=== PATIENT | female | born 1960 | race Caucasian/White ===

== ENCOUNTER 2017-05-05 09:10 | Day surgery (SDC) | payer MEDICAID, SELFPAY ==
[2017-05-05 09:36] VITALS: BP 180/82; PULSE 58; RESP 16; TEMP 36.2; O2SAT 95; BMI 50.5
--- NOTE | 2017-05-05 10:15 | RAD_ITS ---
STUDY: X-RAY/FLUOROSCOPY - THORACIC SPINE REASON FOR EXAM: Female, 56 years old. Thoracic nerve blocks. TECHNIQUE: Fluoroscopic assistance was provided to Dr. Lai. 4 intraprocedural fluoroscopic spot view(s) of the thoracic spine were obtained. COMPARISON: None. FINDINGS: 4 films demonstrate positioning of a needle such that its tip overlaps the pedicle of the respective vertebral level, on the same side. The levels are not marked, but based on the identifiable ribs, this may be blocked performed at T6-T9. RAD/Thoracic Spine 2 Views IMPRESSION: Fluoroscopic guidance for bilateral thoracic spinal nerve blocks, grossly T6-T9. Correlation with procedure notes advised. Electronically Signed: Edvin Palmer MD at 13:47 EDT , Service support ,
[2017-05-05] MEDS: Bupivacaine 0.25% 30 ML Vial (10:22)
[2017-05-05] MEDS: MethylPREDNISolone Acetate 80 MG/ML Vial (10:22)
[2017-05-05 10:35] VITALS: BP 128/78; BP 180/82; PULSE 61; RESP 16; TEMP 36.3; O2SAT 94
[2017-05-05 10:40] VITALS: BP 141/79; PULSE 55; RESP 16; O2SAT 94
[2017-05-05 10:45] VITALS: BP 138/85; PULSE 54; RESP 16; O2SAT 94
[2017-05-05 10:50] VITALS: BP 132/74; BP 180/82; PULSE 55; RESP 16; TEMP 36.2; O2SAT 94
--- NOTE | 2017-05-05 11:38 | PCM.OPRPT ---
Problem List (1) Thoracic degenerative disc disease Status: Chronic (2) Spondylosis without myelopathy or radiculopathy, thoracic region Status: Chronic Report of Operation Date of Procedure: 05/05/17 Pre-Operative Diagnosis: Thoracic spondylosis, thoracic degenerative disc disease, thoracic facet arthropathy Post-Operative Diagnosis: Thoracic spondylosis, thoracic degenerative disc disease, thoracic facet arthropathy Surgery/Procedure Performed:: Right sided thoracic facet steroid injection T4, T5, T6, T7 Description of Surgical Findings:: PROCEDURE: Right-sided thoracic facet steroid injection T4, T5, T6, T7 PREOPERATIVE DIAGNOSES: Thoracic spondylosis, thoracic degenerative disc disease, thoracic facet arthropathy POSTOPERATIVE DIAGNOSES: Thoracic spondylosis, thoracic degenerative disc disease, thoracic facet arthropathy ANESTHESIA: MAC COMPLICATIONS: None BLOOD LOSS: Minimal PROCEDURE IN DETAIL: History and physical today was reviewed. Risks and benefits of the procedure were explained. The patient understood, agreed to our procedure, and informed consent was obtained. IV inserted per routine protocol. The patient was taken to the operating room, placed in a prone position with a pillow positioned underneath the chest. The upper back area was prepped and draped in a sterile fashion using iodine ?3 under direct visualization fluoroscopy on AP view the T4 through T7 vertebral bodies are visualized the skin and subcutaneous tissue and size approximately 5 cc of 1% lidocaine using a 25-gauge regular needle under direct visualization fluoroscopy at approximately 15? angle starting on the right C4 ending on the right T7 passing through the T5-T6 using a 25-gauge 3-1/2 inch spinal needle the needle was advanced via the skin the tip of the needle's maneuver and directed towards the epiphyseal junction of each corresponding vertebra once the tip of the needle was at the vicinity of the medial branch and contact with the bone the needle pulled approximately 2 mm of the bone after negative aspiration for blood or CSF and confirmation of AP as well as oblique and lateral view a total of 6 cc of preservative-free 0.25% Marcaine with 80 mg of Depo-Medrol were injected in divided doses between those 4 levels. The needles were then removed intact. The patient experienced no signs or symptoms of intrathecal, intravascular injection. The patient experienced no paraesthesia. The procedure was completed without any apparent difficulty, any complication. The patient appeared to tolerate well. Sensory as well as motor exam was unchanged from prior to procedure. ASSESSMENT AND PLAN: This is a 56-year-old Female with thoracic spondylosis, thoracic degenerative disc disease, thoracic facet arthropathy status post right-sided thoracic facet steroid injection T4 through T7, the patient will continue her current medications. The patient will follow up in approximately 2 weeks fo reevaluation.
== END 2017-05-05 11:20 | disposition home or self-care (01) ==
LOC: SDC 09:12 → AC 09:13
PROVIDERS: Family Provider Preventive Medicine Occupational Medicine; PCP Preventive Medicine Occupational Medicine; Visit Provider Anesthesiology Pain Medicine
PROC: 3E0R3BZ Introduction of Anesthetic Agent into Spinal Canal, Percutaneous Approach (ICD-10-PCS; CPT 62281; principal; 2017-05-05 10:40)
DX: M47.814 Spondylosis without myelopathy or radiculopathy, thoracic region (principal); M51.34 Other intervertebral disc degeneration, thoracic region; M47.812 Spondylosis without myelopathy or radiculopathy, cervical region; M50.30 Other cervical disc degeneration, unspecified cervical region; M51.16 Intervertebral disc disorders with radiculopathy, lumbar region; M96.1 Postlaminectomy syndrome, not elsewhere classified; M47.27 Other spondylosis with radiculopathy, lumbosacral region; M79.1 Myalgia; F41.9 Anxiety disorder, unspecified; F32.9 Major depressive disorder, single episode, unspecified; I10 Essential (primary) hypertension; G47.33 Obstructive sleep apnea (adult) (pediatric); M79.7 Fibromyalgia; Z87.891 Personal history of nicotine dependence; Z79.82 Long term (current) use of aspirin; Z79.891 Long term (current) use of opiate analgesic; Z79.899 Other long term (current) drug therapy
CPT/HCPCS: 64491; 64492; 64490; 72070; J7120

== ENCOUNTER 2017-05-29 17:48 | Observation (INO) | payer MEDICAID, SELFPAY ==
[2017-05-29] VITALS (9 sets, daily range): BP systolic 139–177; BP diastolic 74–109; PULSE 64–78; RESP 12–20; TEMP 36.9–37.1; O2SAT 92–96; BMI 51.2; BMI 51.0; BMI 51.1
--- NOTE | 2017-05-29 18:04 | RAD_ITS ---
STUDY: X-RAY CHEST REASON FOR EXAM: Female, 56 years old. Chest pain TECHNIQUE: Single AP portable view of the chest. COMPARISON: None. FINDINGS: The lungs are clear and expanded. There is no demonstrated pleural abnormality. Normal size heart. Normal mediastinum and katelyn. Normal visualized pulmonary arteries. Normal visualized aortic arch and descending thoracic aorta. Normal visualized thoracic spine. Normal visualized ribs, clavicles, and shoulders. There is no demonstrated abnormality of the visualized soft tissue structures of the upper abdomen. RAD/Chest 1 View (Portable) IMPRESSION: Normal x-ray examination of the chest. Electronically Signed: Brian Pacheco DO at 18:36 EDT Tel , Service support ,
--- NOTE | 2017-05-29 18:04 | EKG12_ITS ---
Test Reason : SOB Blood Pressure : / mmHG Vent. Rate : 069 BPM Atrial Rate : 069 BPM P-R Int : 190 ms QRS Dur : 080 ms QT Int : 420 ms P-R-T Axes : 043 -41 053 degrees QTc Int : 450 ms Normal sinus rhythm Left axis deviation Inferior infarct , age undetermined Abnormal ECG Confirmed by STEPHANIE MINOR, ALBINA ([id number]), book or script editor LAWRENCE CANO ([id number]) on 06/03/2017 2:19:02 PM Referred By: TAMI Confirmed By:ALBINA BROWN MD
--- NOTE | 2017-05-29 18:05 | ED.VISSUMM ---
- ER Visit Summary Date of Service: 05/29/17 Chief Complaint: Shortness of breath, chest pain History of Present Illness: The patient is a 56 F presenting with shortness of breath, chest pain. She states that these symptoms have been worsening over the last couple of days. She has chest heaviness and shortness of breath which is worse with exertion. Denies diaphoresis or nausea. She has seen Dr. Sands who advised her he does not believe this is from her lungs and has ordered an echo for later in the month. She presented today due to worsening chest heaviness. She has a history of hypertension, chronic back pain, fibromyalgia. She is a previous smoker. No PE/DVT risk factors. Physical Examination: Vitals are stable. Patient is afebrile. Alert no acute distress. HEENT exam is unremarkable. Neck is supple. Lungs are clear and equal bilaterally. Heart is regular rate and rhythm. Abdomen is soft nontender nondistended. Extremities are unremarkable. Skin is warm and dry. No focal neurologic deficit. Remainder of exam is unremarkable. Emergency Department Course and Treatment: Patient was given aspirin on arrival. CBC, chemistries unremarkable other than creatinine 1.28. Troponin is negative. BNP is 50. EKG is sinus rate of 69 with no acute ischemic changes. Chest x-ray shows no acute process. Due to patient's exertional symptoms will discuss with the hospitalist for admission. Disposition: Observation Impression: Chest pain, dyspnea This note was generated with [employer] dictation software. It may contain incorrect words, spelling, and punctuation that were not noted in review of the chart prior to signing ED Disposition - Plan for ED Patient: Chief Complaint: Shortness of Breath Referrals: Joey Peters DO [Primary Care Provider] -
[2017-05-29 18:32] LABS: Absolute Lymphocyte Count 3.12 X10^3/ul (0.83-4.51); Absolute Neutrophil Count 2.7 X10^3/uL (2.0-7.7); Basophil# 0.01 X10^3/uL; Basophil% 0.2 % (0-1); Eosinophil# 0.11 X10^3/uL; Eosinophils% 1.7 % (0-5); Hematocrit 43.3 % (37-47); Hemoglobin 14.6 g/dl (12.0-15.0); Lymphocyte # 3.12 X10^3/ul (4.0); Lymphocyte % 48.7 % (19-41); Mean Corp Hgb Conc 33.7 g/gl (32-36); Mean Corpuscular Hgb 32.9 pg (27.0-32.0); Mean Corpuscular Volume 97.5 fL (81-99); Mean Platelet Vol. 9.8 fl (6.2-12.0); Monocyte# 0.49 X10^3/uL; Monocyte% 7.6 % (0-10); Neutrophil # 2.65 X10^3/uL (2.7-7.7); Neutrophil % 41.3 % (47-70); Platelet Count 214 K/mm3 (150-450); RBC Distribution Width CV 12.5 % (11.6-14.6); RBC Distribution Width SD 44.2 fl (35.1-43.9); Red Blood Count 4.44 M/mm3 (4.2-5.4); White Blood Count 6.4 K/mm3 (4.4-11.0)
[2017-05-29 18:33] LABS: POSITIVE COUNT NO; POSITIVE DIFFERENTIAL NO; POSITIVE MORPHOLOGY NO
[2017-05-29 18:48] LABS: Anion Gap 9 (5-15); BUN 15 mg/dL (7-18); BUN/Creat Ratio 11.7 RATIO (10-20); Calcium,Total 8.5 mg/dL (8.5-10.1); Chloride 103 mmol/L (98-107); Creatinine, Serum 1.28 mg/dL (0.55-1.02); EST Glomerular Filtration Rate 45 mL/min (>60); Est Glom Filt Rate - Afr Amer 55 mL/min (>60); Estimated Creatinine Clearance 39.63 ml/min; Glucose 112 mg/dL (74-106); Potassium 3.6 mmol/L (3.5-5.1); Sodium Level 141 mmol/L (136-145)
[2017-05-29] MEDS: Aspirin 81 MG TAB.CHEW 324 MG PO (18:49)
[2017-05-29 18:55] LABS: BNP,B-Type NATRIURETIC PEPTIDE 50.4 pg/mL (0-100)
--- NOTE | 2017-05-29 19:54 | PCM.HP.STD ---
Problem List (1) Anxiety and depression Status: Chronic (2) Chronic back pain Status: Chronic Qualifiers: Back pain location: thoracic back pain Back pain laterality: unspecified Qualified Code(s): M54.6 - Pain in thoracic spine; G89.29 - Other chronic pain (3) HTN (hypertension) Status: Chronic Qualifiers: Hypertension type: essential hypertension Qualified Code(s): I10 - Essential (primary) hypertension (4) Morbid obesity Status: Chronic (5) Exertional dyspnea Status: Acute (6) Thoracic degenerative disc disease Status: Chronic (7) Spondylosis without myelopathy or radiculopathy, thoracic region Status: Chronic (8) Chest pain Status: Acute Qualifiers: Chest pain type: unspecified Qualified Code(s): R07.9 - Chest pain, unspecified History of Present Illness Date of Admission: 05/29/17 Chief Complaint: Dyspnea The patient is a 56 y/o F w/ PMHx: HARRISON on q HS BIPAP, Morbid Obesity, History of Tobacco, Chronic back pain w/ Thoracic DDD w/ radiculopathy, Anxiety and Depression, HTN who presents to the [facility] ED on 05/29/17 with history of ongoing dyspnea, primarily with exertion for which she has been recently evaluated per Dr. Sands with unremarkable pulmonary work-up and pending ECHO as Dr. Sands noted possibly secondary to underlying heart etiology; however, she notes onset over the 2 days days chest tightness with the dyspnea, primarily again with exertion, mid-sternal without radiation without diaphoresis, nausea or emesis. In the ED work-up inclued T 98.4, HR 70, BP 139/74, RR 20, 96% on RA, unremarkable CBC, BMP w/ BUN/Cr 15/1.28, CrCl 39, glucose 112, trop < 0.02, BNP 50.4, CXR without acute process, EKG w/ SR without acute findings on ischemia. In the ED patient administered ASA in the ED. Past Medical History Past Medical History (Chronic Problems): Chronic Problems Thoracic degenerative disc disease (Chronic) Spondylosis without myelopathy or radiculopathy, thoracic region (Chronic) Anxiety and depression (Chronic) Chronic back pain (Chronic) HTN (hypertension) (Chronic) Morbid obesity (Chronic) Allergies adhesive Allergy (Verified 05/29/17 17:49) Hives Sulfa (Sulfonamide Antibiotics) Allergy (Verified 05/29/17 17:49) Rash Tetanus Vaccines and Toxoid [Tetanus Vaccines & Toxoid] Allergy (Verified 05/29/17 17:49) Swelling promethazine HCl [From Phenergan] Adverse Reaction (Verified 05/29/17 17:49) Vomiting Home Medications: Ambulatory Orders Medication Instructions Recorded ALPRAZolam [Xanax] 0.25 mg PO TID PRN PRN 03/26/13 Aspirin [Aspirin, Baby] 81 mg PO DAILY@0800 03/26/13 Atenolol [Tenormin (beta melany)] 50 mg PO QHS 03/26/13 Buspirone HCl [Buspar] 30 mg PO BID 03/26/13 Citalopram [Celexa] 40 mg PO DAILY 03/26/13 Meclizine HCl [Antivert] 25 mg PO 4X/DAY PRN PRN 03/26/13 Pregabalin [Lyrica] 100 mg PO BID 03/26/13 Biotin 5,000 mcg PO DAILY 05/19/14 Multivitamins,Ther W-Minerals 1 tablet PO DAILY 05/19/14 [Multivitamin With Minerals] Morphine Sulfate [Morphine Sulfate 15 mg PO Q12H 06/17/16 ER] Diclofenac Sodium [Voltaren] 0 gm TOPICAL PRN PRN 11/04/16 Triamterene 37.5MG/Hctz 25MG 1 tablet PO DAILY 11/04/16 [Maxzide 37.5 mg-25 mg Tablet] Krill Oil 500 mg PO DAILY 05/29/17 Oxycodone HCl/Acetaminophen 2 tablet PO Q12H PRN 05/29/17 [Percocet 10-325 mg Tablet] Tizanidine HCl [Tizanidine HCl] 0.5 - 1 tab PO TID 05/29/17 Surgical History: - - Tonsillectomy, uterine ablation, bilateral ear tube placement, right middle finger cyst removal, lip surgery bump removal, sinus surgery, L4-L5 microdiscectomy ?2. 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 Smoking Status: Former smoker - Quit approximate to 2.5 years prior, noted 1 ppd x 20 year history. Tobacco Use: Non-smoker Alcohol: None Drugs: None - *Family History Maternal History Items: - - Patient notes a maternal family history of diabetes and congestive heart failure. Paternal History Items: - - Patient has a paternal family history of mitral valve prolapse and her father's family with significant heart disease history including coronary disease. Review of Systems Constitutional: Reports: Fatigue. Denies: Chills, Fever, Weight Change HEENT: Denies: Head Aches, Sinus Congestion, Sinus Drainage Cardiovascular: Reports: Chest Pressure, Chest Tightness. Denies: Chest Pain, Heaviness, Light Headedness, Orthopnea, Palpitations, Syncope Respiratory: Reports: Shortness of Breath, Shortness of breath upon exertion. Denies: Cough, Shortness of breath at rest, Sputum production Gastrointestinal: Denies: Abdominal Pain, Nausea, Vomiting Genitourinary: Denies: Dysuria Musculoskeletal: Reports: Back Pain. Denies: Joint Pain, Joint Tenderness Skin: Denies: Rash, Wounds Neurological: Denies: Numbness, Tingling, Focal weakness Psychiatric: Reports: Anxiety, Depression. Denies: Homicidal Ideations, Suicidal Ideations Hematologic/ Lymphatic: Denies: Easy Bruising, Easy Bleeding VTE Information - Inpt Only VTE Present on Admission: No VTE Mechan Device Prophylaxis: SCD's VTE Pharm Prophylaxis ordered?: Yes Patient Problems: Active and Suspected Problems Exertional dyspnea (Acute) Chest pain (Acute) Subjective: Seated upright in the ED bed, talking on the phone initially, watching TV, no apparent distress. Objective: Physical Examination: General: awake, alert, oriented x 3 and cooperative, seated upright in the ED bed in no apparent distress. Skin: normal color, turgor, no icterus, cyanosis. HEENT: AT/NC, EOMI, PERRLA, MMM, no carotid bruits or JVD noted. Lungs: CTA bilaterally, moderate effort, mild decrease BL bases, no rales, ronchi or wheezing. Heart: Regular rate and rhythm; no gallop, rub audible. Abdomen: soft, morbidly obese, NTTP, ND, normal BS, no HSM; however, habitus makes examination difficult. Extremities: no cyanosis, clubbing, or edema. Neurological: patient awake, alert, oriented x 3; cognitive function intact; pupils equally reactive to light and accomodation; cranial nerves II-XII grossly normal, moving all 4 extremities, no focal deficits, strength mildly globally decreased secondary to habitus limitations and acute presentation. Psychiatric: affect appears normal, no acute evidence of depressive or anxiety feelings. - Physical Exam Vital Signs Temp Pulse Resp BP Pulse Ox 98.4 F 70 20 H 139/74 H 96 05/29/17 17:49 05/29/17 18:59 05/29/17 18:59 05/29/17 18:59 05/29/17 18:59 Oxygen Delivery Method Room Air Weight: 289 lb 0.416 oz Body Mass Index (BMI) 51.2 Laboratory Tests Past 24 Hrs 05/29/17 05/29/17 05/29/17 18:20 18:20 18:20 WBC 6.4 RBC 4.44 Hgb 14.6 Hct 43.3 MCV 97.5 MCH 32.9 H MCHC 33.7 RDW 12.5 RDW Differential 44.2 H Plt Count 214 MPV 9.8 Immature Gran % (Auto) 0.500 Neut % (Auto) 41.3 L Lymph % (Auto) 48.7 H Sullivan % (Auto) 7.6 Eos % (Auto) 1.7 Baso % (Auto) 0.2 Absolute Neuts (auto) 2.7 Absolute Lymphs (auto) 3.12 Total Counted Not Reportable Sodium 141 Potassium 3.6 Chloride 103 Carbon Dioxide 29.0 Anion Gap 9 BUN 15 Creatinine 1.28 H Estim Creat Clear Calc 39.63 Est GFR (MDRD) Af Amer 55 L Est GFR (MDRD) Non-Af 45 L BUN/Creatinine Ratio 11.7 Glucose 112 H Calcium 8.5 Troponin I < 0.02 B-Natriuretic Peptide 50.4 Assessment/Plan Active and Suspected Problems Exertional dyspnea (Acute) Chest pain (Acute) The patient is a 56 y/o F w/ PMHx: HARRISON on q HS BIPAP, Morbid Obesity, History of Tobacco, Chronic back pain w/ Thoracic DDD w/ radiculopathy, Anxiety and Depression, HTN who presents to the [facility] ED on 05/29/17 with history of ongoing dyspnea, primarily with exertion for which she has been recently evaluated per Dr. Sands with unremarkable pulmonary work-up and pending ECHO as Dr. Sands noted possibly secondary to underlying heart etiology; however, she notes onset over the 2 days days chest tightness with the dyspnea, primarily again with exertion, mid-sternal without radiation without diaphoresis, nausea or emesis. (1) Chest Pain, Exertional Dyspnea: In the ED work-up inclued T 98.4, HR 70, BP 139/74, RR 20, 96% on RA, unremarkable CBC, BMP w/ BUN/Cr 15/1.28, CrCl 39, glucose 112, trop < 0.02, BNP 50.4, CXR without acute process, EKG w/ SR without acute findings on ischemia. Will admit to PCU, place on a monitored bed to assure no acute myocardial infarction with serial cardiac enzymes and EKGs. Patient is unable to perform exercise thus will proceed with AM nuclear stress testing. ASA, NG, morphine. FLP in AM, mag pending. ECHO pending. (2) Hypertension: Continue home regimen including atenolol, triamterene, hydrochlorothiazide, PRN hydralazine. (3) Morbid Obesity: Weight loss and lifestyle changes encouraged, nutrition consulted. (4) History of Tobacco: Encourage continued tobacco cessation. (5) Chronic back pain w/ Thoracic DDD w/ radiculopathy: Following w/ Pain Management, maintain on home regimen morphine sulfate, PRN percocet, tizanidine. Would benefit from weight loss and lifestyle changes. (6) Anxiety and Depression: Maintain on home regimen xanax, buspar, Celexa. (7) HARRISON: BIPAP q HS. (8) DVT Prophylaxis: SCDs, heparin. Code Visit OBSV E&M: [id number] Initial observation care L3
[2017-05-29] MEDS: busPIRone 15 MG TABLET 30 MG PO (21:37)
[2017-05-29] MEDS: Pregabalin 50 MG Capsule 100 MG PO (21:37)
[2017-05-29] MEDS: Atenolol 50 MG Tablet PO (21:38)
[2017-05-29] MEDS: Citalopram 40 MG TABLET PO (21:41)
[2017-05-29 22:00] LABS: Magnesium 2.2 mg/dL (1.6-2.6)
[2017-05-29] MEDS: oxyCODONE 5 MG Tablet 10 MG PO (23:07)
[2017-05-30] VITALS (15 sets, daily range): BP systolic 111–142; BP diastolic 53–81; PULSE 48–67; RESP 12–18; TEMP 36.1–36.8; O2SAT 91–97
[2017-05-30 02:46] LABS: Hematocrit 39.7 % (37-47); Hemoglobin 13.8 g/dl (12.0-15.0); Mean Corp Hgb Conc 34.8 g/gl (32-36); Mean Corpuscular Hgb 33.5 pg (27.0-32.0); Mean Corpuscular Volume 96.4 fL (81-99); Mean Platelet Vol. 9.9 fl (6.2-12.0); Platelet Count 205 K/mm3 (150-450); RBC Distribution Width CV 12.2 % (11.6-14.6); RBC Distribution Width SD 41.5 fl (35.1-43.9); Red Blood Count 4.12 M/mm3 (4.2-5.4); White Blood Count 5.8 K/mm3 (4.4-11.0)
[2017-05-30 02:59] LABS: Scan Indicated on CBC? Y/N NO
[2017-05-30 03:12] LABS: Anion Gap 7 (5-15); BUN 14 mg/dL (7-18); BUN/Creat Ratio 14.7 RATIO (10-20); Calcium,Total 7.9 mg/dL (8.5-10.1); Chloride 107 mmol/L (98-107); Cholesterol 175 mg/dL (200); Creatinine, Serum 0.95 mg/dL (0.55-1.02); EST Glomerular Filtration Rate 64 mL/min (>60); Est Glom Filt Rate - Afr Amer 78 mL/min (>60); Glucose 103 mg/dL (74-106); High Density Lipoprotein 38 mg/dL; Potassium 3.9 mmol/L (3.5-5.1); Sodium Level 139 mmol/L (136-145); Triglycerides 135 mg/dL; Very Low Density Lipoprotein 27 mg/dL (5-40)
[2017-05-30 05:28] LABS: Partial Thromboplast Time 24.7 Seconds (24.1-36.2); Prothrombin Time (Protime)PT. 13.3 SECONDS (11.7-14.9)
[2017-05-30] MEDS: Aspirin E.C. 81 MG Tablet PO (05:46)
[2017-05-30] MEDS: morphine SR 15 MG Tablet PO ×2 (05:47→17:44)
--- NOTE | 2017-05-30 05:55 | EKG12_ITS ---
Test Reason : AM EKG Blood Pressure : / mmHG Vent. Rate : 055 BPM Atrial Rate : 055 BPM P-R Int : 208 ms QRS Dur : 080 ms QT Int : 476 ms P-R-T Axes : 017 -22 060 degrees QTc Int : 455 ms Sinus bradycardia Low voltage QRS Borderline ECG When compared with ECG of 26-MAR-2013 01:52, Left posterior fascicular block is no longer Present Criteria for Septal infarct are no longer Present Reconfirmed by ALBINA BROWN MD ([id number]), rewrite editor LAWRENCE CANO ([id number]) on 06/03/2017 3:30:20 PM Referred By: DR SHRESTHA Confirmed By:ALBINA BROWN MD
--- NOTE | 2017-05-30 05:55 | ECHOD_ITS ---
Reason For Study: DYSPNEA/SOB Procedure This was a 2D Doppler, Color Flow transthoracic echocardiogram. Exam performed in department. Left Ventricle Normal LV size. Mild concentric left ventricular hypertrophy. Left ventricular systolic function is normal. The estimated ejection fraction is 55 %. No evidence for diastolic dysfunction. No regional wall motion abnormalities noted. Right Ventricle Normal RV size. Normal systolic function. Atria Normal left atrium. Normal right atrium. Mitral Valve There is mild mitral annular calcification. Mild (1+) eccentric mitral valve insufficiency. Tricuspid Valve Normal tricuspid valve. Mild (1+) tricuspid valve insufficiency. Pulmonary artery systolic pressure is 33 mmHg. Pulmonic Valve Normal pulmonic valve. Great Vessels Normal aortic root. The pulmonary artery is normal size. Normal inferior vena cava. Pericardium/Pleural No pericardial effusion. MMode/2D Measurements & Calculations LVIDd: 4.9 cm IVSd: 1.3 cm Ao root diam: 3.3 cm LVIDs: 3.2 cm LVPWd: 1.2 cm RVDd: 2.9 cm FS: 34.6 % LAV(MOD-bp): 38.2 ml EDV(MOD-sp4): 94.7 ml SV(MOD-sp4): 55.8 ml LAV(MOD-bp) Indexed: 16.9 ml/m2 ESV(MOD-sp4): 38.9 ml LAV(MOD-sp2): 38.8 ml EF(MOD-sp4): 59.0 % LAV(MOD-sp4): 35.5 ml LA A4 area: 14.9 cm2 RA A4 area: 10.5 cm2 Time Measurements MV dec time: 0.20 sec Doppler Measurements & Calculations MV E max robert: 77.1 cm/sec Lat Peak E' Robert: 8.3 cm/sec Med Peak E' Robert: 7.0 cm/sec MV A max robert: 74.3 cm/sec E/E' lat: 9.3 E/E' med: 11.0 MV E/A: 1.0 Ao V2 max: 160.0 cm/sec LV V1 max: 148.9 cm/sec PA V2 max: 95.6 cm/sec Ao max P.2 mmHg LV V1 max P.9 mmHg TR max robert: 274.6 cm/sec TR max P.2 mmHg Interpretation Summary Normal LV size. Mild concentric left ventricular hypertrophy. Left ventricular systolic function is normal. The estimated ejection fraction is 55 %. No evidence for diastolic dysfunction. Mild (1+) tricuspid valve insufficiency. Pulmonary artery systolic pressure is 33 mmHg. Ordering Physician: Nazia Majano Referring Physician: RIGO BERGER Performed By: Rafaela Anton RDCS
--- NOTE | 2017-05-30 09:06 | STRESSREP ---
Stress Test Report Date: 05/30/2017 Procedure: Pharmacologic stress nuclear imaging study Indications: Chest pain Consent: Per the patient Procedure: The patient underwent pharmacologic (Regadenoson) evaluation with a peak heart rate of 92 beats per minute (56 predicted maximal heart rate) and a peak blood pressure of 134/80 mmHg. The baseline ECG demonstrated sinus bradycardia with nonspecific T-wave abnormality. The peak pharmacologic ECG demonstrated obvious ECG changes. There were no cardiac dysrhythmias pretest, during pharmacologic infusion, or recovery. There was no complaint of chest discomfort during pharmacologic infusion or recovery. The examination was discontinued secondary to completion of protocol. Impression: 1. Pharmacologic (Regadenoson) evaluation 2. Peak pharmacologic ECG with no obvious ECG changes. 3. There were no cardiac dysrhythmias pretest, during pharmacologic infusion, or recovery 4. Nuclear images pending Myocardial perfusion imaging study: Technique: The patient was injected with 14.8 millicuries of technetium 99m Cardiolite and subsequently rest SPECT Cardiolite nuclear imaging was obtained in the horizontal long, vertical long, and short axis views. The patient underwent pharmacologic (Regadenoson) evaluation with a peak heart rate of 92 beats per minute (56 % percent predicted maximal heart rate) and a peak blood pressure of 134/80 mmHg. the patient was injected with 44.9 millicuries of technetium 99m Cardiolite and subsequently stress SPECT Cardiolite nuclear imaging was obtained in the horizontal long, vertical long, and short axis views. A gated Cardiolite study at peak stress was obtained. Interpretation: Rest and stress SPECT Cardiolite nuclear imaging status post realignment, normalization, and attenuation correction demonstrate to have uniform tracer uptake and myocardial perfusion appearing within normal limits. There is end systolic thickening and brightening. The gated Cardiolite study demonstrates myocardial thickening and inward wall motion. The reported LVEF is 77%. Impression: 1. Rest and stress SPECT Cardiolite nuclear imaging demonstrate relative uniform tracer uptake and myocardial perfusion appearing within normal limits. 2. The gated Cardiolite study reports an LVEF of 77 %. This note was generated with [employer] software. It may contain incorrect words, spelling, and punctuation that were not noted in checking the note before signing.
[2017-05-30] MEDS: Enoxaparin 40 MG/0.4 ML Syringe SC (09:47)
[2017-05-30] MEDS: Triamterene 37.5MG/Hctz 25MG Capsule 1 CAP PO (09:47)
[2017-05-30] MEDS: busPIRone 15 MG TABLET 30 MG PO ×2 (09:47→22:27)
[2017-05-30] MEDS: Pregabalin 50 MG Capsule 100 MG PO ×2 (09:51→22:32)
[2017-05-30] MEDS: oxyCODONE 5 MG Tablet 10 MG PO (09:51)
[2017-05-30] MEDS: 0.9% NaCl Peripheral Flush Adult/Peds IV (14:38)
[2017-05-30] MEDS: Ondansetron 4 MG/2 ML Vial IV (14:38)
[2017-05-30] MEDS: Acetaminophen/Butalbital/Caffe 1 Tablet PO (14:38)
--- NOTE | 2017-05-30 16:23 | CT_ITS ---
STUDY: CT CHEST WITH CONTRAST REASON FOR EXAM: Female, 56 years old. Chest pain RADIATION DOSAGE (If Supplied By Facility): CTDIvol = ( 13.4 ) mGy, DLP = ( 677.96 ) mGycm TECHNIQUE: Transaxial imaging was performed following intravenous administration of 100 ml of Isovue 300 contrast material. Multiplanar coronal and sagittal images were reformatted. Individualized dose optimization techniques were used for this CT. COMPARISON: None. FINDINGS: The contrast bolus is limited to evaluate for pulmonary embolism. However there are extensive filling defects within the left main pulmonary artery and left upper lobe left lower lobe branches and extending into the right interlobar artery segmental and subsegmental branches. There is minimal clot extending up into the right upper lobe branches. There is minimal lower lobe atelectasis. There is no demonstrated pleural abnormality. Normal heart and pericardium. There is borderline cardiac enlargement. There is a nonspecific right-sided paratracheal lymph node measuring 7.8 mm. Normal hilar regions. There is abnormal enhancement of the pulmonary arteries. Normal aorta arch and descending thoracic aorta. There are multi-level degenerative changes of the thoracic spine. There is a minimal hiatal hernia. CT/Chest WITH Contrast IMPRESSION: Findings are positive for bilateral extensive pulmonary emboli. Lower lobe atelectasis. Borderline cardiac enlargement. N.B. : The above information has been verbally conveyed by Ramona Reece MD to Carol Dickson Charge Nurse, Other, on 05/30/2017 16:59:03 (ET). Electronically Signed: Ramona Reece MD at 16:49 EDT Tel , Service support , N.B. : The above information has been verbally conveyed by Ramona Reece MD to Carol Dickson Charge Nurse, Other, on 05/30/2017 16:59:03 (ET).
[2017-05-30] MEDS: Enoxaparin 150 MG/ML Syringe 130 MG SC (18:33)
--- NOTE | 2017-05-30 20:08 | PCM.PROGNOTE ---
Patient Problems: Active and Suspected Problems Exertional dyspnea (Acute) Chest pain (Acute) Subjective: She continues to have dyspnea, although it is chronic at this point. Stress test was negative. Echo was unremarkable. CTA chest was ordered, showed bilateral PE. - Physical Exam General: Alert, Oriented x3, Cooperative, Well developed, Well nourished HEENT: Atraumatic Oral: Moist Mucosa Neck: Supple, No JVD, Negative Carotid Bruits Lungs: Clear to auscultation, Normal air movement, No rhonchi, No wheeze, No rales Cardiovascular: Regular rate, Regular Rhythm, Normal S1, Normal S2, No murmurs, No Ectopic Activity Abdomen: Bowel Sounds Present, Soft, Non Tender, Non-Distended, Obese Extremities: No clubbing, No cyanosis, No edema Skin: No rashes, No breakdown Musculoskeletal: No Tenderness to Palpation of Joints or Extremities, No Muscle Wasting Lymphatic: No Cervical, Supraclavicular, or Inguinal Adenopathy Neurological: Cranial nerves II-XII grossly intact, Neuro grossly intact Psych/Mental Status: Normal Affect Vital Signs Temp Pulse Resp BP Pulse Ox 98.3 F 61 16 120/53 L 95 05/30/17 17:39 05/30/17 17:39 05/30/17 17:39 05/30/17 17:39 05/30/17 17:39 Oxygen Flow Rate (L/min) 2 Oxygen Delivery Method Nasal Cannula Weight: 287 lb 7.724 oz Body Mass Index (BMI) 51.0 Intake and Output for Last 24 Hours 05/28/17 05/29/17 05/30/17 23:59 23:59 23:59 Intake Total 240 / 240 700 / 700 Balance 240 / 240 700 / 700 Laboratory Tests Past 24 Hrs 05/29/17 05/30/17 05/30/17 22:36 02:31 02:31 WBC 5.8 RBC 4.12 L Hgb 13.8 Hct 39.7 MCV 96.4 MCH 33.5 H MCHC 34.8 RDW 12.2 RDW Differential 41.5 Plt Count 205 MPV 9.9 PT INR APTT Sodium Cancelled Potassium Cancelled Chloride Cancelled Carbon Dioxide Cancelled Anion Gap Cancelled BUN Cancelled Creatinine Cancelled Estim Creat Clear Calc Cancelled Est GFR (MDRD) Af Amer Cancelled Est GFR (MDRD) Non-Af Cancelled BUN/Creatinine Ratio Cancelled Glucose Cancelled Calcium Cancelled Troponin I < 0.02 Triglycerides Cancelled Cholesterol Cancelled LDL Cholesterol Cancelled VLDL Cholesterol Cancelled HDL Cholesterol Cancelled 05/30/17 05/30/17 05/30/17 02:31 05:00 09:25 WBC RBC Hgb Hct MCV MCH MCHC RDW RDW Differential Plt Count MPV PT 13.3 INR 1.0 APTT 24.7 Sodium 139 Potassium 3.9 Chloride 107 Carbon Dioxide 25.0 Anion Gap 7 BUN 14 Creatinine 0.95 Estim Creat Clear Calc 53.40 Est GFR (MDRD) Af Amer 78 Est GFR (MDRD) Non-Af 64 BUN/Creatinine Ratio 14.7 Glucose 103 Calcium 7.9 L Troponin I < 0.02 < 0.02 Triglycerides 135 Cholesterol 175 LDL Cholesterol 110 VLDL Cholesterol 27 HDL Cholesterol 38 L Diagnostic Data Chest X-Ray 05/29/17 18:04 IMPRESSION: Normal x-ray examination of the chest. Electronically Signed: Brian Pacheco DO at 18:36 EDT Tel , Service support , Chest CT 05/30/17 16:23 IMPRESSION: Findings are positive for bilateral extensive pulmonary emboli. Lower lobe atelectasis. Borderline cardiac enlargement. N.B. : The above information has been verbally conveyed by Ramona Reece MD to Carol Dickson Charge Nurse, Other, on 05/30/2017 16:59:03 (ET). Electronically Signed: Ramona Reece MD at 16:49 EDT Tel , Service support , N.B. : The above information has been verbally conveyed by Ramona Reece MD to Carol Dickson Charge Nurse, Other, on 05/30/2017 16:59:03 (ET). Medical Necessity - Tobacco Use Smoking Status: Former smoker Tobacco Use: Non-smoker Assessment/Plan Active and Suspected Problems Exertional dyspnea (Acute) Chest pain (Acute) The patient is a 56 y/o F w/ PMHx: HARRISON on q HS BIPAP, Morbid Obesity, History of Tobacco, Chronic back pain w/ Thoracic DDD w/ radiculopathy, Anxiety and Depression, HTN who presents to the [facility] ED on 05/29/17 with history of ongoing dyspnea, primarily with exertion for which she has been recently evaluated per Dr. Sands with unremarkable pulmonary work-up and pending ECHO as Dr. Sands noted possibly secondary to underlying heart etiology; however, she notes onset over the 2 days days chest tightness with the dyspnea, primarily again with exertion, mid-sternal without radiation without diaphoresis, nausea or emesis. She underwent stress test, which was negative for ischemia. Echo was done also, which was unremarkable. CTA chest was ordered, showed extensive bilateral emboli. She has symptoms for one month, and has been hemodynamically stable. PE had likely happened few weeks ago. Consider to do US of leg for DVT also, although it would not alter the treatment plan. (1) Pulmonary emboli. CTA showed bilateral extensive PE. Lovenox 1 mg/kg q12h, and start warfarin 5 mg daily later tonight. INR daily. (2) Hypertension: Continue home regimen including atenolol, triamterene, hydrochlorothiazide, PRN hydralazine. (3) Morbid Obesity: Weight loss and lifestyle changes encouraged, nutrition consulted. (4) History of Tobacco: Encourage continued tobacco cessation. (5) Chronic back pain w/ Thoracic DDD w/ radiculopathy: Following w/ Pain Management, maintain on home regimen morphine sulfate, PRN percocet, tizanidine. Would benefit from weight loss and lifestyle changes. (6) Anxiety and Depression: Maintain on home regimen xanax, buspar, Celexa. (7) HARRISON: BIPAP q HS. (8) Atypical chest pain. Probably due to PE. Stress test negative. DVT Prophylaxis: SCDs, heparin. Code Visit Inpatient E&M: 54415 Subs Hosp L3
--- NOTE | 2017-05-30 20:22 | PN_ITS ---
Patient Problems: Active and Suspected Problems Exertional dyspnea (Acute) Chest pain (Acute) Subjective: She continues to have dyspnea, although it is chronic at this point. Stress test was negative. Echo was unremarkable. CTA chest was ordered, showed bilateral PE. - Physical Exam General: Alert, Oriented x3, Cooperative, Well developed, Well nourished HEENT: Atraumatic Oral: Moist Mucosa Neck: Supple, No JVD, Negative Carotid Bruits Lungs: Clear to auscultation, Normal air movement, No rhonchi, No wheeze, No rales Cardiovascular: Regular rate, Regular Rhythm, Normal S1, Normal S2, No murmurs, No Ectopic Activity Abdomen: Bowel Sounds Present, Soft, Non Tender, Non-Distended, Obese Extremities: No clubbing, No cyanosis, No edema Skin: No rashes, No breakdown Musculoskeletal: No Tenderness to Palpation of Joints or Extremities, No Muscle Wasting Lymphatic: No Cervical, Supraclavicular, or Inguinal Adenopathy Neurological: Cranial nerves II-XII grossly intact, Neuro grossly intact Psych/Mental Status: Normal Affect Vital Signs Temp Pulse Resp BP Pulse Ox 98.3 F 61 16 120/53 L 95 05/30/17 17:39 05/30/17 17:39 05/30/17 17:39 05/30/17 17:39 05/30/17 17:39 Oxygen Flow Rate (L/min) 2 Oxygen Delivery Method Nasal Cannula Weight: 287 lb 7.724 oz Body Mass Index (BMI) 51.0 Intake and Output for Last 24 Hours 05/28/17 05/29/17 05/30/17 23:59 23:59 23:59 Intake Total 240 / 240 700 / 700 Balance 240 / 240 700 / 700 Laboratory Tests Past 24 Hrs 05/29/17 05/30/17 05/30/17 22:36 02:31 02:31 WBC 5.8 RBC 4.12 L Hgb 13.8 Hct 39.7 MCV 96.4 MCH 33.5 H MCHC 34.8 RDW 12.2 RDW Differential 41.5 Plt Count 205 MPV 9.9 PT INR APTT Sodium Cancelled Potassium Cancelled Chloride Cancelled Carbon Dioxide Cancelled Anion Gap Cancelled BUN Cancelled Creatinine Cancelled Estim Creat Clear Calc Cancelled Est GFR (MDRD) Af Amer Cancelled Est GFR (MDRD) Non-Af Cancelled BUN/Creatinine Ratio Cancelled Glucose Cancelled Calcium Cancelled Troponin I < 0.02 Triglycerides Cancelled Cholesterol Cancelled LDL Cholesterol Cancelled VLDL Cholesterol Cancelled HDL Cholesterol Cancelled 05/30/17 05/30/17 05/30/17 02:31 05:00 09:25 WBC RBC Hgb Hct MCV MCH MCHC RDW RDW Differential Plt Count MPV PT 13.3 INR 1.0 APTT 24.7 Sodium 139 Potassium 3.9 Chloride 107 Carbon Dioxide 25.0 Anion Gap 7 BUN 14 Creatinine 0.95 Estim Creat Clear Calc 53.40 Est GFR (MDRD) Af Amer 78 Est GFR (MDRD) Non-Af 64 BUN/Creatinine Ratio 14.7 Glucose 103 Calcium 7.9 L Troponin I < 0.02 < 0.02 Triglycerides 135 Cholesterol 175 LDL Cholesterol 110 VLDL Cholesterol 27 HDL Cholesterol 38 L Diagnostic Data Chest X-Ray 05/29/17 18:04 IMPRESSION: Normal x-ray examination of the chest. Electronically Signed: Brian Pacheco DO at 18:36 EDT Tel , Service support , Chest CT 05/30/17 16:23 IMPRESSION: Findings are positive for bilateral extensive pulmonary emboli. Lower lobe atelectasis. Borderline cardiac enlargement. N.B. : The above information has been verbally conveyed by Ramona Reece MD to Carol Dickson Charge Nurse, Other, on 05/30/2017 16:59:03 (ET). Electronically Signed: Ramona Reece MD at 16:49 EDT Tel , Service support , N.B. : The above information has been verbally conveyed by Ramona Reece MD to Carol Dickson Charge Nurse, Other, on 05/30/2017 16:59:03 (ET). Medical Necessity - Tobacco Use Smoking Status: Former smoker Tobacco Use: Non-smoker Assessment/Plan Active and Suspected Problems Exertional dyspnea (Acute) Chest pain (Acute) The patient is a 56 y/o F w/ PMHx: HARRISON on q HS BIPAP, Morbid Obesity, History of Tobacco, Chronic back pain w/ Thoracic DDD w/ radiculopathy, Anxiety and Depression, HTN who presents to the [facility] ED on 05/29/17 with history of ongoing dyspnea, primarily with exertion for which she has been recently evaluated per Dr. Sands with unremarkable pulmonary work-up and pending ECHO as Dr. Sands noted possibly secondary to underlying heart etiology; however, she notes onset over the 2 days days chest tightness with the dyspnea, primarily again with exertion, mid-sternal without radiation without diaphoresis, nausea or emesis. She underwent stress test, which was negative for ischemia. Echo was done also , which was unremarkable. CTA chest was ordered, showed extensive bilateral emboli. She has symptoms for one month, and has been hemodynamically stable. PE had likely happened few weeks ago. Consider to do US of leg for DVT also, although it would not alter the treatment plan. (1) Pulmonary emboli. CTA showed bilateral extensive PE. Lovenox 1 mg/kg q12h, and start warfarin 5 mg daily later tonight. INR daily. (2) Hypertension: Continue home regimen including atenolol, triamterene, hydrochlorothiazide, PRN hydralazine. (3) Morbid Obesity: Weight loss and lifestyle changes encouraged, nutrition consulted. (4) History of Tobacco: Encourage continued tobacco cessation. (5) Chronic back pain w/ Thoracic DDD w/ radiculopathy: Following w/ Pain Management, maintain on home regimen morphine sulfate, PRN percocet, tizanidine. Would benefit from weight loss and lifestyle changes. (6) Anxiety and Depression: Maintain on home regimen xanax, buspar, Celexa. (7) HARRISON: BIPAP q HS. (8) Atypical chest pain. Probably due to PE. Stress test negative. DVT Prophylaxis: SCDs, heparin. Code Visit Inpatient E&M: 49428 Subs Hosp L3
[2017-05-30] MEDS: Atenolol 50 MG Tablet PO (22:27)
[2017-05-30] MEDS: Citalopram 40 MG TABLET PO (22:28)
[2017-05-31] VITALS (11 sets, daily range): BP systolic 129–147; BP diastolic 63–75; PULSE 52–62; RESP 12–18; TEMP 36.4–36.8; O2SAT 89–97
[2017-05-31] MEDS: morphine SR 15 MG Tablet PO (06:58)
[2017-05-31] MEDS: Enoxaparin 150 MG/ML Syringe 130 MG SC (06:59)
[2017-05-31 07:18] LABS: Hematocrit 41.1 % (37-47); Hemoglobin 14.1 g/dl (12.0-15.0); Mean Corp Hgb Conc 34.3 g/gl (32-36); Mean Corpuscular Hgb 33.2 pg (27.0-32.0); Mean Corpuscular Volume 96.7 fL (81-99); Mean Platelet Vol. 10.1 fl (6.2-12.0); Platelet Count 196 K/mm3 (150-450); RBC Distribution Width CV 12.1 % (11.6-14.6); RBC Distribution Width SD 40.9 fl (35.1-43.9); Red Blood Count 4.25 M/mm3 (4.2-5.4); White Blood Count 5.4 K/mm3 (4.4-11.0)
[2017-05-31 07:20] LABS: Scan Indicated on CBC? Y/N NO
[2017-05-31 07:22] LABS: Prothrombin Time (Protime)PT. 13.6 SECONDS (11.7-14.9)
[2017-05-31 07:49] LABS: Anion Gap 7 (5-15); BUN 14 mg/dL (7-18); BUN/Creat Ratio 16.3 RATIO (10-20); Calcium,Total 8.8 mg/dL (8.5-10.1); Chloride 103 mmol/L (98-107); Creatinine, Serum 0.86 mg/dL (0.55-1.02); EST Glomerular Filtration Rate 72 mL/min (>60); Est Glom Filt Rate - Afr Amer 87 mL/min (>60); Estimated Creatinine Clearance 58.98 ml/min; Glucose 97 mg/dL (74-106); Potassium 3.6 mmol/L (3.5-5.1); Sodium Level 140 mmol/L (136-145)
[2017-05-31] MEDS: Aspirin E.C. 81 MG Tablet PO (08:51)
[2017-05-31] MEDS: Triamterene 37.5MG/Hctz 25MG Capsule 1 CAP PO (09:56)
[2017-05-31] MEDS: busPIRone 15 MG TABLET 30 MG PO (09:56)
[2017-05-31] MEDS: Pregabalin 50 MG Capsule 100 MG PO (10:42)
--- NOTE | 2017-05-31 15:30 | PCM.DC ---
- Discharge Diagnoses Current Active Problems: Current Active and Chronic Problems Anxiety and depression (Chronic) Chronic back pain (Chronic) HTN (hypertension) (Chronic) Morbid obesity (Chronic) Exertional dyspnea (Acute) Chest pain (Acute) You will use the following diet at home:: Cardiac Your food should be the consistency of: Regular Your liquids should be the consistency of: Regular/Thin Discharge Activity: Return to Normal Activity Pending Tests on Discharge: INR to be done in 2 to 3 days. Allergies/Adverse Reactions: Allergies adhesive Allergy (Verified 05/29/17 17:49) Hives Sulfa (Sulfonamide Antibiotics) Allergy (Verified 05/29/17 17:49) Rash Tetanus Vaccines and Toxoid [Tetanus Vaccines & Toxoid] Allergy (Verified 05/29/17 17:49) Swelling promethazine HCl [From Phenergan] Adverse Reaction (Verified 05/29/17 17:49) Vomiting Medications to take at Discharge ALPRAZolam [Xanax] 0.25 mg PO TID PRN PRN 03/26/13 Aspirin [Aspirin, Baby] 81 mg PO DAILY@0800 03/26/13 Atenolol [Tenormin (beta melany)] 50 mg PO QHS 03/26/13 Buspirone HCl [Buspar] 30 mg PO BID 03/26/13 Citalopram [Celexa] 40 mg PO DAILY 03/26/13 Meclizine HCl [Antivert] 25 mg PO 4X/DAY PRN PRN 03/26/13 Pregabalin [Lyrica] 100 mg PO BID 03/26/13 Biotin 5,000 mcg PO DAILY 05/19/14 Multivitamins,Ther W-Minerals [Multivitamin With Minerals] 1 tablet PO DAILY 05/19/14 Morphine Sulfate [Morphine Sulfate ER] 15 mg PO Q12H 06/17/16 Diclofenac Sodium [Voltaren] 0 gm TOPICAL PRN PRN 11/04/16 Triamterene 37.5MG/Hctz 25MG [Maxzide 37.5 mg-25 mg Tablet] 1 tablet PO DAILY 11/04/16 Krill Oil 500 mg PO DAILY 05/29/17 Oxycodone HCl/Acetaminophen [Percocet 10-325 mg Tablet] 1 tablet PO Q12H PRN 05/29/17 Tizanidine HCl 0.5 - 1 tab PO TID 05/29/17 Enoxaparin [Lovenox] 130 mg SC Q12@0600,1800 #14 syringe 05/31/17 Warfarin [Coumadin] 5 mg PO DAILY@1700 #15 tab 05/31/17 The following prescriptions were given: Enoxaparin [Lovenox] 130 mg SC Q12@0600,1800 #14 syringe Warfarin [Coumadin] 5 mg PO DAILY@1700 #15 tab Orders to be completed after discharge: Prothrombin Time w/INR Location: Laboratory Primary Care Physician: Joey Peters DO [Primary Care Provider] - Please follow up with your Primary Care Physician in: Call office on Friday to notify for initiation of Coumadin treatment
--- NOTE | 2017-05-31 15:35 | DCINST_ITS ---
- Discharge Diagnoses Current Active Problems: Current Active and Chronic Problems Anxiety and depression (Chronic) Chronic back pain (Chronic) HTN (hypertension) (Chronic) Morbid obesity (Chronic) Exertional dyspnea (Acute) Chest pain (Acute) You will use the following diet at home:: Cardiac Your food should be the consistency of: Regular Your liquids should be the consistency of: Regular/Thin Discharge Activity: Return to Normal Activity Pending Tests on Discharge: INR to be done in 2 to 3 days. Allergies/Adverse Reactions: Allergies adhesive Allergy (Verified 05/29/17 17:49) Hives Sulfa (Sulfonamide Antibiotics) Allergy (Verified 05/29/17 17:49) Rash Tetanus Vaccines and Toxoid [Tetanus Vaccines & Toxoid] Allergy (Verified 17:49) Swelling promethazine HCl [From Phenergan] Adverse Reaction (Verified 05/29/17 17:49) Vomiting Medications to take at Discharge ALPRAZolam [Xanax] 0.25 mg PO TID PRN PRN 03/26/13 Aspirin [Aspirin, Baby] 81 mg PO DAILY@0800 03/26/13 Atenolol [Tenormin (beta melany)] 50 mg PO QHS 03/26/13 Buspirone HCl [Buspar] 30 mg PO BID 03/26/13 Citalopram [Celexa] 40 mg PO DAILY 03/26/13 Meclizine HCl [Antivert] 25 mg PO 4X/DAY PRN PRN 03/26/13 Pregabalin [Lyrica] 100 mg PO BID 03/26/13 Biotin 5,000 mcg PO DAILY 05/19/14 Multivitamins,Ther W-Minerals [Multivitamin With Minerals] 1 tablet PO DAILY 04/03 Morphine Sulfate [Morphine Sulfate ER] 15 mg PO Q12H 06/17/16 Diclofenac Sodium [Voltaren] 0 gm TOPICAL PRN PRN 11/04/16 Triamterene 37.5MG/Hctz 25MG [Maxzide 37.5 mg-25 mg Tablet] 1 tablet PO DAILY Krill Oil 500 mg PO DAILY 05/29/17 Oxycodone HCl/Acetaminophen [Percocet 10-325 mg Tablet] 1 tablet PO Q12H PRN 02/03 Tizanidine HCl 0.5 - 1 tab PO TID 05/29/17 Enoxaparin [Lovenox] 130 mg SC Q12@0600,1800 #14 syringe 05/31/17 Warfarin [Coumadin] 5 mg PO DAILY@1700 #15 tab 05/31/17 The following prescriptions were given: Enoxaparin [Lovenox] 130 mg SC Q12@0600,1800 #14 syringe Warfarin [Coumadin] 5 mg PO DAILY@1700 #15 tab Orders to be completed after discharge: Prothrombin Time w/INR Location: Laboratory Primary Care Physician: Joey Peters DO [Primary Care Provider] - Please follow up with your Primary Care Physician in: Call office on Friday to notify for initiation of Coumadin treatment
--- NOTE | 2017-05-31 15:36 | PCM.DC.SUM ---
Discharge Date and Diagnosis - Problem List Patient Problems: Active and Suspected Problems Exertional dyspnea (Acute) Chest pain (Acute) Pulmonary emboli (Acute) Date of Admission: 05/29/17 Date of Discharge: 05/31/17 - Primary Discharge Diagnosis Active and Suspected Problems Exertional dyspnea (Acute) Chest pain (Acute) Pulmonary Emboli, bilateral. - Secondary Discharge Diagnosis Chronic Problems Thoracic degenerative disc disease (Chronic) Spondylosis without myelopathy or radiculopathy, thoracic region (Chronic) Anxiety and depression (Chronic) Chronic back pain (Chronic) HTN (hypertension) (Chronic) Morbid obesity (Chronic) Hospital Course and Treatment Imaging Results: Diagnostic Data Chest X-Ray 05/29/17 18:04 IMPRESSION: Normal x-ray examination of the chest. Electronically Signed: Brian Pacheco DO at 18:36 EDT Tel , Service support , Chest CT 05/30/17 16:23 IMPRESSION: Findings are positive for bilateral extensive pulmonary emboli. Lower lobe atelectasis. Borderline cardiac enlargement. N.B. : The above information has been verbally conveyed by Ramona Reece MD to Carol Dickson Charge Nurse, Other, on 05/30/2017 16:59:03 (ET). Electronically Signed: Ramona Reece MD at 16:49 EDT Tel , Service support , N.B. : The above information has been verbally conveyed by Ramona Reece MD to Carol Dickson Charge Nurse, Other, on 05/30/2017 16:59:03 (ET). ECHOCARDIOGRAM: normal LVF EF 55%. No evidence for diastolic dysfunction. Mild MR. RVSP 33 mmHg. CALL CENTER CONSULTANT: None. Operations: None Procedures: 2-D Echocardiogram Summary of Care Provided: The patient is a 56 y/o F w/ PMHx: HARRISON on q HS BIPAP, Morbid Obesity, History of Tobacco, Chronic back pain w/ Thoracic DDD w/ radiculopathy, Anxiety and Depression, HTN who presents to the [facility] ED on 05/29/17 with history of ongoing dyspnea, primarily with exertion for which she has been recently evaluated per Dr. Sands with unremarkable pulmonary work-up and pending ECHO as Dr. Sands noted possibly secondary to underlying heart etiology; however, she notes onset over the 2 days days chest tightness with the dyspnea, primarily again with exertion, mid-sternal without radiation without diaphoresis, nausea or emesis. She underwent stress test, which was negative for ischemia. Echo was done also, which was unremarkable. CTA chest was ordered, showed extensive bilateral emboli. She has symptoms for one month, and has been hemodynamically stable. PE had likely happened few weeks ago. Consider to do US of leg for DVT also, although it would not alter the treatment plan. Plan to discharge with Lovenox 130 mg SQ Q12H and warfarin 5 mg po qPM. Repeat INR in 2 to 3 days, result to PCP. Instruct patient to call her PCP's office on Friday 06/02 to notify that she was started on warfarin and needs follow up. (1) Pulmonary emboli. CTA showed bilateral extensive PE. Lovenox 1 mg/kg q12h, and start warfarin 5 mg qPM. INR as outpatient. Transaction sent. (2) Hypertension: Continue home regimen including atenolol, triamterene, hydrochlorothiazide, PRN hydralazine. (3) Morbid Obesity: Weight loss and lifestyle changes encouraged, nutrition consulted. (4) History of Tobacco: Encourage continued tobacco cessation. (5) Chronic back pain w/ Thoracic DDD w/ radiculopathy: Following w/ Pain Management, maintain on home regimen morphine sulfate, PRN percocet, tizanidine. Would benefit from weight loss and lifestyle changes. (6) Anxiety and Depression: Maintain on home regimen xanax, buspar, Celexa. (7) HARRISON: BIPAP q HS. (8) Atypical chest pain. Probably due to PE. Stress test negative. Discharge Diet: - - Cardiac Discharge Activity: Return to Normal Activity Home Medications: Medications to take at Discharge ALPRAZolam [Xanax] 0.25 mg PO TID PRN PRN 03/26/13 Aspirin [Aspirin, Baby] 81 mg PO DAILY@0800 03/26/13 Atenolol [Tenormin (beta melany)] 50 mg PO QHS 03/26/13 Buspirone HCl [Buspar] 30 mg PO BID 03/26/13 Citalopram [Celexa] 40 mg PO DAILY 03/26/13 Meclizine HCl [Antivert] 25 mg PO 4X/DAY PRN PRN 03/26/13 Pregabalin [Lyrica] 100 mg PO BID 03/26/13 Biotin 5,000 mcg PO DAILY 05/19/14 Multivitamins,Ther W-Minerals [Multivitamin With Minerals] 1 tablet PO DAILY 05/19/14 Morphine Sulfate [Morphine Sulfate ER] 15 mg PO Q12H 06/17/16 Diclofenac Sodium [Voltaren] 0 gm TOPICAL PRN PRN 11/04/16 Triamterene 37.5MG/Hctz 25MG [Maxzide 37.5 mg-25 mg Tablet] 1 tablet PO DAILY 11/04/16 Krill Oil 500 mg PO DAILY 05/29/17 Oxycodone HCl/Acetaminophen [Percocet 10-325 mg Tablet] 1 tablet PO Q12H PRN 05/29/17 Tizanidine HCl 0.5 - 1 tab PO TID 05/29/17 Enoxaparin [Lovenox] 130 mg SC Q12@0600,1800 #14 syringe 05/31/17 Warfarin [Coumadin] 5 mg PO DAILY@1700 #15 tab 05/31/17 Following Prescrptions Were Given to Patient: Enoxaparin [Lovenox] 130 mg SC Q12@0600,1800 #14 syringe Warfarin [Coumadin] 5 mg PO DAILY@1700 #15 tab Other Amb Orders: Prothrombin Time w/INR Location: Laboratory Primary Care Physician: Joey Peters DO [Primary Care Provider] - Please follow up with your Primary Care Physician in: Call office on Friday to notify for initiation of Coumadin treatment Disposition: Home Patient Condition:: Good Medical Necessity - Tobacco Use Smoking Status: Former smoker Tobacco Use: Non-smoker Meaningful Use Info Meaningful Use Diagnoses (Choose all that apply): None applicable Code Visit Inpatient E&M: 00330 Disch Hosp
--- NOTE | 2017-05-31 15:42 | DS.PCM_ITS ---
Discharge Date and Diagnosis - Problem List Patient Problems: Active and Suspected Problems Exertional dyspnea (Acute) Chest pain (Acute) Pulmonary emboli (Acute) Date of Admission: 05/29/17 Date of Discharge: 05/31/17 - Primary Discharge Diagnosis Active and Suspected Problems Exertional dyspnea (Acute) Chest pain (Acute) Pulmonary Emboli, bilateral. - Secondary Discharge Diagnosis Chronic Problems Thoracic degenerative disc disease (Chronic) Spondylosis without myelopathy or radiculopathy, thoracic region (Chronic) Anxiety and depression (Chronic) Chronic back pain (Chronic) HTN (hypertension) (Chronic) Morbid obesity (Chronic) Hospital Course and Treatment Imaging Results: Diagnostic Data Chest X-Ray 05/29/17 18:04 IMPRESSION: Normal x-ray examination of the chest. Electronically Signed: Brian Pacheco DO at 18:36 EDT Tel , Service support , Chest CT 05/30/17 16:23 IMPRESSION: Findings are positive for bilateral extensive pulmonary emboli. Lower lobe atelectasis. Borderline cardiac enlargement. N.B. : The above information has been verbally conveyed by Ramona Reece MD to Carol Dickson Charge Nurse, Other, on 05/30/2017 16:59:03 (ET). Electronically Signed: Ramona Reece MD at 16:49 EDT Tel , Service support , N.B. : The above information has been verbally conveyed by Ramona Reece MD to Carol Dickson Charge Nurse, Other, on 05/30/2017 16:59:03 (ET). ECHOCARDIOGRAM: normal LVF EF 55%. No evidence for diastolic dysfunction. Mild MR. RVSP 33 mmHg. STORE OPERATIONS SPECIALIST: None. Operations: None Procedures: 2-D Echocardiogram Summary of Care Provided: The patient is a 56 y/o F w/ PMHx: HARRISON on q HS BIPAP, Morbid Obesity, History of Tobacco, Chronic back pain w/ Thoracic DDD w/ radiculopathy, Anxiety and Depression, HTN who presents to the [facility] ED on 05/29/17 with history of ongoing dyspnea, primarily with exertion for which she has been recently evaluated per Dr. Sands with unremarkable pulmonary work-up and pending ECHO as Dr. Sands noted possibly secondary to underlying heart etiology; however, she notes onset over the 2 days days chest tightness with the dyspnea, primarily again with exertion, mid-sternal without radiation without diaphoresis, nausea or emesis. She underwent stress test, which was negative for ischemia. Echo was done also , which was unremarkable. CTA chest was ordered, showed extensive bilateral emboli. She has symptoms for one month, and has been hemodynamically stable. PE had likely happened few weeks ago. Consider to do US of leg for DVT also, although it would not alter the treatment plan. Plan to discharge with Lovenox 130 mg SQ Q12H and warfarin 5 mg po qPM. Repeat INR in 2 to 3 days, result to PCP. Instruct patient to call her PCP's office on Friday 06/02 to notify that she was started on warfarin and needs follow up. (1) Pulmonary emboli. CTA showed bilateral extensive PE. Lovenox 1 mg/kg q12h, and start warfarin 5 mg qPM. INR as outpatient. Transaction sent. (2) Hypertension: Continue home regimen including atenolol, triamterene, hydrochlorothiazide, PRN hydralazine. (3) Morbid Obesity: Weight loss and lifestyle changes encouraged, nutrition consulted. (4) History of Tobacco: Encourage continued tobacco cessation. (5) Chronic back pain w/ Thoracic DDD w/ radiculopathy: Following w/ Pain Management, maintain on home regimen morphine sulfate, PRN percocet, tizanidine. Would benefit from weight loss and lifestyle changes. (6) Anxiety and Depression: Maintain on home regimen xanax, buspar, Celexa. (7) HARRISON: BIPAP q HS. (8) Atypical chest pain. Probably due to PE. Stress test negative. Discharge Diet: - - Cardiac Discharge Activity: Return to Normal Activity Home Medications: Medications to take at Discharge ALPRAZolam [Xanax] 0.25 mg PO TID PRN PRN 03/26/13 Aspirin [Aspirin, Baby] 81 mg PO DAILY@0800 03/26/13 Atenolol [Tenormin (beta melany)] 50 mg PO QHS 03/26/13 Buspirone HCl [Buspar] 30 mg PO BID 03/26/13 Citalopram [Celexa] 40 mg PO DAILY 03/26/13 Meclizine HCl [Antivert] 25 mg PO 4X/DAY PRN PRN 03/26/13 Pregabalin [Lyrica] 100 mg PO BID 03/26/13 Biotin 5,000 mcg PO DAILY 05/19/14 Multivitamins,Ther W-Minerals [Multivitamin With Minerals] 1 tablet PO DAILY 04/03 Morphine Sulfate [Morphine Sulfate ER] 15 mg PO Q12H 06/17/16 Diclofenac Sodium [Voltaren] 0 gm TOPICAL PRN PRN 11/04/16 Triamterene 37.5MG/Hctz 25MG [Maxzide 37.5 mg-25 mg Tablet] 1 tablet PO DAILY Krill Oil 500 mg PO DAILY 05/29/17 Oxycodone HCl/Acetaminophen [Percocet 10-325 mg Tablet] 1 tablet PO Q12H PRN 02/03 Tizanidine HCl 0.5 - 1 tab PO TID 05/29/17 Enoxaparin [Lovenox] 130 mg SC Q12@0600,1800 #14 syringe 05/31/17 Warfarin [Coumadin] 5 mg PO DAILY@1700 #15 tab 05/31/17 Following Prescrptions Were Given to Patient: Enoxaparin [Lovenox] 130 mg SC Q12@0600,1800 #14 syringe Warfarin [Coumadin] 5 mg PO DAILY@1700 #15 tab Other Amb Orders: Prothrombin Time w/INR Location: Laboratory Primary Care Physician: Joey Peters DO [Primary Care Provider] - Please follow up with your Primary Care Physician in: Call office on Friday to notify for initiation of Coumadin treatment Disposition: Home Patient Condition:: Good Medical Necessity - Tobacco Use Smoking Status: Former smoker Tobacco Use: Non-smoker Meaningful Use Info Meaningful Use Diagnoses (Choose all that apply): None applicable Code Visit Inpatient E&M: 63906 Disch Hosp
== END 2017-05-31 15:33 | disposition home or self-care (01) ==
LOC: ED 18:50 → PCU 20:27
PROVIDERS: Admitting Provider Family Medicine; Emergency Provider Emergency Medicine; Family Provider Preventive Medicine Occupational Medicine; PCP Preventive Medicine Occupational Medicine; Visit Provider Hospitalist
DX: I26.99 Other pulmonary embolism without acute cor pulmonale (principal); I10 Essential (primary) hypertension; F41.9 Anxiety disorder, unspecified; F32.9 Major depressive disorder, single episode, unspecified; Z79.899 Other long term (current) drug therapy; G89.29 Other chronic pain; M51.14 Intervertebral disc disorders with radiculopathy, thoracic region; Z87.891 Personal history of nicotine dependence; G47.33 Obstructive sleep apnea (adult) (pediatric); E66.01 Morbid (severe) obesity due to excess calories; Z68.43 Body mass index [BMI] 50.0-59.9, adult; Z71.3 Dietary counseling and surveillance; Z79.82 Long term (current) use of aspirin; M79.7 Fibromyalgia
CPT/HCPCS: 36415; 71045; 71260; 78452; 80048; 80061; 83735; 83880; 84484; 85025; 85027; 85610; 85730; 93005; 93017; 93306; 94002; 94003; 96372; 96374; 97802; 99218; 99285; A9500; Q9967; A4216; G0378; J2405; J2785

== ENCOUNTER 2017-07-07 12:04 | Day surgery (SDC) | payer MEDICAID, SELFPAY ==
[2017-07-07 12:28] VITALS: BP 145/71; PULSE 60; RESP 16; TEMP 36.7; O2SAT 94
--- NOTE | 2017-07-07 13:00 | RAD_ITS ---
STUDY: Fluoroscopy- SACROILIAC JOINTS REASON FOR EXAM: Female, 56 years old. Injection SI joints TECHNIQUE: Intraop. Fluoroscopy Limited views view(s) of the sacroiliac joints were obtained. Limited Interpretation. COMPARISON: None. FINDINGS: 2 intraoperative images show needles overlying the bilateral SI joints. RAD/Fluoro Guided Needle Placement IMPRESSION: Intraoperative procedure SI joint injection shown by 2 images fluoroscopy. Electronically Signed: Ramona Reece MD at 14:10 EDT Tel , Service support ,
[2017-07-07] MEDS: MethylPREDNISolone Acetate 80 MG/ML Vial (13:01)
[2017-07-07] MEDS: Bupivacaine 0.25% 30 ML Vial (13:01)
[2017-07-07 13:17] VITALS: BP 113/64; BP 145/71; PULSE 60; RESP 18; TEMP 37.1; O2SAT 95
[2017-07-07 13:20] VITALS: BP 145/71; BP 149/75; PULSE 60; RESP 18; O2SAT 99
[2017-07-07 13:25] VITALS: BP 145/71; BP 150/58; PULSE 60; RESP 18; O2SAT 92
[2017-07-07 13:28] VITALS: BP 145/71; BP 146/73; PULSE 59; RESP 18; TEMP 37.7; O2SAT 96
[2017-07-07 13:47] VITALS: BP 145/71; BP 146/73
--- NOTE | 2017-07-07 14:26 | PCM.OPRPT ---
Problem List (1) Sacrococcygeal disorders, not elsewhere classified Status: Chronic (2) Bilateral sacroiliitis Status: Chronic Report of Operation Date of Procedure: 07/07/17 Pre-Operative Diagnosis: Sacroiliitis, sacroiliac joint dysfunction Post-Operative Diagnosis: Sacroiliitis, sacroiliac joint dysfunction Surgery/Procedure Performed:: Bilateral sacroiliac joint steroid injection under fluoroscopic guidance Description of Surgical Findings:: PROCEDURE: Bilateral sacroiliac joint steroid injection under fluoroscopic guidance PREOPERATIVE DIAGNOSIS: Sacroiliitis, sacroiliac joint dysfunction POSTOPERATIVE DIAGNOSIS: Sacroiliitis, sacroiliac joint dysfunction ANESTHESIA: MAC COMPLICATIONS: None BLOOD LOSS: Minimal PROCEDURE IN DETAIL: History and physical today was reviewed. Risks and benefits of the procedure were explained. The patient understood, agreed to our procedure, and informed consent was obtained. IV inserted per routine protocol. The patient was taken to the operating room, placed in a prone position with a pillow positioned underneath the abdomen. The lower back and buttock area was prepped and draped in a sterile fashion using iodine ?3 no direct visualization of fluoroscopy at approximately 15? angle of the bilateral sacroiliac joints were visualized skin and subcutaneous tissue were anesthetized approximately 5 cc of 1% lidocaine using a 25-gauge regular needle under direct visualization with fluoroscopy at approximately 15? angle starting on the right SI ending on the left SI using a 22-gauge 3-1/2 inch spinal needle the needle was advanced via the skin the tip of the knee was maneuvering directed towards the inferior one third of the posterior SI joint once the tip of the needle was at the vicinity of the joint after negative aspiration for blood or CSF a total of 1 cc of contrast were injected in divided doses between both levels to confirm correct placement of the needle as well as cephalocaudad spread the confirmation was obtained on AP as well as oblique view after repeated negative aspiration and confirmation a total of 8 cc of preservative-free 0.25% Marcaine with 80 mg of Depo-Medrol were injected in divided doses in and around bilateral SI joints the needles were then removed intact. The patient experienced no signs or symptoms intrathecal, intravascular injection. The patient experienced no paraesthesia. The procedure was completed without any apparent difficult, any complication. The patient appeared to tolerate well. ASSESSMENT AND PLAN: This is a 56-year-old female with sacroiliitis, sacroiliac joint dysfunction status post bilateral sacroiliac joint steroid injection under fluoroscopic guidance. The patient will continue her current medications. The patient will follow in approximately 2 weeks for possible repeat of the procedure if indicated.
== END 2017-07-07 14:00 | disposition home or self-care (01) ==
LOC: SDC 12:06 → AC 12:07
PROVIDERS: Family Provider Preventive Medicine Occupational Medicine; PCP Preventive Medicine Occupational Medicine; Visit Provider Anesthesiology Pain Medicine
PROC: 3E0U3GC Introduction of Other Therapeutic Substance into Joints, Percutaneous Approach (ICD-10-PCS; CPT 27096; principal; 2017-07-07 13:05)
DX: M46.1 Sacroiliitis, not elsewhere classified (principal); M47.812 Spondylosis without myelopathy or radiculopathy, cervical region; M50.30 Other cervical disc degeneration, unspecified cervical region; M96.1 Postlaminectomy syndrome, not elsewhere classified; M51.17 Intervertebral disc disorders with radiculopathy, lumbosacral region; M47.27 Other spondylosis with radiculopathy, lumbosacral region; M51.34 Other intervertebral disc degeneration, thoracic region; M47.814 Spondylosis without myelopathy or radiculopathy, thoracic region; M79.7 Fibromyalgia; R51 Headache; F41.9 Anxiety disorder, unspecified; F32.9 Major depressive disorder, single episode, unspecified; I10 Essential (primary) hypertension; G47.30 Sleep apnea, unspecified; K21.9 Gastro-esophageal reflux disease without esophagitis; Z87.891 Personal history of nicotine dependence; Z86.711 Personal history of pulmonary embolism; Z79.02 Long term (current) use of antithrombotics/antiplatelets; Z79.891 Long term (current) use of opiate analgesic; Z79.899 Other long term (current) drug therapy
CPT/HCPCS: 01992; 27096; 76000; 77002; J7120; J3490

== ENCOUNTER 2017-08-22 09:34 | Emergency (ER) | payer MEDICAID, SELFPAY ==
[2017-08-22 09:35] VITALS: BP 160/84; PULSE 66; RESP 16; TEMP 36.6; O2SAT 93; BMI 53.8
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
[2017-08-22] MEDS: Ondansetron 4 MG/2 ML Vial IV (10:16)
[2017-08-22] MEDS: Morphine 4 MG/ML Syringe IV (10:16)
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
[2017-08-22 11:07] VITALS: BP 132/78; PULSE 62; RESP 18; O2SAT 96
--- NOTE | 2017-08-22 12:14 | ED.RN ---
went in to walk pt. pt and friends looking at pictures. told pt we were going to attempt to ambulate. pt states we are looking at pictures. this rn out of room will attempt when pt is receptive. dr benjamin tapia
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
[2017-08-22 12:39] VITALS: BP 140/64; PULSE 77; RESP 18; O2SAT 96
== END 2017-08-22 12:43 | disposition home or self-care (01) ==
PROVIDERS: Emergency Provider Emergency Medicine; Family Provider Family Medicine; PCP Family Medicine
DX: S40.011A Contusion of right shoulder, initial encounter (principal); S93.601A Unspecified sprain of right foot, initial encounter; I10 Essential (primary) hypertension; Z86.711 Personal history of pulmonary embolism; Z79.02 Long term (current) use of antithrombotics/antiplatelets; Z87.891 Personal history of nicotine dependence; Z79.899 Other long term (current) drug therapy; V59.49XA Driver of pick-up truck or van injured in collision with other motor vehicles in traffic accident, initial encounter; Y93.I9 Activity, other involving external motion; Y92.410 Unspecified street and highway as the place of occurrence of the external cause; Y99.8 Other external cause status
CPT/HCPCS: 70450; 72125; 73030; 73630; 96374; 96375; 99285; J7040; A4216; J2405

== ENCOUNTER 2017-11-03 10:26 | Day surgery (SDC) | payer MEDICAID, SELFPAY ==
[2017-11-03 10:52] VITALS: BP 159/86; PULSE 57; RESP 16; TEMP 36.1; O2SAT 94; BMI 51.7
--- NOTE | 2017-11-03 11:15 | RAD_ITS ---
STUDY: X-RAY - SACROILIAC JOINTS REASON FOR EXAM: Female, 56 years old. Bilateral sacroiliac joint injection. TECHNIQUE: 3 cone down intraoperative view(s) of the sacroiliac joints were obtained. COMPARISON: None. FINDINGS: Spinal needles are seen in both the right and left sacroiliac joints. RAD/Fluoro Guided Needle Placement IMPRESSION: Intraoperative fluoroscopic imaging provided for bilateral sacroiliac joint injections. Electronically Signed: Jaziel Carlos MD at 13:05 EDT Tel [phone], Service support ,
[2017-11-03] MEDS: Bupivacaine 0.5% PF 10 ML VIAL (11:25)
[2017-11-03] MEDS: MethylPREDNISolone Acetate 80 MG/ML Vial (11:25)
[2017-11-03 11:38] VITALS: BP 116/44; BP 159/86; PULSE 58; RESP 17; TEMP 36.7; O2SAT 94
[2017-11-03 11:40] VITALS: BP 124/72; BP 159/86; PULSE 54; RESP 14; O2SAT 94
[2017-11-03 11:45] VITALS: BP 136/84; BP 159/86; PULSE 56; RESP 14; O2SAT 94
[2017-11-03 11:48] VITALS: BP 140/75; BP 159/86; PULSE 54; RESP 14; TEMP 36.9; O2SAT 94
[2017-11-03 12:14] VITALS: BP 159/86
--- NOTE | 2017-11-03 15:32 | PCM.OPRPT ---
Problem List (1) Bilateral sacroiliitis Status: Chronic (2) Sacrococcygeal disorders, not elsewhere classified Status: Chronic Report of Operation Date of Procedure: 11/03/17 Pre-Operative Diagnosis: Sacroiliitis, SI joint dysfunction Post-Operative Diagnosis: Sacroiliitis, SI joint dysfunction Surgery/Procedure Performed:: Bilateral sacroiliac joints steroid injection under fluoroscopic guidance Description of Surgical Findings:: PROCEDURE: Bilateral sacroiliac joint steroid injection under fluoroscopic guidance PREOPERATIVE DIAGNOSIS: Sacroiliitis, sacroiliac joint dysfunction POSTOPERATIVE DIAGNOSIS: Sacroiliitis, sacroiliac joint dysfunction ANESTHESIA: MAC COMPLICATIONS: None BLOOD LOSS: Minimal PROCEDURE IN DETAIL: History and physical today was reviewed. Risks and benefits of the procedure were explained. The patient understood, agreed to our procedure, and informed consent was obtained. IV inserted per routine protocol. The patient was taken to the operating room, placed in a prone position with a pillow positioned underneath the abdomen. The lower back and buttock area was prepped and draped in a sterile fashion using iodine ?3 no direct visualization of fluoroscopy at approximately 15? angle of the bilateral sacroiliac joints were visualized skin and subcutaneous tissue were anesthetized approximately 5 cc of 1% lidocaine using a 25-gauge regular needle under direct visualization with fluoroscopy at approximately 15? angle starting on the right SI ending on the left SI using a 22-gauge 3-1/2 inch spinal needle the needle was advanced via the skin the tip of the knee was maneuvering directed towards the inferior one third of the posterior SI joint once the tip of the needle was at the vicinity of the joint after negative aspiration for blood or CSF a total of 1 cc of contrast were injected in divided doses between both levels to confirm correct placement of the needle as well as cephalocaudad spread the confirmation was obtained on AP as well as oblique view after repeated negative aspiration and confirmation a total of 8 cc of preservative-free 0.25% Marcaine with 80 mg of Depo-Medrol were injected in divided doses in and around bilateral SI joints the needles were then removed intact. The patient experienced no signs or symptoms intrathecal, intravascular injection. The patient experienced no paraesthesia. The procedure was completed without any apparent difficult, any complication. The patient appeared to tolerate well. ASSESSMENT AND PLAN: This is a 56-year-old female with sacroiliitis, sacroiliac joint dysfunction status post bilateral sacroiliac joint steroid injection under fluoroscopic guidance. The patient will continue her current medications. The patient will follow in approximately 2 weeks for possible repeat of the procedure if indicated.
== END 2017-11-03 12:16 | disposition home or self-care (01) ==
LOC: SDC 10:27 → AC 10:28
PROVIDERS: Family Provider Family Medicine; PCP Family Medicine; Visit Provider Anesthesiology Pain Medicine
PROC: 3E0U3BZ Introduction of Anesthetic Agent into Joints, Percutaneous Approach (ICD-10-PCS; CPT 64451; principal; 2017-11-03 11:20)
DX: M46.1 Sacroiliitis, not elsewhere classified (principal); M53.3 Sacrococcygeal disorders, not elsewhere classified; I10 Essential (primary) hypertension; G47.30 Sleep apnea, unspecified; K58.9 Irritable bowel syndrome, unspecified; K21.9 Gastro-esophageal reflux disease without esophagitis; F41.9 Anxiety disorder, unspecified; F32.9 Major depressive disorder, single episode, unspecified; Z79.899 Other long term (current) drug therapy
CPT/HCPCS: 01992; 27096; 64483; 72202; 76000; 77002; J7120; J3490

== ENCOUNTER 2018-03-09 07:28 | Day surgery (SDC) | payer MEDICAID, SELFPAY ==
[2018-03-09] VITALS (7 sets, daily range): BP systolic 104–164; BP diastolic 64–82; PULSE 58–92; RESP 16–18; TEMP 36.1–36.8; O2SAT 93–96; BMI 54.1
--- NOTE | 2018-03-09 08:40 | RAD_ITS ---
PROCEDURE: Right sacroiliac joint injection. DATE OF EXAMINATION: March 09, 2018. INDICATION: Female, 57 years old. Right sided lower back pain. FLUOROSCOPY TIME (if supplied): (0:16) minutes/seconds. 2 intraoperative views were obtained. Intraoperative imaging provided for right sacroiliac joint injection. RAD/Fluoro Guided Needle Placement IMPRESSION: Intraoperative imaging provided for right sacroiliac joint injection. Electronically Signed: Jaziel Carlos MD at 12:55 EST Tel [phone], Service support ,
--- NOTE | 2018-03-09 08:40 | RAD_ITS ---
PROCEDURE: Left sacroiliac joint injection. DATE OF EXAMINATION: March 09, 2017. INDICATION: Female, 57 years old. Back pain. FLUOROSCOPY TIME (if supplied): (0:16) minutes/seconds. Single intraoperative imaging was obtained. Intraoperative imaging provided for left sacroiliac joint injection. RAD/Fluoro Guided Needle Placement IMPRESSION: Imaging provided for left sacroiliac joint injection. Electronically Signed: Jaziel Carlos MD at 12:54 EST Tel [phone], Service support ,
[2018-03-09] MEDS: MethylPREDNISolone Acetate 80 MG/ML Vial (09:10)
[2018-03-09] MEDS: Bupivacaine 0.25% 30 ML Vial (09:10)
--- NOTE | 2018-03-09 10:32 | OP.PCM_ITS ---
Problem List (1) Bilateral sacroiliitis Status: Chronic (2) Sacrococcygeal disorders, not elsewhere classified Status: Chronic Report of Operation Date of Procedure: 03/09/18 Pre-Operative Diagnosis: Sacroiliitis, SI joint dysfunction Post-Operative Diagnosis: Sacroiliitis, sacroiliac joint dysfunction Surgery/Procedure Performed:: Bilateral sacroiliac joint steroid injection under fluoroscopic guidance Description of Surgical Findings:: PROCEDURE: Bilateral sacroiliac joint steroid injection under fluoroscopic guidance PREOPERATIVE DIAGNOSIS: Sacroiliitis, sacroiliac joint dysfunction POSTOPERATIVE DIAGNOSIS: Sacroiliitis, sacroiliac joint dysfunction ANESTHESIA: MAC COMPLICATIONS: None BLOOD LOSS: Minimal PROCEDURE IN DETAIL: History and physical today was reviewed. Risks and benefits of the procedure were explained. The patient understood, agreed to our procedure, and informed consent was obtained. IV inserted per routine protocol. The patient was taken to the operating room, placed in a prone position with a pillow positioned underneath the abdomen. The lower back and buttock area was prepped and draped in a sterile fashion using iodine ?3 no direct visualization of fluoroscopy at approximately 15? angle of the bilateral sacroiliac joints were visualized skin and subcutaneous tissue were anesthetized approximately 5 cc of 1% lidocaine using a 25-gauge regular needle under direct visualization with fluoroscopy at approximately 15? angle starting on the right SI ending on the left SI using a 22-gauge 3-1/2 inch spinal needle the needle was advanced via the skin the tip of the knee was maneuvering directed towards the inferior one third of the posterior SI joint once the tip of the needle was at the vicinity of the joint after negative aspiration for blood or CSF a total of 1 cc of contrast were injected in divided doses between both levels to confirm correct placement of the needle as well as cephalocaudad spread the confirmation was obtained on AP as well as oblique view after repeated negative aspiration and confirmation a total of 8 cc of preservative-free 0.25% Marcaine with 80 mg of Depo-Medrol were injected in divided doses in and around bilateral SI joints the needles were then removed intact. The patient experienced no signs or symptoms intrathecal, intravascular injection. The patient experienced no paraesthesia. The procedure was completed without any apparent difficult, any complication. The patient appeared to tolerate well. ASSESSMENT AND PLAN: This is a 57-year-old female with sacroiliitis, sacroiliac joint dysfunction status post bilateral sacroiliac joint steroid injection under fluoroscopic guidance. The patient will continue her current medications. The patient will f ollow in approximately 2 weeks for reevaluation.
--- OUTSIDE RECORDS SUMMARY | 2018-05-11 15:11 | XMS RPT_ITS ---
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 Electronically Signed: Jaziel Carlos MD at 11:13 EDT Tel [phone], Service support , CC: DO Adrián Sosa; Cyndie Zelaya MD Supply Crib Attendant: Signed OPERATIVE REPORT Observed: 07/07/2017 Status: F Source: [place] 2:31 PM [facility] REPOSITORY [facility] Medical Records Department [address] [place] [place] [address] Operative Report 07/07/17 1426 MR#: [id number] Acct: [id number] Name: JUVENTINO LION Rep #: [id number] : 1960 56 From: Coy Lai MD PCP: Rigo Peters DO Status: [facility] Y Location: [facility] Problem List (1) Sacrococcygeal disorders, not elsewhere classified Status: Chronic (2) Bilateral sacroiliitis Status: Chronic Report of Operation Date of Procedure: 07/07/17 Pre-Operative Diagnosis: Sacroiliitis, sacroiliac joint dysfunction Post-Operative Diagnosis: Sacroiliitis, sacroiliac joint dysfunction Surgery/Procedure Performed:: Bilateral sacroiliac joint steroid injection under fluoroscopic guidance Description of Surgical Findings:: PROCEDURE: Bilateral sacroiliac joint steroid injection under fluoroscopic guidance PREOPERATIVE DIAGNOSIS: Sacroiliitis, sacroiliac joint dysfunction POSTOPERATIVE DIAGNOSIS: Sacroiliitis, sacroiliac joint dysfunction ANESTHESIA: MAC COMPLICATIONS: None BLOOD LOSS: Minimal PROCEDURE IN DETAIL: History and physical today was reviewed. Risks and benefits of the procedure were explained. The patient understood, agreed to our procedure, and informed consent was obtained. IV inserted per routine protocol. The patient was taken to the operating room, placed in a prone position with a pillow positioned underneath the abdomen. The lower back and buttock area was prepped and draped in a sterile fashion using iodine 3 no direct visualization of fluoroscopy at approximately 15 angle of the bilateral sacroiliac joints were visualized skin and subcutaneous tissue were anesthetized approximately 5 cc of 1% lidocaine using a 25-gauge regular needle under direct visualization with fluoroscopy at approximately 15 angle starting on the right SI ending on the left SI using a 22-gauge 3-1/2 inch spinal needle the needle was advanced via the skin the tip of the knee was maneuvering directed towards the inferior one third of the posterior SI joint once the tip of the needle was at the vicinity of the joint after negative aspiration for blood or CSF a total of 1 cc of contrast were injected in divided doses between both levels to confirm correct placement of the needle as well as cephalocaudad spread the confirmation was obtained on AP as well as oblique view after repeated negative aspiration and confirmation a total of 8 cc of preservative-free 0.25% Marcaine with 80 mg of Depo-Medrol were injected in divided doses in and around bilateral SI joints the needles were then removed intact. The patient experienced no signs or symptoms intrathecal, intravascular injection. The patient experienced no paraesthesia. The procedure was completed without any apparent difficult, any complication. The patient appeared to tolerate well. ASSESSMENT AND PLAN: This is a 56-year-old female with sacroiliitis, sacroiliac joint dysfunction status post bilateral sacroiliac joint steroid injection under fluoroscopic guidance. The patient will continue her current medications. The patient will follow in approximately 2 weeks for possible repeat of the procedure if indicated. 07/07/17 1431 <Electronically signed by Coy Lai MD> Date Coy Lai MD CC: Coy Lai; Rigo Peters DO Signed LIPID Collected: 07/07/2017 Status: F Source: [facility] 9:36 AM [facility] REPOSITORY TYPE CODE TESTS RESULT OUT OF REFERENCE UNITS RANGE LAB CHOL(LOINC 131-200 mg/dL ) Cholesterol 170 Result Comment: Cholesterol Reference Interval: Less than 200 Desirable 200-239 Borderline high risk 240 and above High risk LAB TRIG(LOINC) 40-150 mg/dL Triglycerides High 192 Result Comment: Triglyceride Reference Interval: Less than 150 Normal 150-199 Borderline high risk 200-499 High risk 500 or higher Very high risk LAB HD(LOINC) 35-90 mg/dL HDL Cholesterol 38 Result Comment: HDL Reference Interval: Less than 40 Low - high risk 60 or above Optimal/lowers risk LAB LDL(LOINC) 0-130 mg/dL LDL Cholesterol 94 Result Comment: LDL is a calculated result and requires a 12-hr fast. LDL Reference Interval: Less than 100 Optimal 100-129 Near or above optimal 130-159 Borderline high risk 160-189 High risk 190 and above Very high risk Performed By: #### LIPID, CMP, GFR #### [place] [address] [place], [place] [address] CMP Collected: 07/07/2017 Status: F Source: [facility] 9:36 AM [facility] REPOSITORY TYPE CODE TESTS RESULT OUT OF REFERENCE UNITS RANGE LAB GLU(LOINC) 70-105 mg/dL Glucose Level 104 LAB NA(LOINC) 136-146 mEq/L Sodium Level 143 LAB K(LOINC) 3.5-5.1 mEq/L Potassium Level 4.3 LAB CL(LOINC) 98-107 mEq/L Chloride 102 LAB CO2(LOINC) 22-29 mEq/L CO2 High 31 LAB EBAL(LOINC mEq/L ) Electrolyte Balance 10.0 LAB BUN(LOINC) 7.0-18.0 mg/dL BUN 16.8 LAB CRE(LOINC) 0.6-1.2 mg/dL Creatinine Lvl (s) 0.8 LAB BC(LOINC) 7-27 ratio BUN/Creatinine 21 Ratio LAB CA(LOINC) 8.4-10.2 mg/dL Calcium Lvl 9.5 LAB PROT(LOINC 6.0-8.3 G/dL ) Total Protein 6.6 LAB ALB(LOINC) 3.5-5.0 G/dL Albumin Level 4.0 LAB GLB(LOINC) G/dL Globulin 2.6 LAB AG(LOINC) 1.1-2.5 ratio A/G Ratio 1.5 LAB BILT(LOINC 0.2-1.0 mg/dL ) Bili Total 0.5 LAB AP(LOINC) 40-135 IU/L Alk Phos 65 LAB AST(LOINC) 10-40 IU/L AST/SGOT 22 LAB ALT(LOINC) 10-35 IU/L ALT/SGPT 24 Performed By: #### LIPID, CMP, GFR #### [place] [address] [place], [place] [address] .GFR Collected: 07/07/2017 Status: F Source: [facility] 9:36 AM [facility] REPOSITORY TYPE CODE TESTS RESULT OUT OF REFERENCE UNITS RANGE LAB GFRAA(LOINC ml/min/1.73 ) sqm GFR 87 [place] Result Comment: GFR Population mean for , Non- Americans Ages 20-29 = 116 mL/min/1.73 sq.m. Ages 30-39 = 107 mL/min/1.73 sq.m. Ages 40-49 = 99 mL/min/1.73 sq.m. Ages 50-59 = 93 mL/min/1.73 sq.m. Ages 60-69 = 85 mL/min/1.73 sq.m. Ages 70+ = 75 mL/min/1.73 sq.m. Chronic Kidney Disease: Less than 60 mL/min/1.73 square meters End Stage Renal Disease: Less than 15 mL/min/1.73 square meters LAB GFRNO(LOINC) ml/min/1.73sqm GFR Non- >60 Result Comment: GFR Population mean for , Non- Americans Ages 20-29 = 116 mL/min/1.73 sq.m. Ages 30-39 = 107 mL/min/1.73 sq.m. Ages 40-49 = 99 mL/min/1.73 sq.m. Ages 50-59 = 93 mL/min/1.73 sq.m. Ages 60-69 = 85 mL/min/1.73 sq.m. Ages 70+ = 75 mL/min/1.73 sq.m. Chronic Kidney Disease: Less than 60 mL/min/1.73 square meters End Stage Renal Disease: Less than 15 mL/min/1.73 square meters Performed By: #### LIPID, CMP, GFR #### [place] [address] [address] FLUORO GUIDED NEEDLE Observed: 07/07/2017 Status: F Source: [place] 1:56 AM [facility] REPOSITORY [facility] Imaging Services [address] [place] [address] Fluoro Guided Needle Placement MR#: [id number] Acct: [id number] Name: JUVENTINO LION Rep #: [id number] : 1960 F 56 From: Ramona Reece MD PCP: Rigo Peters DO Status: [facility] Study: Fluoro Guided Needle Placement Date of Exam: 07/07/17 Exam# [id number] Ordering Dr: Coy Lai MD STUDY: Fluoroscopy- SACROILIAC JOINTS REASON FOR EXAM: Female, 56 years old. Injection SI joints TECHNIQUE: Intraop. Fluoroscopy Limited views view(s) of the sacroiliac joints were obtained. Limited Interpretation. COMPARISON: None. FINDINGS: 2 intraoperative images show needles overlying the bilateral SI joints. RAD/Fluoro Guided Needle Placement IMPRESSION: Intraoperative procedure SI joint injection shown by 2 images fluoroscopy. Electronically Signed: Ramona Reece MD at 14:10 EDT Tel , Service support , CC: Coy Lai; Rigo Peters DO Supply Crib Attendant: Signed 12 LEAD ELECTROCARDIOGRAM Observed: 06/03/2017 Status: F Source: [place] 3:30 PM [facility] REPOSITORY [facility] Cardiovascular Services [address] [place] [address] 12 Lead EKG 05/30/17 0543 MR#: [id number] Acct: [id number] Name: JUVENTINO LION Rep #: [id number] : 1960 56 From: Gage An MD Attending Dr: Steve Marcum M.D. Status: DIS LIYAH Ordering Dr: Nazia Majano Date: 05/30/17 Location: [facility] Sex: F C Admitted: 05/29/17 Test Reason : AM EKG Blood Pressure : / mmHG Vent. Rate : 055 BPM Atrial Rate : 055 BPM P-R Int : 208 ms QRS Dur : 080 ms QT Int : 476 ms P-R-T Axes : 017 -22 060 degrees QTc Int : 455 ms Sinus bradycardia Low voltage QRS Borderline ECG When compared with ECG of 26-MAR-2013 01:52, Left posterior fascicular block is no longer Present Criteria for Septal infarct are no longer Present Reconfirmed by GAGE AN MD ([id number]), newspaper editor LAWRENCE CANO ([id number]) on 06/03/2017 3:30:20 PM Referred By: DR MAJANO Confirmed By:GAGE AN MD 06/03/17 1530 Date Gage An MD CC: Nazia Majano; Rigo Peters DO; Steve Marcum M.D. Signed 12 LEAD ELECTROCARDIOGRAM Observed: 06/03/2017 Status: F Source: [place] 2:19 PM [facility] REPOSITORY [facility] Cardiovascular Services [address] [place] [address] 12 Lead EKG 05/29/17 1818 MR#: [id number] Acct: [id number] Name: JUVENTINO LION Rep #: [id number] : 1960 56 From: Gage An MD Attending Dr: Steve Marcum M.D. Status: DIS LIYAH Ordering Dr: Michelle Tomlinson MD Date: 05/29/17 Location: [facility] Sex: F C Admitted: 05/29/17 Test Reason : SOB Blood Pressure : / mmHG Vent. Rate : 069 BPM Atrial Rate : 069 BPM P-R Int : 190 ms QRS Dur : 080 ms QT Int : 420 ms P-R-T Axes : 043 -41 053 degrees QTc Int : 450 ms Normal sinus rhythm Left axis deviation Inferior infarct , age undetermined Abnormal ECG Confirmed by GAGE AN MD ([id number]), newspaper editor LAWRENCE CANO ([id number]) on 06/03/2017 2:19:02 PM Referred By: TAMI Confirmed By:GAGE AN MD 06/03/17 1419 Date Gage An MD CC: Michelle Tomlinson MD; Rigo Marcum M.D. Signed DISCHARGE SUMMARY Observed: 05/31/2017 Status: F Source: [place] 3:42 PM [facility] REPOSITORY [facility] Medical Records Department [address] [place] [address] Discharge Summary 05/31/17 1536 MR#: [id number] Acct: [id number] Name: JUVENTINO LION Rep #: [id number] : 1960 56 From: Steve Marcum MD PCP: Rigo Peters DO Status: ADM LIYAH Y Location: [place] [address] Discharge Date and Diagnosis - Problem List Patient Problems: Active and Suspected Problems Exertional dyspnea (Acute) Chest pain (Acute) Pulmonary emboli (Acute) Date of Admission: 05/29/17 Date of Discharge: 05/31/17 - Primary Discharge Diagnosis Active and Suspected Problems Exertional dyspnea (Acute) Chest pain (Acute) Pulmonary Emboli, bilateral. - Secondary Discharge Diagnosis Chronic Problems Thoracic degenerative disc disease (Chronic) Spondylosis without myelopathy or radiculopathy, thoracic region (Chronic) Anxiety and depression (Chronic) Chronic back pain (Chronic) HTN (hypertension) (Chronic) Morbid obesity (Chronic) Hospital Course and Treatment Imaging Results: Diagnostic Data Chest X-Ray 05/29/17 18:04 IMPRESSION: Normal x-ray examination of the chest. Electronically Signed: Brian Pacheco DO at 18:36 EDT Tel , Service support , Chest CT 05/30/17 16:23 IMPRESSION: Findings are positive for bilateral extensive pulmonary emboli. Lower lobe atelectasis. Borderline cardiac enlargement. N.B. : The above information has been verbally conveyed by Ramona Reece MD to Carol Dickson Charge Nurse, Other, on 05/30/2017 16:59:03 (ET). Electronically Signed: Ramona Reece MD at 16:49 EDT Tel , Service support , N.B. : The above information has been verbally conveyed by Ramona Reece MD to Carol Dickson Charge Nurse, Other, on 05/30/2017 16:59:03 (ET). ECHOCARDIOGRAM: normal LVF EF 55%. No evidence for diastolic dysfunction. Mild MR. RVSP 33 mmHg. CORPORATE COMPLIANCE OFFICER: None. Operations: None Procedures: 2-D Echocardiogram Summary of Care Provided: The patient is a 56 y/o F w/ PMHx: AHRRISON on q HS BIPAP, Morbid Obesity, History of Tobacco, Chronic back pain w/ Thoracic DDD w/ radiculopathy, Anxiety and Depression, HTN who presents to the [facility] ED on 05/29/17 with history of ongoing dyspnea, primarily with exertion for which she has been recently evaluated per Dr. Sands with unremarkable pulmonary work-up and pending ECHO as Dr. Sands noted possibly secondary to underlying heart etiology; however, she notes onset over the 2 days days chest tightness with the dyspnea, primarily again with exertion, mid-sternal without radiation without diaphoresis, nausea or emesis. She underwent stress test, which was negative for ischemia. Echo was done also, which was unremarkable. CTA chest was ordered, showed extensive bilateral emboli. She has symptoms for one month, and has been hemodynamically stable. PE had likely happened few weeks ago. Consider to do US of leg for DVT also, although it would not alter the treatment plan. Plan to discharge with Lovenox 130 mg SQ Q12H and warfarin 5 mg po qPM. Repeat INR in 2 to 3 days, result to PCP. Instruct patient to call her PCP's office on Friday 06/02 to notify that she was started on warfarin and needs follow up. (1) Pulmonary emboli. CTA showed bilateral extensive PE. Lovenox 1 mg/kg q12h, and start warfarin 5 mg qPM. INR as outpatient. Transaction sent. (2) Hypertension: Continue home regimen including atenolol, triamterene, hydrochlorothiazide, PRN hydralazine. (3) Morbid Obesity: Weight loss and lifestyle changes encouraged, nutrition consulted. (4) History of Tobacco: Encourage continued tobacco cessation. (5) Chronic back pain w/ Thoracic DDD w/ radiculopathy: Following w/ Pain Management, maintain on home regimen morphine sulfate, PRN percocet, tizanidine. Would benefit from weight loss and lifestyle changes. (6) Anxiety and Depression: Maintain on home regimen xanax, buspar, Celexa. (7) HARRISON: BIPAP q HS. (8) Atypical chest pain. Probably due to PE. Stress test negative. Discharge Diet: - - Cardiac Discharge Activity: Return to Normal Activity Home Medications: Medications to take at Discharge ALPRAZolam [Xanax] 0.25 mg PO TID PRN PRN 03/26/13 Aspirin [Aspirin, Baby] 81 mg PO DAILY@0800 03/26/13 Atenolol [Tenormin (beta melany)] 50 mg PO QHS 03/26/13 Buspirone HCl [Buspar] 30 mg PO BID 03/26/13 Citalopram [Celexa] 40 mg PO DAILY 03/26/13 Meclizine HCl [Antivert] 25 mg PO 4X/DAY PRN PRN 03/26/13 Pregabalin [Lyrica] 100 mg PO BID 03/26/13 Biotin 5,000 mcg PO DAILY 05/19/14 Multivitamins,Ther W-Minerals [Multivitamin With Minerals] 1 tablet PO DAILY 05/19/14 Morphine Sulfate [Morphine Sulfate ER] 15 mg PO Q12H 06/17/16 Diclofenac Sodium [Voltaren] 0 gm TOPICAL PRN PRN 11/04/16 Triamterene 37.5MG/Hctz 25MG [Maxzide 37.5 mg-25 mg Tablet] 1 tablet PO DAILY 11/04/16 Krill Oil 500 mg PO DAILY 05/29/17 Oxycodone HCl/Acetaminophen [Percocet 10-325 mg Tablet] 1 tablet PO Q12H PRN 05/29/17 Tizanidine HCl 0.5 - 1 tab PO TID 05/29/17 Enoxaparin [Lovenox] 130 mg SC Q12@0600,1800 #14 syringe 05/31/17 Warfarin [Coumadin] 5 mg PO DAILY@1700 #15 tab 05/31/17 Following Prescrptions Were Given to Patient: Enoxaparin [Lovenox] 130 mg SC Q12@0600,1800 #14 syringe Warfarin [Coumadin] 5 mg PO DAILY@1700 #15 tab Other Amb Orders: Prothrombin Time w/INR Location: Laboratory Primary Care Physician: Rigo Peters DO [Primary Care Provider] - Please follow up with your Primary Care Physician in: Call office on Friday to notify for initiation of Coumadin treatment Disposition: Home Patient Condition:: Good Medical Necessity - Tobacco Use Smoking Status: Former smoker Tobacco Use: Non-smoker Meaningful Use Info Meaningful Use Diagnoses (Choose all that apply): None applicable Code Visit Inpatient E AND M: 44782 Disch Hosp 05/31/17 1542 <Electronically signed by Steve Marcum MD> Date Steve Marcum MD Cosigner Signature (if applicable): Date CC: Rigo Peters DO; Steve Marcum M.D. Signed DISCHARGE INSTRUCTION Observed: 05/31/2017 Status: F Source: [place] 3:35 PM [facility] REPOSITORY [facility] Medical Records Department [address] [place] [address] Instructions for Home/Discharge Instructions 05/31/17 1530 MR#: [id number] Acct: [id number] Name: JUVENTINO LION Rep #: [id number] : 1960 56 From: Steve Marcum MD PCP: Rigo Peters DO Status: ADM LIYAH - Discharge Diagnoses Current Active Problems: Current Active and Chronic Problems Anxiety and depression (Chronic) Chronic back pain (Chronic) HTN (hypertension) (Chronic) Morbid obesity (Chronic) Exertional dyspnea (Acute) Chest pain (Acute) You will use the following diet at home:: Cardiac Your food should be the consistency of: Regular Your liquids should be the consistency of: Regular/Thin Discharge Activity: Return to Normal Activity Pending Tests on Discharge: INR to be done in 2 to 3 days. Allergies/Adverse Reactions: Allergies adhesive Allergy (Verified 05/29/17 17:49) Hives Sulfa (Sulfonamide Antibiotics) Allergy (Verified 05/29/17 17:49) Rash Tetanus Vaccines and Toxoid [Tetanus Vaccines AND Toxoid] Allergy (Verified 05/29/17 17:49) Swelling promethazine HCl [From Phenergan] Adverse Reaction (Verified 05/29/17 17:49) Vomiting Medications to take at Discharge ALPRAZolam [Xanax] 0.25 mg PO TID PRN PRN 03/26/13 Aspirin [Aspirin, Baby] 81 mg PO DAILY@0800 03/26/13 Atenolol [Tenormin (beta melany)] 50 mg PO QHS 03/26/13 Buspirone HCl [Buspar] 30 mg PO BID 03/26/13 Citalopram [Celexa] 40 mg PO DAILY 03/26/13 Meclizine HCl [Antivert] 25 mg PO 4X/DAY PRN PRN 03/26/13 Pregabalin [Lyrica] 100 mg PO BID 03/26/13 Biotin 5,000 mcg PO DAILY 05/19/14 Multivitamins,Ther W-Minerals [Multivitamin With Minerals] 1 tablet PO DAILY 05/19/14 Morphine Sulfate [Morphine Sulfate ER] 15 mg PO Q12H 06/17/16 Diclofenac Sodium [Voltaren] 0 gm TOPICAL PRN PRN 11/04/16 Triamterene 37.5MG/Hctz 25MG [Maxzide 37.5 mg-25 mg Tablet] 1 tablet PO DAILY 11/04/16 Krill Oil 500 mg PO DAILY 05/29/17 Oxycodone HCl/Acetaminophen [Percocet 10-325 mg Tablet] 1 tablet PO Q12H PRN 05/29/17 Tizanidine HCl 0.5 - 1 tab PO TID 05/29/17 Enoxaparin [Lovenox] 130 mg SC Q12@0600,1800 #14 syringe 05/31/17 Warfarin [Coumadin] 5 mg PO DAILY@1700 #15 tab 05/31/17 The following prescriptions were given: Enoxaparin [Lovenox] 130 mg SC Q12@0600,1800 #14 syringe Warfarin [Coumadin] 5 mg PO DAILY@1700 #15 tab Orders to be completed after discharge: Prothrombin Time w/INR Location: Laboratory Primary Care Physician: Rigo Peters DO [Primary Care Provider] - Please follow up with your Primary Care Physician in: Call office on Friday to notify for initiation of Coumadin treatment 05/31/17 3109 <Electronically signed by Steve Marcum MD> Date Steve Marcum MD CC: Rigo Peters DO CBC-COMPLETE BLOOD CNT Collected: 05/31/2017 Status: F Source: [place] NO DIFF 6:28 AM [facility] REPOSITORY TYPE CODE TESTS RESULT OUT OF RANGE REFERENCE UNITS LAB L100.1000 4.4-11.0 K/mm3 Normal WBC 5.4 LAB L100.1200 4.2-5.4 M/mm3 Normal RBC 4.25 LAB L100.1300 12.0-15.0 g/dl Normal HGB 14.1 LAB L100.1400 37-47 % Normal HCT 41.1 LAB L100.1500 81-99 fL Normal MCV 96.7 LAB L100.1600 27.0-32.0 pg High MCH 33.2 LAB L100.1700 32-36 g/gl Normal MCHC 34.3 LAB L100.1810 11.6-14.6 % Normal RDW CV 12.1 LAB L100.1820 35.1-43.9 fl Normal RDW SD 40.9 LAB L100.1900 150-450 K/mm3 Normal PLT 196 LAB L100.2000 6.2-12.0 fl Normal MPV 10.1 Performed By: #### L100.0500 #### [facility] [address] [facility] [place], [place], [address] PROTHROMBIN TIME W/INR Collected: 05/31/2017 Status: F Source: [place] 6:28 AM [facility] REPOSITORY TYPE CODE TESTS RESULT OUT OF RANGE REFERENCE UNITS LAB L300.4150 11.7-14.9 SECONDS Normal PROTIME 13.6 LAB L300.4200 Normal INR 1.0 Performed By: #### L300.3900 #### [facility] [address] [facility] [place], [address] BASIC METABOLIC Collected: 05/31/2017 Status: F Source: [place] PROFILE (BMP) 6:28 AM [facility] REPOSITORY TYPE CODE TESTS RESULT OUT OF RANGE REFERENCE UNITS LAB L501.0100 74-106 mg/dL Normal GLU 97 Result Comment: Please note revised GLUCOSE reference range effective 2017. LAB L501.1000 7-18 mg/dL Normal BUN 14 LAB L501.1100 0.55-1.02 mg/dL Normal CREAT,SERUM 0.86 Result Comment: The validity of the calculated GFR AND GFRAA in patients over 70 years has not been determined. Clinical correlation is essential. LAB L501.1110 >60 mL/min Normal EST GFR 72 Result Comment: Non- GFR Calc LAB L501.1115 >60 mL/min Normal EST GFR - AA 87 Result Comment: GFR Calc LAB L501.1255 ml/min Normal Estimated CRCL 58.98 LAB L501.1300 10-20 RATIO Normal BUN/CRE 16.3 LAB L501.2200 8.5-10 mg/dL Normal .1 CA 8.8 LAB L501.5300 136-14 mmol/L Normal 5 NA 140 LAB L501.5600 3.5-5. mmol/L Normal 1 K 3.6 Result Comment: Slight Hemolysis, Result may be falsely increased. LAB L501.5900 98-107 mmol/L Normal CL 103 LAB L501.6100 21.0-32.0 mmol/L Normal CO2 30.0 LAB L501.6200 5-15 Normal 7 GAP Performed By: #### L500.2500 #### [facility] [address] [facility] [place], [address] ECHOCARDIOGRAM COMPLETE Observed: 05/30/2017 Status: F Source: [place] 5:45 PM [facility] REPOSITORY [facility] Cardiovascular Services [address] [place] [address] Echo Complete 05/30/17 0835 MR#: [id number] Acct: [id number] Name: JUVENTINO LION Rep #: [id number] : 1960 56 From: Gage An MD Attending Dr: Steve Marcum M.D. Status: ADM LIYAH Ordering Dr: Nazia Majano Date: 05/30/17 Location: U Sex: F C Admitted: 05/29/17 Reason For Study: DYSPNEA/SOB Procedure This was a 2D Doppler, Color Flow transthoracic echocardiogram. Exam performed in department. Left Ventricle Normal LV size. Mild concentric left ventricular hypertrophy. Left ventricular systolic function is normal. The estimated ejection fraction is 55 %. No evidence for diastolic dysfunction. No regional wall motion abnormalities noted. Right Ventricle Normal RV size. Normal systolic function. Atria Normal left atrium. Normal right atrium. Mitral Valve There is mild mitral annular calcification. Mild (1+) eccentric mitral valve insufficiency. Tricuspid Valve Normal tricuspid valve. Mild (1+) tricuspid valve insufficiency. Pulmonary artery systolic pressure is 33 mmHg. Pulmonic Valve Normal pulmonic valve. Great Vessels Normal aortic root. The pulmonary artery is normal size. Normal inferior vena cava. Pericardium/Pleural No pericardial effusion. MMode/2D Measurements AND Calculations LVIDd: 4.9 cm IVSd: 1.3 cm Ao root diam: 3.3 cm LVIDs: 3.2 cm LVPWd: 1.2 cm RVDd: 2.9 cm FS: 34.6 % LAV(MOD-bp): 38.2 ml EDV(MOD-sp4): 94.7 ml SV(MOD-sp4): 55.8 ml LAV(MOD-bp) Indexed: 16.9 ml/m2 ESV(MOD-sp4): 38.9 ml LAV(MOD-sp2): 38.8 ml EF(MOD-sp4): 59.0 % LAV(MOD-sp4): 35.5 ml LA A4 area: 14.9 cm2 RA A4 area: 10.5 cm2 Time Measurements MV dec time: 0.20 sec Doppler Measurements AND Calculations MV E max robert: 77.1 cm/sec Lat Peak E' Robert: 8.3 cm/sec Med Peak E' Robert: 7.0 cm/sec MV A max robert: 74.3 cm/sec E/E' lat: 9.3 E/E' med: 11.0 MV E/A: 1.0 Ao V2 max: 160.0 cm/sec LV V1 max: 148.9 cm/sec PA V2 max: 95.6 cm/sec Ao max P.2 mmHg LV V1 max P.9 mmHg TR max robert: 274.6 cm/sec TR max P.2 mmHg Interpretation Summary Normal LV size. Mild concentric left ventricular hypertrophy. Left ventricular systolic function is normal. The estimated ejection fraction is 55 %. No evidence for diastolic dysfunction. Mild (1+) tricuspid valve insufficiency. Pulmonary artery systolic pressure is 33 mmHg. Ordering Physician: Nazia Majano Referring Physician: RIGO PETERS Performed By: Rafaela Anton RDCS 05/30/17 1745 Date Gage An MD CC: Nazia Majano; Rigo Peters DO; Steve Marcum M.D. Date Dictated: 05/30/1735 Date Transcribed: 05/30/17 174 Supply Crib Attendant: Signed CHEST WITH CONTRAST Observed: 05/30/2017 Status: F Source: [place] 4:23 PM [facility] REPOSITORY [facility] Imaging Services [address] [place] [address] Chest WITH Contrast MR#: [id number] Acct: [id number] Name: JUVENTINO LION Rep #: [id number] : 1960 F 56 From: Ramona Reece MD PCP: Rigo Peters DO Status: ADM LIYAH Study: Chest WITH Contrast Date of Exam: 05/30/17 Exam# [id number] Ordering Dr: Steve Marcum MD STUDY: CT CHEST WITH CONTRAST REASON FOR EXAM: Female, 56 years old. Chest pain RADIATION DOSAGE (If Supplied By Facility): CTDIvol = ( 13.4 ) mGy, DLP = ( 677.96 ) mGycm TECHNIQUE: Transaxial imaging was performed following intravenous administration of 100 ml of Isovue 300 contrast material. Multiplanar coronal and sagittal images were reformatted. Individualized dose optimization techniques were used for this CT. COMPARISON: None. FINDINGS: The contrast bolus is limited to evaluate for pulmonary embolism. However there are extensive filling defects within the left main pulmonary artery and left upper lobe left lower lobe branches and extending into the right interlobar artery segmental and subsegmental branches. There is minimal clot extending up into the right upper lobe branches. There is minimal lower lobe atelectasis. There is no demonstrated pleural abnormality. Normal heart and pericardium. There is borderline cardiac enlargement. There is a nonspecific right-sided paratracheal lymph node measuring 7.8 mm. Normal hilar regions. There is abnormal enhancement of the pulmonary arteries. Normal aorta arch and descending thoracic aorta. There are multi-level degenerative changes of the thoracic spine. There is a minimal hiatal hernia. CT/Chest WITH Contrast IMPRESSION: Findings are positive for bilateral extensive pulmonary emboli. Lower lobe atelectasis. Borderline cardiac enlargement. N.B. : The above information has been verbally conveyed by Ramona Reece MD to Carol Dickson Charge Nurse, Other, on 05/30/2017 16:59:03 (ET). Electronically Signed: Ramona Reece MD at 16:49 EDT Tel , Service support , N.B. : The above information has been verbally conveyed by Ramona Reece MD to Carol [facility] Charge Nurse, Other, on 05/30/2017 16:59:03 (ET). CC: Rigo Peters DO; Steve Marcum M.D. Supply Crib Attendant: Signed TROPONIN-I Collected: 05/30/2017 Status: F Source: [place] 9:25 AM [facility] REPOSITORY Order Comment: PT IN STRESS TEST [facility]. 'TROP' Serial specimen #1, #2, #3, or #4: 4 TYPE CODE TESTS RESULT OUT OF RANGE REFERENCE UNITS LAB L501.4010 <0.06 ng/mL Normal < 0.02 TROPONIN-I Result Comment: TROPONIN-I EXPECTED VALUES <0.05 NEGATIVE 0.06 - 0.59 AT RISK OF AK > OR = 0.60 SUGGEST AK Performed By: #### L501.4010 #### [facility] [address] [place], [address] STRESS REPORT Observed: 05/30/2017 Status: F Source: [place] 9:09 AM [facility] REPOSITORY [facility] Cardiovascular Services [address] [place] [address] MR#: [id number] Acct: [id number] Name: JUVENTINO LION Rep #: [id number] : 1960 56 From: Nilesh Garcia MD Primary Care: Rigo Peters DO Status: ADM LIYAH Ordering Dr: Sex: F C Stress Test Report Date: 05/30/2017 Procedure: Pharmacologic stress nuclear imaging study Indications: Chest pain Consent: Per the patient Procedure: The patient underwent pharmacologic (Regadenoson) evaluation with a peak heart rate of 92 beats per minute (56 predicted maximal heart rate) and a peak blood pressure of 134/80 mmHg. The baseline ECG demonstrated sinus bradycardia with nonspecific T-wave abnormality. The peak pharmacologic ECG demonstrated obvious ECG changes. There were no cardiac dysrhythmias pretest, during pharmacologic infusion, or recovery. There was no complaint of chest discomfort during pharmacologic infusion or recovery. The examination was discontinued secondary to completion of protocol. Impression: 1. Pharmacologic (Regadenoson) evaluation 2. Peak pharmacologic ECG with no obvious ECG changes. 3. There were no cardiac dysrhythmias pretest, during pharmacologic infusion, or recovery 4. Nuclear images pending Myocardial perfusion imaging study: Technique: The patient was injected with 14.8 millicuries of technetium 99m Cardiolite and subsequently rest SPECT Cardiolite nuclear imaging was obtained in the horizontal long, vertical long, and short axis views. The patient underwent pharmacologic (Regadenoson) evaluation with a peak heart rate of 92 beats per minute (56 % percent predicted maximal heart rate) and a peak blood pressure of 134/80 mmHg. the patient was injected with 44.9 millicuries of technetium 99m Cardiolite and subsequently stress SPECT Cardiolite nuclear imaging was obtained in the horizontal long, vertical long, and short axis views. A gated Cardiolite study at peak stress was obtained. Interpretation: Rest and stress SPECT Cardiolite nuclear imaging status post realignment, normalization, and attenuation correction demonstrate to have uniform tracer uptake and myocardial perfusion appearing within normal limits. There is end systolic thickening and brightening. The gated Cardiolite study demonstrates myocardial thickening and inward wall motion. The reported LVEF is 77%. Impression: 1. Rest and stress SPECT Cardiolite nuclear imaging demonstrate relative uniform tracer uptake and myocardial perfusion appearing within normal limits. 2. The gated Cardiolite study reports an LVEF of 77 %. This note was generated with Ibotta software. It may contain incorrect words, spelling, and punctuation that were not noted in checking the note before signing. 05/30/17 0909 <Electronically signed by Nilesh Garcia MD> Date Nilesh Garcia MD CC: Rigo Peters DO; Steve Marcum M.D. Date Dictated: 05/30/17905 Date Transcribed: 05/30/17905 Supply Crib Attendant: PM Signed PROTHROMBIN TIME W/INR Collected: 05/30/2017 Status: F Source: [place] 5:00 AM [facility] REPOSITORY Order Comment: Comments: am stress test TYPE CODE TESTS RESULT OUT OF RANGE REFERENCE UNITS LAB L300.4150 11.7-14.9 SECONDS Normal PROTIME 13.3 LAB L300.4200 Normal INR 1.0 Performed By: #### L300.3900, L300.4310 #### [facility] [address] [place], [place], [address] PARTIAL THROMBOPLAST Collected: 05/30/2017 Status: F Source: [place] TIME 5:00 AM [facility] REPOSITORY Order Comment: Comments: am stress test TYPE CODE TESTS RESULT OUT OF RANGE REFERENCE UNITS LAB L300.4310 24.1-36.2 Seconds Normal PTT 24.7 Performed By: #### L300.3900, L300.4310 #### [facility] [address] [place], [place], [address] CBC-COMPLETE BLOOD CNT Collected: 05/30/2017 Status: F Source: [place] NO DIFF 2:31 AM [facility] REPOSITORY TYPE CODE TESTS RESULT OUT OF RANGE REFERENCE UNITS LAB L100.1000 4.4-11.0 K/mm3 Normal WBC 5.8 LAB L100.1200 4.2-5.4 M/mm3 Low RBC 4.12 LAB L100.1300 12.0-15.0 g/dl Normal HGB 13.8 LAB L100.1400 37-47 % Normal HCT 39.7 LAB L100.1500 81-99 fL Normal MCV 96.4 LAB L100.1600 27.0-32.0 pg High MCH 33.5 LAB L100.1700 32-36 g/gl Normal MCHC 34.8 LAB L100.1810 11.6-14.6 % Normal RDW CV 12.2 LAB L100.1820 35.1-43.9 fl Normal RDW SD 41.5 LAB L100.1900 150-450 K/mm3 Normal PLT 205 LAB L100.2000 6.2-12.0 fl Normal MPV 9.9 Performed By: #### L100.0500 #### [facility] [address] [place], [address] BASIC METABOLIC Collected: 05/30/2017 Status: F Source: [place] PROFILE (BMP) 2:31 AM [facility] REPOSITORY Order Comment: 'TROP' Serial specimen #1, #2, #3, or #4: 3 TYPE CODE TESTS RESULT OUT OF RANGE REFERENCE UNITS LAB L501.0100 74-106 mg/dL Normal GLU 103 Result Comment: Fasting Glucose result from 100 to 125 mg/dL suggests IMPAIRED HOMEOSTASIS per A.D.A. criteria. Please note revised GLUCOSE reference range effective 2017. LAB L501.1000 7-18 mg/dL Normal BUN 14 LAB L501.1100 0.55-1.02 mg/dL Normal CREAT,SERUM 0.95 Result Comment: The validity of the calculated GFR AND GFRAA in patients over 70 years has not been determined. Clinical correlation is essential. LAB L501.1110 >60 mL/min Normal EST GFR 64 Result Comment: Non- GFR Calc LAB L501.1115 >60 mL/min Normal EST GFR - AA 78 Result Comment: GFR Calc LAB L501.1255 ml/min Normal Estimated CRCL 53.40 LAB L501.1300 10-20 RATIO Normal BUN/CRE 14.7 LAB L501.2200 8.5-10 mg/dL Low .1 CA 7.9 LAB L501.5300 136-14 mmol/L Normal 5 NA 139 LAB L501.5600 3.5-5. mmol/L Normal 1 K 3.9 LAB L501.5900 98-107 mmol/L Normal CL 107 LAB L501.6100 21.0-3 mmol/L Normal 2.0 CO2 25.0 LAB L501.6200 5-15 Normal GAP 7 Performed By: #### L500.2500, L500.4100, L501.4010 #### [facility] [address] [place], [address] LIPID PROFILE Collected: 05/30/2017 Status: F Source: [place] 2:31 AM [facility] REPOSITORY Order Comment: 'TROP' Serial specimen #1, #2, #3, or #4: 3 TYPE CODE TESTS RESULT OUT OF RANGE REFERENCE UNITS LAB L501.4900 200 mg/dL Normal CHOL 175 Result Comment: <200 mg/dL Desirable 200-240 mg/dL Borderline >240 mg/dL High Risk LAB L501.5000 mg/dL Normal TRIG 135 Result Comment: The drugs N-Acetylcysteine and Metamizole may falsely depress this assay. Serum Triglycerides Reference Interval Normal <150 mg/dL Borderline high 150 - 199 mg/dL High 200 - 499 mg/dL Very High > or = 500 mg/dL LAB L501.6400 mg/dL Low HDL 38 Result Comment: The drugs N-Acetylcysteine and Metamizole may falsely depress this assay. Reference Range HDL <40 mg/dL Low HDL Cholesterol HDL >or= 60 mg/dL High HDL Cholesterol LAB L501.6500 0-130 mg/dL Normal LDL 110 LAB L501.6600 5-40 mg/dL Normal VLDL 27 Performed By: #### L500.2500, L500.4100, L501.4010 #### [facility] [address] [place], [place], [id number] TROPONIN-I Collected: 05/30/2017 Status: F Source: [place] 2:31 AM [facility] REPOSITORY Order Comment: 'TROP' Serial specimen #1, #2, #3, or #4: 3 TYPE CODE TESTS RESULT OUT OF RANGE REFERENCE UNITS LAB L501.4010 <0.06 ng/mL Normal < 0.02 TROPONIN-I Result Comment: TROPONIN-I EXPECTED VALUES <0.05 NEGATIVE 0.06 - 0.59 AT RISK OF AK > OR = 0.60 SUGGEST AK Performed By: #### L500.2500, L500.4100, L501.4010 #### [facility] [address] [place], [place], [address] EMERGENCY DEPARTMENT Observed: 05/30/2017 Status: F Source: [place] SUMMARY 12:13 AM [facility] REPOSITORY [facility] Medical Records Department [address] [facility] [place] [address] Emergency Department Summary 05/29/17 1805 MR#: [id number] Acct: [id number] Name: JUVENTINO LION Rep #: [id number] : 1960 56 From: Michelle Tomlinson MD PCP: Rigo Peters DO Status: ADM LIYAH - ER Visit Summary Date of Service: 05/29/17 Chief Complaint: Shortness of breath, chest pain History of Present Illness: The patient is a 56 F presenting with shortness of breath, chest pain. She states that these symptoms have been worsening over the last couple of days. She has chest heaviness and shortness of breath which is worse with exertion. Denies diaphoresis or nausea. She has seen Dr. Sands who advised her he does not believe this is from her lungs and has ordered an echo for later in the month. She presented today due to worsening chest heaviness. She has a history of hypertension, chronic back pain, fibromyalgia. She is a previous smoker. No PE/DVT risk factors. Physical Examination: Vitals are stable. Patient is afebrile. Alert no acute distress. HEENT exam is unremarkable. Neck is supple. Lungs are clear and equal bilaterally. Heart is regular rate and rhythm. Abdomen is soft nontender nondistended. Extremities are unremarkable. Skin is warm and dry. No focal neurologic deficit. Remainder of exam is unremarkable. Emergency Department Course and Treatment: Patient was given aspirin on arrival. CBC, chemistries unremarkable other than creatinine 1.28. Troponin is negative. BNP is 50. EKG is sinus rate of 69 with no acute ischemic changes. Chest x- ray shows no acute process. Due to patient's exertional symptoms will discuss with the hospitalist for admission. Disposition: Observation Impression: Chest pain, dyspnea This note was generated with Cadence[employer] dictation software. It may contain incorrect words, spelling, and punctuation that were not noted in review of the chart prior to signing ED Disposition - Plan for ED Patient: Chief Complaint: Shortness of Breath Referrals: Rigo Peters DO [Primary Care Provider] - What to do if you have Problems For any increased pain, shortness of breath, bleeding, nausea or vomiting, chest pain, or any unexpected problems, contact your Primary Care Provider. Call [facility] ([phone]) or report to the closest Emergency Room. Call 911 if necessary. 05/30/17 0013 <Electronically signed by Michelle Tomlinson MD> Date Michelle Tomlinson MD Cosigner Signature (If Indicated): Date CC: Rigo Peters DO TROPONIN-I Collected: 05/29/2017 Status: F Source: [place] 10:36 PM [facility] REPOSITORY Order Comment: 'TROP' Serial specimen #1, #2, #3, or #4: 2 TYPE CODE TESTS RESULT OUT OF RANGE REFERENCE UNITS LAB L501.4010 <0.06 ng/mL Normal < 0.02 TROPONIN-I Result Comment: TROPONIN-I EXPECTED VALUES <0.05 NEGATIVE 0.06 - 0.59 AT RISK OF AK > OR = 0.60 SUGGEST AK Performed By: #### L501.4010 #### [facility] [address] [place], [address] HISTORY AND PHYSICAL Observed: 05/29/2017 Status: F Source: [place] EXAM 8:28 PM [facility] REPOSITORY [facility] Medical Records Department [address] [place] [address] History and Physical 05/29/171953 MR#: [id number] Acct: [id number] Name: JUVENTINO LION Faye Rep #: [id number] : 1960 56 From: Nazia Majano PCP: Rigo Peters DO Status: ADM LIYAH Y Location: [facility] [id number] Problem List (1) Anxiety and depression Status: Chronic (2) Chronic back pain Status: Chronic Qualifiers: Back pain location: thoracic back pain Back pain laterality: unspecified Qualified Code(s): M54.6 - Pain in thoracic spine; G89.29 - Other chronic pain (3) HTN (hypertension) Status: Chronic Qualifiers: Hypertension type: essential hypertension Qualified Code(s): I10 - Essential (primary) hypertension (4) Morbid obesity Status: Chronic (5) Exertional dyspnea Status: Acute (6) Thoracic degenerative disc disease Status: Chronic (7) Spondylosis without myelopathy or radiculopathy, thoracic region Status: Chronic (8) Chest pain Status: Acute Qualifiers: Chest pain type: unspecified Qualified Code(s): R07.9 - Chest pain, unspecified History of Present Illness Date of Admission: 05/29/17 Chief Complaint: Dyspnea The patient is a 56 y/o F w/ PMHx: HARRISON on q HS BIPAP, Morbid Obesity, History of Tobacco, Chronic back pain w/ Thoracic DDD w/ radiculopathy, Anxiety and Depression, HTN who presents to the [facility] ED on 05/29/17 with history of ongoing dyspnea, primarily with exertion for which she has been recently evaluated per Dr. Sands with unremarkable pulmonary work-up and pending ECHO as Dr. Sands noted possibly secondary to underlying heart etiology; however, she notes onset over the 2 days days chest tightness with the dyspnea, primarily again with exertion, mid-sternal without radiation without diaphoresis, nausea or emesis. In the ED work-up inclued T 98.4, HR 70, BP 139/74, RR 20, 96% on RA, unremarkable CBC, BMP w/ BUN/Cr 15/1.28, CrCl 39, glucose 112, trop < 0.02, BNP 50.4, CXR without acute process, EKG w/ SR without acute findings on ischemia. In the ED patient administered ASA in the ED. Past Medical History Past Medical History (Chronic Problems): Chronic Problems Thoracic degenerative disc disease (Chronic) Spondylosis without myelopathy or radiculopathy, thoracic region (Chronic) Anxiety and depression (Chronic) Chronic back pain (Chronic) HTN (hypertension) (Chronic) Morbid obesity (Chronic) Allergies adhesive Allergy (Verified 05/29/17 17:49) Hives Sulfa (Sulfonamide Antibiotics) Allergy (Verified 05/29/17 17:49) Rash Tetanus Vaccines and Toxoid [Tetanus Vaccines AND Toxoid] Allergy (Verified 05/29/17 17:49) Swelling promethazine HCl [From Phenergan] Adverse Reaction (Verified 05/29/17 17:49) Vomiting Home Medications: Ambulatory Orders Medication Instructions Recorded ALPRAZolam [Xanax] 0.25 mg PO TID PRN PRN 03/26/13 Aspirin [Aspirin, Baby] 81 mg PO DAILY@0800 03/26/13 Surgical History: - - Tonsillectomy, uterine ablation, bilateral ear tube placement, right middle finger cyst removal, lip surgery bump removal, sinus surgery, L4-L5 microdiscectomy 2. 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 Smoking Status: Former smoker - Quit approximate to 2.5 years prior, noted 1 ppd x 20 year history. Tobacco Use: Non-smoker Alcohol: None Drugs: None - *Family History Maternal History Items: - - Patient notes a maternal family history of diabetes and congestive heart failure. Paternal History Items: - - Patient has a paternal family history of mitral valve prolapse and her father's family with significant heart disease history including coronary disease. Review of Systems Constitutional: Reports: Fatigue. Denies: Chills, Fever, Weight Change HEENT: Denies: Head Aches, Sinus Congestion, Sinus Drainage Cardiovascular: Reports: Chest Pressure, Chest Tightness. Denies: Chest Pain, Heaviness, Light Headedness, Orthopnea, Palpitations, Syncope Respiratory: Reports: Shortness of Breath, Shortness of breath upon exertion. Denies: Cough, Shortness of breath at rest, Sputum production Gastrointestinal: Denies: Abdominal Pain, Nausea, Vomiting Genitourinary: Denies: Dysuria Musculoskeletal: Reports: Back Pain. Denies: Joint Pain, Joint Tenderness Skin: Denies: Rash, Wounds Neurological: Denies: Numbness, Tingling, Focal weakness Psychiatric: Reports: Anxiety, Depression. Denies: Homicidal Ideations, Suicidal Ideations Hematologic/ Lymphatic: Denies: Easy Bruising, Easy Bleeding VTE Information - Inpt Only VTE Present on Admission: No VTE Mechan Device Prophylaxis: SCD's VTE Pharm Prophylaxis ordered?: Yes Patient Problems: Active and Suspected Problems Exertional dyspnea (Acute) Chest pain (Acute) Subjective: Seated upright in the ED bed, talking on the phone initially, watching TV, no apparent distress. Objective: Physical Examination: General: awake, alert, oriented x 3 and cooperative, seated upright in the ED bed in no apparent distress. Skin: normal color, turgor, no icterus, cyanosis. HEENT: AT/NC, EOMI, PERRLA, MMM, no carotid bruits or JVD noted. Lungs: CTA bilaterally, moderate effort, mild decrease BL bases, no rales, ronchi or wheezing. Heart: Regular rate and rhythm; no gallop, rub audible. Abdomen: soft, morbidly obese, NTTP, ND, normal BS, no HSM; however, habitus makes examination difficult. Extremities: no cyanosis, clubbing, or edema. Neurological: patient awake, alert, oriented x 3; cognitive function intact; pupils equally reactive to light and accomodation; cranial nerves II-XII grossly normal, moving all 4 extremities, no focal deficits, strength mildly globally decreased secondary to habitus limitations and acute presentation. Psychiatric: affect appears normal, no acute evidence of depressive or anxiety feelings. - Physical Exam Vital Signs Temp Pulse Resp BP Pulse Ox 98.4 F 70 20 H 139/74 H 96 05/29/17 17:49 05/29/17 18:59 05/29/17 18:59 05/29/17 18:59 05/29/17 18:59 Oxygen Delivery Method Room Air Weight: 289 lb 0.416 oz Body Mass Index (BMI) 51.2 Laboratory Tests Past 24 Hrs Assessment/Plan Active and Suspected Problems Exertional dyspnea (Acute) Chest pain (Acute) The patient is a 56 y/o F w/ PMHx: HARRISON on q HS BIPAP, Morbid Obesity, History of Tobacco, Chronic back pain w/ Thoracic DDD w/ radiculopathy, Anxiety and Depression, HTN who presents to the [facility] ED on 05/29/17 with history of ongoing dyspnea, primarily with exertion for which she has been recently evaluated per Dr. Sands with unremarkable pulmonary work-up and pending ECHO as Dr. Sands noted possibly secondary to underlying heart etiology; however, she notes onset over the 2 days days chest tightness with the dyspnea, primarily again with exertion, mid-sternal without radiation without diaphoresis, nausea or emesis. (1) Chest Pain, Exertional Dyspnea: In the ED work-up inclued T 98.4, HR 70, BP 139/74, RR 20, 96% on RA, unremarkable CBC, BMP w/ BUN/Cr 15/1.28, CrCl 39, glucose 112, trop < 0.02, BNP 50.4, CXR without acute process, EKG w/ SR without acute findings on ischemia. Will admit to PCU, place on a monitored bed to assure no acute myocardial infarction with serial cardiac enzymes and EKGs. Patient is unable to perform exercise thus will proceed with AM nuclear stress testing. ASA, NG, morphine. FLP in AM, mag pending. ECHO pending. (2) Hypertension: Continue home regimen including atenolol, triamterene, hydrochlorothiazide, PRN hydralazine. (3) Morbid Obesity: Weight loss and lifestyle changes encouraged, nutrition consulted. (4) History of Tobacco: Encourage continued tobacco cessation. (5) Chronic back pain w/ Thoracic DDD w/ radiculopathy: Following w/ Pain Management, maintain on home regimen morphine sulfate, PRN percocet, tizanidine. Would benefit from weight loss and lifestyle changes. (6) Anxiety and Depression: Maintain on home regimen xanax, buspar, Celexa. (7) HARRISON: BIPAP q HS. (8) DVT Prophylaxis: SCDs, heparin. Code Visit OBSV E AND M: [id number] Initial observation care L3 05/29/172027 <Electronically signed by Nazia Majano > Date Nazia Majano Cosigner Signature: Date (if applicable) CC: Nazia Majano; Rigo Peters DO Signed CBC W/DIFF, AUTOMATED Collected: 05/29/2017 Status: F Source: [place] 6:20 PM [facility] REPOSITORY TYPE CODE TESTS RESULT OUT OF RANGE REFERENCE UNITS LAB L100.1000 4.4-11.0 K/mm3 Normal WBC 6.4 LAB L100.1200 4.2-5.4 M/mm3 Normal RBC 4.44 LAB L100.1300 12.0-15.0 g/dl Normal HGB 14.6 LAB L100.1400 37-47 % Normal HCT 43.3 LAB L100.1500 81-99 fL Normal MCV 97.5 LAB L100.1600 27.0-32.0 pg High MCH 32.9 LAB L100.1700 32-36 g/gl Normal MCHC 33.7 LAB L100.1810 11.6-14.6 % Normal RDW CV 12.5 LAB L100.1820 35.1-43.9 fl High RDW SD 44.2 LAB L100.1900 150-450 K/mm3 Normal PLT 214 LAB L100.2000 6.2-12.0 fl Normal MPV 9.8 LAB L100.2100 47-70 % Low NEUT% 41.3 LAB L100.2200 19-41 % High LY% 48.7 LAB L100.2300 0-10 % Normal MONO% 7.6 LAB L100.2400 0-5 % Normal EO% 1.7 LAB L100.2500 0-1 % Normal BASO% 0.2 LAB L100.2550 0.0-0.9 % Normal IM GRAN % 0.500 Result Comment: IG% - Immature Granulocytes (promyelocytes, myelocytes and metamyelocytes) > 1% indicates that a LEFT SHIFT is Present. LAB L100.2620 2.0-7.7 X10 3/uL Normal Absolute Neut 2.7 LAB L100.2720 0.83-4.51 X10 3/ul Normal Absolute Lymph 3.12 Performed By: #### L100.0100 #### [facility] [address] [place], [address] BASIC METABOLIC Collected: 05/29/2017 Status: F Source: [place] PROFILE ([facility]) 6:20 PM [facility] REPOS[facility]ORY Order Comment: 'TROP' Serial specimen #1, #2, #3, or #4: 1 TYPE CODE TESTS RESULT OUT OF RANGE REFERENCE UNITS LAB L501.0100 74-106 mg/dL High GLU 112 Result Comment: Fasting Glucose result from 100 to 125 mg/dL suggests IMPAIRED HOMEOSTASIS per A.D.A. criteria. Please note revised GLUCOSE reference range effective 2017. LAB L501.1000 7-18 mg/dL Normal BUN 15 LAB L501.1100 0.55-1.02 mg/dL High CREAT,SERUM 1.28 Result Comment: The validity of the calculated GFR AND GFRAA in patients over 70 years has not been determined. Clinical correlation is essential. LAB L501.1110 >60 mL/min Low EST GFR 45 Result Comment: Non- GFR Calc LAB L501.1115 >60 mL/min Low EST GFR - AA 55 Result Comment: GFR Calc LAB L501.1255 ml/min Normal Estimated CRCL 39.63 LAB L501.1300 10-20 RATIO Normal BUN/CRE 11.7 LAB L501.2200 8.5-10 mg/dL Normal .1 CA 8.5 LAB L501.5300 136-14 mmol/L Normal 5 NA 141 LAB L501.5600 3.5-5. mmol/L Normal 1 K 3.6 LAB L501.5900 98-107 mmol/L Normal CL 103 LAB L501.6100 21.0-3 mmol/L Normal 2.0 CO2 29.0 LAB L501.6200 5-15 Normal GAP 9 Performed By: #### L500.2500, L501.4010 #### [facility] [address] [place], [place], [address] TROPONIN-I Collected: 05/29/2017 Status: F Source: [place] 6:20 PM [facility] REPOS[facility]ORY Order Comment: 'TROP' Serial specimen #1, #2, #3, or #4: 1 TYPE CODE TESTS RESULT OUT OF RANGE REFERENCE UNITS LAB L501.4010 <0.06 ng/mL Normal < 0.02 TROPONIN-I Result Comment: TROPONIN-I EXPECTED VALUES <0.05 NEGATIVE 0.06 - 0.59 AT RISK OF AK > OR = 0.60 SUGGEST AK Performed By: #### L500.2500, L501.4010 #### [facility] [address] [place], [place], [address] BNP,B-TYPE NATRIURETIC Collected: 05/29/2017 Status: F Source: [place] 6:20 PM [facility] REPOSITORY TYPE CODE TESTS RESULT OUT OF RANGE REFERENCE UNITS LAB L503.6620 0-100 pg/mL Normal B-TYPE 50.4 MAXIMILIAN PEP Performed By: #### L503.6620 #### [facility] [address] [place], [place], [address] MAGNESIUM Collected: 05/29/2017 Status: F Source: [place] 6:20 PM [facility] REPOS[facility]ORY TYPE CODE TESTS RESULT OUT OF RANGE REFERENCE UNITS LAB L501.5200 1.6-2.6 mg/dL Normal MG 2.2 Result Comment: Please note revised Magnesium reference range effective 2017. Performed By: #### L501.5200 #### [facility] [address] [place], [address] CHEST 1 VIEW Observed: 05/29/2017 Status: F Source: [place] (PORTABLE) 6:05 PM [facility] REPOSITORY [facility] Imaging Services [address] [place] [address] Chest 1 View (Portable) MR#: [id number] Acct: [id number] Name: JUVENTINO LION Rep #: [id number] : 1960 F 56 From: Brian Pacheco DO PCP: Rigo Peters DO Status: PRE ER Study: Chest 1 View (Portable) Date of Exam: 05/29/17 Exam# [id number] Ordering Dr: Michelle Tomlinson MD STUDY: X-RAY CHEST REASON FOR EXAM: Female, 56 years old. Chest pain TECHNIQUE: Single AP portable view of the chest. COMPARISON: None. FINDINGS: The lungs are clear and expanded. There is no demonstrated pleural abnormality. Normal size heart. Normal mediastinum and katelyn. Normal visualized pulmonary arteries. Normal visualized aortic arch and descending thoracic aorta. Normal visualized thoracic spine. Normal visualized ribs, clavicles, and shoulders. There is no demonstrated abnormality of the visualized soft tissue structures of the upper abdomen. RAD/Chest 1 View (Portable) IMPRESSION: Normal x-ray examination of the chest. Electronically Signed: Brian Pacheco DO at 18:36 EDT Tel , Service support , CC: Michelle Tomlinson MD; Rigo Peters DO Supply Crib Attendant: Signed OPERATIVE REPORT Observed: 05/05/2017 Status: F Source: [place] 11:43 AM [facility] REPOSITORY [facility] Medical Records Department [address] [place] [address] Operative Report 05/05/17 1138 MR#: [id number] Acct: [id number] Name: JUVENTINO LION Rep #: [id number] : 1960 56 From: Coy Lai MD PCP: Rigo Peters DO Status: DEP [facility] Y Location: [facility] Problem List (1) Thoracic degenerative disc disease Status: Chronic (2) Spondylosis without myelopathy or radiculopathy, thoracic region Status: Chronic Report of Operation Date of Procedure: 05/05/17 Pre-Operative Diagnosis: Thoracic spondylosis, thoracic degenerative disc disease, thoracic facet arthropathy Post-Operative Diagnosis: Thoracic spondylosis, thoracic degenerative disc disease, thoracic facet arthropathy Surgery/Procedure Performed:: Right sided thoracic facet steroid injection T4, T5, T6, T7 Description of Surgical Findings:: PROCEDURE: Right-sided thoracic facet steroid injection T4, T5, T6, T7 PREOPERATIVE DIAGNOSES: Thoracic spondylosis, thoracic degenerative disc disease, thoracic facet arthropathy POSTOPERATIVE DIAGNOSES: Thoracic spondylosis, thoracic degenerative disc disease, thoracic facet arthropathy ANESTHESIA: MAC COMPLICATIONS: None BLOOD LOSS: Minimal PROCEDURE IN DETAIL: History and physical today was reviewed. Risks and benefits of the procedure were explained. The patient understood, agreed to our procedure, and informed consent was obtained. IV inserted per routine protocol. The patient was taken to the operating room, placed in a prone position with a pillow positioned underneath the chest. The upper back area was prepped and draped in a sterile fashion using iodine 3 under direct visualization fluoroscopy on AP view the T4 through T7 vertebral bodies are visualized the skin and subcutaneous tissue and size approximately 5 cc of 1% lidocaine using a 25-gauge regular needle under direct visualization fluoroscopy at approximately 15 angle starting on the right C4 ending on the right T7 passing through the T5-T6 using a 25- gauge 3-1/2 inch spinal needle the needle was advanced via the skin the tip of the needle's maneuver and directed towards the epiphyseal junction of each corresponding vertebra once the tip of the needle was at the vicinity of the medial branch and contact with the bone the needle pulled approximately 2 mm of the bone after negative aspiration for blood or CSF and confirmation of AP as well as oblique and lateral view a total of 6 cc of preservative-free 0.25% Marcaine with 80 mg of Depo-Medrol were injected in divided doses between those 4 levels. The needles were then removed intact. The patient experienced no signs or symptoms of intrathecal, intravascular injection. The patient experienced no paraesthesia. The procedure was completed without any apparent difficulty, any complication. The patient appeared to tolerate well. Sensory as well as motor exam was unchanged from prior to procedure. ASSESSMENT AND PLAN: This is a 56-year-old Female with thoracic spondylosis, thoracic degenerative disc disease, thoracic facet arthropathy status post right-sided thoracic facet steroid injection T4 through T7, the patient will continue her current medications. The patient will follow up in approximately 2 weeks fo reevaluation. 05/05/17 1143 <Electronically signed by Coy Lai MD> Date Coy Lai MD CC: Coy Lai; Rigo Peters DO Signed THORACIC SPINE 2 Observed: 05/05/2017 Status: F Source: [facility] 12:35 AM [facility] REPOSITORY [facility] Imaging Services [address] [place] [address] Thoracic Spine 2 Views MR#: [id number] Acct: [id number] Name: JUVENTINO LION Rep #: [id number] : 1960 F 56 From: Bernard Palmer MD PCP: Rigo Peters DO Status: [facility] Study: Thoracic Spine 2 Views Date of Exam: 05/05/17 Exam# [id number] Ordering Dr: Coy Lai MD STUDY: X-RAY/FLUOROSCOPY - THORACIC SPINE REASON FOR EXAM: Female, 56 years old. Thoracic nerve blocks. TECHNIQUE: Fluoroscopic assistance was provided to Dr. Lai. 4 intraprocedural fluoroscopic spot view(s) of the thoracic spine were obtained. COMPARISON: None. FINDINGS: 4 films demonstrate positioning of a needle such that its tip overlaps the pedicle of the respective vertebral level, on the same side. The levels are not marked, but based on the identifiable ribs, this may be blocked performed at T6-T9. RAD/Thoracic Spine 2 Views IMPRESSION: Fluoroscopic guidance for bilateral thoracic spinal nerve blocks, grossly T6-T9. Correlation with procedure notes advised. Electronically Signed: Edvin Palmer MD at 13:47 EDT , Service support , CC: Coy Lai; Rigo Peters DO Supply Crib Attendant: Signed ALLERGIES ALLERGIES DATE TYPE / CODE NAME / CODE REACTION SEVERITY SOURCE 08/22/2017 Drug promethazine Vomiting Unknown [place] Allergy/416 HCl/[id number](RXNO [facility] 391601([facility] ED CT) Repository 08/22/2017 Drug Sulfa (Sulfonamide Rash Unknown [place] Allergy/416 Antibiotics)/V41256 Community 040868([facility] 08/22/2017 Drug Tetanus Vaccines Swelling Unknown [place] Allergy/416 and Community 412529([facility] Toxoid/[id number]) XNORM) Repository 08/22/2017 Drug adhesive/[id number] Hives Unknown [place] Allergy/416 (RXNORM) [facility] 882732([facility] ED CT) Repository ENCOUNTERS ENCOUNTERS ADMIT/DISCHARGE ACCOUNT NUMBER ADMITTING ENCOUNTER LOCATION SOURCE CLASS 03/09/2018/03/09/19 [id number] Ambulatory [place] [facility] ding:[place] Repository : AC18 11/03/2017/11/04/19 [id number] Ambulatory [place] [facility] ding:SDC Repository 10/03/2017/12/11/19 [id number] Ambulatory BBuilding:FELICITY [place] [facility] Repository 08/22/2017/07/06 [id number] Emergency [address] ding:ED Repository 07/07/2017/07/08/19 [id number] Ambulatory [address] ding:SDC Repository 07/07/2017/07/08/19 [id number] Ambulatory [place] [address] [place] [address] ding:[facility] Repository 06/06/2017 [id number] Ambulatory [facility] ding:[facility]S Repository 05/30/2017/06/01/19 [id number] Ambulatory BMSBuilding: [place] [facility] Repository 05/30/2017/06/01/19 [id number] Ambulatory BMSBuilding: [place] Repository 05/29/2017/06/01/19 [id number] [place], Ambulatory [address] ding:PCURoom Repository : RNP789Fic: 1 05/29/2017 [id number] [place], Ambulatory BMSBuilding: [place] Nazia BMS.[facility] Repository 05/29/2017 [id number] [place], Ambulatory BMSBuilding: [place] Nazia BMS.[facility] Repository 05/29/2017 [id number] [place], Ambulatory BMSBuilding: [place] Nazia BMS.[facility] Repository 05/05/2017/05/06/19 [id number] Ambulatory [address] ding:[facility] Repository PAYERS PAYERS ENCOUNTER GUARANTOR PAYER SUBSCRIBER SOURCE 03/09/2018 JUVENTINO EDUARDOH214 Primary Insurance:[facility] JUVENTINO MARTÍNEZOB: [place] HERNANDEZ [facility] [id number] Number: Hospital [address]Frg: [phone] [id number] Repository [phone] () Date:[id number] [address]WV: 03/09/2018 Secondary NOT GIVENUNK [place] Insurance:SELF PAY [facility] Number: Effective Repository Date:2018-03-02 11/03/2017 JUVENTINO [id number] Primary Insurance:[facility] JUVENTINO MARTÍNEZOB: [place] [address]NA[address] [facility] PLANPolicy [id number] Number: Hospital [address]Kdx: (330 [id number] Repository [phone] (HP) Date:[id number] [address]RO: 11/03/2017 Secondary NOT GIVENUNK [place] Insurance:SELF PAY [facility] Number: Effective Repository Date:2017-10-28 10/03/2017 JUVENTINO Mckinney FATHDOB: Primary JUVENTINO Mckinney FATHDOB: [facility] Insurance:[facility] [id number] [facility] [place]ository [place] [address]Fug: Number: [place], [place] [id number] [address]Tky: [phone] (HP) Date:2017-09-24 [phone] ()Tel: [phone]) Name:XPO Tamora 000-0000 ([address] [address]YG: 08/22/2017 JUVENTINO EDUARDOH670 Primary Insurance:[facility] JUVENTINO Mckinney FATHDOB: [place] BACON [facility] [id number] Number: Hospital [address]Hfs: 330 [id number] Repository [phone] (HP) Date:3275-41-69OR [address] [address]WX: 08/22/2017 Secondary NOT GIVENUNK [place] Insurance:SELF PAY [facility] Number: Effective Repository Date:2017-08-22 07/07/2017 JUVENTINO Mckinney [id number] Primary Insurance:[facility] JUVENTINO Mckinney FATHDOB: [place] BACON [facility] [id number] Number: Hospital [address]Nei: 330 [id number] Repository [phone] (HP) Date:2087-09-02AI [address] [address]SA: 07/07/2017 Secondary NOT GIVENUNK [place] Insurance:SELF PAY [facility] Number: Effective Repository Date:2017-06-30 07/07/2017 JUVENTINO Mckinney FATHDOB: Primary JUVENTINO Mckinney FATHDOB: [facility] Insurance:[facility] [id number] [facility] Repository [place] [address]Qsw: Number: [place], [place] [id number] [address]Uhw: [phone]) (HP) Date:2017-07-07 [phone] ()Tel: [phone] Name:[facility] 000-0000 () [address] [place] [address]LO: 06/06/2017 JUVENTINO [id number] Primary Insurance:[facility] JUVENTINO Mckinney FATHDOB: [place] [facility]SA [facility] [id number] Number: Hospital [address]Aen: 330 [id number] Repository [phone] () Date:3920-97-66TR [address] [place] [address]EQ: 06/06/2017 Secondary NOT GIVENUNK [place] Insurance:SELF PAY [facility] Number: Effective Repository Date:2017-05-26 05/30/2017 JUVENTINO Mckinney [id number] Primary Insurance:[facility] JUVENTINO Mckinney FATHDOB: [place] MELISSA BACON [facility] [id number] Number: Hospital [address]Dlo: [phone] [id number] Repository [phone] () Date:3428-81-65GB [address] [address]DW: 05/30/2017 Secondary NOT GIVENUNK [place] Insurance:SELF PAY [facility] Number: Effective Repository Date:2017-05-30 05/30/2017 JUVENTINO Mckinney [id number] Primary Insurance:[facility] JUVENTINO Mckinney FATHDOB: [place] MELISSA BACON [facility] [id number] Number: Hospital [address]Enw: [phone] [id number] Repository [phone] (HP) Date:6317-08-05RT [address] [address]TU: 05/30/2017 Secondary NOT GIVENUNK [place] Insurance:SELF PAY [facility] Number: Effective Repository Date:2017-05-30 05/29/2017 JUVENTINO Faye [id number] Primary Insurance:[facility] JUVENTINO Mckinney FATHDOB: [place] MELISSA BACON [facility] PLANPolicy [id number] Number: Hospital [address]Kho: 330 [id number] Repository [phone] (HP) Date:3194-80-36CB [address] [address]YV: 05/29/2017 Secondary NOT GIVENUNK [place] Insurance:SELF PAY [facility] Number: Effective Repository Date:2017-05-29 05/29/2017 JUVENTINO Faye [id number] Primary Insurance:[facility] JUVENTINO Faye FATHDOB: [place] [address] [facility] PLANPolic [id number] [address]Cqf: Number: [facility] [id number] Repository (HP) Date:7639-01-49XA [address] [address]RI: 05/29/2017 Secondary NOT GIVENUNK [place] Insurance:SELF PAY [facility] Number: Effective Repository Date:2017-05-29 05/29/2017 JUVENTINO Faye [id number] Primary Insurance:[facility] JVUENTINO Mckinney FATHDOB: [place] BACON [facility] PLANPolic [id number], [place] Number: Hospital [address]Ddd: [phone] [id number] Repository [phone] (HP) Date:5564-51-61NE [address] [address]UP: 05/29/2017 Secondary NOT GIVENUNK [place] Insurance:SELF PAY [facility] Number: Effective Repository Date:2017-05-29 05/29/2017 JUVENTINO Faye [id number] Primary Insurance:[facility] JUVENTINO Mckinney FATHDOB: [place] BACON [facility] PLANPolicy [id number] [place], [place] Number: Hospital [address]Ieo: 330 [id number] Repository [phone] () Date:2796-16-66RS [address] [address]TT: 05/29/2017 Secondary NOT GIVENUNK [place] Insurance:SELF PAY [facility] Number: Effective Repository Date:2017-05-29 05/05/2017 JUVENTINO Mckinney [id number] Primary Insurance:[facility] JUVENTINO Mckinney FATHDOB: [place] [facility] [facility] PLANPolicy [id number] [facility] [address]Vgq: Number: [facility] [id number] Repository () Date:0997-03-34RP [address] [address]XW: 05/05/2017 Secondary NOT GIVENUNK [place] Insurance:SELF PAY [facility] Number: Effective Repository Date:2017-04-29
== END 2018-03-09 10:15 | disposition home or self-care (01) ==
LOC: SDC 07:31 → AC 07:31
PROVIDERS: Family Provider Family Medicine; PCP Family Medicine; Referring Provider Anesthesiology Pain Medicine; Visit Provider Anesthesiology Pain Medicine
PROC: 3E0U3BZ Introduction of Anesthetic Agent into Joints, Percutaneous Approach (ICD-10-PCS; CPT 64451; principal; 2018-03-09 08:35)
DX: M46.1 Sacroiliitis, not elsewhere classified (principal); M53.3 Sacrococcygeal disorders, not elsewhere classified; I10 Essential (primary) hypertension; G47.33 Obstructive sleep apnea (adult) (pediatric); F41.9 Anxiety disorder, unspecified; F32.9 Major depressive disorder, single episode, unspecified; Z79.02 Long term (current) use of antithrombotics/antiplatelets; Z79.891 Long term (current) use of opiate analgesic; Z79.899 Other long term (current) drug therapy
CPT/HCPCS: 27096; 76000; 77002; J7120

== ENCOUNTER 2018-04-06 07:13 | Day surgery (SDC) | payer MEDICAID, SELFPAY ==
[2018-03-09 07:54] VITALS: BMI 54.1
[2018-04-06 07:36] VITALS: BP 166/85; PULSE 60; RESP 16; TEMP 36.8; O2SAT 94; BMI 54.7
[2018-04-06] MEDS: Bupivacaine 0.25% 30 ML Vial (08:12)
[2018-04-06] MEDS: MethylPREDNISolone Acetate 80 MG/ML Vial (08:12)
[2018-04-06 08:25] VITALS: BP 121/80; BP 166/85; PULSE 58; RESP 14; TEMP 37.2; O2SAT 96
[2018-04-06 08:30] VITALS: BP 112/73; BP 166/85; PULSE 59; RESP 14; O2SAT 92
--- NOTE | 2018-04-06 08:30 | RAD_ITS ---
PROCEDURE: Right L3-S1 facet joint block. DATE OF EXAMINATION: April 06, 2018. INDICATION: Female, 57 years old. Chronic low back pain. FLUOROSCOPY TIME (if supplied): (0:21) minutes/seconds. 4 coned-down views were obtained. Intraoperative imaging was provided for right L3-S1 facet joint block. RAD/L/S Spine Min 4 Views IMPRESSION: Intraoperative imaging provided for right L3-S1 facet joint block. Electronically Signed: Jaziel Carlos MD at 10:36 EST , Service support ,
[2018-04-06 08:35] VITALS: BP 109/65; BP 166/85; PULSE 57; RESP 16; O2SAT 93
[2018-04-06 08:41] VITALS: BP 122/90; BP 166/85; PULSE 58; RESP 16; TEMP 37.1; O2SAT 94
--- NOTE | 2018-04-06 09:14 | OP.PCM_ITS ---
Problem List (1) Degeneration of intervertebral disc of lumbosacral region Status: Chronic (2) Spondylosis of lumbosacral region without myelopathy or radiculopathy Status: Chronic Report of Operation Date of Procedure: 04/06/18 Pre-Operative Diagnosis: Lumbosacral spondylosis, lumbosacral degenerative disc disease, lumbar facet arthropathy Post-Operative Diagnosis: Lumbosacral spondylosis, lumbosacral degenerative disc disease, lumbar facet arthropathy Surgery/Procedure Performed:: Right-sided lumbar facet steroid injection L3, L4, L5, S1 Description of Surgical Findings:: PROCEDURE: Right-sided lumbar facet steroid injection L3, L4, L5, S1 PREOPERATIVE DIAGNOSIS: Lumbosacral spondylosis, lumbosacral degenerative disc disease, and lumbar facet arthropathy POSTOPERATIVE DIAGNOSIS: Lumbosacral spondylosis, lumbosacral degenerative disc disease, and lumbar facet arthropathy ANESTHESIA: MAC COMPLICATIONS: None BLOOD LOSS: Minimal PROCEDURE IN DETAIL: History and physical today was reviewed. Risks and benefits of the procedure were explained. The patient understood, agreed to our procedure, and informed consent was obtained. IV inserted per routine protocol. The patient was taken to the operating room, placed in a prone position with a pillow positioned underneath the abdomen. The right side of her lower back was prepped and draped in a sterile fashion using iodine x3. Under fluoroscopy guidance, on AP view, L3 through S1 vertebral bodies were visualized. Skin and subcutaneous tissues were anesthetized with approximately 5 mL of 1% lidocaine using a 25-gauge regular needle. Under direct visualization with fluoroscopy at approximately 25-degree angle, starting on the right L3, ending on the right S1, passing through the L4-L5 using a 22-gauge 5 inch spinal needle, the needle was advanced via the skin. The tip of the needle was maneuvered and directed towards the superior and medial gutter of the transverse process at the vicinity of the medial branch. Once the tip of the needle was in contact with the bone, the needle pulled approximately 2 mm off the bone. After negative aspiration of blood with CSF and confirmation of AP as well as oblique view, a total of 8 mL of preservative-free 0.25% Marcaine with 80 mg of Depo- Medrol was injection in divided doses between those 4 levels. The needles were then removed intact. The patient experienced no signs or symptoms intrathecal, intravascular injection. The patient experienced no paraesthesia. The procedure was completed without any apparent difficult, any complication. The patient appeared to tolerate well. ASSESSMENT AND PLAN: This is a 57-year-old Female with Lumbosacral spondylosis, lumbosacral degenerative disc disease, and lumbar facet arthropathy, status post right-sided lumbar facet steroid injection L3 through S1. The patient will continue her current medications. The patient will follow in approximately 2 weeks for possible repeat of the procedure if indicated.
== END 2018-04-06 09:22 | disposition home or self-care (01) ==
LOC: SDC 07:13 → AC 07:15
PROVIDERS: Family Provider Family Medicine; PCP Family Medicine; Referring Provider Anesthesiology Pain Medicine; Visit Provider Anesthesiology Pain Medicine
PROC: 3E0T3BZ Introduction of Anesthetic Agent into Peripheral Nerves and Plexi, Percutaneous Approach (ICD-10-PCS; CPT 64520; principal; 2018-04-06 08:25)
DX: M47.27 Other spondylosis with radiculopathy, lumbosacral region (principal); M51.17 Intervertebral disc disorders with radiculopathy, lumbosacral region; M51.16 Intervertebral disc disorders with radiculopathy, lumbar region; M96.1 Postlaminectomy syndrome, not elsewhere classified; F41.9 Anxiety disorder, unspecified; F32.9 Major depressive disorder, single episode, unspecified; I10 Essential (primary) hypertension; K21.9 Gastro-esophageal reflux disease without esophagitis; Z79.899 Other long term (current) drug therapy; G47.30 Sleep apnea, unspecified; Z87.891 Personal history of nicotine dependence; Z79.02 Long term (current) use of antithrombotics/antiplatelets; Z79.891 Long term (current) use of opiate analgesic
CPT/HCPCS: 01992; 64520; 64483; 72110; J7120

== ENCOUNTER 2018-07-06 08:23 | Day surgery (SDC) | payer MEDICAID, SELFPAY ==
[2018-07-06 08:57] VITALS: BP 181/82; PULSE 55; RESP 16; TEMP 36.6; O2SAT 97; BMI 53.6
--- NOTE | 2018-07-06 09:50 | RAD_ITS ---
PROCEDURE: Left L3-S1 facet joint block. DATE OF EXAMINATION: July 06, 2018. INDICATION: Female, 57 years old. Chronic low back pain. FLUOROSCOPY TIME (if supplied): (0:20) minutes/seconds. 4 cone down views were obtained. Intraoperative imaging provided for left L3-S1 facet joint block. RAD/L/S Spine Min 4 Views IMPRESSION: Intraoperative imaging provided for left L3-S1 facet joint block. Electronically Signed: Jaziel Carlos, at 15:11 EDT , Service support ,
[2018-07-06] MEDS: MethylPREDNISolone Acetate 80 MG/ML Vial (10:08)
[2018-07-06] MEDS: Bupivacaine 0.25% 30 ML Vial (10:08)
[2018-07-06 10:21] VITALS: BP 128/63; BP 181/82; PULSE 60; RESP 18; TEMP 37.1; O2SAT 95
[2018-07-06 10:25] VITALS: BP 141/69; BP 181/82; PULSE 58; RESP 18; O2SAT 92
[2018-07-06 10:30] VITALS: BP 141/75; BP 181/82; PULSE 57; RESP 18; O2SAT 93
[2018-07-06 10:35] VITALS: BP 149/73; BP 181/82; PULSE 61; RESP 18; TEMP 36.2; O2SAT 95
[2018-07-06 11:00] VITALS: BP 181/82
--- NOTE | 2018-07-06 13:49 | OP.PCM_ITS ---
Problem List (1) Degeneration of intervertebral disc of lumbosacral region Status: Chronic (2) Spondylosis of lumbosacral region without myelopathy or radiculopathy Status: Chronic Report of Operation Date of Procedure: 07/06/18 Pre-Operative Diagnosis: Lumbosacral spondylosis, lumbosacral degenerative disc disease, lumbar facet arthropathy Post-Operative Diagnosis: Lumbosacral spondylosis, lumbar sacral degenerative disc disease, lumbar facet arthropathy Surgery/Procedure Performed:: Left-sided lumbar facet steroid injection L3, L4, L5, S1 Description of Surgical Findings:: Left-sided lumbar facet steroid injection L3, L4, L5, S1 PREOPERATIVE DIAGNOSIS: Lumbosacral spondylosis, lumbosacral degenerative disc disease, and lumbar facet arthropathy POSTOPERATIVE DIAGNOSIS: Lumbosacral spondylosis, lumbosacral degenerative disc disease, and lumbar facet arthropathy ANESTHESIA: MAC COMPLICATIONS: None BLOOD LOSS: Minimal PROCEDURE IN DETAIL: History and physical today was reviewed. Risks and benefits of the procedure were explained. The patient understood, agreed to our procedure, and informed consent was obtained. IV inserted per routine protocol. The patient was taken to the operating room, placed in a prone position with a pillow positioned underneath the abdomen. The left side of the lower back was prepped and draped in a sterile fashion using iodine x3. Under fluoroscopy guidance, on AP view, L3 through S1 vertebral bodies were visualized. Skin and subcutaneous tissues were anesthetized with approximately 5 mL of 1% lidocaine using a 25-gauge regular needle. Under direct visualization with fluoroscopy at approximately 25-degree angle, starting on the left L3, ending on the left S1, passing through the L4-L5 using a 22-gauge 5 inch spinal needle, the needle was advanced via the skin. The tip of the needle was maneuvered and directed towards the superior and medial gutter of the transverse process at the vicinity of the medial branch. Once the tip of the needle was in contact with the bone, the needle pulled approximately 2 mm off the bone. After negative aspiration of blood with CSF and confirmation of AP as well as oblique view, a total of 8 mL of preservative-free 0.25% Marcaine with 80 mg of Depo- Medrol was injection in divided doses between those 4 levels. The needles were then removed intact. The patient experienced no signs or symptoms intrathecal, intravascular injection. The patient experienced no paraesthesia. The procedure was completed without any apparent difficult, any complication. The patient appeared to tolerate well. ASSESSMENT AND PLAN: This is a 57-year-old Female with Lumbosacral spondylosis, lumbosacral degenerative disc disease, and lumbar facet arthropathy, status post left-sided lumbar facet steroid injection L3 through S1. The patient will continue her current medications. The patient will follow in approximately 2 weeks for reevaluation.
== END 2018-07-06 11:01 | disposition home or self-care (01) ==
LOC: SDC 08:25 → AC 08:37
PROVIDERS: Family Provider Family Medicine; PCP Family Medicine; Referring Provider Anesthesiology Pain Medicine; Visit Provider Anesthesiology Pain Medicine
PROC: 3E0T3BZ Introduction of Anesthetic Agent into Peripheral Nerves and Plexi, Percutaneous Approach (ICD-10-PCS; CPT 64493; principal; 2018-07-06 09:45)
DX: M51.17 Intervertebral disc disorders with radiculopathy, lumbosacral region (principal); M47.27 Other spondylosis with radiculopathy, lumbosacral region; M51.36 Other intervertebral disc degeneration, lumbar region; M96.1 Postlaminectomy syndrome, not elsewhere classified; M79.7 Fibromyalgia; I10 Essential (primary) hypertension; G47.30 Sleep apnea, unspecified; F41.9 Anxiety disorder, unspecified; F32.9 Major depressive disorder, single episode, unspecified; K21.9 Gastro-esophageal reflux disease without esophagitis; Z87.891 Personal history of nicotine dependence; Z79.891 Long term (current) use of opiate analgesic; Z79.899 Other long term (current) drug therapy
CPT/HCPCS: 64493; 64494; 64495; 64483; 72110; J7120

== ENCOUNTER 2018-08-03 08:15 | Day surgery (SDC) | payer MEDICAID, SELFPAY ==
[2018-08-03] VITALS (8 sets, daily range): BP systolic 125–172; BP diastolic 72–101; PULSE 54–60; RESP 16; TEMP 36.3–36.6; O2SAT 96–99; BMI 54.4
--- NOTE | 2018-08-03 09:30 | RAD_ITS ---
PROCEDURE: Lumbar facet injection. DATE OF EXAMINATION: August 03, 2018 INDICATION: Female, 57 years old. Chronic low back pain. FLUOROSCOPY TIME (if supplied): (0:25) minutes/seconds. 4 intraoperative views were obtained. RAD/L/S Spine Min 4 Views IMPRESSION: Intraoperative imaging provided for right L3-S1 facet joint injection. Electronically Signed: Jaziel Carlos, at 12:35 EDT , Service support ,
[2018-08-03] MEDS: Bupivacaine 0.25% 30 ML Vial (09:44)
[2018-08-03] MEDS: MethylPREDNISolone Acetate 80 MG/ML Vial (09:45)
--- NOTE | 2018-08-03 12:37 | OP.PCM_ITS ---
Problem List (1) Degeneration of intervertebral disc of lumbosacral region Status: Chronic (2) Spondylosis of lumbosacral region without myelopathy or radiculopathy Status: Chronic Report of Operation Date of Procedure: 08/03/18 Pre-Operative Diagnosis: Lumbosacral spondylosis, lumbosacral degenerative disc disease, lumbar facet arthropathy Post-Operative Diagnosis: Lumbosacral spondylosis, lumbosacral degenerative disc disease, lumbar facet arthropathy Surgery/Procedure Performed:: Sided lumbar facet steroid injection L3, L4, L5, S1 Description of Surgical Findings:: Right-sided lumbar facet steroid injection L3, L4, L5, S1 PREOPERATIVE DIAGNOSIS: Lumbosacral spondylosis, lumbosacral degenerative disc disease, and lumbar facet arthropathy POSTOPERATIVE DIAGNOSIS: Lumbosacral spondylosis, lumbosacral degenerative disc disease, and lumbar facet arthropathy ANESTHESIA: MAC COMPLICATIONS: None BLOOD LOSS: Minimal PROCEDURE IN DETAIL: History and physical today was reviewed. Risks and benefits of the procedure were explained. The patient understood, agreed to our procedure, and informed consent was obtained. IV inserted per routine protocol. The patient was taken to the operating room, placed in a prone position with a pillow positioned underneath the abdomen. The right side of the lower back was prepped and draped in a sterile fashion using iodine x3. Under fluoroscopy guidance, on AP view, L3 through S1 vertebral bodies were visualized. Skin and subcutaneous tissues were anesthetized with approximately 5 mL of 1% lid ocaine using a 25-gauge regular needle. Under direct visualization with fluoroscopy at approximately 25-degree angle, starting on the right L3, ending on the right S1, passing through the L4-L5 using a 22-gauge 5 inch spinal needle, the needle was advanced via the skin. The tip of the needle was maneuvered and directed towards the superior and medial gutter of the transverse process at the vicinity of the medial branch. Once the tip of the needle was in contact with the bone, the needle pulled approximately 2 mm off the bone. After negative aspiration of blood with CSF and confirmation of AP as well as oblique view, a total of 8 mL of preservative-free 0.25% Marcaine with 80 mg of Depo- Medrol was injection in divided doses between those 4 levels. The needles were then removed intact. The patient experienced no signs or symptoms intrathecal, intravascular injection. The patient experienced no paraesthesia. The procedure was completed without any apparent difficult, any complication. The patient appeared to tolerate well. ASSESSMENT AND PLAN: This is a 57-year-old Female with Lumbosacral spondylosis, lumbosacral degenerative disc disease, and lumbar facet arthropathy, status post right-sided lumbar facet steroid injection L3 through S1. The patient will continue her current medications. The patient will follow in approximately 2 weeks for reevaluation.
== END 2018-08-03 10:58 | disposition home or self-care (01) ==
LOC: SDC 08:16 → AC 08:17
PROVIDERS: Family Provider Family Medicine; PCP Family Medicine; Referring Provider Anesthesiology Pain Medicine; Visit Provider Anesthesiology Pain Medicine
PROC: 3E0T3BZ Introduction of Anesthetic Agent into Peripheral Nerves and Plexi, Percutaneous Approach (ICD-10-PCS; CPT 64493; principal; 2018-08-03 09:25)
DX: M51.17 Intervertebral disc disorders with radiculopathy, lumbosacral region (principal); M47.27 Other spondylosis with radiculopathy, lumbosacral region; M96.1 Postlaminectomy syndrome, not elsewhere classified; M47.814 Spondylosis without myelopathy or radiculopathy, thoracic region; M51.34 Other intervertebral disc degeneration, thoracic region; M46.1 Sacroiliitis, not elsewhere classified; M53.3 Sacrococcygeal disorders, not elsewhere classified; M50.30 Other cervical disc degeneration, unspecified cervical region; M47.812 Spondylosis without myelopathy or radiculopathy, cervical region; F41.9 Anxiety disorder, unspecified; F32.9 Major depressive disorder, single episode, unspecified; I10 Essential (primary) hypertension; G47.30 Sleep apnea, unspecified; K21.9 Gastro-esophageal reflux disease without esophagitis; Z87.891 Personal history of nicotine dependence; Z79.02 Long term (current) use of antithrombotics/antiplatelets; Z79.891 Long term (current) use of opiate analgesic; Z79.899 Other long term (current) drug therapy
CPT/HCPCS: 64493; 64494; 64495; 64483; 72110; J7120

== ENCOUNTER → 2018-09-08 | Outpatient (CLI) | payer MEDICAID, SELFPAY ==
[2018-08-03 08:33] VITALS: BMI 54.4
--- NOTE | 2018-09-08 09:56 | VDLE_ITS ---
Reason For Study: F/U DVT, PE RIGHT LEFT GSV is normal. GSV is normal. CFV is compressible, spontaneous, phasic, CFV is compressible, spontaneous, phasic, competent and demonstrates normal competent, and demonstrates normal augmentation. augmentation. FV is compressible, spontaneous, phasic, FV is compressible, spontaneous, phasic, competent and demonstrates normal competent and demonstrates normal augmentation. augmentation. POP V is compressible, spontaneous, phasic, POP V is compressible, spontaneous, phasic, competent and demonstrates normal competent and demonstrates normal augmentation. augmentation. T/P Trunk is compressible. T/P Trunk is compressible. PTV is compressible. PTV is compressible. RT PerV is compressible. LT PerV is compressible. Procedure Exam performed in department. A preliminary report was called and/or faxed to [facility]. Interpretation Summary Deep veins of the lower extremities are bilaterally patent and compressible segmentally. There is no evidence of deep vein thrombosis on either side. Valvular competence appears intact within the proximal deep venous systems bilaterally. The greater saphenous veins appear bilaterally patent and compressible segmentally. Ordering Physician: Joey Sands Referring Physician: Get Sosa Performed By: Michelle Varner RVT
[2018-09-08 11:09] LABS: D-Dimer Quantitative (DVT/PE) < 0.27 FEU/ug/m (0.27-0.49)
== END | disposition home or self-care (01) ==
PROVIDERS: Family Provider Family Medicine; PCP Family Medicine; Referring Provider Internal Medicine Pulmonary Disease; Visit Provider Internal Medicine Pulmonary Disease
DX: I82.409 Acute embolism and thrombosis of unspecified deep veins of unspecified lower extremity (principal); I26.99 Other pulmonary embolism without acute cor pulmonale
CPT/HCPCS: 36415; 85379; 93970

== ENCOUNTER → 2018-10-27 | Outpatient (CLI) | payer MEDICAID, SELFPAY ==
[2018-08-03 08:33] VITALS: BMI 54.4
--- NOTE | 2018-10-27 09:03 | NM_ITS ---
CLINICAL: 57-year-old female with reported history of shortness of breath and apparent previous documented pulmonary embolus. VENTILATION-PERFUSION LUNG SCINTIGRAPHY COMPARISON: CT of the chest report 05/30/2017, plain film chest radiograph report 10/27/2018 FINDINGS: The patient was administered 51.0 mCi 99m Tc DTPA aerosol. The aerosol ventilation study demonstrates relatively uniform ventilation throughout the bilateral lung willis without corresponding radiographic changes defined on plain film chest radiography dated 10/27/2018. Central clumping of the aerosol is noted in the bilateral hemithorax. Following the intravenous administration of 5.1 mCi of 99m Tc MAA the pulmonary perfusion study reveals uniform perfusion throughout both lung willis. There are no segmental or subsegmental perfusion defects identified. There are no ventilation-perfusion mismatches observed. NM/Lung Scan Vent/Perf IMPRESSION: 1. NORMAL 99m Tc MAA pulmonary perfusion imaging examination, according to PIOPED II interpretive criteria. (Sotsman et al, Radiology 246: 941, 2008 Sodenise et al, J Nucl Med 49: 1741, 2008). 2. Central clumping of the aerosol may be secondary to obstructive airway mechanics and or clinical tachypnea. Electronically Signed: Rogers Perez DO at 0:11 EDT Tel , Service support ,
--- NOTE | 2018-10-27 10:22 | RAD_ITS ---
STUDY: X-RAY CHEST REASON FOR EXAM: Female, 57 years old. Continued shortness of breath. History of pulmonary embolus. TECHNIQUE: PA and lateral chest. COMPARISON: May 29, 2017. FINDINGS: The lungs are clear and expanded. There is no demonstrated pleural abnormality. Normal size heart. Normal mediastinum and katelyn. Normal visualized pulmonary arteries. Normal visualized aortic arch and descending thoracic aorta. Normal visualized thoracic spine. Normal visualized ribs, clavicles, and shoulders. There is no demonstrated abnormality of the visualized soft tissue structures of the upper abdomen. RAD/Chest PA and Lateral IMPRESSION: Normal x-ray examination of the chest. Electronically Signed: Pb Encarnacion MD at 23:54 EDT , Service support ,
== END | disposition home or self-care (01) ==
LOC: NM 09:01
PROVIDERS: Family Provider Family Medicine; PCP Family Medicine; Referring Provider Internal Medicine Pulmonary Disease; Visit Provider Internal Medicine Pulmonary Disease
DX: R06.02 Shortness of breath (principal); Z86.711 Personal history of pulmonary embolism
CPT/HCPCS: 71046; 78582; A9540; A9567

== ENCOUNTER → 2018-11-10 | Outpatient (CLI) | payer MEDICAID, SELFPAY ==
[2018-08-03 08:33] VITALS: BMI 54.4
--- NOTE | 2018-11-10 07:55 | ECHOD_ITS ---
Reason For Study: PULM EMB Procedure This was a 2D Doppler, Color Flow transthoracic echocardiogram. The study was technically difficult. Exam performed in department. Left Ventricle Normal LV size. Left ventricular systolic function is normal. The estimated ejection fraction is 65 %. Diastolic function is indeterminate. No regional wall motion abnormalities noted. Right Ventricle Normal RV size. Normal systolic function. Atria The left atrium is moderately enlarged. Normal right atrium. No doppler evidence for ASD. Mitral Valve There is mild mitral annular calcification. Extension of the mitral annular calcification onto the posterior mitral valve leaflet. Mild (1+) mitral valve insufficiency. Tricuspid Valve Normal tricuspid valve. Mild tricuspid valve insufficiency. Right ventricular systolic pressure estimated to be 34 mmHg. Aortic Valve Trisinus/trileaflet aortic valve. Normal aortic valve. Pulmonic Valve The pulmonic valve is not well visualized. Great Vessels Normal sized aortic root. Pericardium/Pleural No pericardial effusion. MMode/2D Measurements & Calculations LVIDd: 4.4 cm IVSd: 1.1 cm Ao root diam: 3.4 cm LVIDs: 3.1 cm LVPWd: 1.1 cm RVDd: 3.3 cm FS: 29.4 % LAV(MOD-bp): 78.2 ml LA A4 area: 26.8 cm2 LA dimension(2D): 4.7 cm LAV(MOD-bp) Indexed: 33.6 ml/m2 LAV(MOD-sp2): 56.9 ml LAV(MOD-sp4): 85.3 ml RA A4 area: 17.9 cm2 Time Measurements MV dec time: 0.22 sec Doppler Measurements & Calculations MV E max robert: 87.3 cm/sec Lat Peak E' Robert: 8.1 cm/sec Med Peak E' Robert: 7.9 cm/sec MV A max robert: 67.6 cm/sec E/E' lat: 10.7 E/E' med: 11.1 MV E/A: 1.3 MV V2 max: 101.5 cm/sec Ao V2 max: 135.5 cm/sec LV V1 max: 130.9 cm/sec MV max P.1 mmHg Ao max P.3 mmHg LV V1 max P.9 mmHg MV V2 mean: 54.0 cm/sec MV mean P.4 mmHg MV V2 VTI: 35.3 cm TR max robert: 279.9 cm/sec MV P1/2t-pr_phl: 159.6 msec TR max P.3 mmHg Interpretation Summary The study was technically difficult. Left ventricular systolic function is normal. The estimated ejection fraction is 65 %. The left atrium is moderately enlarged. There is mild mitral annular calcification. Extension of the mitral annular calcification onto the posterior mitral valve leaflet. Mild (1+) mitral valve insufficiency. Mild tricuspid valve insufficiency. Right ventricular systolic pressure estimated to be 34 mmHg. Diastolic function is indeterminate. Ordering Physician: Joey Sands Referring Physician: ADRIÁN MULLER Performed By: Kristen Patel, [place], RVT
== END | disposition home or self-care (01) ==
LOC: CVS 07:54
PROVIDERS: Family Provider Family Medicine; PCP Family Medicine; Referring Provider Internal Medicine Pulmonary Disease; Visit Provider Internal Medicine Pulmonary Disease
DX: I26.99 Other pulmonary embolism without acute cor pulmonale (principal)
CPT/HCPCS: 93306

== ENCOUNTER 2019-01-18 05:55 | Day surgery (SDC) | payer MEDICAID, SELFPAY ==
[2018-08-03 08:33] VITALS: BMI 54.4
[2019-01-18 06:26] VITALS: BP 171/78; PULSE 56; RESP 15; TEMP 36.2; O2SAT 98; BMI 54.6
[2019-01-18] MEDS: Lactated Ringers 1,000 ML 100 ML IV (06:38)
--- NOTE | 2019-01-18 07:37 | RAD_ITS ---
STUDY: X-RAY - LUMBAR SPINE REASON FOR EXAM: Female, 58 years old. Right L3-S1 radiofrequency ablation. TECHNIQUE: 11 intraoperative view(s) of the lumbar spine were obtained. COMPARISON: None FINDINGS: Intraoperative imaging provided for right L3-S1 radiofrequency ablation. RAD/L/S Spine Min 4 Views IMPRESSION: Intraoperative imaging provided for right L3-S1 radiofrequency ablation. Electronically Signed: Jaziel Carlos, at 11:19 EST , Service support ,
[2019-01-18] MEDS: MethylPREDNISolone Acetate 80 MG/ML Vial (07:44)
[2019-01-18] MEDS: Bupivacaine 0.25% 30 ML Vial (07:44)
--- NOTE | 2019-01-18 07:48 | SUR.OPER ---
[id number] [facility] -Lissette Amado
--- NOTE | 2019-01-18 07:50 | SUR.OPER ---
[id number] [facility] - Lissette Amado
[2019-01-18 08:06] VITALS: BP 157/95; BP 171/78; PULSE 59; RESP 18; TEMP 36.4; O2SAT 95
[2019-01-18 08:10] VITALS: BP 155/73; BP 171/78; PULSE 56; RESP 18; O2SAT 94
[2019-01-18 08:15] VITALS: BP 161/99; BP 171/78; PULSE 58; RESP 18; O2SAT 94
[2019-01-18 08:20] VITALS: BP 162/96; BP 171/78; PULSE 58; RESP 18; TEMP 36.6; O2SAT 94
[2019-01-18 08:31] VITALS: BP 171/78
--- NOTE | 2019-01-18 11:48 | PCM.OPRPT ---
Report of Operation Date of Procedure: 01/18/19 Description of Surgical Findings:: PROCEDURE: Right-sided radiofrequency ablation of the medial branch L3, L4, L5, S1 PREOPERATIVE DIAGNOSES: Lumbosacral spondylosis, lumbosacral degenerative disc disease, lumbar facet arthropathy POSTOPERATIVE DIAGNOSES: Lumbosacral spondylosis, lumbosacral degenerative disc disease, lumbar facet arthropathy ANESTHESIA: MAC COMPLICATIONS: None BLOOD LOSS: Minimal PROCEDURE IN DETAIL: History and physical today was reviewed. Risks and benefits of procedure explained. The patient understood, agreed to the procedure and informed consent was obtained. IV inserted per routine protocol. The patient was taken to the operating room, placed in the prone position with a pillow positioned underneath the abdomen. The right side of the lower back was prepped and draped in a sterile fashion using iodine x 3. Under fluoroscopy guidance, on an oblique view, the L3 through S1 vertebral bodies were visualized. The skin and subcutaneous tissue was anesthetized with approximately 10 mL of 1% lidocaine using a 25-gauge regular needle. Under direct visualization with fluoroscopy at approximately 25-degree angle, starting on the right L3, ending on the right S1 passing through the L4-L5 using a 20-gauge 15 cm with a 10 mm curved active tip radiofrequency ablation needle the needle passed through the skin. The tip of the needle was maneuvered and directed towards the superior and medial gutter of the transverse process at the vicinity of the medial branch. Once the tip of the needle was in contact with the bone, the needle pulled approximately 2 mm up the bone. The stylet of each needle was then removed. After negative aspiration of blood with CSF and confirmation of AP as well as oblique view, radiofrequency ablation probe was then inserted at each level. Impedance was then recorded at L3 to be 288, at L4 287, at L5 364, at S1 345 ohm. Motor-evoked potential was then initiated to 1.5 volt without any motor response at each corresponding level. The probe was then removed intact and a total of 6 mL preservative-free 1% lidocaine was injected in divided doses between those 4 levels after negative aspiration of blood with CSF. The radiofrequency ablation probe was then reinserted after confirmation of AP, oblique as well as lateral view. Radiofrequency ablation was then initiated to 80 degrees Celsius for 90 seconds at each level. Once concluded, the probe was then removed intact and a total of 6 mL of preservative-free 0.25% Marcaine with 40 mg Depo-Medrol was injected in divided doses between those 4 levels. The needles were then removed intact. The patient experienced no signs or symptoms of intrathecal, intravascular injection. The patient experienced no paraesthesia. The procedure was completed without any apparent difficulty, any complication. The patient appeared to tolerate well. Sensory as well as motor exam was unchanged from prior to procedure. ASSESSMENT AND PLAN: This is a 58-year-old Female with lumbosacral spondylosis, lumbosacral degenerative disc disease, lumbar facet arthropathy, status post right-sided radiofrequency ablation of the medial branch L3 through S1. The patient will continue her current medications. The patient will follow up in approximately 2 weeks for reevaluation.
== END 2019-01-18 08:52 | disposition home or self-care (01) ==
LOC: SDC 05:55 → AC 06:24
PROVIDERS: Family Provider Family Medicine; PCP Family Medicine; Referring Provider Anesthesiology Pain Medicine; Visit Provider Anesthesiology Pain Medicine
PROC: (CPT 64635; principal; 2019-01-18 07:15)
DX: M51.17 Intervertebral disc disorders with radiculopathy, lumbosacral region (principal); M47.27 Other spondylosis with radiculopathy, lumbosacral region; M96.1 Postlaminectomy syndrome, not elsewhere classified; M47.812 Spondylosis without myelopathy or radiculopathy, cervical region; M50.30 Other cervical disc degeneration, unspecified cervical region; M53.3 Sacrococcygeal disorders, not elsewhere classified; M46.1 Sacroiliitis, not elsewhere classified; M51.34 Other intervertebral disc degeneration, thoracic region; M47.814 Spondylosis without myelopathy or radiculopathy, thoracic region; M79.7 Fibromyalgia; F41.9 Anxiety disorder, unspecified; F32.9 Major depressive disorder, single episode, unspecified; I10 Essential (primary) hypertension; G47.30 Sleep apnea, unspecified; Z87.891 Personal history of nicotine dependence; Z79.02 Long term (current) use of antithrombotics/antiplatelets; Z79.891 Long term (current) use of opiate analgesic; Z79.899 Other long term (current) drug therapy
CPT/HCPCS: 01936; 64635; 64636; 72110; 76000; J7120

== ENCOUNTER 2019-05-03 05:42 | Day surgery (SDC) | payer MEDICAID, SELFPAY ==
--- NOTE | 2019-04-20 11:32 | EKG12_ITS ---
Test Reason : PRE-OP Blood Pressure : / mmHG Vent. Rate : 060 BPM Atrial Rate : 060 BPM P-R Int : 182 ms QRS Dur : 082 ms QT Int : 446 ms P-R-T Axes : 021 -23 058 degrees QTc Int : 446 ms Normal sinus rhythm Low voltage QRS Inferior infarct , age undetermined Poor R- wave Progression Abnormal ECG Confirmed by TERRY MINOR, DG ([id number]), offline editor AUNDREA SAMUEL ([id number]) on 04/21/2019 1:41:38 PM Referred By: Kenneth Pineda Confirmed By:DG STEWART MD
[2019-04-20 12:26] LABS: Hematocrit 42.9 % (37-47); Hemoglobin 14.5 g/dL (12.0-15.0); Mean Corp Hgb Conc 33.8 g/dL (32-36); Mean Corpuscular Hgb 31.8 pg (27.0-32.0); Mean Corpuscular Volume 94.1 fL (81-99); Mean Platelet Vol. 10.3 fl (6.2-12.0); Platelet Count 213 K/mm3 (150-450); RBC Distribution Width CV 12.4 % (11.6-14.6); RBC Distribution Width SD 42.7 fl (35.1-43.9); Red Blood Count 4.56 M/mm3 (4.2-5.4); White Blood Count 6.1 K/mm3 (4.4-11.0)
[2019-04-20 12:50] LABS: Anion Gap 4 (5-15); BUN 17 mg/dL (7-18); Calcium,Total 8.9 mg/dL (8.5-10.1); Chloride 107 mmol/L (98-107); Creatinine, Serum 0.74 mg/dL (0.55-1.02); EST Glomerular Filtration Rate 85 mL/min (>60); Est Glom Filt Rate - Afr Amer 103 mL/min (>60); Glucose 133 mg/dL (74-106); Potassium 3.7 mmol/L (3.5-5.1); Sodium Level 140 mmol/L (136-145)
[2019-05-03 06:10] VITALS: BP 161/82; PULSE 61; RESP 16; TEMP 36.9; O2SAT 96; BMI 54.8
[2019-05-03] MEDS: Lactated Ringers 1,000 ML 100 ML IV (06:41)
--- NOTE | 2019-05-03 08:09 | PCM.OPRPT ---
Report of Operation Date of Procedure: 05/03/19 Pre-Operative Diagnosis: Left CTR Post-Operative Diagnosis: same Surgery/Procedure Performed:: RDTCL left Type of Anesthesia:: Santy Petit Anesthesiologist: Gabino Burrows - Tyshawn VTE Documentation VTE Present on Admission: No VTE Mechan Device Prophylaxis: SCD's, Thigh High LOIDA Hose VTE Pharm Prophylaxis ordered?: No Reason prophylaxis not ordered:: Treatment Not Indicated
[2019-05-03 08:20] VITALS: BP 147/78; BP 161/82; PULSE 65; RESP 16; TEMP 36.8; O2SAT 93
[2019-05-03 08:25] VITALS: BP 143/84; BP 161/82; PULSE 63; RESP 14; O2SAT 92
[2019-05-03 08:30] VITALS: BP 156/89; BP 161/82; PULSE 63; RESP 14; O2SAT 92
[2019-05-03 08:35] VITALS: BP 135/62; BP 161/82; PULSE 93; RESP 16; TEMP 37.3; O2SAT 94
[2019-05-03 09:11] VITALS: BP 161/82
== END 2019-05-03 09:15 | disposition home or self-care (01) ==
LOC: SDC 05:43 → AC 05:43
PROVIDERS: Physician Assistant; PCP Family Medicine; Referring Provider Orthopaedic Surgery; Visit Provider Orthopaedic Surgery
PROC: (CPT 64721; principal; 2019-05-03 07:00)
DX: G56.02 Carpal tunnel syndrome, left upper limb (principal); I10 Essential (primary) hypertension; K21.9 Gastro-esophageal reflux disease without esophagitis; F41.9 Anxiety disorder, unspecified; G47.30 Sleep apnea, unspecified; F32.9 Major depressive disorder, single episode, unspecified; M54.9 Dorsalgia, unspecified; G89.29 Other chronic pain; Z86.711 Personal history of pulmonary embolism; Z79.1 Long term (current) use of non-steroidal anti-inflammatories (NSAID); Z79.02 Long term (current) use of antithrombotics/antiplatelets; Z79.891 Long term (current) use of opiate analgesic; Z79.899 Other long term (current) drug therapy
CPT/HCPCS: 64721; 36415; 80048; 85027; 93005; J7120; A4216; J2405

== ENCOUNTER 2019-06-21 08:58 | Day surgery (SDC) | payer MEDICAID, SELFPAY ==
[2019-06-21 09:44] VITALS: BP 161/82; PULSE 80; RESP 16; TEMP 36.6; O2SAT 96; BMI 55.0
[2019-06-21] MEDS: Lactated Ringers 1,000 ML 100 ML IV (09:55)
--- NOTE | 2019-06-21 10:00 | RAD_ITS ---
PROCEDURE: Caudal block. DATE OF EXAMINATION: June 21, 2019. INDICATION: Female, 58 years old. Low back pain. FLUOROSCOPY TIME (if supplied): (21.6 seconds.) minutes/seconds Intraoperative imaging provided for caudal block. RAD/Fluoro Guided Needle Placement IMPRESSION: Intraoperative imaging provided for caudal block. Electronically Signed: Jaziel Carlos, at 13:30 EDT , Service support ,
[2019-06-21] MEDS: Bupivacaine 0.25% 30 ML Vial (10:45)
[2019-06-21] MEDS: 0.9% Normal Saline (Pres. free 10 ML Vial (10:45)
[2019-06-21] MEDS: MethylPREDNISolone Acetate 80 MG/ML Vial (10:45)
--- NOTE | 2019-06-21 10:52 | PCM.OPRPT ---
Report of Operation Date of Procedure: 06/21/19 Description of Surgical Findings:: PREOPERATIVE DIAGNOSIS: Lumbosacral radiculopathy, lumbosacral degenerative disc disease, lumbosacral spinal stenosis POSTOPERATIVE DIAGNOSIS: Lumbosacral radiculopathy, lumbosacral degenerative disc disease, lumbosacral spinal stenosis PROCEDURE PERFORMED: caudal epidural steroid injection. ANESTHESIA: MAC. BLOOD LOSS: Minimal. COMPLICATIONS: None. DESCRIPTION OF PROCEDURE: History and physical of today was reviewed. Risks and benefits of the procedure were explained. The patient understood and agreed to proceed. Informed consent was obtained. IV inserted per routine protocol. The patient was taken to the operating room and placed in the prone position with a pillow positioned underneath the abdomen. The lower back and tailbone area was prepped and draped in a sterile fashion using iodine x3. Under fluoroscopy guidance on a lateral view, the caudal space was identified. The skin and subcutaneous tissue was anesthetized with approximately 3 mL of 1% lidocaine using a 25-gauge regular needle. Under direct visualization with fluoroscopy, using a 22-gauge 3-1/2-inch spinal needle, the needle was advanced via the skin through the sacral hiatus. The tip of the needle was passed through the sacrococcygeal ligament and advanced to approximately S4 area. After negative aspiration of blood or CSF, a total of 3 mL of contrast was injected to confirm correct placement of the needle as well as cephalad spread. The spread was followed to approximately L5 area. After confirmation on AP as well as lateral view and repeated negative aspiration, a total of 15 mL of preservative-free 0.125% Marcaine with 80 mg of Depo-Medrol was injected easily. The needle was then removed intact. The patient experienced no sign or symptoms of intrathecal or intravascular injection. The patient experienced no paresthesia. The procedure was completed without any apparent difficulty or any complications. The patient appeared to tolerate it well. ASSESSMENT AND PLAN: This is a 58-year-old female with lumbosacral radiculopathy, lumbosacral degenerative disc disease, lumbosacral spinal stenosis status post caudal epidural steroid injection, patient will continue her current medications, patient will follow approximately 2 weeks for reevaluation.
[2019-06-21 11:00] VITALS: BP 134/89; BP 161/82; PULSE 76; RESP 18; TEMP 36.4; O2SAT 99
[2019-06-21 11:05] VITALS: BP 141/90; BP 161/82; PULSE 68; RESP 18; O2SAT 98
[2019-06-21 11:10] VITALS: BP 144/89; BP 161/82; PULSE 70; RESP 18; O2SAT 100
[2019-06-21 11:15] VITALS: BP 138/86; BP 161/82; PULSE 72; RESP 16; TEMP 36.6; O2SAT 99
[2019-06-21 11:35] VITALS: BP 161/82
== END 2019-06-21 11:45 | disposition home or self-care (01) ==
LOC: SDC 08:59 → AC 09:00
PROVIDERS: PCP Family Medicine; Referring Provider Anesthesiology Pain Medicine; Visit Provider Anesthesiology Pain Medicine
PROC: 3E0S3BZ Introduction of Anesthetic Agent into Epidural Space, Percutaneous Approach (ICD-10-PCS; CPT 62282; principal; 2019-06-21 10:05)
DX: M51.17 Intervertebral disc disorders with radiculopathy, lumbosacral region (principal); M48.07 Spinal stenosis, lumbosacral region; M96.1 Postlaminectomy syndrome, not elsewhere classified; M47.812 Spondylosis without myelopathy or radiculopathy, cervical region; M50.30 Other cervical disc degeneration, unspecified cervical region; M46.1 Sacroiliitis, not elsewhere classified; M51.34 Other intervertebral disc degeneration, thoracic region; M47.814 Spondylosis without myelopathy or radiculopathy, thoracic region; M79.7 Fibromyalgia; F41.9 Anxiety disorder, unspecified; F32.9 Major depressive disorder, single episode, unspecified; I10 Essential (primary) hypertension; G47.30 Sleep apnea, unspecified; Z87.891 Personal history of nicotine dependence; Z79.899 Other long term (current) drug therapy; Z79.891 Long term (current) use of opiate analgesic; Z86.711 Personal history of pulmonary embolism; Z86.718 Personal history of other venous thrombosis and embolism
CPT/HCPCS: 62323; 64520; 64483; 77002; J7120; J3490

== ENCOUNTER 2019-09-20 06:46 | Day surgery (SDC) | payer MEDICAID, SELFPAY ==
[2019-09-20 07:15] VITALS: BP 167/70; PULSE 62; RESP 20; TEMP 36.3; O2SAT 97; BMI 57.0
[2019-09-20] MEDS: Lactated Ringers 1,000 ML 100 ML IV (07:30)
--- NOTE | 2019-09-20 08:00 | RAD_ITS ---
PROCEDURE: Right L3-S1 radiofrequency ablation. DATE OF EXAMINATION: 09/20/2019. INDICATION: Female, 58 years old. Chronic low back pain. FLUOROSCOPY TIME (if supplied): (37.1 seconds) minutes/seconds. 8 intraoperative images were obtained. Fluoroscopic services provided for right L3-S1 facet joint radiofrequency ablation. RAD/L/S Spine Min 4 Views IMPRESSION: Fluoroscopic services provided for right L3-S1 facet joint radiofrequency ablation. Electronically Signed: Jaziel Carlos, at 11:28 EDT , Service support ,
[2019-09-20] MEDS: MethylPREDNISolone Acetate 80 MG/ML Vial (08:15)
[2019-09-20] MEDS: Bupivacaine 0.25% 30 ML Vial (08:15)
[2019-09-20 08:32] VITALS: BP 121/78; BP 167/70; PULSE 65; RESP 17; TEMP 37; O2SAT 93
[2019-09-20 08:35] VITALS: BP 115/78; BP 167/70; PULSE 65; RESP 16; O2SAT 92
[2019-09-20 08:40] VITALS: BP 125/87; BP 167/70; PULSE 65; RESP 16; O2SAT 92
[2019-09-20 08:45] VITALS: BP 127/83; BP 167/70; PULSE 63; RESP 16; TEMP 36.9; O2SAT 93
[2019-09-20 09:15] VITALS: BP 167/70
--- NOTE | 2019-09-20 11:23 | PCM.OPRPT ---
Report of Operation Date of Procedure: 09/20/19 Description of Surgical Findings:: PREOPERATIVE DIAGNOSIS: Lumbosacral spondylosis, lumbosacral degenerative disc disease, lumbar facet arthropathy POSTOPERATIVE DIAGNOSIS: Lumbosacral spondylosis, lumbosacral degenerative disc disease, lumbar facet arthropathy PROCEDURE PERFORMED: Right-sided radiofrequency ablation of the medial branch at L3, L4, L5, and S1. ANESTHESIA: MAC. BLOOD LOSS: Minimal. COMPLICATIONS: None. DESCRIPTION OF PROCEDURE: History and physical of today was reviewed. Risks and benefits of the procedure were explained. The patient understood and agreed to proceed. Informed consent was obtained. IV inserted per routine protocol. The patient was taken to the operating room and placed in the prone position with a pillow positioned underneath the abdomen. The right side of her lower back was prepped and draped in a sterile fashion using iodine x3. Under fluoroscopy guidance in an oblique view, the L3 through S1 vertebral bodies were visualized. The skin and subcutaneous tissue was anesthetized with approximately 10 mL of 1% lidocaine using a 25-gauge regular needle. Under direct visualization on fluoroscopy at approximately 25-degree angle, starting on the right L3, ending on the right S1, passing through the L4 and L5, using a 20-gauge 15-cm with a 10-mm curved active-tip radiofrequency ablation needle, the needle was passed through the skin. The tip of the needle was maneuvered and directed towards the superior medial gutter of the transverse process at the vicinity of the medial branch. Once the tip of the needle was in contact with the bone, the needle was pulled approximately 2 mm off the bone. The stylette of each needle was then removed. After negative aspiration of blood or CSF and confirmation on AP, oblique as well as lateral view, the radiofrequency ablation probe was then inserted at each level. Impedance was then recorded at L3 to be 321 ohm, at L4 to be 244 ohm, at L5 to be 264 ohm, and at S1 to be 335 ohm. Motor evoked potential was then initiated to 1.5 volt without any motor response at each corresponding level. The probe was then removed intact and a total of 6 mL of preservative-free 1% lidocaine was injected in divided doses between those four levels after negative aspiration of blood or CSF. The radiofrequency ablation probe was then reinserted. After confirmation on AP, oblique as well as lateral view, radiofrequency ablation was then initiated to 80 degree Celsius for 90 second at each level. Once concluded, the probe was then removed intact. A total of 6 mL of preservative-free 0.25% Marcaine with 40 mg of Depo-Medrol was injected in divided doses between those four levels. The needles were then removed intact. The patient experienced no sign or symptoms of intrathecal or intravascular injection. The patient experienced no paresthesia. The procedure was completed without any apparent difficulty or any complications. The patient appeared to tolerate it well. Sensory as well as motor exam was unchanged from prior to the procedure. ASSESSMENT AND PLAN: This is a 58-year-old female with lumbosacral spondylosis, lumbosacral degenerative disc disease, lumbar facet arthropathy status post right-sided lumbar radiofrequency ablation of the medial branch L3-S1 patient will continue her current medications patient will follow in approximately 2 weeks for reevaluation.
== END 2019-09-20 09:18 | disposition home or self-care (01) ==
LOC: SDC 06:47 → AC 07:45
PROVIDERS: PCP Family Medicine; Referring Provider Anesthesiology Pain Medicine; Visit Provider Anesthesiology Pain Medicine
PROC: (CPT 64635; principal; 2019-09-20 07:55)
DX: M51.17 Intervertebral disc disorders with radiculopathy, lumbosacral region (principal); M47.27 Other spondylosis with radiculopathy, lumbosacral region; M96.1 Postlaminectomy syndrome, not elsewhere classified; M51.34 Other intervertebral disc degeneration, thoracic region; M47.814 Spondylosis without myelopathy or radiculopathy, thoracic region; M46.1 Sacroiliitis, not elsewhere classified; M50.30 Other cervical disc degeneration, unspecified cervical region; M47.812 Spondylosis without myelopathy or radiculopathy, cervical region; M79.7 Fibromyalgia; F41.9 Anxiety disorder, unspecified; F32.9 Major depressive disorder, single episode, unspecified; I10 Essential (primary) hypertension; K21.9 Gastro-esophageal reflux disease without esophagitis; G47.30 Sleep apnea, unspecified; Z87.891 Personal history of nicotine dependence; Z79.02 Long term (current) use of antithrombotics/antiplatelets; Z79.899 Other long term (current) drug therapy; Z79.891 Long term (current) use of opiate analgesic; Z86.711 Personal history of pulmonary embolism
CPT/HCPCS: 01936; 64635; 64636 ×2; 72110; 76000; J7120

== ENCOUNTER 2019-10-18 09:57 | Day surgery (SDC) | payer MEDICAID, SELFPAY ==
[2019-10-09 11:07] LABS: Absolute Lymphocyte Count 2.23 X10^3/uL (0.83-4.51); Absolute Neutrophil Count 2.3 X10^3/uL (2.0-7.7); Basophil# 0.02 X10^3/uL; Basophil% 0.4 % (0-1); Eosinophil# 0.11 X10^3/uL; Eosinophils% 2.1 % (0-5); Hematocrit 45.3 % (37-47); Hemoglobin 15.3 g/dL (12.0-15.0); Lymphocyte # 2.23 X10^3/ul (4.0); Lymphocyte % 43.6 % (19-41); Mean Corp Hgb Conc 33.8 g/dL (32-36); Mean Corpuscular Hgb 32.3 pg (27.0-32.0); Mean Corpuscular Volume 95.6 fL (81-99); Mean Platelet Vol. 10.6 fl (6.2-12.0); Monocyte# 0.42 X10^3/uL; Monocyte% 8.2 % (0-10); NRBC Flagged by Analyzer 0 % (0-5); Neutrophil # 2.27 X10^3/uL (2.7-7.7); Neutrophil % 44.3 % (47-70); Platelet Count 224 K/mm3 (150-450); RBC Distribution Width CV 11.7 % (11.6-14.6); RBC Distribution Width SD 40.5 fl (35.1-43.9); Red Blood Count 4.74 M/mm3 (4.2-5.4); White Blood Count 5.1 K/mm3 (4.4-11.0)
[2019-10-18] VITALS (9 sets, daily range): BP systolic 124–165; BP diastolic 69–87; PULSE 60–65; RESP 16–18; TEMP 36.6–37.1; O2SAT 92–99; BMI 56.6
[2019-10-18] MEDS: Lactated Ringers 1,000 ML 100 ML IV (11:27)
[2019-10-18 11:30] LABS: Bedside Glucose 214 mg/dL (70-110)
--- NOTE | 2019-10-18 12:13 | PCM.OPRPT ---
Report of Operation Date of Procedure: 10/18/19 Pre-Operative Diagnosis: CTS right Post-Operative Diagnosis: same Surgery/Procedure Performed:: RDTCL right Type of Anesthesia:: Santy Petit Anesthesiologist: Gabino Burrows - Admrosales VTE Documentation VTE Present on Admission: No VTE Mechan Device Prophylaxis: SCD's VTE Pharm Prophylaxis ordered?: No Reason prophylaxis not ordered:: Treatment Not Indicated
== END 2019-10-18 13:43 | disposition home or self-care (01) ==
LOC: SDC 09:57 → AC 09:58
PROVIDERS: Anesthesiology; PCP Family Medicine; Referring Provider Orthopaedic Surgery; Visit Provider Orthopaedic Surgery
PROC: (CPT 64721; principal; 2019-10-18 11:15)
DX: G56.01 Carpal tunnel syndrome, right upper limb (principal); I10 Essential (primary) hypertension; F32.9 Major depressive disorder, single episode, unspecified; M54.9 Dorsalgia, unspecified; G89.29 Other chronic pain; Z86.711 Personal history of pulmonary embolism; Z86.718 Personal history of other venous thrombosis and embolism; Z87.891 Personal history of nicotine dependence; Z79.02 Long term (current) use of antithrombotics/antiplatelets; Z79.891 Long term (current) use of opiate analgesic; Z79.899 Other long term (current) drug therapy
CPT/HCPCS: 01810; 64721; 36415; 82962; 85025; 87635; 94799; J7120; U0003

== ENCOUNTER 2019-10-26 16:50 | Emergency (ER) | payer MEDICAID, SELFPAY ==
[2019-10-18 10:30] VITALS: BMI 56.6
[2019-10-26 16:52] VITALS: BP 171/87; PULSE 65; RESP 18; TEMP 37.4; O2SAT 97; BMI 57.2
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
[2019-10-26 18:11] VITALS: BP 125/77; PULSE 68; RESP 15; O2SAT 97
== END 2019-10-26 18:11 | disposition home or self-care (01) ==
PROVIDERS: Emergency Provider Emergency Medicine; PCP Family Medicine
DX: S16.1XXA Strain of muscle, fascia and tendon at neck level, initial encounter (principal); V53.5XXA Driver of pick-up truck or van injured in collision with car, pick-up truck or van in traffic accident, initial encounter; Y93.I9 Activity, other involving external motion; Y92.410 Unspecified street and highway as the place of occurrence of the external cause; Y99.8 Other external cause status; I10 Essential (primary) hypertension; F41.9 Anxiety disorder, unspecified; F32.9 Major depressive disorder, single episode, unspecified; Z86.711 Personal history of pulmonary embolism; Z79.899 Other long term (current) drug therapy; Z87.891 Personal history of nicotine dependence
CPT/HCPCS: 70450; 71250; 72125; 99284

== ENCOUNTER 2019-11-22 10:39 | Day surgery (SDC) | payer MEDICAID, SELFPAY ==
[2019-11-22 11:04] VITALS: BP 147/94; PULSE 72; RESP 18; TEMP 36.8; O2SAT 95; BMI 56.6
[2019-11-22] MEDS: Lactated Ringers 1,000 ML 100 ML IV (11:18)
[2019-11-22 11:30] LABS: Bedside Glucose 169 mg/dL (70-110)
--- NOTE | 2019-11-22 11:34 | RAD_ITS ---
CLINICAL HISTORY: Female, 58 years old. Lower back pain PROCEDURE: EPIDUROGRAM - Caudal block FLUOROSCOPY TIME (if supplied): (0:34) minutes. 2 Images. RADIATION DOSAGE (If Supplied By Facility): CTDIvol = ( ) mGy, DLP = ( ) mGycm TECHNIQUE: Under fluoroscopic guidance using sterile technique and after infiltration of the skin and subcutis soft tissues with 10 mL lidocaine 1% a 22-gauge needle is introduced in the lumbar epidural space at L4-5, 1 mL of air injected in the epidural space to ensure needle position then a mixture containing 80 mg of Depo-Medrol mixed with 3 mL lidocaine 0.25% were injected in the lumbar epidural space. RAD/Fluor Guidance for Spine Inj IMPRESSION: Successful lumbar epidural steroid injection under fluoroscopic guidance. Electronically Signed: Dawna Viveors, at 11:09 EDT Tel , Service support ,
[2019-11-22] MEDS: Bupivacaine 0.25% 30 ML Vial (11:36)
[2019-11-22] MEDS: 0.9% Normal Saline (Pres. free 10 ML Vial (11:36)
[2019-11-22] MEDS: MethylPREDNISolone Acetate 80 MG/ML Vial (11:36)
[2019-11-22 11:45] VITALS: BP 125/80; BP 147/94; PULSE 73; RESP 18; TEMP 36.3; O2SAT 94
[2019-11-22 11:50] VITALS: BP 123/80; BP 147/94; PULSE 72; RESP 16; O2SAT 92
[2019-11-22 11:55] VITALS: BP 145/64; BP 147/94; PULSE 68; RESP 18; O2SAT 95
[2019-11-22 12:00] VITALS: BP 126/66; BP 147/94; PULSE 68; RESP 18; TEMP 36.8; O2SAT 95
[2019-11-22 12:35] VITALS: BP 147/94
--- NOTE | 2019-11-22 17:16 | PCM.OPRPT ---
Report of Operation Date of Procedure: 11/22/19 Description of Surgical Findings:: PREOPERATIVE DIAGNOSIS: Lumbosacral radiculopathy, lumbosacral degenerative disc disease, lumbosacral spinal stenosis POSTOPERATIVE DIAGNOSIS: Lumbosacral radiculopathy, lumbosacral degenerative disc disease, lumbosacral spinal stenosis PROCEDURE PERFORMED: caudal epidural steroid injection. ANESTHESIA: MAC. BLOOD LOSS: Minimal. COMPLICATIONS: None. DESCRIPTION OF PROCEDURE: History and physical of today was reviewed. Risks and benefits of the procedure were explained. The patient understood and agreed to proceed. Informed consent was obtained. IV inserted per routine protocol. The patient was taken to the operating room and placed in the prone position with a pillow positioned underneath the abdomen. The lower back and tailbone area was prepped and draped in a sterile fashion using iodine x3. Under fluoroscopy guidance on a lateral view, the caudal space was identified. The skin and subcutaneous tissue was anesthetized with approximately 3 mL of 1% lidocaine using a 25-gauge regular needle. Under direct visualization with fluoroscopy, using a 22-gauge 3-1/2-inch spinal needle, the needle was advanced via the skin through the sacral hiatus. The tip of the needle was passed through the sacrococcygeal ligament and advanced to approximately S4 area. After negative aspiration of blood or CSF, a total of 3 mL of contrast was injected to confirm correct placement of the needle as well as cephalad spread. The spread was followed to approximately L5 area. After confirmation on AP as well as lateral view and repeated negative aspiration, a total of 15 mL of preservative-free 0.125% Marcaine with 80 mg of Depo-Medrol was injected easily. The needle was then removed intact. The patient experienced no sign or symptoms of intrathecal or intravascular injection. The patient experienced no paresthesia. The procedure was completed without any apparent difficulty or any complications. The patient appeared to tolerate it well. ASSESSMENT AND PLAN: This is a 58-year-old female with lumbosacral radiculopathy, lumbosacral degenerative disc disease, lumbosacral spinal stenosis status post caudal epidural steroid injection, patient will continue her current medications, patient will follow approximately 2 weeks for reevaluation.
== END 2019-11-22 12:35 | disposition home or self-care (01) ==
LOC: SDC 10:39 → AC 10:40
PROVIDERS: PCP Family Medicine; Referring Provider Anesthesiology Pain Medicine; Visit Provider Anesthesiology Pain Medicine
PROC: 3E0S3BZ Introduction of Anesthetic Agent into Epidural Space, Percutaneous Approach (ICD-10-PCS; CPT 62282; principal; 2019-11-22 12:05)
DX: M51.17 Intervertebral disc disorders with radiculopathy, lumbosacral region (principal); M48.07 Spinal stenosis, lumbosacral region; M47.27 Other spondylosis with radiculopathy, lumbosacral region; I10 Essential (primary) hypertension; F41.9 Anxiety disorder, unspecified; F32.9 Major depressive disorder, single episode, unspecified; M79.7 Fibromyalgia; Z87.891 Personal history of nicotine dependence; Z79.891 Long term (current) use of opiate analgesic; Z79.899 Other long term (current) drug therapy
CPT/HCPCS: 01992; 62323; 64520; 64483; 77003; 82962; J7120; J3490

== ENCOUNTER 2019-12-29 18:49 | Emergency (ER) | payer MEDICAID, SELFPAY ==
[2019-12-29 18:50] VITALS: BP 154/85; PULSE 77; RESP 20; TEMP 36.8; O2SAT 92; BMI 53.6
--- NOTE | 2019-12-29 19:12 | ED.DCSUM_ITS ---
- ER Visit Summary Date of Service: 12/29/19 Chief Complaint: Generalized weakness History of Present Illness: The patient is a 59 F history of noninsulin- dependent diabetes and high cholesterol. Patient states that she does not feel well. Since Friday she is just felt weak all over and has needed increasing sleep. She had a virtual visit with a nurse practitioner from a [facility]. Had a Covid test done and the results will not be back till tomorrow. States that she has had nausea and diarrhea. Subjective fever and chills. Mild headache. And a cough. States the cough is nonproductive. She denies any chest pain. She denies abdominal pain. No dysuria. Physical Examination: Middle-aged female no acute distress vital signs stable afebrile pulse ox 92% on room air. H EENT exam unremarkable. Neck nontender no lymphadenopathy no meningismus. Lungs clear to auscultation bilateral. Heart regular rhythm no murmur. Abdomen soft nontender normal bowel sounds no peritoneal signs. Patient is moving all 4 extremities. Calves are nontender without edema no cords. Neurologically she is awake alert with no focal motor deficits. Back nontender. Skin is unremarkable. Test Results: CBC white count of 5. Hemoglobin 16. Chemistries unremarkable normal gap at 9 creatinine 1.6. Chest x-ray normal read both by myself and the radiologist portable 1 view. No signs of pneumonia. Emergency Department Course and Treatment: 59-year-old female as many of the symptoms of potential Covid. She is already had a Covid test. Chest x-ray and labs are pending. She will be treated with IV fluids. P.o. Tylenol. Doing well on repeat exam. She and I discussed inpatient versus outpatient. She really does not meet inpatient criteria for any further therapy. Her Covid outpatient test that was done in outlying facility should return tomorrow. She would not meet inpatient criteria for Covid at this time anyway. She is comfortable being discharged home. I was going to have her seen and talked to with our manager social services but they are no longer available today. Patient is able to get up and walk and senior sustainability consultant the room without any difficulty. Treatment Plan: Plenty of fluids and rest. Follow-up your primary care physician. Return if worse. Disposition: Discharge Impression: Viral syndrome Rule out Covid Generalized weakness This note was generated with Dragon dictation software. It may contain incorrect words, spelling, and punctuation that were not noted in review of the chart prior to signing ED Disposition - Plan for ED Patient: Referrals: Get Sosa DO [Primary Care Provider] -
[2019-12-29] MEDS: Acetaminophen 500 MG Tablet 1000 MG PO (19:33)
[2019-12-29] MEDS: 0.9% Normal Saline 1,000 ML 1000 ML IV (19:33)
[2019-12-29] MEDS: Ondansetron 4 MG/2 ML Vial IV (19:34)
--- NOTE | 2019-12-29 19:45 | RAD_ITS ---
STUDY: X-RAY CHEST REASON FOR EXAM: Female, 59 years old. HEADACHE SINCE FRIDAY. COVID TESTED FRIDAY TECHNIQUE: Frontal view COMPARISON: 10/27/2018. FINDINGS: The lungs are clear and expanded. There is no demonstrated pleural abnormality. Normal size heart. Normal mediastinum and katelyn. Normal visualized pulmonary arteries. Normal visualized aortic arch and descending thoracic aorta. Mild degenerative changes of the thoracic spine. Normal visualized ribs, clavicles, and shoulders. There is no demonstrated abnormality of the visualized soft tissue structures of the upper abdomen. RAD/Chest 1 View (Portable) IMPRESSION: Normal x-ray examination of the chest. Electronically Signed: Marlon Bhardwaj DO at 20:14 EST Tel [phone], Service support ,
[2019-12-29 20:16] LABS: Absolute Lymphocyte Count 1.54 X10^3/uL (0.83-4.51); Absolute Neutrophil Count 3.7 X10^3/uL (2.0-7.7); Basophil# 0.02 X10^3/uL; Basophil% 0.3 % (0-1); Eosinophil# 0.11 X10^3/uL; Eosinophils% 1.9 % (0-5); Hematocrit 47.2 % (37-47); Hemoglobin 16.2 g/dL (12.0-15.0); Lymphocyte # 1.54 X10^3/ul (4.0); Lymphocyte % 26.2 % (19-41); Mean Corp Hgb Conc 34.3 g/dL (32-36); Mean Corpuscular Hgb 32.4 pg (27.0-32.0); Mean Corpuscular Volume 94.4 fL (81-99); Mean Platelet Vol. 10.3 fl (6.2-12.0); Monocyte# 0.45 X10^3/uL; Monocyte% 7.7 % (0-10); NRBC Flagged by Analyzer 0 % (0-5); Neutrophil # 3.72 X10^3/uL (2.7-7.7); Neutrophil % 63.2 % (47-70); POSITIVE MORPHOLOGY YES; Platelet Count 147 K/mm3 (150-450); RBC Distribution Width CV 12.3 % (11.6-14.6); RBC Distribution Width SD 42.8 fl (35.1-43.9); White Blood Count 5.9 K/mm3 (4.4-11.0)
[2019-12-29 20:22] LABS: Differential Indicated SCAN CRITERIA MET
[2019-12-29 20:30] LABS: Anion Gap 9 (5-15); BUN 12 mg/dL (7-18); BUN/Creat Ratio 17.3 RATIO (10-20); Calcium,Total 8.1 mg/dL (8.5-10.1); Chloride 104 mmol/L (98-107); Creatinine, Serum 0.69 mg/dL (0.55-1.02); EST Glomerular Filtration Rate 91 mL/min (>60); Est Glom Filt Rate - Afr Amer 111 mL/min (>60); Estimated Creatinine Clearance 73.94 ml/min; Glucose 144 mg/dL (74-106); Potassium 4.3 mmol/L (3.5-5.1); Sodium Level 138 mmol/L (136-145)
[2019-12-29 20:55] LABS: Differential Comment SCANNED
--- NOTE | 2019-12-29 22:14 | ED.DEP ---
ED Disposition - Plan for ED Patient: Disposition: Home or Assisted Living Instructions: ED Viral Syndrome Referrals: Get Sosa DO [Primary Care Provider] - 3-5 Days if not improving Additional Instructions: Fluids and rest. Follow-up with your outpatient Covid test results. Tylenol and/or Motrin for any fever. Follow-up with your doctor if not improving return to the emergency department if feeling a lot worse. Your chest x-ray and labs today were normal.
[2019-12-29 22:28] VITALS: BP 152/88; PULSE 67; RESP 18
== END 2019-12-29 22:51 | disposition home or self-care (01) ==
PROVIDERS: Emergency Provider Emergency Medicine; PCP Family Medicine
DX: R53.1 Weakness (principal); B34.9 Viral infection, unspecified; E78.00 Pure hypercholesterolemia, unspecified; E11.9 Type 2 diabetes mellitus without complications
CPT/HCPCS: 71045; 80048; 85025; 96361; 96374; 99285; J7030; J2405

== ENCOUNTER 2020-01-24 10:52 | Day surgery (SDC) | payer MEDICAID, SELFPAY ==
[2020-01-24] VITALS (8 sets, daily range): BP systolic 125–157; BP diastolic 61–89; PULSE 59–65; RESP 16–60; TEMP 36.2–36.3; O2SAT 92–95; BMI 53.8
[2020-01-24] MEDS: Lactated Ringers 1,000 ML 100 ML IV (11:48)
[2020-01-24 12:05] LABS: Bedside Glucose 138 mg/dL (70-110)
--- NOTE | 2020-01-24 12:20 | RAD_ITS ---
STUDY: X-RAY - THORACIC SPINE REASON FOR EXAM: Female, 59 years old. Block in surgery TECHNIQUE: 3 view(s) of the thoracic spine were obtained. COMPARISON: None. FINDINGS: Intraoperative imaging provided for thoracic block. RAD/Thoracic Spine 3 Views IMPRESSION: Intraoperative imaging provided for thoracic block. Electronically Signed: Jaziel Carlos, at 15:50 EST , Service support ,
--- NOTE | 2020-01-24 12:49 | PCM.OPRPT ---
Report of Operation Date of Procedure: 01/24/20 Description of Surgical Findings:: PREOPERATIVE DIAGNOSIS: Thoracic spondylosis, thoracic facet arthropathy, thoracic degenerative disc disease POSTOPERATIVE DIAGNOSIS: Thoracic spondylosis, thoracic facet arthropathy, thoracic degenerative disc disease PROCEDURE PERFORMED: Right -sided thoracic facet steroid injection, T5, T6, T7, and T8. ANESTHESIA: MAC. BLOOD LOSS: Minimal. COMPLICATIONS: None. DESCRIPTION OF PROCEDURE: History and physical of today was reviewed. Risks and benefits of the procedure were explained. The patient understood and agreed to proceed. Informed consent was obtained. IV inserted per routine protocol. The patient was taken to the operating room and placed in the prone position with a pillow positioned underneath the chest. The mid back area was prepped and draped in a sterile fashion using iodine x3. Under fluoroscopy guidance on AP view, the T5 through T8 vertebral bodies were visualized. The skin and subcutaneous tissue was anesthetized with approximately 5 mL of 1% lidocaine using a 25-gauge regular needle. Under direct visualization on fluoroscopy, at approximately 15-degree angle, starting on the right T5, ending on the right T8, passing through the T6 and T7, using a 22-gauge 3-1/2-inch spinal needle, the needle was passed through the skin. The tip of the needle was maneuvered and directed towards the epiphyseal junction of each corresponding vertebra. Once the tip of the needle was at the vicinity of the medial branch and in contact with the bone, the needle was pulled approximately 2 mm off the bone. After negative aspiration for blood or CSF and confirmation on AP as well as oblique view and lateral view, a total of 6 mL of preservative-free 0.25% Marcaine with 80 mg of Depo-Medrol was injected in divided doses between those four levels. The needles were then removed intact. The patient experienced no sign or symptoms of intrathecal or intravascular injection. The patient experienced no paresthesia. The procedure was completed without any apparent difficulty or any complications. The patient appeared to tolerate it well. ASSESSMENT AND PLAN: This is a 59-year-old female with thoracic spondylosis, thoracic degenerative disc disease, thoracic facet arthropathy status post right-sided thoracic facet steroid injection T5-T8, patient will continue her current medications, patient will follow in approximately 2 weeks for reevaluation.
[2020-01-24] MEDS: MethylPREDNISolone Acetate 40 MG/ML Vial IM (12:54)
[2020-01-24] MEDS: Bupivacaine 0.25% 30 ML Vial (12:54)
[2020-01-24] MEDS: Lidocaine 1% (5 ml sdv) 5 ML Vial (12:54)
== END 2020-01-24 13:59 | disposition home or self-care (01) ==
LOC: SDC 10:52 → AC 10:53
PROVIDERS: PCP Family Medicine; Referring Provider Anesthesiology Pain Medicine; Visit Provider Anesthesiology Pain Medicine
PROC: 3E0R3BZ Introduction of Anesthetic Agent into Spinal Canal, Percutaneous Approach (ICD-10-PCS; CPT 62281; principal; 2020-01-24 12:15)
DX: M47.814 Spondylosis without myelopathy or radiculopathy, thoracic region (principal); M51.34 Other intervertebral disc degeneration, thoracic region; M79.7 Fibromyalgia; I10 Essential (primary) hypertension; E11.9 Type 2 diabetes mellitus without complications; F41.9 Anxiety disorder, unspecified; F32.9 Major depressive disorder, single episode, unspecified; G47.30 Sleep apnea, unspecified; Z79.891 Long term (current) use of opiate analgesic; Z86.718 Personal history of other venous thrombosis and embolism; Z87.891 Personal history of nicotine dependence; Z79.84 Long term (current) use of oral hypoglycemic drugs; Z79.899 Other long term (current) drug therapy; Z86.711 Personal history of pulmonary embolism; Z79.02 Long term (current) use of antithrombotics/antiplatelets
CPT/HCPCS: 64491; 64490; 72072; 82962; J7120

== ENCOUNTER 2020-02-21 09:34 | Day surgery (SDC) | payer MEDICAID, SELFPAY ==
[2020-01-24 11:23] VITALS: BMI 53.8
[2020-02-21] VITALS (7 sets, daily range): BP systolic 146–172; BP diastolic 82–94; PULSE 61–70; RESP 16–18; TEMP 36.3–36.6; O2SAT 95–98; BMI 55.0
[2020-02-21 10:06] LABS: Bedside Glucose 144 mg/dL (70-110)
[2020-02-21] MEDS: Lactated Ringers 1,000 ML 100 ML IV (10:28)
--- NOTE | 2020-02-21 10:40 | RAD_ITS ---
PROCEDURE: Caudal block. DATE OF EXAMINATION: 02/21/2020. INDICATION: Female, 59 years old. Chronic low back pain. FLUOROSCOPY TIME (if supplied): (11 seconds) minutes/seconds Intraoperative imaging provided for caudal block. RAD/Fluor Guidance for Spine Inj IMPRESSION: Intraoperative imaging provided for caudal block. Electronically Signed: Jaziel Carlos, at 13:27 EST , Service support ,
[2020-02-21] MEDS: MethylPREDNISolone Acetate 40 MG/ML Vial IM (11:30)
[2020-02-21] MEDS: Bupivacaine 0.25% 30 ML Vial (11:32)
[2020-02-21] MEDS: 0.9% Normal Saline (Pres. free 10 ML Vial (11:33)
[2020-02-21] MEDS: Lidocaine 1% (5 ml sdv) 5 ML Vial (11:33)
--- NOTE | 2020-02-21 11:43 | PCM.OPRPT ---
Report of Operation Date of Procedure: 02/21/20 Description of Surgical Findings:: PREOPERATIVE DIAGNOSIS: Lumbosacral radiculopathy, lumbosacral degenerative disc disease, lumbosacral spinal stenosis POSTOPERATIVE DIAGNOSIS: Lumbosacral radiculopathy, lumbosacral degenerative disc disease, lumbosacral spinal stenosis PROCEDURE PERFORMED: Diagnostic/therapeutic caudal epidural steroid injection. ANESTHESIA: MAC. BLOOD LOSS: Minimal. COMPLICATIONS: None. DESCRIPTION OF PROCEDURE: History and physical of today was reviewed. Risks and benefits of the procedure were explained. The patient understood and agreed to proceed. Informed consent was obtained. IV inserted per routine protocol. The patient was taken to the operating room and placed in the prone position with a pillow positioned underneath the abdomen. The lower back and tailbone area was prepped and draped in a sterile fashion using iodine x3. Under fluoroscopy guidance on a lateral view, the caudal space was identified. The skin and subcutaneous tissue was anesthetized with approximately 3 mL of 1% lidocaine using a 25-gauge regular needle. Under direct visualization with fluoroscopy, using a 22-gauge 3-1/2-inch spinal needle, the needle was advanced via the skin through the sacral hiatus. The tip of the needle was passed through the sacrococcygeal ligament and advanced to approximately S4 area. After negative aspiration of blood or CSF, a total of 3 mL of contrast was injected to confirm correct placement of the needle as well as cephalad spread. The spread was followed to approximately L5 area. After confirmation on AP as well as lateral view and repeated negative aspiration, a total of 15 mL of preservative-free 0.125% Marcaine with 80 mg of Depo-Medrol was injected easily. The needle was then removed intact. The patient experienced no sign or symptoms of intrathecal or intravascular injection. The patient experienced no paresthesia. The procedure was completed without any apparent difficulty or any complications. The patient appeared to tolerate it well. ASSESSMENT AND PLAN: This is a 59-year-old female with lumbosacral radiculopathy, lumbosacral degenerative disc disease, lumbosacral spinal stenosis status post diagnostic/therapeutic caudal epidural steroid injection, patient will continue her current medications, patient will follow in approximately 2 weeks for reevaluation.
== END 2020-02-21 12:23 | disposition home or self-care (01) ==
LOC: SDC 09:35
PROVIDERS: PCP Family Medicine; Referring Provider Anesthesiology Pain Medicine; Visit Provider Anesthesiology Pain Medicine
PROC: 3E0S3BZ Introduction of Anesthetic Agent into Epidural Space, Percutaneous Approach (ICD-10-PCS; CPT 62282; principal; 2020-02-21 10:35)
DX: M51.17 Intervertebral disc disorders with radiculopathy, lumbosacral region (principal); M48.07 Spinal stenosis, lumbosacral region; M96.1 Postlaminectomy syndrome, not elsewhere classified; M47.27 Other spondylosis with radiculopathy, lumbosacral region; I10 Essential (primary) hypertension; E11.9 Type 2 diabetes mellitus without complications; M79.7 Fibromyalgia; F41.9 Anxiety disorder, unspecified; F32.9 Major depressive disorder, single episode, unspecified; G47.30 Sleep apnea, unspecified; Z79.891 Long term (current) use of opiate analgesic; Z87.891 Personal history of nicotine dependence; Z79.84 Long term (current) use of oral hypoglycemic drugs; Z79.899 Other long term (current) drug therapy
CPT/HCPCS: 62323; 64520; 64483; 77003; 82962; J7120; J3490

== ENCOUNTER 2020-04-17 07:28 | Day surgery (SDC) | payer MEDICAID, SELFPAY ==
[2020-02-21 09:54] VITALS: BMI 55.0
[2020-04-17 07:53] VITALS: BP 178/84; PULSE 59; RESP 16; TEMP 36.1; O2SAT 95; BMI 55.0
[2020-04-17] MEDS: Lactated Ringers 1,000 ML 100 ML IV (08:07)
--- NOTE | 2020-04-17 08:41 | RAD_ITS ---
STUDY: X-RAY - LUMBAR SPINE REASON FOR EXAM: Female, 59 years old. LUMBAR FACET INJECTION, L3-S1,LEFT TECHNIQUE: Four intraoperative view(s) of the lumbar spine were obtained. COMPARISON: None FINDINGS: Intraoperative fluoroscopic services provided for left L3-S1 facet joint injection. RAD/Lumbar Spine 2 or 3 Views IMPRESSION: Intraoperative fluoroscopic services provided for left L3-S1 facet joint injection. Electronically Signed: Jaziel Carlos MD at 12:43 EST , Service support ,
[2020-04-17 09:00] VITALS: BP 134/70; BP 178/84; PULSE 60; RESP 16; TEMP 36.6; O2SAT 97
[2020-04-17 09:05] VITALS: BP 134/78; BP 178/84; PULSE 58; RESP 16; O2SAT 97
[2020-04-17 09:10] VITALS: BP 144/76; BP 178/84; PULSE 58; RESP 16; O2SAT 97
[2020-04-17 09:15] VITALS: BP 148/82; BP 178/84; PULSE 61; RESP 16; TEMP 36.2; O2SAT 98
[2020-04-17 10:41] LABS: Bedside Glucose 125 mg/dL (70-110)
--- NOTE | 2020-04-17 12:08 | OP.PCM_ITS ---
Report of Operation Date of Procedure: 04/17/20 Description of Surgical Findings:: Pre-Operative Diagnosis: Lumbosacral spondylosis, lumbosacral degenerative disc disease, lumbar facet arthropathy Post-Operative Diagnosis: Lumbosacral spondylosis, lumbar sacral degenerative disc disease, lumbar facet arthropathy Surgery/Procedure Performed:: Left-sided lumbar facet steroid injection L3, L4, L5, S1 Description of Surgical Findings:: Left-sided lumbar facet steroid injection L3, L4, L5, S1 PREOPERATIVE DIAGNOSIS: Lumbosacral spondylosis, lumbosacral degenerative disc disease, and lumbar facet arthropathy POSTOPERATIVE DIAGNOSIS: Lumbosacral spondylosis, lumbosacral degenerative disc disease, and lumbar facet arthropathy ANESTHESIA: MAC COMPLICATIONS: None BLOOD LOSS: Minimal PROCEDURE IN DETAIL: History and physical today was reviewed. Risks and benefits of the procedure were explained. The patient understood, agreed to our procedure, and informed consent was obtained. IV inserted per routine protocol. The patient was taken to the operating room, placed in a prone position with a pillow positioned underneath the abdomen. The left side of the lower back was prepped and draped in a sterile fashion using iodine x3. Under fluoroscopy guidance, on AP view, L3 through S1 vertebral bodies were visualized. Skin and subcutaneous tissues were anesthetized with approximately 5 mL of 1% lidocaine using a 25-gauge regular needle. Under direct visualization with fluoroscopy at approximately 25-degree angle, starting on the left L3, ending on the left S1, passing through the L4-L5 using a 22-gauge 5 inch spinal needle, the needle was advanced via the skin. The tip of the needle was maneuvered and directed towards the superior and medial gutter of the transverse process at the vicinity of the medial branch. Once the tip of the needle was in contact with the bone, the needle pulled approximately 2 mm off the bone. After negative aspiration of blood with CSF and confirmation of AP as well as o blique view, a total of 8 mL of preservative-free 0.25% Marcaine with 80 mg of Depo- Medrol was injection in divided doses between those 4 levels. The needles were then removed intact. The patient experienced no signs or symptoms intrathecal, intravascular injection. The patient experienced no paraesthesia. The procedure was completed without any apparent difficult, any complication. The patient appeared to tolerate well. ASSESSMENT AND PLAN: This is a 59-year-old Female with Lumbosacral spondylosis, lumbosacral degenerative disc disease, and lumbar facet arthropathy, status post left-sided lumbar facet steroid injection L3 through S1. The patient will continue her current medications. The patient will follow in approximately 2 weeks for reevaluation.
== END 2020-04-17 09:52 | disposition home or self-care (01) ==
LOC: SDC 07:29 → AC 07:30
PROVIDERS: PCP Family Medicine; Referring Provider Anesthesiology Pain Medicine; Visit Provider Anesthesiology Pain Medicine
PROC: 3E0T3BZ Introduction of Anesthetic Agent into Peripheral Nerves and Plexi, Percutaneous Approach (ICD-10-PCS; CPT 64493; principal; 2020-04-17 08:45)
DX: M51.17 Intervertebral disc disorders with radiculopathy, lumbosacral region (principal); M47.27 Other spondylosis with radiculopathy, lumbosacral region; M79.7 Fibromyalgia; F41.9 Anxiety disorder, unspecified; F32.9 Major depressive disorder, single episode, unspecified; I10 Essential (primary) hypertension; G47.30 Sleep apnea, unspecified; E11.9 Type 2 diabetes mellitus without complications; Z87.891 Personal history of nicotine dependence; Z79.02 Long term (current) use of antithrombotics/antiplatelets; Z79.84 Long term (current) use of oral hypoglycemic drugs; Z79.891 Long term (current) use of opiate analgesic; Z79.899 Other long term (current) drug therapy; Z99.81 Dependence on supplemental oxygen; Z86.711 Personal history of pulmonary embolism
CPT/HCPCS: 64493; 64494; 64483; 72100; 82962; J7120

== ENCOUNTER 2020-06-19 11:14 | Day surgery (SDC) | payer MEDICAID, SELFPAY ==
[2020-06-19] VITALS (8 sets, daily range): BP systolic 147–167; BP diastolic 72–109; PULSE 59–67; RESP 16–20; TEMP 36.4–36.9; O2SAT 92–96; BMI 25.4
[2020-06-19 12:10] LABS: Bedside Glucose 147 mg/dL (70-110)
[2020-06-19] MEDS: MethylPREDNISolone Acetate 40 MG/ML Vial IM (12:49)
[2020-06-19] MEDS: Lidocaine 1% (30 ml sdv) 30 ML Vial (12:50)
[2020-06-19] MEDS: Bupivacaine 0.25% 30 ML Vial (12:50)
--- NOTE | 2020-06-19 12:50 | RAD_ITS ---
PROCEDURE: Right L3-S1 radiofrequency ablation. DATE OF EXAMINATION: 06/19/2020. INDICATION: Female, 59 years old. Chronic low back pain. FLUOROSCOPY TIME (if supplied): (25 seconds) minutes/seconds. 8 intraoperative images were obtained. RAD/L/S Spine Min 4 Views IMPRESSION: Intraoperative imaging provided for right L3-S1 radiofrequency ablation. Electronically Signed: Jaziel Carlos MD at 10:29 EDT , Service support ,
--- NOTE | 2020-06-19 13:49 | PCM.OPRPT ---
Report of Operation Date of Procedure: 06/19/20 Pre-Operative Diagnosis: Lumbosacral spondylosis, lumbosacral degenerative disc disease, lumbar facet arthropathy Post-Operative Diagnosis: Lumbosacral spondylosis, lumbosacral degenerative disc disease, lumbar facet arthropathy Surgery/Procedure Performed:: Right-sided lumbar radiofrequency ablation of the medial branch L3, L4, L5, S1 Type of Anesthesia: MAC Estimated Blood Loss (mL): Minimal Description of Procedure: History and physical today was reviewed. Risks and benefits of procedure explained. The patient understood, agreed to the procedure and informed consent was obtained. IV inserted per routine protocol. The patient was taken to the operating room, placed in the prone position with a pillow positioned underneath the abdomen. The right side of the lower back was prepped and draped in a sterile fashion using iodine x 3. Under fluoroscopy guidance, on an oblique view, the L3 through S1 vertebral bodies were visualized. The skin and subcutaneous tissue was anesthetized with approximately 10 mL of 1% lidocaine using a 25-gauge regular needle. Under direct visualization with fluoroscopy at approximately 25-degree angle, starting on the right L3, ending on the right S1 passing through the L4-L5 using a 20-gauge 15 cm with a 10 mm curved active tip radiofrequency ablation needle the needle passed through the skin. The tip of the needle was maneuvered and directed towards the superior and medial gutter of the transverse process at the vicinity of the medial branch. Once the tip of the needle was in contact with the bone, the needle pulled approximately 2 mm up the bone. The stylet of each needle was then removed. After negative aspiration of blood with CSF and confirmation of AP as well as oblique view, radiofrequency ablation probe was then inserted at each level. Impedance was then recorded at L3 to be 240, at L4 309, at L5 351, at S1 311 ohm. Motor-evoked potential was then initiated to 1.5 volt without any motor response at each corresponding level. The probe was then removed intact and a total of 6 mL preservative-free 1% lidocaine was injected in divided doses between those 4 levels after negative aspiration of blood with CSF. The radiofrequency ablation probe was then reinserted after confirmation of AP, oblique as well as lateral view. Radiofrequency ablation was then initiated to 80 degrees Celsius for 90 seconds at each level. Once concluded, the probe was then removed intact and a total of 6 mL of preservative-free 0.25% Marcaine with 40 mg Depo-Medrol was injected in divided doses between those 4 levels. The needles were then removed intact. The patient experienced no signs or symptoms of intrathecal, intravascular injection. The patient experienced no paraesthesia. The procedure was completed without any apparent difficulty, any complication. The patient appeared to tolerate well. Sensory as well as motor exam was unchanged from prior to procedure. ASSESSMENT AND PLAN: This is a 59-year-old female with lumbosacral spondylosis, lumbosacral degenerative disc disease, lumbar facet arthropathy, status post right-sided radiofrequency ablation of the medial branch L3 through S1. The patient will continue her current medications. The patient will follow up in approximately 2 weeks for reevaluation. Complications None
== END 2020-06-19 14:15 | disposition home or self-care (01) ==
LOC: SDC 11:15 → AC 11:18
PROVIDERS: PCP Family Medicine; Referring Provider Anesthesiology Pain Medicine; Visit Provider Anesthesiology Pain Medicine
PROC: (CPT 64635; principal; 2020-06-19 12:45)
DX: M51.17 Intervertebral disc disorders with radiculopathy, lumbosacral region (principal); M47.27 Other spondylosis with radiculopathy, lumbosacral region; M79.7 Fibromyalgia; I10 Essential (primary) hypertension; E11.9 Type 2 diabetes mellitus without complications; F41.9 Anxiety disorder, unspecified; F32.9 Major depressive disorder, single episode, unspecified; Z79.84 Long term (current) use of oral hypoglycemic drugs; Z79.02 Long term (current) use of antithrombotics/antiplatelets; Z87.891 Personal history of nicotine dependence; Z79.899 Other long term (current) drug therapy
CPT/HCPCS: 64635; 64636; 72110; 76000; 82962; J7120

== ENCOUNTER → 2020-08-15 | Outpatient (CLI) | payer MEDICAID, SELFPAY ==
[2020-06-19 11:54] VITALS: BMI 25.4
== END | disposition home or self-care (01) ==
PROVIDERS: PCP Family Medicine; Referring Provider Otolaryngology; Visit Provider Otolaryngology
DX: H92.10 Otorrhea, unspecified ear (principal)
CPT/HCPCS: 36415

== ENCOUNTER 2020-09-04 10:42 | Day surgery (SDC) | payer MEDICAID, SELFPAY ==
[2020-06-19 11:54] VITALS: BMI 25.4
[2020-09-04 12:09] VITALS: BP 183/78; PULSE 62; RESP 16; TEMP 36.9; O2SAT 97; BMI 56.1
[2020-09-04 12:25] LABS: Bedside Glucose 118 mg/dL (70-110)
--- NOTE | 2020-09-04 12:59 | RAD_ITS ---
STUDY: X-RAY - THORACIC SPINE REASON FOR EXAM: Female, 59 years old. FACET STEROID INJECTION , T5-T8, RIGHT TECHNIQUE: 4 intraoperative view(s) of the thoracic spine were obtained. COMPARISON: None. FINDINGS: Intraoperative imaging provided for right T5-T8 facet steroid injection. RAD/Thoracic Spine 3 Views IMPRESSION: Intraoperative imaging provided for right T5-T8 facet steroid injection. Electronically Signed: Jaziel Carlos MD at 15:37 EDT , Service support ,
[2020-09-04] MEDS: Lidocaine 1% (5 ml sdv) 5 ML Vial (13:05)
[2020-09-04] MEDS: Bupivacaine 0.25% 30 ML Vial (13:05)
[2020-09-04] MEDS: MethylPREDNISolone Acetate 80 MG/ML Vial (13:05)
[2020-09-04 13:15] VITALS: BP 139/69; BP 183/78; PULSE 63; RESP 18; TEMP 36.8; O2SAT 95
[2020-09-04 13:25] VITALS: BP 154/85; BP 183/78; PULSE 63; RESP 16; O2SAT 93
[2020-09-04 13:30] VITALS: BP 159/87; BP 183/78; PULSE 63; RESP 16; O2SAT 94
[2020-09-04 13:33] VITALS: BP 147/79; BP 183/78; PULSE 63; RESP 18; TEMP 36.8; O2SAT 95
[2020-09-04 13:55] VITALS: BP 183/78
--- NOTE | 2020-09-04 17:21 | PCM.OPRPT ---
Report of Operation Date of Procedure: 09/04/20 Description of Surgical Findings:: PREOPERATIVE DIAGNOSIS: Thoracic spondylosis, thoracic degenerative disc disease, thoracic facet arthropathy POSTOPERATIVE DIAGNOSIS: Thoracic spondylosis, thoracic degenerative disc disease, thoracic facet arthropathy PROCEDURE PERFORMED: Right sided thoracic facet steroid injection, T5, T6, T7, and T8. ANESTHESIA: MAC. BLOOD LOSS: Minimal. COMPLICATIONS: None. DESCRIPTION OF PROCEDURE: History and physical of today was reviewed. Risks and benefits of the procedure were explained. The patient understood and agreed to proceed. Informed consent was obtained. IV inserted per routine protocol. The patient was taken to the operating room and placed in the prone position with a pillow positioned underneath the chest. The mid back area was prepped and draped in a sterile fashion using iodine x3. Under fluoroscopy guidance on AP view, the T5 through T8 vertebral bodies were visualized. The skin and subcutaneous tissue was anesthetized with approximately 5 mL of 1% lidocaine using a 25-gauge regular needle. Under direct visualization on fluoroscopy, at approximately 15-degree angle, starting on the right T5, ending on the right T8, passing through the T6 and T7, using a 22-gauge 3-1/2-inch spinal needle, the needle was passed through the skin. The tip of the needle was maneuvered and directed towards the epiphyseal junction of each corresponding vertebra. Once the tip of the needle was at the vicinity of the medial branch and in contact with the bone, the needle was pulled approximately 2 mm off the bone. After negative aspiration for blood or CSF and confirmation on AP as well as oblique view and lateral view, a total of 6 mL of preservative-free 0.25% Marcaine with 80 mg of Depo-Medrol was injected in divided doses between those four levels. The needles were then removed intact. The patient experienced no sign or symptoms of intrathecal or intravascular injection. The patient experienced no paresthesia. The procedure was completed without any apparent difficulty or any complications. The patient appeared to tolerate it well. ASSESSMENT AND PLAN: This is a 59-year-old female with thoracic spondylosis, thoracic degenerative disc disease, thoracic facet arthropathy status post right-sided thoracic facet steroid injection T5-T8, patient will continue her current medications, patient will follow in approximately 2 weeks for reevaluation.
== END 2020-09-04 14:09 | disposition home or self-care (01) ==
LOC: SDC 10:48 → AC 11:59
PROVIDERS: PCP Family Medicine; Referring Provider Anesthesiology Pain Medicine; Visit Provider Anesthesiology Pain Medicine
PROC: 3E0R3BZ Introduction of Anesthetic Agent into Spinal Canal, Percutaneous Approach (ICD-10-PCS; CPT 62281; principal; 2020-09-04 12:15)
DX: M47.814 Spondylosis without myelopathy or radiculopathy, thoracic region (principal); M51.34 Other intervertebral disc degeneration, thoracic region; M79.7 Fibromyalgia; F41.9 Anxiety disorder, unspecified; F32.9 Major depressive disorder, single episode, unspecified; I10 Essential (primary) hypertension; G47.30 Sleep apnea, unspecified; E11.9 Type 2 diabetes mellitus without complications; Z87.891 Personal history of nicotine dependence; Z79.84 Long term (current) use of oral hypoglycemic drugs; Z79.02 Long term (current) use of antithrombotics/antiplatelets; Z79.891 Long term (current) use of opiate analgesic; Z79.899 Other long term (current) drug therapy
CPT/HCPCS: 64491 ×2; 64490; 72072; 82962; J7120

== ENCOUNTER 2021-02-19 07:17 | Day surgery (SDC) | payer MEDICAID, SELFPAY ==
[2021-02-19 07:43] VITALS: BP 183/70; PULSE 63; RESP 16; TEMP 36.3; O2SAT 99; BMI 57.5
[2021-02-19] MEDS: Lactated Ringers 1,000 ML 15 ML IV (07:49)
[2021-02-19] MEDS: Lidocaine 1% (30 ml sdv) 30 ML Vial (08:33)
[2021-02-19] MEDS: MethylPREDNISolone Acetate 40 MG/ML Vial IM (08:33)
[2021-02-19] MEDS: Bupivacaine 0.25% 30 ML Vial (08:33)
--- NOTE | 2021-02-19 08:43 | RAD_ITS ---
STUDY: X-RAY - LUMBAR SPINE REASON FOR EXAM: Female, 60 years old. RADIO FREQ ABLATION L3-S1, RT COMPARISON: None FINDINGS: Fluoroscopic views were obtained for intraoperative localization. Please refer to intraoperative report. RAD/L/S Spine Min 4 Views IMPRESSION: Intraoperative localization. Electronically Signed: Minna Chen MD at 10:01 EST Tel , Service support ,
[2021-02-19 09:05] VITALS: BP 112/69; BP 183/70; PULSE 62; RESP 14; TEMP 36.3; O2SAT 97
[2021-02-19 09:10] VITALS: BP 145/84; BP 183/70; PULSE 63; RESP 16; O2SAT 96
[2021-02-19 09:15] VITALS: BP 157/88; BP 183/70; PULSE 61; RESP 16; O2SAT 94
[2021-02-19 09:21] VITALS: BP 155/94; BP 183/70; PULSE 62; RESP 18; TEMP 36.1; O2SAT 93
[2021-02-19 09:33] VITALS: BP 183/70
--- NOTE | 2021-02-19 11:12 | PCM.OPRPT ---
Report of Operation Date of Procedure: 02/19/21 Pre-Operative Diagnosis: Lumbosacral spondylosis, lumbosacral degenerative disc disease, lumbar facet arthropathy Post-Operative Diagnosis: Lumbosacral spondylosis, lumbosacral degenerative disc disease, lumbar facet arthropathy Surgery/Procedure Performed:: Right-sided lumbar radiofrequency ablation of the medial branch L3, L4, L5, S1 Type of Anesthesia: MAC Estimated Blood Loss (mL): Minimal Description of Procedure: History and physical today was reviewed. Risks and benefits of procedure explained. The patient understood, agreed to the procedure and informed consent was obtained. IV inserted per routine protocol. The patient was taken to the operating room, placed in the prone position with a pillow positioned underneath the abdomen. The right side of the lower back was prepped and draped in a sterile fashion using iodine x 3. Under fluoroscopy guidance, on an oblique view, the L3 through S1 vertebral bodies were visualized. The skin and subcutaneous tissue was anesthetized with approximately 10 mL of 1% lidocaine using a 25-gauge regular needle. Under direct visualization with fluoroscopy at approximately 25-degree angle, starting on the right L3, ending on the right S1 passing through the L4-L5 using a 20-gauge 15 cm with a 10 mm curved active tip radiofrequency ablation needle the needle passed through the skin. The tip of the needle was maneuvered and directed towards the superior and medial gutter of the transverse process at the vicinity of the medial branch. Once the tip of the needle was in contact with the bone, the needle pulled approximately 2 mm up the bone. The stylet of each needle was then removed. After negative aspiration of blood with CSF and confirmation of AP as well as oblique view, radiofrequency ablation probe was then inserted at each level. Impedance was then recorded at L3 to be 208, at L4 260, at L5 346, at S1 301 ohm. Motor-evoked potential was then initiated to 1.5 volt without any motor response at each corresponding level. The probe was then removed intact and a total of 6 mL preservative-free 1% lidocaine was injected in divided doses between those 4 levels after negative aspiration of blood with CSF. The radiofrequency ablation probe was then reinserted after confirmation of AP, oblique as well as lateral view. Radiofrequency ablation was then initiated to 80 degrees Celsius for 90 seconds at each level. Once concluded, the probe was then removed intact and a total of 6 mL of preservative-free 0.25% Marcaine with 40 mg Depo-Medrol was injected in divided doses between those 4 levels. The needles were then removed intact. The patient experienced no signs or symptoms of intrathecal, intravascular injection. The patient experienced no paraesthesia. The procedure was completed without any apparent difficulty, any complication. The patient appeared to tolerate well. Sensory as well as motor exam was unchanged from prior to procedure. ASSESSMENT AND PLAN: This is a 60-year-old female with lumbosacral spondylosis, lumbosacral degenerative disc disease, lumbar facet arthropathy, status post right-sided radiofrequency ablation of the medial branch L3 through S1. The patient will continue her current medications. The patient will follow up in approximately 2 weeks for reevaluation. Complications None
[2021-02-19 12:15] LABS: Bedside Glucose 148 mg/dL (70-110)
== END 2021-02-19 23:59 | disposition home or self-care (01) ==
LOC: SDC 07:20 → AC 07:33
PROVIDERS: PCP Family Medicine; Referring Provider Anesthesiology Pain Medicine; Visit Provider Anesthesiology Pain Medicine
PROC: (CPT 64635; principal; 2021-02-19 08:45)
DX: M47.817 Spondylosis without myelopathy or radiculopathy, lumbosacral region (principal); M46.96 Unspecified inflammatory spondylopathy, lumbar region; E11.9 Type 2 diabetes mellitus without complications; M51.37 Other intervertebral disc degeneration, lumbosacral region; I10 Essential (primary) hypertension; M81.0 Age-related osteoporosis without current pathological fracture; M79.7 Fibromyalgia; F32.A Depression, unspecified; F41.9 Anxiety disorder, unspecified; Z79.84 Long term (current) use of oral hypoglycemic drugs; Z79.891 Long term (current) use of opiate analgesic; Z79.01 Long term (current) use of anticoagulants; Z79.899 Other long term (current) drug therapy; Z87.891 Personal history of nicotine dependence
CPT/HCPCS: 64635; 64636 ×2; 01992; 72100; 72110; 76000; 82962; J7120

== ENCOUNTER 2021-05-21 09:21 | Day surgery (SDC) | payer MEDICAID, SELFPAY ==
[2021-05-21 10:06] VITALS: BP 168/77; PULSE 61; RESP 16; TEMP 36.4; O2SAT 96; BMI 55.3
[2021-05-21] MEDS: Lactated Ringers 1,000 ML 15 ML IV (10:14)
--- NOTE | 2021-05-21 10:30 | RAD_ITS ---
PROCEDURE: Caudal block DATE OF EXAMINATION: 05/21/2021 INDICATION: Female, 60 years old. Chronic low back pain. FLUOROSCOPY TIME (if supplied): (14.7 seconds) minutes/seconds. 4 images were obtained. RAD/Fluor Guidance for Spine Inj IMPRESSION: Intraoperative imaging provided for caudal block. Electronically Signed: Jaziel Carlos MD at 15:14 EDT ,
[2021-05-21 10:36] LABS: Bedside Glucose 138 mg/dL (74-106)
[2021-05-21] MEDS: Bupivacaine 0.25% 30 ML Vial (10:40)
[2021-05-21] MEDS: MethylPREDNISolone Acetate 80 MG/ML Vial (10:40)
[2021-05-21] MEDS: 0.9% Normal Saline (Pres. free 10 ML Vial (10:40)
[2021-05-21] MEDS: Lidocaine 1% (5 ml sdv) 5 ML Vial (10:41)
[2021-05-21 10:45] VITALS: BP 155/75; BP 168/77; PULSE 60; RESP 16; TEMP 36.8; O2SAT 95
[2021-05-21 10:50] VITALS: BP 151/77; BP 168/77; PULSE 64; RESP 16; O2SAT 96
[2021-05-21 10:55] VITALS: BP 155/81; BP 168/77; PULSE 59; RESP 16; O2SAT 93
[2021-05-21 11:10] VITALS: BP 126/57; BP 168/77; PULSE 57; RESP 16; TEMP 36.3; O2SAT 92
[2021-05-21 11:26] VITALS: BP 168/77
--- NOTE | 2021-05-21 13:00 | OP.PCM_ITS ---
Report of Operation Date of Procedure: 05/21/21 Pre-Operative Diagnosis: Lumbosacral radiculopathy, lumbosacral degenerative di sc disease, lumbosacral spinal stenosis Post-Operative Diagnosis: Lumbosacral radiculopathy, lumbosacral degenerative disc disease, lumbosacral spinal stenosis Surgery/Procedure Performed:: Caudal epidural steroid injection under fluoroscopic guidance Type of Anesthesia: MAC Estimated Blood Loss (mL): Minimal Description of Procedure: DESCRIPTION OF PROCEDURE: History and physical of today was reviewed. Risks and benefits of the procedure were explained. The patient understood and agreed to proceed. Informed consent was obtained. IV inserted per routine protocol. The patient was taken to the operating room and placed in the prone position with a pillow positioned underneath the abdomen. The lower back and tailbone area was prepped and draped in a sterile fashion using iodine x3. Under fluoroscopy guidance on a lateral view, the caudal space was identified. The skin and subcutaneous tissue was anesthetized with approximately 3 mL of 1% lidocaine using a 25-gauge regular needle. Under direct visualization with fluoroscopy, using a 22-gauge 3-1/2-inch spinal needle, the needle was advanced via the skin through the sacral hiatus. The tip of the needle was passed through the sacrococcygeal ligament and advanced to approximately S4 area. After negative aspiration of blood or CSF, a total of 3 mL of contrast was injected to confirm correct placement of the needle as well as cephalad spread. The spread was followed to approximately L5 area. After confirmation on AP as well as lateral view and repeated negative aspiration, a total of 15 mL of preservative-free 0.125% Marcaine with 80 mg of Depo-Medrol was injected easily. The needle was then removed intact. The patient experienced no sign or symptoms of intrathecal or intravascular injection. The patient experienced no paresthesia. The procedure was completed without any apparent difficulty or any complications. The patient appeared to tolerate it well. ASSESSMENT AND PLAN: This is a 60-year-old female with lumbosacral radiculopathy, lumbosacral degenerative disc disease, lumbosacral spinal stenosis status post caudal epidural steroid injection, patient will continue her current medications, patient will follow in approximately 2 weeks for reevaluation. Complications None
== END 2021-05-21 23:59 | disposition home or self-care (01) ==
LOC: SDC 09:22 → AC 09:46
PROVIDERS: PCP Family Medicine; Referring Provider Anesthesiology Pain Medicine; Visit Provider Anesthesiology Pain Medicine
PROC: 3E0S3BZ Introduction of Anesthetic Agent into Epidural Space, Percutaneous Approach (ICD-10-PCS; CPT 62282; principal; 2021-05-21 11:00)
DX: M51.17 Intervertebral disc disorders with radiculopathy, lumbosacral region (principal); E11.9 Type 2 diabetes mellitus without complications; M48.07 Spinal stenosis, lumbosacral region; M96.1 Postlaminectomy syndrome, not elsewhere classified; I10 Essential (primary) hypertension; F32.A Depression, unspecified; F41.9 Anxiety disorder, unspecified; M81.0 Age-related osteoporosis without current pathological fracture; M79.7 Fibromyalgia; G89.29 Other chronic pain; Z79.01 Long term (current) use of anticoagulants; Z79.84 Long term (current) use of oral hypoglycemic drugs; Z79.891 Long term (current) use of opiate analgesic; Z79.899 Other long term (current) drug therapy; Z87.891 Personal history of nicotine dependence
CPT/HCPCS: 62323; 01992; 64483; 77003; 82962; J7120; J3490

== ENCOUNTER → 2021-10-09 | Outpatient (CLI) | payer MEDICAID, SELFPAY ==
--- NOTE | 2021-10-09 08:59 | ECHOD_ITS ---
[id number] ECHO^ECHOD^Echo Complete [id number] Reason For Study: DYSPNEA Procedure This was a 2D Doppler, Color Flow transthoracic echocardiogram. The study was technically difficult. Exam performed in department. Left Ventricle Normal LV size. Left ventricular systolic function is normal. The estimated ejection fraction is 65 %. No evidence for diastolic dysfunction. No regional wall motion abnormalities noted. Right Ventricle Normal RV size. Normal systolic function. Atria The left atrium is mildly enlarged. Normal right atrium. No doppler evidence for ASD. Mitral Valve There is mild to moderate mitral annular calcification. Extension of the mitral annular calcification onto the base of the posterior mitral valve leaflet. Mild (1+) mitral valve insufficiency. Tricuspid Valve Normal tricuspid valve. Trivial tricuspid valve insufficiency. Unable to estimate RV systolic pressure/pulmonary artery pressure due to technically difficult study. Aortic Valve The aortic valve is not well visualized. Pulmonic Valve The pulmonic valve is not well visualized. Great Vessels The aortic root is not well visualized. Pericardium/Pleural No pericardial effusion. MMode/2D Measurements & Calculations ESV(MOD-sp4): 30.6 ml LAV(MOD-bp): 38.5 ml LVAd ap4: 30.7 cm2 LAV(MOD-bp) Indexed: 16.0 ml/m2 LVLd ap4: 7.6 cm LAV(MOD-sp2): 35.4 ml EDV(MOD-sp4): 99.9 ml LAV(MOD-sp4): 40.2 ml EDV(sp4-el): 104.8 ml LVAs ap4: 14.3 cm2 LVLs ap4: 6.0 cm ESV(sp4-el): 29.1 ml EF(MOD-sp4): 69.4 % EF(sp4-el): 72.2 % SV(MOD-sp4): 69.3 ml SV(sp4-el): 75.7 ml LA A4 area: 15.7 cm2 RA A4 area: 10.7 cm2 Time Measurements MV dec time: 0.20 sec Doppler Measurements & Calculations MV E max robert: 69.7 cm/sec Lat Peak E' Robert: 8.2 cm/sec MV V2 max: 111.5 cm/sec MV A max robert: 62.4 cm/sec MV max P.0 mmHg MV E/A: 1.1 MV V2 mean: 55.9 cm/sec Med Peak E' Robert: 8.2 cm/sec MV mean P.5 mmHg MV V2 VTI: 32.3 cm MV dec slope: 469.8 cm/sec2 Ao V2 max: 145.2 cm/sec LV V1 max P.9 mmHg Ao max P.4 mmHg LV V1 mean P.2 mmHg Ao V2 mean: 102.9 cm/sec LV V1 max: 121.6 cm/sec Ao mean P.8 mmHg LV V1 mean: 84.1 cm/sec Ao V2 VTI: 35.6 cm LV V1 VTI: 29.8 cm E/E' lat: 8.5 E/E' med: 8.5 ECHO/Echo Complete Interpretation Summary The study was technically difficult. Left ventricular systolic function is normal. The estimated ejection fraction is 65 %. The left atrium is mildly enlarged. There is mild to moderate mitral annular calcification. Extension of the mitral annular calcification onto the base of the posterior mi tral valve leaflet. Mild (1+) mitral valve insufficiency. Trivial tricuspid valve insufficiency. Unable to estimate RV systolic pressure/pulmonary artery pressure due to techni neha difficult study. No evidence for diastolic dysfunction. Ordering Physician: Joey Sands V Referring Physician: Joey Sands V Performed By: Michelle Boo RCS
== END | disposition home or self-care (01) ==
LOC: CVS 08:57
PROVIDERS: PCP Family Medicine; Referring Provider Internal Medicine Pulmonary Disease; Visit Provider Internal Medicine Pulmonary Disease
DX: R06.00 Dyspnea, unspecified (principal)
CPT/HCPCS: 93306

== ENCOUNTER 2021-11-05 09:38 | Day surgery (SDC) | payer MEDICAID, SELFPAY ==
[2021-11-05] VITALS (7 sets, daily range): BP systolic 127–178; BP diastolic 71–83; PULSE 57–66; RESP 16; TEMP 36.3–37.1; O2SAT 95–99; BMI 56.7
[2021-11-05] MEDS: Lactated Ringers 1,000 ML 15 ML IV (10:21)
[2021-11-05 10:50] LABS: Bedside Glucose 173 mg/dL (74-106)
--- NOTE | 2021-11-05 11:15 | RAD_ITS ---
PROCEDURE: REPEAT CAUDAL EPIDURAL STEROID INJ INDICATION: REPEAT CAUDAL EPIDURAL STEROID INJ EXAMINATION/TECHNIQUE: X-RAY - IR Fluoro Guide Injection Spine COMPARISON: 02/19/2021.. FLUOROSCOPY TIME: 12.6 seconds. FLUOROSCOPY DOSE: 18.30 mGy FINDINGS: 3 spot fluoroscopic images were obtained intraoperatively. Lateral view of the sacrum and coccyx was obtained demonstrating demonstrate needle placement and contrast injection. No radiologist was present for the procedure, please refer to operative report for details. RAD/Fluor Guidance for Spine Inj IMPRESSION: Please refer to operative report for details. Electronically Signed: Bon Jimenez MD at 13:31 EDT ,
[2021-11-05] MEDS: MethylPREDNISolone Acetate 80 MG/ML Vial (11:24)
[2021-11-05] MEDS: Lidocaine 1% (30 ml sdv) 30 ML Vial INFILT (11:24)
[2021-11-05] MEDS: 0.9% Normal Saline (Pres. free 10 ML Vial (11:24)
--- NOTE | 2021-11-05 11:57 | OP.PCM_ITS ---
Report of Operation Date of Procedure: 11/05/21 Pre-Operative Diagnosis: Lumbosacral radiculopathy, lumbosacral degenerative di sc disease, lumbosacral spinal stenosis Post-Operative Diagnosis: Lumbosacral radiculopathy, lumbosacral degenerative disc disease, lumbosacral spinal stenosis Surgery/Procedure Performed:: Caudal epidural steroid injection under fluoroscopic guidance Type of Anesthesia: MAC Estimated Blood Loss (mL): Minimal Description of Procedure: DESCRIPTION OF PROCEDURE: History and physical of today was reviewed. Risks and benefits of the procedure were explained. The patient understood and agreed to proceed. Informed consent was obtained. IV inserted per routine protocol. The patient was taken to the operating room and placed in the prone position with a pillow positioned underneath the abdomen. The lower back and tailbone area was prepped and draped in a sterile fashion using iodine x3. Under fluoroscopy guidance on a lateral view, the caudal space was identified. The skin and subcutaneous tissue was anesthetized with approximately 3 mL of 1% lidocaine using a 25-gauge regular needle. Under direct visualization with fluoroscopy, using a 22-gauge 3-1/2-inch spinal needle, the needle was advanced via the skin through the sacral hiatus. The tip of the needle was passed through the sacrococcygeal ligament and advanced to approximately S4 area. After negative aspiration of blood or CSF, a total of 3 mL of contrast was injected to confirm correct placement of the needle as well as cephalad spread. The spread was followed to approximately L5 area. After confirmation on AP as well as lateral view and repeated negative aspiration, a total of 15 mL of preservative-free 0.125% Marcaine with 80 mg of Depo-Medrol was injected easily. The needle was then removed intact. The patient experienced no sign or symptoms of intrathecal or intravascular injection. The patient experienced no paresthesia. The procedure was completed without any apparent difficulty or any complications. The patient appeared to tolerate it well. ASSESSMENT AND PLAN: This is a 60-year-old female with lumbosacral radiculopathy, lumbosacral degenerative disc disease, lumbosacral spinal stenosis status post caudal epidural steroid injection, patient will continue her current medications, patient will follow in approximately 2 weeks for reevaluation. Complications None
== END 2021-11-05 12:18 | disposition home or self-care (01) ==
LOC: SDC 09:38 → AC 09:46
PROVIDERS: PCP Family Medicine; Referring Provider Anesthesiology Pain Medicine; Visit Provider Anesthesiology Pain Medicine
PROC: 3E0S3BZ Introduction of Anesthetic Agent into Epidural Space, Percutaneous Approach (ICD-10-PCS; CPT 62282; principal; 2021-11-05 11:05)
DX: M51.17 Intervertebral disc disorders with radiculopathy, lumbosacral region (principal); E11.9 Type 2 diabetes mellitus without complications; M48.07 Spinal stenosis, lumbosacral region; F41.9 Anxiety disorder, unspecified; F32.A Depression, unspecified; G89.29 Other chronic pain; M81.0 Age-related osteoporosis without current pathological fracture; Z86.711 Personal history of pulmonary embolism; G47.30 Sleep apnea, unspecified; Z79.899 Other long term (current) drug therapy; Z79.84 Long term (current) use of oral hypoglycemic drugs; Z79.01 Long term (current) use of anticoagulants
CPT/HCPCS: 62323; 01992; 64483; 77003; 82962; J7120; J2405; J3490

== ENCOUNTER 2022-03-04 12:55 | Day surgery (SDC) | payer MEDICAID, SELFPAY ==
[2022-03-04] VITALS (7 sets, daily range): BP systolic 150–162; BP diastolic 84–98; PULSE 57–66; RESP 16; TEMP 36.3–36.8; O2SAT 94–97; BMI 55.6
[2022-03-04] MEDS: Lactated Ringers 1,000 ML 15 ML IV (14:37)
[2022-03-04 15:01] LABS: Bedside Glucose 105 mg/dL (74-106)
--- NOTE | 2022-03-04 15:01 | RAD_ITS ---
PROCEDURE: Caudal block. DATE OF EXAMINATION: 03/04/2022. INDICATION: Female, 61 years old. Chronic low back pain. FLUOROSCOPY TIME (if supplied): (40.8 seconds) minutes/seconds RAD/Fluor Guidance for Spine Inj IMPRESSION: Intraoperative imaging provided for caudal block. Electronically Signed: Jaziel Carlos MD at 8:15 EST ,
[2022-03-04] MEDS: Lidocaine 1% (5 ml sdv) 5 ML Vial (15:07)
[2022-03-04] MEDS: 0.9% Normal Saline (Pres. free 10 ML Vial (15:11)
[2022-03-04] MEDS: MethylPREDNISolone Acetate 80 MG/ML Vial (15:12)
--- NOTE | 2022-03-04 15:53 | OP.PCM_ITS ---
Report of Operation Date of Procedure: 03/04/22 Pre-Operative Diagnosis: Lumbosacral radiculopathy, lumbosacral degenerative di sc disease, lumbosacral spinal stenosis Post-Operative Diagnosis: Lumbosacral radiculopathy, lumbosacral degenerative disc disease, lumbosacral spinal stenosis Surgery/Procedure Performed:: Caudal epidural steroid injection under fluoroscopic guidance Type of Anesthesia: MAC Estimated Blood Loss (mL): Minimal Description of Procedure: DESCRIPTION OF PROCEDURE: History and physical of today was reviewed. Risks and benefits of the procedure were explained. The patient understood and agreed to proceed. Informed consent was obtained. IV inserted per routine protocol. The patient was taken to the operating room and placed in the prone position with a pillow positioned underneath the abdomen. The lower back and tailbone area was prepped and draped in a sterile fashion using iodine x3. Under fluoroscopy guidance on a lateral view, the caudal space was identified. The skin and subcutaneous tissue was anesthetized with approximately 3 mL of 1% lidocaine using a 25-gauge regular needle. Under direct visualization with fluoroscopy, using a 22-gauge 3-1/2-inch spinal needle, the needle was advanced via the skin through the sacral hiatus. The tip of the needle was passed through the sacrococcygeal ligament and advanced to approximately S4 area. After negative aspiration of blood or CSF, a total of 3 mL of contrast was injected to confirm correct placement of the needle as well as cephalad spread. The spread was followed to approximately L5 area. After confirmation on AP as well as lateral view and repeated negative aspiration, a total of 15 mL of preservative-free 0.125% Marcaine with 80 mg of Depo-Medrol was injected easily. The needle was then removed intact. The patient experienced no sign or symptoms of intrathecal or intravascular injection. The patient experienced no paresthesia. The procedure was completed without any apparent difficulty or any complications. The patient appeared to tolerate it well. ASSESSMENT AND PLAN: This is a 61-year-old female with lumbosacral radiculopathy, lumbosacral degenerative disc disease, lumbosacral spinal stenosis status post caudal epidural steroid injection, patient will continue her current medications, patient will follow in approximately 2 weeks for reevaluation. Complications None
== END 2022-03-04 16:18 | disposition home or self-care (01) ==
LOC: SDC 12:56 → AC 13:46
PROVIDERS: PCP Family Medicine; Referring Provider Anesthesiology Pain Medicine; Visit Provider Anesthesiology Pain Medicine
PROC: 3E0S3BZ Introduction of Anesthetic Agent into Epidural Space, Percutaneous Approach (ICD-10-PCS; CPT 62282; principal; 2022-03-04 14:30)
DX: M48.07 Spinal stenosis, lumbosacral region (principal); E11.9 Type 2 diabetes mellitus without complications; M51.17 Intervertebral disc disorders with radiculopathy, lumbosacral region; F41.9 Anxiety disorder, unspecified; G89.29 Other chronic pain; I10 Essential (primary) hypertension; M81.0 Age-related osteoporosis without current pathological fracture; G47.30 Sleep apnea, unspecified
CPT/HCPCS: 62323; 64483; 77003; 82962; J7120; J3490

== ENCOUNTER 2022-05-06 06:24 | Day surgery (SDC) | payer MEDICAID, SELFPAY ==
[2022-05-06 06:44] VITALS: BP 161/75; PULSE 62; RESP 18; TEMP 37.1; O2SAT 95; BMI 55.6
[2022-05-06] MEDS: Lactated Ringers 1,000 ML 15 ML IV (06:57)
--- NOTE | 2022-05-06 07:00 | RAD_ITS ---
STUDY: X-RAY - LUMBAR SPINE REASON FOR EXAM: Female, 61 years old. Radiofrequency ablation at L4-5 on the right. TECHNIQUE: 10 intraprocedural digital documentation view(s) of the lumbar spine were obtained. COMPARISON: None FINDINGS: 2 intraprocedural digital documentation views show placement of needles at the L3, L4, L5 and S1 vertebral bodies. RAD/Lumbar Spine 2 or 3 Views IMPRESSION: Intraprocedural digital documentation views as described. Electronically Signed: Blayne Alonzo, at 10:21 EDT ,
[2022-05-06 07:40] LABS: Bedside Glucose 163 mg/dL (74-106)
[2022-05-06] MEDS: Lidocaine 1% (30 ml sdv) 30 ML Vial (08:08)
[2022-05-06] MEDS: MethylPREDNISolone Acetate 40 MG/ML Vial IM (08:08)
[2022-05-06] MEDS: Bupivacaine 0.25% 30 ML Vial (08:08)
[2022-05-06 08:25] VITALS: BP 130/71; BP 161/75; PULSE 63; RESP 16; TEMP 36.7; O2SAT 96
[2022-05-06 08:30] VITALS: BP 132/75; BP 161/75; PULSE 61; RESP 16; O2SAT 94
[2022-05-06 08:35] VITALS: BP 138/75; BP 161/75; PULSE 60; RESP 16; O2SAT 94
[2022-05-06 08:40] VITALS: BP 152/67; BP 161/75; PULSE 60; RESP 16; TEMP 36.4; O2SAT 95
--- NOTE | 2022-05-06 08:50 | PCM.OPRPT ---
Report of Operation Date of Procedure: 05/06/22 Pre-Operative Diagnosis: Lumbosacral spondylosis, lumbosacral degenerative disc disease, lumbar facet arthropathy Post-Operative Diagnosis: Lumbosacral spondylosis, lumbosacral degenerative disc disease, lumbar facet arthropathy Surgery/Procedure Performed:: Right-sided lumbar radiofrequency ablation of the medial branch L4, L5, S1 Type of Anesthesia: MAC Estimated Blood Loss (mL): Minimal Description of Procedure: History and physical today was reviewed. Risks and benefits of procedure explained. The patient understood, agreed to the procedure and informed consent was obtained. IV inserted per routine protocol. The patient was taken to the operating room, placed in the prone position with a pillow positioned underneath the abdomen. The right side of the lower back was prepped and draped in a sterile fashion using iodine x 3. Under fluoroscopy guidance, on an oblique view, the L3 through S1 vertebral bodies were visualized. The skin and subcutaneous tissue was anesthetized with approximately 10 mL of 1% lidocaine using a 25-gauge regular needle. Under direct visualization with fluoroscopy at approximately 25-degree angle, starting on the right L3, ending on the right S1 passing through the L4-L5 using a 20-gauge 15 cm with a 10 mm curved active tip radiofrequency ablation needle the needle passed through the skin. The tip of the needle was maneuvered and directed towards the superior and medial gutter of the transverse process at the vicinity of the medial branch. Once the tip of the needle was in contact with the bone, the needle pulled approximately 2 mm up the bone. The stylet of each needle was then removed. After negative aspiration of blood with CSF and confirmation of AP as well as oblique view, radiofrequency ablation probe was then inserted at each level. Impedance was then recorded at L3 to be 303, at L4 229, at L5 242, at S1 234 ohm. Motor-evoked potential was then initiated to 1.5 volt without any motor response at each corresponding level. The probe was then removed intact and a total of 6 mL preservative-free 1% lidocaine was injected in divided doses between those 4 levels after negative aspiration of blood with CSF. The radiofrequency ablation probe was then reinserted after confirmation of AP, oblique as well as lateral view. Radiofrequency ablation was then initiated to 80 degrees Celsius for 90 seconds at each level. Once concluded, the probe was then removed intact and a total of 6 mL of preservative-free 0.25% Marcaine with 40 mg Depo-Medrol was injected in divided doses between those 4 levels. The needles were then removed intact. The patient experienced no signs or symptoms of intrathecal, intravascular injection. The patient experienced no paraesthesia. The procedure was completed without any apparent difficulty, any complication. The patient appeared to tolerate well. Sensory as well as motor exam was unchanged from prior to procedure. ASSESSMENT AND PLAN: This is a 61-year-old female with lumbosacral spondylosis, lumbosacral degenerative disc disease, lumbar facet arthropathy, status post right-sided radiofrequency ablation of the medial branch L4 through S1. The patient will continue her current medications. The patient will follow up in approximately 2 weeks for reevaluation. Complications None
[2022-05-06 08:55] VITALS: BP 161/75
== END 2022-05-06 09:22 | disposition home or self-care (01) ==
LOC: SDC 06:24 → AC 06:25
PROVIDERS: PCP Family Medicine; Referring Provider Anesthesiology Pain Medicine; Visit Provider Anesthesiology Pain Medicine
PROC: (CPT 64635; principal; 2022-05-06 07:55)
DX: M47.817 Spondylosis without myelopathy or radiculopathy, lumbosacral region (principal); J44.9 Chronic obstructive pulmonary disease, unspecified; E11.9 Type 2 diabetes mellitus without complications; M47.816 Spondylosis without myelopathy or radiculopathy, lumbar region; M51.37 Other intervertebral disc degeneration, lumbosacral region; I10 Essential (primary) hypertension; Z79.01 Long term (current) use of anticoagulants; Z79.84 Long term (current) use of oral hypoglycemic drugs; Z79.899 Other long term (current) drug therapy; Z99.81 Dependence on supplemental oxygen
CPT/HCPCS: 64635; 64636; 72100; 76000; 82962; J7120

== ENCOUNTER → 2022-07-27 | Outpatient (CLI) | payer MEDICAID, SELFPAY ==
--- NOTE | 2022-07-27 07:48 | CT_ITS ---
EXAM: CT CHEST, LUNG CANCER SCREENING WITHOUT INTRAVENOUS CONTRAST CLINICAL INDICATION: NICOTINE USE TECHNIQUE: Helically acquired images were obtained of the chest without intravenous contrast using low dose (LDCT) lung cancer screening protocol. This CT exam was performed using one or more of the following dose reduction techniques: automated exposure control, adjustment of the mA and/or kV according to patient size, and/or use of iterative reconstruction technique. COMPARISON: 10/26/2019 FINDINGS: LUNGS AND PLEURAL SPACES: Unremarkable. No mass. No consolidation or edema. No pleural effusion or thickening. No pneumothorax. HEART: Unremarkable. Heart size is normal. No pericardial effusion. No significant coronary artery calcifications. MEDIASTINUM: Unremarkable. No mediastinal or hilar adenopathy. Esophagus is unremarkable. No hiatal hernia. THYROID: Unremarkable. No thyroid lesions. BONES/JOINTS: Unremarkable. No suspicious lytic or blastic abnormality. VASCULATURE: Unremarkable. Thoracic aorta is non-dilated. LYMPH NODES: Unremarkable. No enlarged lymph nodes. CT/Low Dose CT Lung Screening IMPRESSION: Normal chest CT. Lung-RADS score: 1 - Negative. Recommend continued annual screening with a low-dose CT (LDCT) in 12 months. Electronically Signed: Jose De Jesus Diez MD at 0:06 EDT ,
== END | disposition home or self-care (01) ==
LOC: CT 07:45
PROVIDERS: PCP Family Medicine; Referring Provider Internal Medicine Pulmonary Disease; Visit Provider Internal Medicine Pulmonary Disease
DX: Z87.891 Personal history of nicotine dependence (principal); Z12.2 Encounter for screening for malignant neoplasm of respiratory organs
CPT/HCPCS: 71271

== ENCOUNTER 2022-08-05 08:12 | Day surgery (SDC) | payer MEDICAID, SELFPAY ==
[2022-08-05] MEDS: Lactated Ringers 1,000 ML 15 ML IV (09:25)
[2022-08-05 09:27] VITALS: BP 186/88; PULSE 58; RESP 18; TEMP 36.6; O2SAT 98; BMI 55.9
--- NOTE | 2022-08-05 10:10 | RAD_ITS ---
PROCEDURE: Fluoroscopic guided needle placement. INDICATION: Caudal block EXAMINATION/TECHNIQUE: 1 spot intraoperative films were provided for interpretation. Total Fluoroscopic Time: 26 seconds AND number of Fluoroscopic Images: 1 OR Radiation dosage index: 40.08 mGy COMPARISON: None. FINDINGS: Limited single lateral intraoperative fluoroscopic spot image of the sacrum and coccyx were obtained during fluoroscopy guided caudal block procedure. Lateral view of the sacrum and coccyx demonstrate needle placement at the level of the sacrococcygeal junction with contrast injection. RAD/Fluor Guidance for Spine Inj IMPRESSION: Fluoroscopy-guided caudal block. Please see intraoperative report for detailed findings. Electronically Signed: Marvin Toney DO at 13:51 EDT ,
[2022-08-05] MEDS: Lidocaine 1% (5 ml sdv) 5 ML Vial (10:18)
[2022-08-05] MEDS: MethylPREDNISolone Acetate 80 MG/ML Vial (10:18)
[2022-08-05] MEDS: 0.9% Normal Saline (Pres. free 10 ML Vial (10:20)
[2022-08-05 10:30] VITALS: BP 159/87; BP 186/88; PULSE 55; RESP 16; TEMP 36.3; O2SAT 93
[2022-08-05 10:30] LABS: Bedside Glucose 153 mg/dL (74-106)
[2022-08-05 10:35] VITALS: BP 145/82; BP 186/88; PULSE 56; RESP 16; O2SAT 94
[2022-08-05 10:40] VITALS: BP 151/56; BP 186/88; PULSE 55; RESP 16; O2SAT 94
[2022-08-05 10:45] VITALS: BP 149/72; BP 186/88; PULSE 60; RESP 16; TEMP 36.8; O2SAT 94
--- NOTE | 2022-08-05 11:20 | OP.PCM_ITS ---
Report of Operation Date of Procedure: 08/05/22 Pre-Operative Diagnosis: Lumbosacral radiculopathy, lumbosacral degenerative di sc disease, lumbosacral spinal stenosis Post-Operative Diagnosis: Lumbosacral radiculopathy, lumbosacral degenerative disc disease, lumbosacral spinal stenosis Surgery/Procedure Performed:: Diagnostic/therapeutic caudal epidural steroid injection under fluoroscopic guidance Type of Anesthesia: MAC Estimated Blood Loss (mL): Minimal Description of Procedure: DESCRIPTION OF PROCEDURE: History and physical of today was reviewed. Risks and benefits of the procedure were explained. The patient understood and agreed to proceed. Informed consent was obtained. IV inserted per routine protocol. The patient was taken to the operating room and placed in the prone position with a pillow positioned underneath the abdomen. The lower back and tailbone area was prepped and draped in a sterile fashion using iodine x3. Under fluoroscopy guidance on a lateral view, the caudal space was identified. The skin and subcutaneous tissue was anesthetized with approximately 3 mL of 1% lidocaine using a 25-gauge regular needle. Under direct visualization with fluoroscopy, using a 22-gauge 3-1/2-inch spinal needle, the needle was advanced via the skin through the sacral hiatus. The tip of the needle was passed through the sacrococcygeal ligament and advanced to approximately S4 area. After negative aspiration of blood or CSF, a total of 3 mL of contrast was injected to confirm correct placement of the needle as well as cephalad spread. The spread was followed to approximately L5 area. After confirmation on AP as well as lateral view and repeated negative aspiration, a total of 15 mL of preservative-free 0.125% Marcaine with 80 mg of Depo-Medrol was injected easily. The needle was then removed intact. The patient experienced no sign or symptoms of intrathecal or intravascular injection. The patient experienced no paresthesia. The procedure was completed without any apparent difficulty or any complications. The patient appeared to tolerate it well. ASSESSMENT AND PLAN: This is a 61-year-old female with lumbosacral radiculopathy, lumbosacral degenerative disc disease, lumbosacral spinal stenosis status post diagnostic/therapeutic caudal epidural steroid injection, patient will continue her current medications, patient will follow in approximately 2 weeks for reevaluation. Complications None
== END 2022-08-05 11:13 | disposition home or self-care (01) ==
LOC: SDC 08:13 → AC 09:06
PROVIDERS: PCP Family Medicine; Referring Provider Anesthesiology Pain Medicine; Visit Provider Anesthesiology Pain Medicine
PROC: 3E0S3BZ Introduction of Anesthetic Agent into Epidural Space, Percutaneous Approach (ICD-10-PCS; CPT 62282; principal; 2022-08-05 09:35)
DX: M48.07 Spinal stenosis, lumbosacral region (principal); J44.9 Chronic obstructive pulmonary disease, unspecified; E11.9 Type 2 diabetes mellitus without complications; M51.17 Intervertebral disc disorders with radiculopathy, lumbosacral region; F41.9 Anxiety disorder, unspecified; F32.9 Major depressive disorder, single episode, unspecified; I10 Essential (primary) hypertension; Z99.81 Dependence on supplemental oxygen
CPT/HCPCS: 62323; 64483; 77003; 82962; J3490

== ENCOUNTER → 2022-09-11 | Outpatient (CLI) | payer MEDICAID, SELFPAY ==
--- NOTE | 2022-09-11 10:09 | STRESSREP ---
Stress Test Report Pharmacologic myocardial perfusion stress test. 61-year-old lady with a history of dyspnea and pulmonary hypertension Resting EKG demonstrates sinus rhythm with a rate of 65 bpm. Resting blood pressure is 122/70 mmHg. 0.4 mg of regadenoson was infused per usual protocol followed by rapid intravenous saline flush injection. Continuous EKG monitoring was performed. The maximum heart rate was 74 bpm which was 47% of max impacted heart rate the maximum workload was 1 metabolic equivalent. At rest there were no ST or T wave changes noted to suggest ischemia and at peak infusion nonspecific ST changes were noted which did not meet the criteria for ischemia. No clinical angina is noted. The final blood pressure was 112/72 mmHg. Myocardial perfusion protocol. 14.9 mCi of technetium 99m sestamibi was injected at rest. 0.4 mg of regadenoson was infused per usual protocol. At peak infusion 44.7 mCi of technetium 99m sestamibi was injected stress images were obtained stress and rest images were reconstructed and compared in the short axis vertical long and horizontal long axis. Gated images were also obtained. Perfusion SPECT analysis: Review of the stress images demonstrate normal uptake of tracer noted in all areas of the myocardium. The resting images similar demonstrated normal uptake of tracer noted in all areas of the myocardium. No areas of reversibility are noted to suggest ischemia and no previous infarct is noted. Gated SPECT analysis: The gated ejection fraction is 66%. Conclusion: Normal pharmacologic myocardial perfusion stress test. Preserved ejection fraction.
== END | disposition home or self-care (01) ==
PROVIDERS: PCP Family Medicine; Referring Provider Internal Medicine Pulmonary Disease; Visit Provider Internal Medicine Pulmonary Disease
DX: I27.20 Pulmonary hypertension, unspecified (principal)
CPT/HCPCS: 78452; 93017; A9500; A4216; J2785

== ENCOUNTER 2022-12-23 09:46 | Day surgery (SDC) | payer MEDICAID, SELFPAY ==
[2022-12-23] MEDS: Lactated Ringers 1,000 ML 15 ML IV (10:19)
[2022-12-23 10:21] VITALS: BP 162/94; PULSE 70; RESP 18; TEMP 36.4; O2SAT 95; BMI 58.1
--- NOTE | 2022-12-23 10:35 | RAD_ITS ---
PROCEDURE: Caudal epidural steroid injection. DATE OF EXAMINATION: December 23, 2022. INDICATION: Female, 62 years old. Chronic low back pain. FLUOROSCOPY TIME (if supplied): (27 seconds) minutes/seconds. 45.95 mGy. One image was submitted. RAD/Fluor Guidance for Spine Inj IMPRESSION: Intraoperative fluoroscopic services provided for caudal epidural steroid injection. Electronically Signed: Jaziel Carlos MD at 11:11 EST ,
[2022-12-23] MEDS: Lidocaine 1% (5 ml sdv) 5 ML Vial (10:40)
[2022-12-23] MEDS: 0.9% Normal Saline (Pres. free 10 ML Vial (10:41)
[2022-12-23] MEDS: MethylPREDNISolone Acetate 80 MG/ML Vial (10:41)
--- NOTE | 2022-12-23 10:46 | OP.PCM_ITS ---
Report of Operation Date of Procedure: 12/23/22 Pre-Operative Diagnosis: Lumbosacral radiculopathy, lumbosacral degenerative di sc disease, lumbosacral spinal stenosis Post-Operative Diagnosis: Lumbosacral radiculopathy, lumbosacral degenerative disc disease, lumbosacral spinal stenosis Surgery/Procedure Performed:: Diagnostic/therapeutic caudal epidural steroid injection under fluoroscopic guidance Type of Anesthesia: MAC Estimated Blood Loss (mL): Minimal Description of Procedure: DESCRIPTION OF PROCEDURE: History and physical of today was reviewed. Risks and benefits of the procedure were explained. The patient understood and agreed to proceed. Informed consent was obtained. IV inserted per routine protocol. The patient was taken to the operating room and placed in the prone position with a pillow positioned underneath the abdomen. The lower back and tailbone area was prepped and draped in a sterile fashion using iodine x3. Under fluoroscopy guidance on a lateral view, the caudal space was identified. The skin and subcutaneous tissue was anesthetized with approximately 3 mL of 1% lidocaine using a 25-gauge regular needle. Under direct visualization with fluoroscopy, using a 22-gauge 3-1/2-inch spinal needle, the needle was advanced via the skin through the sacral hiatus. The tip of the needle was passed through the sacrococcygeal ligament and advanced to approximately S4 area. After negative aspiration of blood or CSF, a total of 3 mL of contrast was injected to confirm correct placement of the needle as well as cephalad spread. The spread was followed to approximately L5 area. After confirmation on AP as well as lateral view and repeated negative aspiration, a total of 15 mL of preservative-free 0.125% Marcaine with 80 mg of Depo-Medrol was injected easily. The needle was then removed intact. The patient experienced no sign or symptoms of intrathecal or intravascular injection. The patient experienced no paresthesia. The procedure was completed without any apparent difficulty or any complications. The patient appeared to tolerate it well. ASSESSMENT AND PLAN: This is a 62-year-old female with lumbosacral radiculopathy, lumbosacral degenerative disc disease, lumbosacral spinal stenosis status post diagnostic/therapeutic caudal epidural steroid injection, patient will continue her current medications, patient will follow in approximately 2 weeks for reevaluation. Complications None
[2022-12-23 10:51] VITALS: BP 147/81; BP 162/94; PULSE 71; RESP 16; TEMP 36.3; O2SAT 92
[2022-12-23 10:55] VITALS: BP 127/86; BP 162/94; PULSE 72; RESP 16; O2SAT 93
[2022-12-23 11:00] VITALS: BP 139/81; BP 162/94; PULSE 74; RESP 16; O2SAT 93
[2022-12-23 11:00] LABS: Bedside Glucose 189 mg/dL (74-106)
[2022-12-23 11:02] VITALS: BP 158/72; BP 162/94; PULSE 72; RESP 16; TEMP 36.8; O2SAT 93
[2022-12-23 11:11] VITALS: BP 162/94
== END 2022-12-23 11:27 | disposition home or self-care (01) ==
LOC: SDC 09:50 → AC 09:50
PROVIDERS: PCP Family Medicine; Referring Provider Anesthesiology Pain Medicine; Visit Provider Anesthesiology Pain Medicine
PROC: 3E0S3BZ Introduction of Anesthetic Agent into Epidural Space, Percutaneous Approach (ICD-10-PCS; CPT 62282; principal; 2022-12-23 11:15)
DX: M51.17 Intervertebral disc disorders with radiculopathy, lumbosacral region (principal); J44.9 Chronic obstructive pulmonary disease, unspecified; E11.9 Type 2 diabetes mellitus without complications; M48.07 Spinal stenosis, lumbosacral region; I10 Essential (primary) hypertension; G89.29 Other chronic pain; Z79.01 Long term (current) use of anticoagulants; Z79.84 Long term (current) use of oral hypoglycemic drugs; Z79.899 Other long term (current) drug therapy
CPT/HCPCS: 62323; 64483; 77003; 82962; J7120; J3490

== ENCOUNTER 2023-06-23 11:13 | Day surgery (SDC) | payer MEDICAID, SELFPAY ==
[2023-06-23] VITALS (7 sets, daily range): BP systolic 126–181; BP diastolic 72–90; PULSE 52–68; RESP 16; TEMP 36.2–37.2; O2SAT 93–98; BMI 56.0
[2023-06-23] MEDS: MethylPREDNISolone Acetate 80 MG/ML Vial (09:56)
[2023-06-23] MEDS: Lactated Ringers 1,000 ML 15 ML IV (11:30)
--- NOTE | 2023-06-23 11:40 | RAD_ITS ---
PROCEDURE: Caudal epidural steroid injection. DATE OF EXAMINATION: June 23, 2023. INDICATION: Female, 62 years old. Chronic low back pain. FLUOROSCOPY TIME (if supplied): (24 seconds) minutes/seconds. 28.78 mGy. 2 images were submitted. RAD/Fluor Guidance for Spine Inj IMPRESSION: Intraoperative imaging provided for caudal epidural steroid injection. Electronically Signed: Jaziel Carlos MD at 15:12 EDT ,
[2023-06-23] MEDS: Lidocaine 1% (5 ml sdv) 5 ML Vial (12:10)
[2023-06-23 12:12] LABS: Bedside Glucose 135 mg/dL (74-106)
[2023-06-23] MEDS: 0.9% Normal Saline (Pres. free 10 ML Vial (12:12)
--- NOTE | 2023-06-23 12:16 | OP.PCM_ITS ---
Report of Operation Date of Procedure: 06/23/23 Pre-Operative Diagnosis: Lumbosacral radiculopathy, lumbosacral degenerative di sc disease, lumbosacral spinal stenosis Post-Operative Diagnosis: Lumbosacral radiculopathy, lumbosacral degenerative disc disease, lumbosacral spinal stenosis Surgery/Procedure Performed:: Diagnostic/therapeutic caudal epidural steroid injection under fluoroscopic guidance Type of Anesthesia: MAC Estimated Blood Loss (mL): Minimal Description of Procedure: DESCRIPTION OF PROCEDURE: History and physical of today was reviewed. Risks and benefits of the procedure were explained. The patient understood and agreed to proceed. Informed consent was obtained. IV inserted per routine protocol. The patient was taken to the operating room and placed in the prone position with a pillow positioned underneath the abdomen. The lower back and tailbone area was prepped and draped in a sterile fashion using iodine x3. Under fluoroscopy guidance on a lateral view, the caudal space was identified. The skin and subcutaneous tissue was anesthetized with approximately 3 mL of 1% lidocaine using a 25-gauge regular needle. Under direct visualization with fluoroscopy, using a 22-gauge 3-1/2-inch spinal needle, the needle was advanced via the skin through the sacral hiatus. The tip of the needle was passed through the sacrococcygeal ligament and advanced to approximately S4 area. After negative aspiration of blood or CSF, a total of 3 mL of contrast was injected to confirm correct placement of the needle as well as cephalad spread. The spread was followed to approximately L5 area. After confirmation on AP as well as lateral view and repeated negative aspiration, a total of 15 mL of preservative-free 0.125% Marcaine with 80 mg of Depo-Medrol was injected easily. The needle was then removed intact. The patient experienced no sign or symptoms of intrathecal or intravascular injection. The patient experienced no paresthesia. The procedure was completed without any apparent difficulty or any complications. The patient appeared to tolerate it well. ASSESSMENT AND PLAN: This is a 62-year-old female with lumbosacral radiculopathy, lumbosacral degenerative disc disease, lumbosacral spinal stenosis status post diagnostic/therapeutic caudal epidural steroid injection, patient will continue her current medications, patient will follow in approximately 2 weeks for reevaluation. Complications None
== END 2023-06-23 13:22 | disposition home or self-care (01) ==
LOC: SDC 11:14 → AC 11:15
PROVIDERS: PCP Family Medicine; Referring Provider Anesthesiology Pain Medicine; Visit Provider Anesthesiology Pain Medicine
PROC: 3E0S3BZ Introduction of Anesthetic Agent into Epidural Space, Percutaneous Approach (ICD-10-PCS; CPT 62282; principal; 2023-06-23 12:35)
DX: M51.17 Intervertebral disc disorders with radiculopathy, lumbosacral region (principal); E11.9 Type 2 diabetes mellitus without complications; M48.07 Spinal stenosis, lumbosacral region; I10 Essential (primary) hypertension; Z79.84 Long term (current) use of oral hypoglycemic drugs; Z79.899 Other long term (current) drug therapy; G89.29 Other chronic pain
CPT/HCPCS: 62323; 01992; 64483; 77003; 82962; J7120; J3490

== ENCOUNTER 2023-09-22 07:26 | Day surgery (SDC) | payer MEDICAID, SELFPAY ==
--- NOTE | 2023-09-18 13:12 | EKG12_ITS ---
Test Reason : PREOP Blood Pressure : / mmHG Vent. Rate : 064 BPM Atrial Rate : 089 BPM P-R Int : 194 ms QRS Dur : 082 ms QT Int : 402 ms P-R-T Axes : 031 -46 068 degrees QTc Int : 414 ms Sinus rhythm with marked sinus arrhythmia Left axis deviation Inferior infarct (cited on or before 18-DEC-2010) Abnormal ECG Confirmed by LEX MINOR, GANESH ([id number]), restaurant expeditor JOANN SALINAS ([id number]) on 09/19/2023 10:27:08 AM Referred By: Carlos De La Torre Confirmed By:LOUANN BURNETT MD
[2023-09-18 13:36] LABS: Hematocrit 44.2 % (37-47); Hemoglobin 15.1 g/dL (12.0-15.0); Mean Corp Hgb Conc 34.2 g/dL (32-36); Mean Corpuscular Hgb 32.8 pg (27.0-32.0); Mean Corpuscular Volume 95.9 fL (81-99); Mean Platelet Vol. 10.3 fl (6.2-12.0); Platelet Count 270 K/mm3 (150-450); RBC Distribution Width CV 12.1 % (11.6-14.6); Red Blood Count 4.61 M/mm3 (4.2-5.4); White Blood Count 8.6 K/mm3 (4.4-11.0)
[2023-09-18 13:52] LABS: Anion Gap 3 (5-15); BUN 17 mg/dL (7-18); BUN/Creat Ratio 20.7 RATIO (10-20); Calcium,Total 9.4 mg/dL (8.5-10.1); Chloride 107 mmol/L (98-107); Creatinine, Serum 0.82 mg/dL (0.55-1.02); EST Glomerular Filtration Rate 74 mL/min (>60); Est Glom Filt Rate - Afr Amer 90 mL/min (>60); Glucose 134 mg/dL (74-106); Potassium 4.5 mmol/L (3.5-5.1); Sodium Level 141 mmol/L (136-145)
[2023-09-22] VITALS (8 sets, daily range): BP systolic 152–216; BP diastolic 80–101; PULSE 59–68; RESP 16–18; TEMP 36.2–36.5; O2SAT 88–99; BMI 56.4
[2023-09-22] MEDS: Lactated Ringers 1,000 ML 15 ML IV (07:59)
--- NOTE | 2023-09-22 08:14 | PRE.ANES_ITS ---
ASA Classification* ASA Classification ASA Classification: 3 Assessment & Plan Anesthesia* Anesthesia Assessment Anesthesia Assessment: Discussed sedation and/or anesthesia options, risks, benefits, and alternatives with patient/parents/legal guardian/POA. Questions invited. The patient/parents/legal guardian/POA seems to understand and agrees to proceed with anesthesia plan. Reviewed the physical assessment, medical history, allergy history and patient home medications list prior to surgery/procedure/anesthetic and documented any changes. Performed airway and anesthesia risk assessments. Anesthesia Type Anesthesia Type: General (*see written pre anesthesia record for full assessment) Anesthesia Focused Assessment* Temperature: 97.1 F Pulse Rate: 68 Blood Pressure: 216/101 Respiratory Rate: 16 Pulse Ox: 96 Airway Assessment Mouth opens: >3 cm Mallampati Score: III Focused Labs Anesthesia Preop lab: CBC WBC 8.6 K/mm3 (4.4-11.0) 09/18/23 13:24 RBC 4.61 M/mm3 (4.2-5.4) 09/18/23 13:24 Hgb 15.1 g/dL (12.0-15.0) H 09/18/23 13:24 Hct 44.2 % (37-47) 09/18/23 13:24 Plt Count 270 K/mm3 (150-450) 09/18/23 13:24 CHEMISTRY Potassium 4.5 mmol/L (3.5-5.1) 09/18/23 13:24 Sodium 141 mmol/L (136-145) 09/18/23 13:24 Magnesium 2.2 mg/dL (1.6-2.6) 05/29/17 18:20 BUN 17 mg/dL (7-18) 09/18/23 13:24 Creatinine 0.82 mg/dL (0.55-1.02) 09/18/23 13:24 Glucose 134 mg/dL (74-106) H 09/18/23 13:24 POC Glucose 135 mg/dL (74-106) H 06/23/23 11:33 TSH 3.13 uIU/mL (0.358-3.74) 03/30/13 12:07 COAG PT 13.6 SECONDS (11.7-14.9) 05/31/17 06:28 Pre-Assessment Diagnosis/Proposed Procedure Planned Operative Procedure(s): (B) Myringotomy,Tubes WITH T TUBES Anesthesia History Anesthesia History - shooter helper: Anesthesia History - shooter helper Hx Hospitalization No 09/10/23 15:01 Any Problems With Anesthesia No 09/10/23 15:01 Cholinesterase deficiency No 09/10/23 15:01 You/Your Family Experience No 09/10/23 15:01 fever (hyperthermia) with Relationship Recent Exposure to Contagious No 09/22/23 07:51 Disease Does patient have nerve No 09/10/23 15:01 stimulator Patient instructed to have device shut off --Does patient have Pacemaker No 09/22/23 07:51 or ICD? When Was Last Pacemaker Check QUESTION #4 FULL TEXT: You/Your Family Experience fever (hyperthermia) with Anesthesia Last Oral Intake Last Oral intake: Last Oral Intake NPO since 06:00 09/22/23 07:51 Meds taken in AM with sips of Yes 09/22/23 07:51 water? 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 - shooter helper: PONV - shooter helper Female Yes 09/10/23 15:01 HX of Motion Sickness Yes 09/10/23 15:01 HX of N/V After Surgery No 09/10/23 15:01 Non-Smoker Yes 09/10/23 15:01 Duration of Surgery greater No 09/10/23 15:01 than 60 minutes Number of Risk Factors 3 09/10/23 15:01 PONV Score Moderate Risk 09/10/23 15:01 Height & Weight Height & Weight: Anesthesia: Height & Weight Height 5 ft 4 in 09/22/23 07:51 Weight: 149.1 kg 09/22/23 07:51 Body Mass Index (BMI) 56.4 09/22/23 07:51 Respiratory Assessment Respiratory Assessment - shooter helper: Respiratory Tract Infection Hx - shooter helper Hx Respiratory Tract Infection No 09/10/23 15:01 STOP Sleep Apnea STOP Sleep Apnea - shooter helper: STOP Sleep Apnea - shooter helper Hx Hypertension Yes: CONTROLLED WITH MED 09/10/23 15:01 Hx Sleep Apnea Yes 09/10/23 15:01 CPAP No 09/10/23 15:01 BIPAP Yes: WITH 2L 09/10/23 15:01 Do you snore loudly (louder than talking or can be heard Do you often feel tired/ fatigued/ sleepy during daytime? Has anyone observed you stop breathing during sleep? STOP Results Positive 09/10/23 15:01 QUESTION #5 FULL TEXT : Do you snore loudly (louder than talking or can be heard through closed doors)? Tobacco Use History Tobacco Use History - shooter helper: Tobacco Use History - shooter helper Tobacco Use Non-smoker 06/19/20 11:54 Smoking Status Former smoker 09/10/23 15:01 Hx Tobacco Use No 09/10/23 15:01 Years Smoking Packs Smoked per Day Smoking Cessation Date was Yes - quit smoking within 15 09/10/23 15:01 within the last 15 years years Hx Smoking Cessation Date Hx Smoking Cessation No 09/10/23 15:01 Counseling Hematologic Medial History Hematologic Hx - shooter helper: Hematologic Medical Hx - universal grinder tool Hx of Blood Transfusion No 09/10/23 15:01 Hx of Transfusion in last 3 No 09/10/23 15:01 Months Date of Last Transfusion (if within last 3 months) Ever experience any problems No 09/10/23 15:01 with transfusion(s)? Specify any problems Hx of Preganancy in last 3 N/A 09/10/23 15:01 Months Nurse Filling Out Transfusion NBUCHER 09/10/23 15:01 & Questions: Date: 09/10/23 09/10/23 15:01 Time: 15:03 09/10/23 15:01 Patient unable to answer at this time (ie. confused, unrespo /Reproduction History /Reproductive History - shooter helper: /Reproductive Hx- shooter helper Hx Now Gestational Age (in weeks): EDC: Hx Hx Para Hx Section SAB No 09/10/23 15:01 Active Medications Active Medications: Current Medications Generic Name Dose Route Start Last Admin Trade Name Freq PRN Reason Stop Dose Admin Lactated Ringer's 1,000 mls @ 15 mls/hr 09/22/23 07:45 09/22/23 07:59 IV 15 mls/hr .Q48H CHAYA Administration PFSH Medical History Pain Loss of hearing Wears glasses Post-menopausal Arthritis Pulmonary embolism Migraine headache Injury of head and neck Dietary restriction History of IBS Former smoker COPD (chronic obstructive pulmonary disease) On home oxygen therapy BiPAP (biphasic positive airway pressure) dependence Shortness of breath on exertion History of pain when walking History of edema Cardiology follow-up encounter History of echocardiogram History of stress test Pain HTN (hypertension) Anxiety Depression Diabetes Osteoporosis Chronic pain Home Medications ?Medication ?Instructions ?Recorded ?Last Taken ?Type atenolol 50 mg tablet 25 mg PO QHS Blood pressure 03/26/13 09/21/23 History buspirone 30 mg tablet 30 mg PO BID Anxiety 03/26/13 09/21/23 History citalopram 40 mg tablet 40 mg PO QHS Depression 03/26/13 09/21/23 History meclizine 25 mg tablet 25 mg PO 4X/DAY PRN PRN Vertigo 03/26/13 05/05/22 History pregabalin 100 mg capsule (Lyrica) 150 mg PO BID nerve pain 03/26/13 09/21/23 History biotin 5 mg capsule 5,000 mcg PO DAILY supplement 05/19/14 09/21/23 History multivitamin,cm-yzkv-xilboowu 27 1 tab PO DAILY supplement 05/19/14 09/21/23 History mg-0.4 mg tablet (Therems-M) morphine 15 mg tablet,extended 15 mg PO DAILY pain 06/17/16 09/22/23 History release diclofenac sodium 1 % topical gel 0 g topical PRN PRN Pain 11/04/16 05/05/22 History krill oil 500 mg capsule 500 mg PO DAILY supplement 05/29/17 09/21/23 History celecoxib 200 mg capsule 200 mg PO DAILY 07/07/17 09/21/23 History rivaroxaban 20 mg tablet (Xarelto) 20 mg PO QHS 07/07/17 09/15/23 History eluxadoline 100 mg tablet (Viberzi) 100 mg PO BID IBS 07/06/18 09/21/23 History hydroxyzine HCl 10 mg tablet 1 - 2 tab PO Q6H PRN PRN Anxiety 04/26/19 05/05/22 History metformin 500 mg tablet,extended 1,000 mg PO BID 10/12/19 09/21/23 History release 24hr (osmotic) albuterol 90 mcg/actuation aerosol 90 mcg inhalation PRN PRN SOB 05/03/22 09/21/23 History inhaler albuterol sulfate 2.5 mg/3 mL 2.5 mg inhalation Q4H PRN SOB 05/03/22 09/21/23 History (0.083 %) solution for nebulization exenatide 5 mcg/dose (250 5 mcg subcut BID 06/20/23 09/15/23 History mcg/mL)1.2 mL subcutaneous pen injector ([employer]) oxycodone-acetaminophen 7.5 mg-325 1 tab PO BID PRN PRN pain 06/20/23 09/21/23 History mg tablet Allergy/AdvReac Type Severity Reaction Status Date / Time dulaglutide (From Trulicity) Allergy Intermediate Other Verified 09/22/23 08:03 liraglutide (From Victoza) Allergy Intermediate Other Verified 09/22/23 08:03 adhesive Allergy Hives Verified 09/22/23 08:03 Sulfa (Sulfonamide Allergy Rash Verified 09/22/23 08:03 Antibiotics) Tetanus Vaccines and Toxoid Allergy Swelling Verified 09/22/23 08:03 (Tetanus Vaccines & Toxoid) promethazine HCl (From AdvReac Vomiting Verified 09/22/23 08:03 Phenergan) Surgical History Hx of lumbar discectomy Hx of tubal ligation History of tonsillectomy and adenoidectomy Hx of nasal septoplasty Hx of oral surgery History of myringotomy History of hysteroscopy Social History Smoking Status: Former smoker Review of Systems (Anesthesia) ROS Narrative System reviewed and no additional complaints, except as documented.
--- NOTE | 2023-09-22 08:34 | PCM.DC.SUM ---
Providers Primary Care Physician: Dr. Get Sosa DO Reason For Visit: Myringotomy,Tubes WITH T TUBES Medications at Discharge Home Medications atenolol 50 mg tablet 25 mg PO QHS Blood pressure 03/26/13 buspirone 30 mg tablet 30 mg PO BID Anxiety 03/26/13 citalopram 40 mg tablet 40 mg PO QHS Depression 03/26/13 meclizine 25 mg tablet 25 mg PO 4X/DAY PRN PRN Vertigo 03/26/13 pregabalin 100 mg capsule (Lyrica) 150 mg PO BID nerve pain 03/26/13 biotin 5 mg capsule 5,000 mcg PO DAILY supplement 05/19/14 multivitamin,nd-wegz-azszaxvq 27 mg-0.4 mg tablet (Therems-M) 1 tab PO DAILY supplement 05/19/14 morphine 15 mg tablet,extended release 15 mg PO DAILY pain 06/17/16 diclofenac sodium 1 % topical gel 0 g topical PRN PRN Pain 11/04/16 krill oil 500 mg capsule 500 mg PO DAILY supplement 05/29/17 celecoxib 200 mg capsule 200 mg PO DAILY 07/07/17 rivaroxaban 20 mg tablet (Xarelto) 20 mg PO QHS 07/07/17 eluxadoline 100 mg tablet (Viberzi) 100 mg PO BID IBS 07/06/18 hydroxyzine HCl 10 mg tablet 1 - 2 tab PO Q6H PRN PRN Anxiety 04/26/19 metformin 500 mg tablet,extended release 24hr (osmotic) 1,000 mg PO BID 10/12/19 albuterol 90 mcg/actuation aerosol inhaler 90 mcg inhalation PRN PRN SOB 05/03/22 albuterol sulfate 2.5 mg/3 mL (0.083 %) solution for nebulization 2.5 mg inhalation Q4H PRN SOB 05/03/22 exenatide 5 mcg/dose (250 mcg/mL)1.2 mL subcutaneous pen injector (Byetta) 5 mcg subcut BID 06/20/23 oxycodone-acetaminophen 7.5 mg-325 mg tablet 1 tab PO BID PRN PRN pain 06/20/23 Weight / BMI Weight Weight: 149.1 kg Body Mass Index (BMI) 56.4 ABG / Lab / Microbiology Data 09/18/23 13:24 09/18/23 13:24 D/C Instructions Discharge Diet: No restrictions Discharge Activity: Return to Normal Activity Additional Instructions: ear drops.....5 drops each ear twice a day for 2 days (3 doses) Please Follow Up With: Carlos De La Torre MD When: 3 weeks Meaningful Use Info Meaningful Use Meaningful Use Diagnoses (Choose all that apply): None applicable Ischemic Stroke Statin Dosing Therapy Reference: STATIN DOSE THERAPY REFERENCE: * Patients > 75 years receive moderate or high dose statin therapy. * Patients 75 years or YOUNGER should receive HIGH intensity statin dose unless contraindicated. You will be required to document reason for non-treatment if statin daily dose does not meet guidelines. HIGH DOSE STATIN THERAPY DAILY Atorvastatin > than or = to 40 mg Rosuvastatin > than or = to 20 mg Amlodipine + Atorvastatin > than or = to 2.5/40 mg Ezetimibe + Simvastatin 10/80 mg Simvastatin 80mg Discharge Plan Admission Attending Provider: Carlos De La Torre Primary Care Provider: Get Sosa Instructions Print Language: Citizen Of [place] Discharge Orders/Prescriptions Prescriptions: No Action citalopram 40 MG tablet 40 mg PO QHS meclizine 25 MG tablet 25 mg PO 4X/DAY PRN PRN (Reason: Vertigo) buspirone 30 MG tablet 30 mg PO BID atenolol 50 MG tablet 25 mg PO QHS pregabalin [Lyrica] 100 MG capsule 150 mg PO BID biotin 5 MG capsule 5,000 mcg PO DAILY Therems-M 1 TABLET tablet 1 tab PO DAILY morphine 15 MG tablet extended release 15 mg PO DAILY diclofenac sodium 100 GM gel 0 g topical PRN PRN (Reason: Pain) krill oil 500 MG capsule 500 mg PO DAILY celecoxib 200 MG capsule 200 mg PO DAILY Xarelto 20 MG tablet 20 mg PO QHS Viberzi 100 MG tablet 100 mg PO BID hydroxyzine HCl 10 MG tablet 1 - 2 tab PO Q6H PRN PRN (Reason: Anxiety) metformin 500 MG tablet extended release 24hr 1,000 mg PO BID albuterol sulfate [Ventolin] 2.5 mg /3 mL (0.083 %) Solution For Nebulization 2.5 mg INHALATION Q4H PRN (Reason: SOB) albuterol 90 mcg/actuation Aerosol 90 mcg INHALATION PRN PRN (Reason: SOB) Byetta 5 mcg/dose (250 mcg/mL) 1.2 mL pen injector 5 mcg subcut BID oxycodone-acetaminophen 7.5-325 mg tablet 1 tab PO BID PRN PRN (Reason: pain) Patient Comments: take 1 tablet by mouth daily to twice a day if needed for pain Referrals / Follow Up: Get Sosa DO [Primary Care Provider] - Disposition Disposition (needs filled in before D/C Order can be placed): Home, Self Care
--- NOTE | 2023-09-22 08:36 | PCM.OPRPT ---
Report of Operation Date of Procedure: 09/22/23 Pre-Operative Diagnosis: chronic serous otitis media Post-Operative Diagnosis: same Surgery/Procedure Performed:: bilateral myringotomy with tubes Surgeon: Carlos De La Torre Type of Anesthesia: General Anesthesiologist: Ollie Angulo Estimated Blood Loss (mL): minimal Description of Procedure: The patient was taken to the operating room on 09/22/2023. The patient was placed in the supine position on the operating room table. The patient was given sufficient general anesthesia. The operating microscope was used throughout the entire case. A speculum was inserted into the patient's left ear. Cerumen was removed using a curette. The old tube was removed. An incision was placed in the anterior inferior quadrant of the tympanic membrane. Fluid was suctioned from the middle ear space with a #5 suction. A T tube was placed without difficulty. Antibiotic drops were instilled into the patient's ear. Next, a speculum was inserted into the patient's right ear. Cerumen was removed using a curette. The old tube was removed with alligator forceps. An incision was placed in the anterior inferior quadrant of the tympanic membrane. Fluid was suctioned from the middle ear space using a #5 suction. Bleeding was controlled with Afrin on a cottonball. The cottonball was then removed once the bleeding had stopped. A T tube was placed without difficulty. Antibiotic drops were instilled into the patient's ear. The patient was then awoken. She was brought to the recovery room in stable condition. Blood loss minimal replacement none sponge needle and instrument counts correct at the end of the procedure.
[2023-09-22] MEDS: Ciprofloxacin 0.3% 2.5ml Bottle OTIC (09:00)
--- NOTE | 2023-09-22 09:27 | PCM.POST.ANE ---
Anesthesia: Postop Eval I Current Vital Signs Temperature: 97.7 F Pulse Rate: 62 Blood Pressure: 152/84 Respiratory Rate: 18 Pulse Ox: 93 Assessment Airway patent: Yes Spontaneous unlabored respirations: Yes nausea: No Vomiting: No Anesthesia Complication: No Fluid Hydration Crystalloid volume administer (ml): 200 Total IV fluid infused: 200 Progress Note Anesthesia document: Postop Eval 1 completed: Yes
--- NOTE | 2023-09-22 09:39 | POSTOPAN2_ITS ---
Anesthesia Postop Eval I Sum Postop Eval Completion status Anesthesia document: Postop Eval 1 completed: Yes Anesthesia Postop Eval I Summary Anesthesia Postop Eval I Summary: Anesthesia Postop Eval I: Assessment Summary Airway patent Yes 09/22/23 09:28 MANAGER [email or web address] Spontaneous unlabored Yes 09/22/23 09:28 MANAGER TELEMETRY.CSIR respirations Mental status nausea No 09/22/23 09:28 MANAGER TELEMETRY.CSIR Vomiting No 09/22/23 09:28 MANAGER TELEMETRY.CSIR Anesthesia Postop Eval I: Fluid Summary Crystalloid volume administer 200 09/22/23 09:28 MANAGER TELEMETRY.CSIR (ml) Colloids volume administered ( ml) Blood Product volume administered (ml) Total IV fluid infused 200 09/22/23 09:28 MANAGER TELEMETRY.CSIR Anesthesia Postop Eval I: Summary Notes Anesthesia Complication No 09/22/23 09:28 MANAGER TELEMETRY.CSIR Anesthesia Complication Comment: Post-operative progress note Anesthesia: Postop Eval II Evaluation Mental status: Awake Pain Level: 0 nausea: No Vomiting: No
--- NOTE | 2023-09-22 09:39 | PCM.POSTANE2 ---
Anesthesia Postop Eval I Sum Postop Eval Completion status Anesthesia document: Postop Eval 1 completed: Yes Anesthesia Postop Eval I Summary Anesthesia Postop Eval I Summary: Anesthesia Postop Eval I: Assessment Summary Airway patent Yes 09/22/23 09:28 RECEIVING SPECIALIST.CSIR Spontaneous unlabored Yes 09/22/23 09:28 RECEIVING SPECIALIST.CSIR respirations Mental status nausea No 09/22/23 09:28 RECEIVING SPECIALIST.CSIR Vomiting No 09/22/23 09:28 RECEIVING SPECIALIST.CSIR Anesthesia Postop Eval I: Fluid Summary Crystalloid volume administer 200 09/22/23 09:28 RECEIVING SPECIALIST.CSIR (ml) Colloids volume administered ( ml) Blood Product volume administered (ml) Total IV fluid infused 200 09/22/23 09:28 RECEIVING SPECIALIST.CSIR Anesthesia Postop Eval I: Summary Notes Anesthesia Complication No 09/22/23 09:28 RECEIVING SPECIALIST.CSIR Anesthesia Complication Comment: Post-operative progress note Anesthesia: Postop Eval II Evaluation Mental status: Awake Pain Level: 0 nausea: No Vomiting: No
[2023-09-22 09:56] LABS: Bedside Glucose 141 mg/dL (74-106)
[2023-09-22] MEDS: Acetaminophen 325 MG Tablet 650 MG PO (10:05)
== END 2023-09-22 10:36 | disposition home or self-care (01) ==
LOC: SDC 07:27 → AC 07:27
PROVIDERS: PCP Family Medicine; Referring Provider Otolaryngology; Visit Provider Otolaryngology
PROC: (CPT 69436; principal; 2023-09-22 08:40)
DX: H65.20 Chronic serous otitis media, unspecified ear (principal); J44.9 Chronic obstructive pulmonary disease, unspecified; E11.9 Type 2 diabetes mellitus without complications; F32.A Depression, unspecified; F41.9 Anxiety disorder, unspecified; F17.210 Nicotine dependence, cigarettes, uncomplicated; I10 Essential (primary) hypertension; Z79.51 Long term (current) use of inhaled steroids; Z79.899 Other long term (current) drug therapy; Z79.84 Long term (current) use of oral hypoglycemic drugs; Z79.01 Long term (current) use of anticoagulants; Z86.711 Personal history of pulmonary embolism
CPT/HCPCS: 69436; 00126; 36415; 80048; 82962; 85027; 93005; J7120; J2405

== ENCOUNTER 2024-02-23 10:41 | Day surgery (SDC) | payer MEDICARE, MEDICAID, SELFPAY ==
[2024-02-23] VITALS (7 sets, daily range): BP systolic 120–176; BP diastolic 71–85; PULSE 64–70; RESP 16–18; TEMP 36.5–37.5; O2SAT 92–96; BMI 54.6
--- NOTE | 2024-02-23 11:05 | PCM.PRE.AN2 ---
ASA Classification* ASA Classification ASA Classification: 3 Assessment & Plan Anesthesia* Anesthesia Assessment Anesthesia Assessment: Discussed sedation and/or anesthesia options, risks, benefits, and alternatives with patient/parents/legal guardian/POA. Questions invited. The patient/parents/legal guardian/POA seems to understand and agrees to proceed with anesthesia plan. Reviewed the physical assessment, medical history, allergy history and patient home medications list prior to surgery/procedure/anesthetic and documented any changes. Performed airway and anesthesia risk assessments. Anesthesia Type Anesthesia Type: MAC Anesthesia Focused Assessment* Airway Assessment Mouth opens: >3 cm Mallampati Score: II Focused Labs Anesthesia Preop lab: CBC WBC 8.6 K/mm3 (4.4-11.0) 09/18/23 13:24 RBC 4.61 M/mm3 (4.2-5.4) 09/18/23 13:24 Hgb 15.1 g/dL (12.0-15.0) H 09/18/23 13:24 Hct 44.2 % (37-47) 09/18/23 13:24 Plt Count 270 K/mm3 (150-450) 09/18/23 13:24 CHEMISTRY Potassium 4.5 mmol/L (3.5-5.1) 09/18/23 13:24 Sodium 141 mmol/L (136-145) 09/18/23 13:24 Magnesium 2.2 mg/dL (1.6-2.6) 05/29/17 18:20 BUN 17 mg/dL (7-18) 09/18/23 13:24 Creatinine 0.82 mg/dL (0.55-1.02) 09/18/23 13:24 Glucose 134 mg/dL (74-106) H 09/18/23 13:24 POC Glucose 141 mg/dL (74-106) H 09/22/23 08:02 TSH 3.13 uIU/mL (0.358-3.74) 03/30/13 12:07 COAG PT 13.6 SECONDS (11.7-14.9) 05/31/17 06:28 Pre-Assessment Diagnosis/Proposed Procedure Planned Operative Procedure(s): Caudal Block Anesthesia History Anesthesia History - grounding engineer: Anesthesia History - grounding engineer Hx Hospitalization No 09/10/23 15:01 Any Problems With Anesthesia No 09/10/23 15:01 Cholinesterase deficiency No 09/10/23 15:01 You/Your Family Experience No 09/10/23 15:01 fever (hyperthermia) with Relationship Recent Exposure to Contagious No 09/22/23 07:51 Disease Does patient have nerve No 09/10/23 15:01 stimulator Patient instructed to have device shut off --Does patient have Pacemaker or ICD? When Was Last Pacemaker Check QUESTION #4 FULL TEXT: You/Your Family Experience fever (hyperthermia) with Anesthesia Last Oral Intake Last Oral intake: Last Oral Intake NPO since Meds taken in AM with sips of water? 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 - grounding engineer: PONV - grounding engineer Female HX of Motion Sickness HX of N/V After Surgery Non-Smoker Duration of Surgery greater than 60 minutes Number of Risk Factors PONV Score Height & Weight Height & Weight: Anesthesia: Height & Weight Height 5 ft 4 in 09/22/23 07:51 Respiratory Assessment Respiratory Assessment - grounding engineer: Respiratory Tract Infection Hx - grounding engineer Hx Respiratory Tract Infection No 09/10/23 15:01 STOP Sleep Apnea STOP Sleep Apnea - grounding engineer: STOP Sleep Apnea - grounding engineer Hx Hypertension Yes: CONTROLLED WITH MED 09/10/23 15:01 Hx Sleep Apnea Yes 09/22/23 09:40 CPAP No 09/22/23 09:27 BIPAP Yes: WITH 2L 09/10/23 15:01 Do you snore loudly (louder than talking or can be heard Do you often feel tired/ fatigued/ sleepy during daytime? Has anyone observed you stop breathing during sleep? STOP Results QUESTION #5 FULL TEXT : Do you snore loudly (louder than talking or can be heard through closed doors)? Tobacco Use History Tobacco Use History - grounding engineer: Tobacco Use History - grounding engineer Tobacco Use Non-smoker 06/19/20 11:54 Smoking Status Former smoker 09/10/23 15:01 Hx Tobacco Use No 09/10/23 15:01 Years Smoking Packs Smoked per Day Smoking Cessation Date was within the last 15 years Hx Smoking Cessation Date Hx Smoking Cessation No 09/10/23 15:01 Counseling Hematologic Medial History Hematologic Hx - grounding engineer: Hematologic Medical Hx - water quality specialist Hx of Blood Transfusion Hx of Transfusion in last 3 Months Date of Last Transfusion (if within last 3 months) Ever experience any problems with transfusion(s)? Specify any problems Hx of Preganancy in last 3 Months Nurse Filling Out Transfusion & Questions: Date: Time: Patient unable to answer at this time (ie. confused, unrespo /Reproduction History /Reproductive History - grounding engineer: /Reproductive Hx- grounding engineer Hx Now Gestational Age (in weeks): EDC: Hx Hx Para Hx Section SAB No 09/10/23 15:01 [facility] Medical History Pain Loss of hearing Wears glasses Post-menopausal Arthritis Pulmonary embolism Migraine headache Injury of head and neck Dietary restriction History of IBS Former smoker COPD (chronic obstructive pulmonary disease) On home oxygen therapy BiPAP (biphasic positive airway pressure) dependence Shortness of breath on exertion History of pain when walking History of edema Cardiology follow-up encounter History of echocardiogram History of stress test Pain HTN (hypertension) Anxiety Depression Diabetes Osteoporosis Chronic pain Home Medications ?Medication ?Instructions ?Recorded ?Last Taken ?Type atenolol 50 mg tablet 25 mg PO QHS Blood pressure 03/26/13 09/21/23 History buspirone 30 mg tablet 30 mg PO BID Anxiety 03/26/13 09/21/23 History citalopram 40 mg tablet 40 mg PO QHS Depression 03/26/13 09/21/23 History meclizine 25 mg tablet 25 mg PO 4X/DAY PRN PRN Vertigo 03/26/13 05/05/22 History pregabalin 100 mg capsule (Lyrica) 150 mg PO BID nerve pain 03/26/13 09/21/23 History biotin 5 mg capsule 5,000 mcg PO DAILY supplement 05/19/14 09/21/23 History multivitamin,fn-ptcf-[id number] 27 1 tab PO DAILY supplement 05/19/14 09/21/23 History mg-0.4 mg tablet (Therems-M) morphine 15 mg tablet,extended 15 mg PO DAILY pain 06/17/16 02/23/24 09:00 History release diclofenac sodium 1 % topical gel 0 g topical PRN PRN Pain 11/04/16 05/05/22 History krill oil 500 mg capsule 500 mg PO DAILY supplement 05/29/17 09/21/23 History celecoxib 200 mg capsule 200 mg PO DAILY 07/07/17 09/21/23 History rivaroxaban 20 mg tablet (Xarelto) 20 mg PO QHS 07/07/17 02/20/24 History eluxadoline 100 mg tablet (Viberzi) 100 mg PO BID IBS 07/06/18 09/21/23 History hydroxyzine HCl 10 mg tablet 1 - 2 tab PO Q6H PRN PRN Anxiety 04/26/19 05/05/22 History metformin 500 mg tablet,extended 1,000 mg PO BID 10/12/19 09/21/23 History release 24hr (osmotic) albuterol 90 mcg/actuation aerosol 90 mcg inhalation PRN PRN SOB 05/03/22 09/21/23 History inhaler albuterol sulfate 2.5 mg/3 mL 2.5 mg inhalation Q4H PRN SOB 05/03/22 09/21/23 History (0.083 %) solution for nebulization exenatide 5 mcg/dose (250 5 mcg subcut BID 06/20/23 09/15/23 History mcg/mL)1.2 mL subcutaneous pen injector (Jamalon) oxycodone-acetaminophen 7.5 mg-325 1 tab PO BID PRN PRN pain 06/20/23 09/21/23 History mg tablet Allergy/AdvReac Type Severity Reaction Status Date / Time dulaglutide (From Trulicity) Allergy Intermediate Other Verified 02/23/24 11:02 liraglutide (From Victoza) Allergy Intermediate Other Verified 02/23/24 11:02 adhesive Allergy Hives Verified 02/23/24 11:02 Sulfa (Sulfonamide Allergy Rash Verified 02/23/24 11:02 Antibiotics) Tetanus Vaccines and Toxoid Allergy Swelling Verified 02/23/24 11:02 (Tetanus Vaccines & Toxoid) promethazine HCl (From AdvReac Vomiting Verified 02/23/24 11:02 Phenergan) Surgical History Hx of lumbar discectomy Hx of tubal ligation History of tonsillectomy and adenoidectomy Hx of nasal septoplasty Hx of oral surgery History of myringotomy History of hysteroscopy Social History Smoking Status: Former smoker Review of Systems (Anesthesia) ROS Narrative System reviewed and no additional complaints, except as documented.
--- NOTE | 2024-02-23 11:42 | RAD_ITS ---
PROCEDURE: Caudal block. DATE OF EXAMINATION: February 23, 2024. INDICATION: Female, 63 years old. Chronic low back pain. FLUOROSCOPY TIME (if supplied): (8 seconds) minutes/seconds. 10.6 mGy. One image was submitted. RAD/Fluor Guidance for Spine Inj IMPRESSION: Fluoroscopic services provided for caudal block. Electronically Signed: Jaziel Carlos MD at 12:05 EST ,
[2024-02-23] MEDS: 0.9% Normal Saline (Pres. free 10 ML Vial (11:50)
[2024-02-23] MEDS: Lidocaine 1% (5 ml sdv) 5 ML Vial (11:50)
[2024-02-23] MEDS: MethylPREDNISolone Acetate 80 MG/ML Vial (11:50)
[2024-02-23] MEDS: Bupivacaine 0.25% 30 ML Vial (11:50)
--- NOTE | 2024-02-23 11:54 | PCM.OPRPT ---
Operative Report (Standard) Operative Information Date of Procedure: 02/23/24 Pre-Operative Diagnosis: 1 Post-Operative Diagnosis: 1 Surgery/Procedure Performed: 1 professor of radiology: No Type of Anesthesia: MAC and Topical Anesth RN Documented Start/Stop Times: Operation Date: 02/23/24 12:20 Case Time Into Pre-Op 02/23/24 11:02 Anesthesia Start 02/23/24 11:42 Into Room 02/23/24 11:42 Procedure Start 02/23/24 11:51 Procedure End 02/23/24 11:52 Procedure Start Time: 11:54 Procedure Stop Time: 11:54 Select all DRAINS/GRAFTS/IMPLANTS that apply: None Estimated Blood Loss: 0 Specimen collected: No Description of surgery: Pre-Operative Diagnosis: Lumbosacral radiculopathy, lumbosacral degenerative disc disease, lumbosacral spinal stenosis Post-Operative Diagnosis: Lumbosacral radiculopathy, lumbosacral degenerative disc disease, lumbosacral spinal stenosis Surgery/Procedure Performed:: Diagnostic/therapeutic caudal epidural steroid injection under fluoroscopic guidance Type of Anesthesia: MAC Estimated Blood Loss (mL): Minimal Description of Procedure: DESCRIPTION OF PROCEDURE: History and physical of today was reviewed. Risks and benefits of the procedure were explained. The patient understood and agreed to proceed. Informed consent was obtained. IV inserted per routine protocol. The patient was taken to the operating room and placed in the prone position with a pillow positioned underneath the abdomen. The lower back and tailbone area was prepped and draped in a sterile fashion using iodine x3. Under fluoroscopy guidance on a lateral view, the caudal space was identified. The skin and subcutaneous tissue was anesthetized with approximately 3 mL of 1% lidocaine using a 25-gauge regular needle. Under direct visualization with fluoroscopy, using a 22-gauge 3-1/2-inch spinal needle, the needle was advanced via the skin through the sacral hiatus. The tip of the needle was passed through the sacrococcygeal ligament and advanced to approximately S4 area. After negative aspiration of blood or CSF, a total of 3 mL of contrast was injected to confirm correct placement of the needle as well as cephalad spread. The spread was followed to approximately L5 area. After confirmation on AP as well as lateral view and repeated negative aspiration, a total of 15 mL of preservative-free 0.125% Marcaine with 80 mg of Depo-Medrol was injected easily. The needle was then removed intact. The patient experienced no sign or symptoms of intrathecal or intravascular injection. The patient experienced no paresthesia. The procedure was completed without any apparent difficulty or any complications. The patient appeared to tolerate it well. ASSESSMENT AND PLAN: This is a 63-year-old female with lumbosacral radiculopathy, lumbosacral degenerative disc disease, lumbosacral spinal stenosis status post diagnostic/therapeutic caudal epidural steroid injection, patient will continue her current medications, patient will follow in approximately 2 weeks for reevaluation. Surgical Findings: 0 Complications Complications: No Admit VTE Documentation VTE Present on Admission: No VTE Mechan Device Prophylaxis: None VTE Pharm Prophylaxis ordered?: No
--- NOTE | 2024-02-23 14:07 | PCM.POST.ANE ---
Anesthesia: Postop Eval I Current Vital Signs Temperature: 99.5 F Pulse Rate: 69 Blood Pressure: 152/82 Respiratory Rate: 16 Pulse Ox: 93 Oxygen Delivery Method: Room Air Assessment Airway patent: Yes Spontaneous unlabored respirations: Yes Mental status: Awake and Calm nausea: No Vomiting: No Anesthesia Complication: No Fluid Hydration Crystalloid volume administer (ml): 30 Total IV fluid infused: 30 Progress Note Anesthesia document: Postop Eval 1 completed: Yes
--- NOTE | 2024-02-23 14:16 | POSTOPAN2_ITS ---
Anesthesia Postop Eval I Sum Postop Eval Completion status Anesthesia document: Postop Eval 1 completed: Yes Anesthesia Postop Eval I Summary Anesthesia Postop Eval I Summary: Anesthesia Postop Eval I: Assessment Summary Airway patent Yes 02/23/24 14:08 NET [email or web address] Spontaneous unlabored Yes 02/23/24 14:08 NET SOFTWARE [email or web address] respirations Mental status Awake,Calm 02/23/24 14:08 NET [email or web address] nausea No 02/23/24 14:08 NET [email or web address] Vomiting No 02/23/24 14:08 NET [email or web address] Anesthesia Postop Eval I: Fluid Summary Crystalloid volume administer 30 02/23/24 14:08 NET [email or web address] (ml) Colloids volume administered ( ml) Blood Product volume administered (ml) Total IV fluid infused 30 02/23/24 14:08 NET [email or web address] Anesthesia Postop Eval I: Summary Notes Anesthesia Complication No 02/23/24 14:08 NET [email or web address] Anesthesia Complication Comment: Post-operative progress note Anesthesia: Postop Eval II Evaluation Mental status: Awake and Calm Pain Level: 1 nausea: No Vomiting: No Complications Anesthesia Complication: No
--- NOTE | 2024-02-23 14:16 | PCM.POSTANE2 ---
Anesthesia Postop Eval I Sum Postop Eval Completion status Anesthesia document: Postop Eval 1 completed: Yes Anesthesia Postop Eval I Summary Anesthesia Postop Eval I Summary: Anesthesia Postop Eval I: Assessment Summary Airway patent Yes 02/23/24 14:08 [email or web address] Spontaneous unlabored Yes 02/23/24 14:08 RENAL [email or web address] respirations Mental status Awake,Calm 02/23/24 14:08 RENAL [email or web address] nausea No 02/23/24 14:08 RENAL [email or web address] Vomiting No 02/23/24 14:08 RENAL [email or web address] Anesthesia Postop Eval I: Fluid Summary Crystalloid volume administer 30 02/23/24 14:08 RENAL [email or web address] (ml) Colloids volume administered ( ml) Blood Product volume administered (ml) Total IV fluid infused 30 02/23/24 14:08 RENAL [email or web address] Anesthesia Postop Eval I: Summary Notes Anesthesia Complication No 02/23/24 14:08 RENAL [email or web address] Anesthesia Complication Comment: Post-operative progress note Anesthesia: Postop Eval II Evaluation Mental status: Awake and Calm Pain Level: 1 nausea: No Vomiting: No Complications Anesthesia Complication: No
== END 2024-02-23 12:33 | disposition home or self-care (01) ==
LOC: SDC 10:41 → AC 10:44
PROVIDERS: PCP Family Medicine; Referring Provider Anesthesiology Pain Medicine; Visit Provider Anesthesiology Pain Medicine
PROC: 3E0S3BZ Introduction of Anesthetic Agent into Epidural Space, Percutaneous Approach (ICD-10-PCS; CPT 62282; principal; 2024-02-23 12:15)
DX: M51.17 Intervertebral disc disorders with radiculopathy, lumbosacral region (principal); J44.9 Chronic obstructive pulmonary disease, unspecified; E11.9 Type 2 diabetes mellitus without complications; M48.07 Spinal stenosis, lumbosacral region; I10 Essential (primary) hypertension; G89.29 Other chronic pain; Z79.84 Long term (current) use of oral hypoglycemic drugs; Z79.01 Long term (current) use of anticoagulants; Z79.899 Other long term (current) drug therapy; Z87.891 Personal history of nicotine dependence
CPT/HCPCS: 62323; 01992

== ENCOUNTER 2024-09-06 10:40 | Day surgery (SDC) | payer MEDICARE, MEDICAID, SELFPAY ==
--- NOTE | 2024-08-30 16:44 | PAT.ANE_ITS ---
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 When Was Last Pacemaker Check QUESTION #4 FULL TEXT: You/Your Family Experience fever (hyperthermia) with Anesthesia Last Oral Intake Last Oral intake: Last Oral Intake NPO since Meds taken in AM with sips of water? 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 - felt hat flanging operator: PONV - felt hat flanging operator Female Yes 08/30/24 13:29 HX of Motion Sickness No 08/30/24 13:29 HX of N/V After Surgery No 08/30/24 13:29 Non-Smoker Yes 08/30/24 13:29 Duration of Surgery greater No 08/30/24 13:29 than 60 minutes Number of Risk Factors 2 08/30/24 13:29 PONV Score Moderate Risk 08/30/24 13:29 Height & Weight Height & Weight: Anesthesia: Height & Weight Height 5 ft 4 in 07/14/24 14:27 Respiratory Assessment Respiratory Assessment - felt hat flanging operator: Respiratory Tract Infection Hx - felt hat flanging operator Hx Respiratory Tract Infection No 08/30/24 13:29 STOP Sleep Apnea STOP Sleep Apnea - felt hat flanging operator: STOP Sleep Apnea - felt hat flanging operator Hx Hypertension Yes: CONTROLLED WITH MED 08/30/24 13:29 Hx Sleep Apnea Yes 08/30/24 13:29 CPAP No 08/30/24 13:29 BIPAP Yes: WITH 2L O2 08/30/24 13:29 Do you snore loudly (louder than talking or can be heard Do you often feel tired/ fatigued/ sleepy during daytime? Has anyone observed you stop breathing during sleep? STOP Results Positive 08/30/24 13:29 QUESTION #5 FULL TEXT : Do you snore loudly (louder than talking or can be heard through closed doors)? Tobacco Use History Tobacco Use History - felt hat flanging operator: Tobacco Use History - felt hat flanging operator Tobacco Use Non-smoker 06/19/20 11:54 Smoking Status Former smoker 08/30/24 13:29 Hx Tobacco Use No 08/30/24 13:29 Years Smoking Packs Smoked per Day Smoking Cessation Date was Yes - quit smoking within 15 08/30/24 13:29 within the last 15 years years Hx Smoking Cessation Date Hx Smoking Cessation No 08/30/24 13:29 Counseling Hematologic Medial History Hematologic Hx - felt hat flanging operator: Hematologic Medical Hx - development analyst Hx of Blood Transfusion No 08/30/24 13:29 Hx of Transfusion in last 3 No 08/30/24 13:29 Months Date of Last Transfusion (if within last 3 months) Ever experience any problems No 08/30/24 13:29 with transfusion(s)? Specify any problems Hx of Preganancy in last 3 No 08/30/24 13:29 Months Nurse Filling Out Transfusion VCHRISTIN 08/30/24 13:29 & Questions: Date: 08/30/24 08/30/24 13:29 Time: 13:30 08/30/24 13:29 Patient unable to answer at this time (ie. confused, unrespo /Reproduction History /Reproductive History - felt hat flanging operator: /Reproductive Hx- felt hat flanging operator Hx Now No 08/30/24 13:29 Gestational Age (in weeks): EDC: Hx Hx Para Hx Section SAB No 08/30/24 13:29 PFSH Medical History (Updated 08/30/24 @ 13:29 by Kanika Fontanez) Pain Loss of hearing Wears glasses Post-menopausal Arthritis Pulmonary embolism Migraine headache Injury of head and neck Dietary restriction History of IBS Former smoker COPD (chronic obstructive pulmonary disease) On home oxygen therapy BiPAP (biphasic positive airway pressure) dependence Shortness of breath on exertion History of pain when walking History of edema Cardiology follow-up encounter History of echocardiogram History of stress test Pain HTN (hypertension) Anxiety Depression Diabetes Osteoporosis Chronic pain Home Medications ?Medication ?Instructions ?Recorded ?Last Taken ?Type buspirone 30 mg tablet 30 mg PO BID Anxiety 4 09/21/23 History citalopram 40 mg tablet 40 mg PO QHS Depression /0 /14 09/21/23 History meclizine 25 mg tablet 25 mg PO 4X/DAY PRN PRN Vert igo 03/26/13 05/05/22 History pregabalin 100 mg capsule (Lyrica) 150 mg PO BID nerve pain 03/26/13 09/21/23 History biotin 5 mg capsule 5,000 mcg PO DAILY supplemen t 05/19/14 09/21/23 History multivitamin,rs-zams-gkgjyvua 27 1 tab PO DAILY supple ment 05/19/14 09/21/23 History mg-0.4 mg tablet (Therems-M) morphine 15 mg tablet,extended 15 mg PO DAILY pain 03/0502/23/24 09:00 History release diclofenac sodium 1 % topical gel 0 g topical PRN PRN Pain 11/04/16 05/05/22 History krill oil 500 mg capsule 500 mg PO DAILY supplement 0 05/29/17 09/21/23 History celecoxib 200 mg capsule 200 mg PO DAILY 07/07/1706/10 History rivaroxaban 20 mg tablet (Xarelto) 10 mg PO QHS 02/20/24 History hydroxyzine HCl 10 mg tablet 1 - 2 tab PO Q6H PRN PRN Anxiety 04/26/19 05/05/22 History metformin 500 mg tablet,extended 1,000 mg PO BID 10/1109/21/23 History release 24hr (osmotic) albuterol 90 mcg/actuation aerosol 90 mcg inhalation P RN PRN SOB 05/03/22 09/21/23 History inhaler albuterol sulfate 2.5 mg/3 mL 2.5 mg inhalation Q4H NJ N SOB 05/03/22 09/21/23 Hi story (0.083 %) solution for nebulization oxycodone-acetaminophen 7.5 mg-325 1 tab PO BID PRN NJ N pain 06/20/23 09/21/23 History mg tablet atenolol 50 mg tablet 25 mg PO QHS Blood pressure 02/25/24 Unknown History magnesium oxide 400 mg PO QDAY 02/25/24 Unkn own History lisinopril 10 mg tablet 10 mg PO DAILY 08/30/24 Unkn own History tirzepatide 12.5 mg/0.5 mL 12.5 mg subcut QWEEK 08/29/24 History subcutaneous pen injector (Anthonyunofe) Allergy/AdvReac Type Severity Reaction Status Date / Time dulaglutide (From Trulicity) Allergy Intermediate Other Verified 08/30/24 13:18 liraglutide (From Victoza) Allergy Intermediate Other Verified 08/30/24 13:18 adhesive Allergy Hives Verified 08/30/24 13:18 Sulfa (Sulfonamide Allergy Rash Verified 08/30/24 13:18 Antibiotics) Tetanus Vaccines and Toxoid Allergy Swelling Verified 08/30/24 13:18 (Tetanus Vaccines & Toxoid) promethazine HCl (From AdvReac Vomiting Verified 08/30/24 13:18 Phenergan) Surgical History (Updated 08/30/24 @ 13:29 by Kanika Fontanez) History of cardiac catheterization Hx of lumbar discectomy Hx of tubal ligation History of tonsillectomy and adenoidectomy Hx of nasal septoplasty Hx of oral surgery History of myringotomy History of hysteroscopy Social History Smoking Status: Former smoker Audit: Pertinent Findings Pertinent Findings EKG Perinent findings: 09/18/23: Vent. Rate : 064 BPM Atrial Rate : 089 BPM P-R Int : 194 ms QRS Dur : 082 ms QT Int : 402 ms P-R-T Axes : 031 -46 068 degrees QTc Int : 414 ms Sinus rhythm with marked sinus arrhythmia Left axis deviation Inferior infarct (cited on or before 18-DEC-2010) Abnormal ECG Confirmed by LEX MINOR, GANESH ([id number]), non linear editor JOANN SALINAS ([id number]) on 09/19/2023 10:27:08 AM Stress test pertinent findings: Done on 09/11/22: Gated SPECT analysis: The gated ejection fraction is 66%. Conclusion: Normal pharmacologic myocardial perfusion stress test. Preserved ejection fraction. Echo (EF%) pertinent findings: Echo done on 08/26/2024: Left ventricular wall thickness is increased with an LVEF estimated at 55 to 60%. No evidence of regional wall motion abnormalities. Left atrium is mildly dilated. Mildly elevated right atrial pressure. Echo done on 10/09/2021: LVEF is normal with an estimated EF of 65%. Left atrium is mildly enlarged. Mild to moderate mitral annular calcification with mild mitral valve insufficiency. Trivial to cuspid valve insufficiency. No evidence for diastolic dysfunction. Unable to estimate the PASP due to technical difficulty. Heart catheterization pertinent findings: Cardiac cath done on 07/02/2024 demonstrates concentric hypertrophy of the left ventricle with a normal systolic function with an LVEF estimated at 65 to 70%. Normal studies and normal coronaries. Consult pertinent findings: EDUARD Wilkinson from [place] [facility]: Ordered a echocardiogram to follow-up that was done with results as above. Patient also has a history of COPD and HARRISON on CPAP per the notes it appears that she is compliant with her CPAP machine. They did start her on lisinopril based on this visit from 07/28/2024. Her echocardiogram was done roughly a month after starting this medication. Recommendation Anesthesia Recommendation Anesthesia recommendation: OPTIMIZED for anesthesia (Consider procedure under local or with minimal nursing sedation as anesthesia is typically not needed for caudal epidural steroid injections.)
--- NOTE | 2024-09-06 11:10 | RAD_ITS ---
PROCEDURE: FLUOR GUIDANCE FOR SPINE INJ 09/06/2024 REASON FOR EXAM: BLOCK, CAUDAL TECHNIQUE: FLUOR GUIDANCE FOR SPINE INJ Fluoroscopy time 22.9 sec. Radiation dose: 23.86 mGy FINDINGS: 2 fluoroscopic spot images demonstrate needle approaching the sacrum. Other findings: Other: RAD/Fluor Guidance for Spine Inj IMPRESSION: Fluoroscopy provided for caudal block. For complete details, see the operative report Reading Location: [facility]
[2024-09-06 11:12] VITALS: BP 177/98; PULSE 78; RESP 14; TEMP 36.1; O2SAT 95; BMI 51.2
[2024-09-06] MEDS: Lidocaine 1% (5 ml sdv) 5 ML Vial (11:32)
[2024-09-06] MEDS: 0.9% Normal Saline (Pres. free 10 ML Vial (11:33)
--- NOTE | 2024-09-06 11:37 | PCM.OPRPT ---
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: No Type of Anesthesia: Local RN Documented Start/Stop Times: Operation Date: 09/06/24 12:10 Case Time Into Pre-Op 09/06/24 10:45 Anesthesia Start 09/06/24 11:28 Into Room 09/06/24 11:28 Procedure Start 09/06/24 11:32 Procedure End 09/06/24 11:36 Procedure Start Time: 11:37 Procedure Stop Time: 11:37 Select all DRAINS/GRAFTS/IMPLANTS that apply: None Estimated Blood Loss: 1 Specimen collected: No Description of surgery: PREOPERATIVE DIAGNOSIS: Lumbosacral radiculopathy, lumbosacral degenerative disc disease, lumbosacral spinal stenosis POSTOPERATIVE DIAGNOSIS: Lumbosacral radiculopathy, lumbosacral degenerative disc disease, lumbosacral spinal stenosis PROCEDURE PERFORMED: Diagnostic/therapeutic caudal epidural steroid injection under fluoroscopic guidance. ANESTHESIA: Local BLOOD LOSS: Minimal. COMPLICATIONS: None. DESCRIPTION OF PROCEDURE: History and physical of today was reviewed. Risks and benefits of the procedure were explained. The patient understood and agreed to proceed. Informed consent was obtained. IV inserted per routine protocol. The patient was taken to the operating room and placed in the prone position with a pillow positioned underneath the abdomen. The lower back and tailbone area was prepped and draped in a sterile fashion using iodine x3. Under fluoroscopy guidance on a lateral view, the caudal space was identified. The skin and subcutaneous tissue was anesthetized with approximately 3 mL of 1% lidocaine using a 25-gauge regular needle. Under direct visualization with fluoroscopy, using a 22-gauge 3-1/2-inch spinal needle, the needle was advanced via the skin through the sacral hiatus. The tip of the needle was passed through the sacrococcygeal ligament and advanced to approximately S4 area. After negative aspiration of blood or CSF, a total of 3 mL of contrast was injected to confirm correct placement of the needle as well as cephalad spread. The spread was followed to approximately L5 area. After confirmation on AP as well as lateral view and repeated negative aspiration, a total of 15 mL of preservative-free 0.125% Marcaine with 80 mg of Depo-Medrol was injected easily. The needle was then removed intact. The patient experienced no sign or symptoms of intrathecal or intravascular injection. The patient experienced no paresthesia. The procedure was completed without any apparent difficulty or any complications. The patient appeared to tolerate it well. ASSESSMENT AND PLAN: This is a 63-year-old female with lumbosacral radiculopathy, lumbosacral degenerative disc disease, lumbosacral spinal stenosis status post diagnostic/therapeutic caudal epidural steroid injection under fluoroscopic guidance, patient will continue her current medications, patient will follow-up in approximately 2 weeks for reevaluation. Surgical Findings: 1 Complications Complications: No Admit VTE Documentation VTE Present on Admission: No VTE Mechan Device Prophylaxis: None VTE Pharm Prophylaxis ordered?: No
[2024-09-06 11:49] VITALS: BP 144/59; BP 177/98; PULSE 68; RESP 16; TEMP 37; O2SAT 94
== END 2024-09-06 11:59 | disposition home or self-care (01) ==
LOC: SDC 10:42 → AC 10:44
PROVIDERS: PCP Family Medicine; Referring Provider Anesthesiology Pain Medicine; Visit Provider Anesthesiology Pain Medicine
PROC: 3E0S3BZ Introduction of Anesthetic Agent into Epidural Space, Percutaneous Approach (ICD-10-PCS; CPT 62282; principal; 2024-09-06 12:05)
DX: M51.17 Intervertebral disc disorders with radiculopathy, lumbosacral region (principal); J44.9 Chronic obstructive pulmonary disease, unspecified; E11.9 Type 2 diabetes mellitus without complications; M48.07 Spinal stenosis, lumbosacral region; I10 Essential (primary) hypertension; F41.9 Anxiety disorder, unspecified; F32.A Depression, unspecified; M81.0 Age-related osteoporosis without current pathological fracture; G89.29 Other chronic pain; G47.33 Obstructive sleep apnea (adult) (pediatric); Z79.01 Long term (current) use of anticoagulants; Z79.84 Long term (current) use of oral hypoglycemic drugs; Z79.85 Long-term (current) use of injectable non-insulin antidiabetic drugs; Z86.711 Personal history of pulmonary embolism; Z79.899 Other long term (current) drug therapy; Z87.891 Personal history of nicotine dependence
CPT/HCPCS: 62323; 64483; 77003; 82962

== ENCOUNTER 2025-01-03 06:23 | Day surgery (SDC) | payer MEDICARE, MEDICAID, SELFPAY ==
--- NOTE | 2024-12-30 18:01 | PAT.ANE_ITS ---
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 When Was Last Pacemaker Check QUESTION #4 FULL TEXT: You/Your Family Experience fever (hyperthermia) with Anesthesia Last Oral Intake Last Oral intake: Last Oral Intake NPO since Meds taken in AM with sips of water? 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 Female Yes 12/30/24 12:59 HX of Motion Sickness Yes 12/30/24 12:59 HX of N/V After Surgery No 12/30/24 12:59 Non-Smoker Yes 12/30/24 12:59 Duration of Surgery greater No 12/30/24 12:59 than 60 minutes Number of Risk Factors 3 12/30/24 12:59 PONV Score Moderate Risk 12/30/24 12:59 Height & Weight Height & Weight: Anesthesia: Height & Weight Height 5 ft 4 in 11/17/24 08:37 Respiratory Assessment Respiratory Assessment - mint machine operator: Respiratory Tract Infection Hx - mint machine operator Hx Respiratory Tract Infection No 12/30/24 12:59 STOP Sleep Apnea STOP Sleep Apnea - mint machine operator: STOP Sleep Apnea - mint machine operator Hx Hypertension Yes 12/30/24 12:59 Hx Sleep Apnea Yes 12/30/24 12:59 CPAP No 12/30/24 12:59 BIPAP Yes 12/30/24 12:59 Do you snore loudly (louder than talking or can be heard Do you often feel tired/ fatigued/ sleepy during daytime? Has anyone observed you stop breathing during sleep? STOP Results Positive 12/30/24 12:59 QUESTION #5 FULL TEXT : Do you snore loudly (louder than talking or can be heard through closed doors)? 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 Specify any problems Hx of Preganancy in last 3 No 12/30/24 12:59 Months Nurse Filling Out Transfusion JEFF 12/30/24 12:59 & Questions: Date: 12/30/24 12/30/24 12:59 Time: 13:12/30/24 12:59 Patient unable to answer at this time (ie. confused, unrespo /Reproduction History /Reproductive History - mint machine operator: /Reproductive Hx- mint machine operator Hx Now No 12/30/24 12:59 Gestational Age (in weeks): EDC:
--- NOTE | 2024-12-30 18:01 | PAT.ANESEVAL ---
Pre-Assessment Diagnosis/Proposed Procedure Planned Operative Procedure(s): (R) Block, Medial Branch Nerve, Cervical, C3 C4 C5 C6 Anesthesia History Anesthesia History - rn wound: Anesthesia History - rn wound Hx Hospitalization No 12/30/24 12:59 Any Problems With Anesthesia No 12/30/24 12:59 Cholinesterase deficiency No 12/30/24 12:59 You/Your Family Experience No 12/30/24 12:59 fever (hyperthermia) with Relationship Recent Exposure to Contagious No 09/06/24 11:12 Disease Does patient have nerve No 12/30/24 12:59 stimulator Patient instructed to have device shut off --Does patient have Pacemaker or ICD? When Was Last Pacemaker Check QUESTION #4 FULL TEXT: You/Your Family Experience fever (hyperthermia) with Anesthesia Last Oral Intake Last Oral intake: Last Oral Intake NPO since Meds taken in AM with sips of water? 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 - rn wound: PONV - rn wound Female Yes 12/30/24 12:59 HX of Motion Sickness Yes 12/30/24 12:59 HX of N/V After Surgery No 12/30/24 12:59 Non-Smoker Yes 12/30/24 12:59 Duration of Surgery greater No 12/30/24 12:59 than 60 minutes Number of Risk Factors 3 12/30/24 12:59 PONV Score Moderate Risk 12/30/24 12:59 Height & Weight Height & Weight: Anesthesia: Height & Weight Height 5 ft 4 in 11/17/24 08:37 Respiratory Assessment Respiratory Assessment - rn wound: Respiratory Tract Infection Hx - rn wound Hx Respiratory Tract Infection No 12/30/24 12:59 STOP Sleep Apnea STOP Sleep Apnea - rn wound: STOP Sleep Apnea - rn wound Hx Hypertension Yes 12/30/24 12:59 Hx Sleep Apnea Yes 12/30/24 12:59 CPAP No 12/30/24 12:59 BIPAP Yes 12/30/24 12:59 Do you snore loudly (louder than talking or can be heard Do you often feel tired/ fatigued/ sleepy during daytime? Has anyone observed you stop breathing during sleep? STOP Results Positive 12/30/24 12:59 QUESTION #5 FULL TEXT : Do you snore loudly (louder than talking or can be heard through closed doors)? 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 Specify any problems Hx of Preganancy in last 3 No 12/30/24 12:59 Months Nurse Filling Out Transfusion [email or web address] 12/30/24 12:59 & Questions: Date: 12/30/24 12/30/24 12:59 Time: 13:12/30/24 12:59 Patient unable to answer at this time (ie. confused, unrespo /Reproduction History /Reproductive History - rn wound: /Reproductive Hx- rn wound Hx Now No 12/30/24 12:59 Gestational Age (in weeks): EDC: Hx Hx Para Hx Section SAB No 12/30/24 12:59 Does the father of the baby or his family experience fever w Father of the baby Malignant Hypertension history comment [facility] Medical History Pain Loss of hearing Wears glasses Post-menopausal Arthritis Pulmonary embolism Migraine headache Injury of head and neck Dietary restriction History of IBS Former smoker COPD (chronic obstructive pulmonary disease) On home oxygen therapy BiPAP (biphasic positive airway pressure) dependence Shortness of breath on exertion History of pain when walking History of edema Cardiology follow-up encounter History of echocardiogram History of stress test Pain HTN (hypertension) Anxiety Depression Diabetes Osteoporosis Chronic pain Home Medications Medication Instructions Recorded Last Taken Type buspirone 30 mg tablet 30 mg PO BID Anxiety 03/26/13 09/05/24 History citalopram 40 mg tablet 40 mg PO QHS Depression 03/26/13 09/05/24 History meclizine 25 mg tablet 25 mg PO 4X/DAY PRN PRN Vertigo 03/26/13 05/05/22 History pregabalin 100 mg capsule (Lyrica) 150 mg PO BID nerve pain 03/26/13 09/05/24 History biotin 5 mg capsule 5,000 mcg PO DAILY supplement 05/19/14 09/05/24 History multivitamin,lw-[id number] 27 1 tab PO DAILY supplement 05/19/14 09/05/24 History mg-0.4 mg tablet (Therems-M) morphine 15 mg tablet,extended 15 mg PO DAILY pain 06/17/16 09/06/24 History release diclofenac sodium 1 % topical gel 0 g topical PRN PRN Pain 11/04/16 09/04/24 History krill oil 500 mg capsule 500 mg PO DAILY supplement 05/29/17 09/05/24 History celecoxib 200 mg capsule 200 mg PO DAILY 07/07/17 09/05/24 History rivaroxaban 20 mg tablet (Xarelto) 10 mg PO QHS 07/07/17 09/03/24 History hydroxyzine HCl 10 mg tablet 1 - 2 tab PO Q6H PRN PRN Anxiety 04/26/19 05/05/22 History albuterol 90 mcg/actuation aerosol 90 mcg inhalation PRN PRN SOB 05/03/22 09/21/23 History inhaler albuterol sulfate 2.5 mg/3 mL 2.5 mg inhalation Q4H PRN SOB 05/03/22 09/21/23 History (0.083 %) solution for nebulization oxycodone-acetaminophen 7.5 mg-325 1 tab PO BID PRN PRN pain 06/20/23 09/05/24 History mg tablet atenolol 50 mg tablet 25 mg PO QHS Blood pressure 02/25/24 09/05/24 History magnesium oxide 400 mg PO QDAY 02/25/24 09/05/24 History lisinopril 10 mg tablet 10 mg PO DAILY 08/30/24 09/05/24 History tirzepatide 12.5 mg/0.5 mL 12.5 mg subcut QWEEK 08/30/24 09/05/24 History subcutaneous pen injector (Mounjaro) OXYGEN - Supplemental ([facility] 12/30/24 Unknown History INFORMATIONAL USE ONLY) Allergy/AdvReac Type Severity Reaction Status Date / Time dulaglutide (From Trulicity) Allergy Intermediate Other Verified 12/30/24 12:53 liraglutide (From Victoza) Allergy Intermediate Other Verified 12/30/24 12:53 adhesive Allergy Hives Verified 12/30/24 12:53 Sulfa (Sulfonamide Allergy Rash Verified 12/30/24 12:53 Antibiotics) Tetanus Vaccines and Toxoid Allergy Swelling Verified 12/30/24 12:53 (Tetanus Vaccines & Toxoid) promethazine HCl (From AdvReac Vomiting Verified 12/30/24 12:53 Phenergan) Surgical History History of cardiac catheterization Hx of lumbar discectomy Hx of tubal ligation History of tonsillectomy and adenoidectomy Hx of nasal septoplasty Hx of oral surgery History of myringotomy History of hysteroscopy Social History Smoking Status: Former smoker Audit: Pertinent Findings Pertinent Findings EKG Perinent findings: June 10, 2024. Sinus rhythm. First-degree AV block. Interatrial conduction delay. Marked left axis deviation. September 18, 2023. Sinus rhythm with marked sinus arrhythmia. LAD. 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 EF is 66%. No areas of reversibility are noted to suggest ischemia. And no previous infarct is noted. Echo (EF%) pertinent findings: August 26, 2024. EF of 55 to 60%. No evidence of regional wall motion abnormalities. Mildly elevated right atrial pressure. No aortic stenosis. No change from echo 2021. Heart catheterization pertinent findings: July 02, 2024. EF of 65 to 70%. Normal coronaries. Normal LV function. Concentric LVH. Consult pertinent findings: July 28, 2024. Scar AYALA. 1. Diabetes with peripheral neuropathy. Followed by PCP. 2. Hypertension-slightly elevated. LVH noted on heart cath. Shortness of breath on exertion could be related to obesity and/or hypertension. Add lisinopril. Repeat echo to reassess for LVH. (See above). 3. COPD without exacerbation–by history. 4. HARRISON on CPAP–compliant on CPAP. Recommendation Anesthesia Recommendation Anesthesia recommendation: OPTIMIZED for anesthesia
[2025-01-03] VITALS (8 sets, daily range): BP systolic 116–146; BP diastolic 64–85; PULSE 50–69; RESP 16; TEMP 36.4–37; O2SAT 93–98; BMI 51.0
--- OUTSIDE RECORDS SUMMARY | 2025-01-03 06:28 | XMS RPT_ITS | CCD ---
Author Organization [facility] Care Team Providers Care Conservation Planner Name Role Phone IAN COOK, DR ADRIÁN Dela Cruz Primary Care Physician Dr. Adrián Sosa Primary Care Provider Dr. Nilesh Garcia Attending Provider Dr. Adrián Sosa Primary Care Provider Dr. Rigo Sands V Referring Provider Dr. Rigo Sands V Other Provider Dr. Gage An Attending Provider Rigo Berger DO Primary Care Provider [phone] Dr. Adrián Sosa Primary Care Provider Dr. Rigo Sands V Referring Provider Dr. Rigo Sands V Other Provider Dr. Gage An Attending Provider RIGO BERGER Primary Care Unavailable WILLIAM CROFT Attending Unavailable RIGO BERGER Primary Care Unavailable IAN DO, DR ADRIÁN Dela Cruz Attending Unavailabl e IAN DO, DR ADRIÁN Dela Cruz Primary Care Unavailabl e IAN DO, DR ADRIÁN Dela Cruz Attending Unavailabl e IAN DO, DR ADRIÁN Dela Cruz Primary Care Unavailabl e AIN DO, DR ADRIÁN Dela Cruz Attending Unavailabl e IAN DO, DR ADRIÁN Dela Cruz Primary Care Unavailkarri PEREZ DO, DR BUSTILLOS Primary Care Physician Ian COOK, Dr. Deutsch Primary Care Provider Ina COOK, Dr. Deutsch Referring Provider Dr. Taco Liriano DO Attending Provider GUILLERMO DO, DR BUSTILLOS Primary Care Unavailable TONYA MINOR, SHEA Wisdom Referring Unavailable MAIDA MINOR, SHARON Matamoros Attending Unavailable SHARON BEY MD Consulting Unavailable Ian DO, Dr. Deutsch Primary Care Provider [phone] Ian DO, Dr. Deutsch Referring Provider Heri DO, Dr. España Attending Provider Ming MINOR, Dr. Cespedes Attending Provider [phone] Ming MINOR, Dr. Cespedes Referring Provider GUILLERMO DO, DR BUSTILLOS Primary Care Unavailable TONYA MINOR, SHEA Wisdom Attending Unavailable GUILLERMO DO, DR BUSTILLOS Attending Unavailable GUILLERMO DO, DR BUSTILLOS Primary Care Unavailable BRITNEY AYALA, VIRGILIO Matamoros Attending Unavailable GUILLERMO DO, DR BUSTILLOS Primary Care Unavailable [facility] GRAY Attending Unavailab le GUILLERMO DO, DR BUSTILLOS Primary Care Unavailable GUILLERMO DO, DR BUSTILLOS Primary Care Unavailable GUILLERMO DO, DR BUSTILLOS Attending Unavailable GUILLERMO DO, DR BUSTILLOS Primary Care Unavailable GUILLERMO DO, DR BUSTILLOS Attending Unavailable GUILLERMO DO, DR BUSTILLOS Primary Care Unavailable GUILLERMO DO, DR BUSTILLOS Attending Unavailable GUILLERMO DO, DR BUSTILLOS Primary Care Unavailable GUILLERMO DO, DR BUSTILLOS Attending Unavailable REBECA NEUROLOGY TEACHER, JETHRO Attending Unavailable GUILLERMO DO, DR BUSTILLOS Primary Care Unavailable GUILLERMO DO, DR BUSTILLOS Attending Unavailable GUILLERMO DO, DR BUSTILLOS Primary Care Unavailable GUILLERMO DO, DR BUSTILLOS Attending Unavailable GUILLERMO DO, DR BUSTILLOS Primary Care Unavailable Ian DO, Dr. Deutsch Primary Care Physician Ming MINOR, Dr. Cespedes Attending Physician Ina DO, Dr. Deutsch Referring Provider Heri DO, Dr. España Attending Physician [phone] Ian, Adrián Referring Unavailable Taco Liriano Attending Unavailable Ian, Adrián Primary Care Unavailable Ian, Adrián Primary Care Unavailable Taco Liriano Attending Unavailable Ian, Adrián Referring Unavailable Ian, Adrián Primary Care Unavailable Ming, Coy Attending Unavailable Ming, Coy Referring Unavailable Ming, Coy Attending Unavailable Ming, Coy Referring Unavailable Ian, Adrián Primary Care Unavailable Ming, Coy Attending Unavailable Ian, Adrián Primary Care Unavailable Ming, Coy Attending Unavailable Ian, Adrián Primary Care Unavailable Ian, Adrián Primary Care Unavailable Borruso, Taco Attending Unavailable Ian, Adrián Referring Unavailable Borruso, Taco Attending Unavailable Ian, Adrián Referring Unavailable Ian, Adrián Primary Care Unavailable Borruso, Taco Attending Unavailable Ian, Adrián Referring Unavailable Ian, Adrián Primary Care Unavailable Borruso, Taco Attending Unavailable Ian, Adrián Referring Unavailable Ian, Adrián Primary Care Unavailable Borruso, Taco Attending Unavailable Ian, Adrián Referring Unavailable Ian, Adrián Primary Care Unavailable Borrujin, Taco Attending Unavailable Ian, Adrián Referring Unavailable Ian, Adrián Primary Care Unavailable Ian, Adrián Referring Unavailable Borruso, Taco Attending Unavailable Ian, Adrián Primary Care Unavailable Allergies Allergy Classification Reported Allergen(s) Allergy Type Date of Onset Reaction(s) Facility (8 sources) Adhesive bandage Allergy to substance Unknown [facility] (20 sources) Promethazine; Translations: [promethazine] Drug Allergy 7 Vomiting (disorder), Vomiting [facility] (16 sources) Sulfonamides (Antibiotic); Translations: [sulfa drugs] Drug allergy Rash [facility] (16 sources) tetanus toxoid vaccine, inactivated; Translations: [tetanus toxoid] Drug Allergy Swelling [facility] (15 sources) Adhesive agent; Translations: [adhesive] Allergy to substance 2 [facility] (15 sources) Promethazine; Translations: [promethazine HCl] Drug Allergy 2 [facility] (19 sources) Sulfonamides (Antibiotic); Translations: [SULFA (SULFONAMIDE ANTIBIOTICS)] Allergy to substance 7 Rash [facility] (19 sources) Tetanus Vaccines and Toxoid; Translations: [TETANUS VACCINES AND TOXOID] Allergy to substance 7 Swelling [facility] (7 sources) dulaglutide Drug Allergy 4 Other [facility] Comment on above: RAISED ITCHY AREA AT INJECITON SITE (16 sources) liraglutide; Translations: [liraglutide] Drug Allergy 4 Eruption of skin (disorder) [facility] Comment on above: RED RAISED ITCHY AT INJECTION SITE (10 sources) dulaglutide; Translations: [dulaglutide] Drug Allergy Swelling / lump observable (observable entity) [facility] (1 source) dulaglutide Drug Allergy 5 [facility] (1 source) liraglutide Drug Allergy 5 [facility] Medications Current Medications Medication Drug Class(es) Dates Sig (Normalized) Sig (Original) 0.25 MG, 0.5 MG Dose 3 ML semaglutide 0.68 MG/ML Pen Injector [Ozempic] (2 sources) Start: 05-28-2023 Ozempic 2 mg/3 mL (0.25 mg or 0.5 mg dose) subcutaneous solution Dose : 0.5 mg =, Subcutaneous, qWeek, rotate injection sites. replaces Trulicity and Victoza due to allergy., # 1 EA, 0 Refill(s), Pharmacy: [facility], 163.5, cm, 04/29/23 10:59:00 EDT, Height, kg, 05/27/23 8:29:00 EDT, Dosing Weight Start Date: 05/28/23 Status: Ordered Start: 01-24-2023 inject 0.5 mg by sub cutaneous injection every week Ozempic 2 mg/3 mL (0.25 mg or 0.5 mg dose) subcutaneous solution Dose : 0.25 mg =, Subcutaneous, qWeek, rotate injection sites, # 1 EA, 0 Refill(s), Pharmacy: [facility] #[id number], Uncontrolled diabetes mellitus, without long-term current use of insulin, 163.5, cm, 01/24/23 9:15:00 EST, Height, kg, 01/24/23 9:15:00 EST, Dosing Weight Start Date: 01/24/23 Status: Ordered 0.5 ML tirzepatide 15 MG/ML Auto-Injector [Mounjaro] (2 sources) Start: 06-29-2024 inject 1 dose by subcutaneous injection every week Mounjaro 7.5 mg/0.5 mL subcutaneous solution Dose : 7.5 mg =, Subcutaneous, qWeek, rotate injection sites, # 2 mL, 1 Refill(s), Pharmacy: [facility], 159.3, cm, 06/17/24 11:33:00 EDT, Height, kg, 06/17/24 11:33:00 EDT, Dosing Weight Start Date: 06/29/24 Status: Ordered Quantity: 2.0 Unit: mL Repeat number: 2 Start: 06-17-2024 inject 1 dose by sub cutaneous injection every week Mounjaro 7.5 mg/0.5 mL subcutaneous solution Dose : 7.5 mg =, Subcutaneous, qWeek, rotate injection sites, # 4 EA, 1 Refill(s), Pharmacy: [facility]/pharmacy #[id number], 159.3, cm, 06/17/24 11:33:00 EDT, Height, kg, 06/17/24 11:33:00 EDT, Dosing Weight Start Date: 06/17/24 Status: Ordered Quantity: 4.0 Unit: EA Repeat number: 2 0.5 ML tirzepatide 20 MG/ML Auto-Injector [Mounjaro] (1 source) Start: 07-15-2024 inject 1 dose by subcutaneous injection every week Mounjaro 10 mg/0.5 mL subcutaneous solution Dose : 10 mg =, Subcutaneous, qWeek, rotate injection sites, # 4 EA, 0 Refill(s), Pharmacy: [facility], 159.3, cm, 07/15/24 10:27:00 EDT, Height, kg, 07/15/24 10:27:00 EDT, Dosing Weight Start Date: 07/15/24 Status: Ordered Quantity: 4.0 Unit: EA Repeat number: 1 0.5 ML tirzepatide 25 MG/ML Auto-Injector [Mounjaro] (3 sources) Start: 08-19-2024 inject 1 dose by subcutaneous injection every week Mounjaro 12.5 mg/0.5 mL subcutaneous solution Dose : 12.5 mg =, Subcutaneous, qWeek, rotate injection sites, # 4 EA, 0 Refill(s), Pharmacy: [facility], 159.3, cm, 08/19/24 11:02:00 EDT, Height, kg, 08/19/24 11:02:00 EDT, Dosing Weight Start Date: 08/19/24 Status: Ordered Quantity: 4.0 Unit: EA Repeat number: 1 0.5 ML tirzepatide 5 MG/ML Auto-Injector [Mounjaro] (1 source) Start: 04-09-2024 inject 1 dose by subcutaneous injection every week Mounjaro 2.5 mg/0.5 mL subcutaneous solution Dose : 2.5 mg =, Subcutaneous, qWeek, rotate injection sites, # 4 EA, 0 Refill(s), Pharmacy: [facility], 159.3, cm, 04/09/24 9:33:00 EST, Height, kg, 04/09/24 9:33:00 EST, Dosing Weight Start Date: 04/09/24 Status: Ordered Quantity: 4.0 Unit: EA Repeat number: 1 acetaminophen 325 mg / oxyCODONE hydrochloride 7.5 mg oral tablet (20 sources) Opioid Agonist Start: 06-20-2023 Oxycodone-Acetamino phen 7.5-325 mg tablet Active 1 {tbl} PO TWICE DAILY NEEDED as needed for pain June 20, 2023 12:00am Complies with drug therapy Start: 06-20-2023 take 1 tablet by teodoro th twice daily as needed Oxycodone-Acetaminophen Active 1 TABLET PO TWICE DAILY NEEDED June 20, 2023 12:00am Start: 09-01-2018 take 1 tablet by teodoro th once daily as needed for pain Endocet 7.5/325 oral tablet Dose = 2 tab(s), Oral, Daily, PRN as needed for pain, 0 Refill(s) Start Date: 09/01/18 Status: Ordered Medication Dispense Status: Completed Total Allowed Fills: 1 Fills Dispensed: 0 Start: 05-29-2017 End: 06-20-2023 Oxycodone-Acetaminophen (Per cocet) 1 EACH tablet Discontinued 1 {tbl} PO Q12H as needed for Pain May 29, 2017 12:00am June 20, 2023 9:52am take 1 tablet by teodoro th every four hours as needed oxyCODONE-acetaminophen (ENDOCET) 10-325 mg tablet Take 1 tablet by mouth every 4 hours as needed. 0 Active Comment on above: Take 1 tablet by teodoro th every 4 hours as needed. albuterol 0.83 mg/ml inhalation solution (20 sources) beta2-Adrenergic Agonist Start: take 2.5 mg by inhalation every four hours as needed Albuterol Sulfate (Ventolin) 2.5 mg /3 mL (0.083 %) Solution For Nebulization Active 2.5 mg INHALATION Q4H as needed for SOB May 03, 2022 12:00am Complies with drug therapy Start: 05-03-2022 Albuterol Acti ve 90 MCG INHALATION NEEDED May 02, 2022 11:00pm Start: 05-03-2022 Albuterol Acti ve 90 MCG INHALATION NEEDED May 03, 2022 12:00am Start: 07-18-2021 take 2 puff(s) by in halation four times daily as needed for wheezing Ventolin HFA MDI (90 mcg/inh) inhalation aerosol See Instructions, 2 puff(s) Inhalation up to 4 times daily PRN wheezing, shortness of breath, 0 Refill(s) Start Date: 07/18/21 Status: Ordered Medication Dispense Status: Completed Total Allowed Fills: 1 Fills Dispensed: 0 Start: 07-18-2021 take 2 puff(s) by in halation four times daily as needed for wheezing Ventolin HFA MDI (90 mcg/inh) inhalation aerosol See Instructions, 2 puff(s) Inhalation up to 4 times daily PRN wheezing, shortness of breath, 0 Refill(s) Start Date: 07/18/21 Status: Ordered Repeat number: 1 Start: 07-18-2021 take 2 puff(s) by in halation four times daily as needed for wheezing Ventolin HFA MDI (90 mcg/inh) inhalation aerosol See Instructions, 2 puff(s) Inhalation up to 4 times daily PRN wheezing, shortness of breath, 0 Refill(s) Start Date: 07/18/21 Status: Ordered albuterol sulfat e (VENTOLIN INHALATION) Inhale as instructed. 0 Active Comment on above: Inhale as instructed . Albuterol 90 mcg/actuation Aerosol (6 sources) Start: 05-03-2022 Albuterol 90 mcg/actuation Aerosol Active 90 ug INHALATION NEEDED as needed for SOB May 03, 2022 12:00am Complies with drug therapy Start: 05-03-2022 Albuterol 90 m cg/actuation Aerosol Active 90 ug INHALATION NEEDED as needed for SOB May 03, 2022 12:00am atenolol 25 mg oral tablet (20 sources) beta-Adrenergic Trung Start: 09-07-2024 atenol ol 25 mg oral tablet Dose : 25 mg = 1 tab(s), Oral, qDay, # 90 tab(s), 3 Refill(s), Pharmacy: [facility], Hypertension, 159.3, cm, 08/19/24 11:02:00 EDT, Height, kg, 09/07/24 14:34:00 EDT, Dosing Weight Start Date: 09/07/24 Status: Ordered Medication Dispense Status: Completed Quantity: 90.0 Unit: tab(s) Total Allowed Fills: 4 Fills Dispensed: 0 Indications: Essential (primary) hypertension; Start: 07-09-2024 atenolol 25 mg oral tablet Dose : 25 mg = 1 tab(s), Oral, qDay, # 90 tab(s), 3 Refill(s), Pharmacy: [facility], Hypertension, 162.6, cm, 07/02/24 8:23:00 EDT, Height, kg, 07/02/24 8:23:00 EDT, Dosing Weight Start Date: 07/09/24 Status: Ordered Quantity: 90.0 Unit: tab(s) Repeat number: 4 Indications: Essential (primary) hypertension; Start: 07-31-2023 atenolol 25 mg oral tablet Dose : 25 mg = 1 tab(s), Oral, qDay, # 90 tab(s), 3 Refill(s), Pharmacy: [facility], Hypertension, 164, cm, 07/31/23 15:55:00 EDT, Height, kg, 07/31/23 15:55:00 EDT, Dosing Weight Start Date: 07/31/23 Status: Ordered Quantity: 90.0 Unit: tab(s) Repeat number: 4 Indications: Essential (primary) hypertension; Start: 08-09-2022 atenolol 25 mg oral tablet Dose : 25 mg = 1 tab(s), Oral, qDay, # 90 tab(s), 3 Refill(s), Pharmacy: [facility] #[id number], Hypertension, 164, cm, 08/09/22 9:33:00 EDT, Height Start Date: 08/09/22 Status: Ordered Start: 06-04-2016 atenolol (TENO RMIN) 50 mg tablet Start: 03-26-2013 End: 02-25-2024 Atenolol 50 mg tablet Active 25 mg PO AT BEDTIME February 25, 2024 9:56am Blood pressure Complies with drug therapy Start: 03-26-2013 take 25 mg by mouth at bedtime Atenolol Active 25 MG PO AT BEDTIME March 26, 2013 1:00am Biotin (20 sources) Start: 09-01-2018 Biotin 5000 mc g oral capsule Dose : 5,000 mcg = 1 cap(s), Oral, Daily, 0 Refill(s) Start Date: 09/01/18 Status: Ordered Medication Dispense Status: Completed Total Allowed Fills: 1 Fills Dispensed: 0 Start: 09-01-2018 Biotin 5000 mc g oral capsule Dose : 5,000 mcg = 1 cap(s), Oral, Daily, 0 Refill(s) Start Date: 09/01/18 Status: Ordered Repeat number: 1 Start: 09-01-2018 Biotin 5000 mc g oral capsule Dose : 5,000 mcg = 1 cap(s), Oral, Daily, 0 Refill(s) Start Date: 09/01/18 Status: Ordered Start: 05-19-2014 Biotin 5 MG ca psule Active 5000 ug PO DAILY May 19, 2014 12:00am supplement Complies with drug therapy Start: 05-19-2014 take 5000 ug by mouth once issac ly Biotin Active 5000 MCG PO DAILY May 19, 2014 12:00am take 1 tablet by teodoro th once daily biotin 5 mg tab Take 5 mg by mouth once daily. 0 Active Comment on above: Take 5 mg by mouth o nce daily. budesonide 0.25 mg/ml inhalation suspension (17 sources) Corticosteroid Start: 06-01-20 22 take 1 dose by inhalation twice daily budesonide 0.5 mg/2 mL inhalation suspension See Instructions, 1 vial in nebulizer twice a day, 0 Refill(s) Start Date: 07/18/21 Status: Ordered Medication Dispense Status: Completed Total Allowed Fills: 1 Fills Dispensed: 0 budesonide (PULM ICORT) 0.5 mg/2 mL nebulizer solution Use 0.5 mg via nebulizer once daily. 0 Active Comment on above: Use 0.5 mg via nebul izer once daily. busPIRone hydrochloride 30 mg oral tablet (20 sources) Start: 4 End: 6 take 1 tablet by mouth twice daily Buspirone 30 MG tablet Active 30 mg PO TWICE A DAY March 26, 2013 1:00am Anxiety Complies with drug therapy calcium carbonate 1500 mg oral tablet (9 sources) Start: 5 calcium (as carbonate) 600 mg oral tablet Dose : 600 mg = 1 tab(s), Oral, Daily, 0 Refill(s) Start Date: 06/17/24 Status: Ordered Medication Dispense Status: Completed Total Allowed Fills: 1 Fills Dispensed: 0 celecoxib 200 mg oral capsule (20 sources) Nonsteroidal Anti-inflammatory Drug Start: 8 End: 6 take 1 capsule by mouth once daily Celecoxib 200 MG capsule Active 200 mg PO DAILY July 07, 2017 12:00am Complies with drug therapy take 1 capsule by mouth twice da ajun celecoxib (CELEBREX) 200 mg capsule Take 200 mg by mouth two times a day. 0 Active Comment on above: Take 200 mg by mouth two times a day. cetirizine hydrochloride 10 mg oral tablet (16 sources) Histamine-1 Receptor Antagonist Start: 06-17-2024 cetirizine 10 mg oral tablet Dose : 10 mg = 1 tab(s), Oral, qDay, # 90 tab(s), 3 Refill(s), Pharmacy: [facility]/pharmacy #[id number], 159.3, cm, 06/17/24 11:33:00 EDT, Height, kg, 06/17/24 11:33:00 EDT, Dosing Weight Start Date: 06/17/24 Status: Ordered Medication Dispense Status: Completed Quantity: 90.0 Unit: tab(s) Total Allowed Fills: 4 Fills Dispensed: 0 Start: 08-09-2022 cetirizine 10 mg oral tablet Dose : 10 mg = 1 tab(s), Oral, qDay, # 90 tab(s), 3 Refill(s), Pharmacy: [facility] #[id number], 164, cm, 08/09/22 9:33:00 EDT, Height, kg, 08/09/22 9:33:00 EDT, Dosing Weight Start Date: 08/09/22 Status: Ordered Quantity: 90.0 Unit: tab(s) Repeat number: 4 Start: 05-29-2020 cetirizine 10 mg oral tablet Dose : 10 mg = 1 tab(s), Oral, qDay, # 90 tab(s), 3 Refill(s), Pharmacy: [id number] [facility], 162.6, cm, 05/12/20 11:15:00 EDT, Height, kg, 05/26/20 11:04:00 EDT, Dosing Weight Start Date: 05/29/20 Status: Ordered ciprofloxacin 3 mg/ml / dexamethasone 1 mg/ml otic suspension (10 sources) Corticosteroid, Quinolone Antimicrobial Start: 10-16-2023 Ciprodex 0.3%-0.1% otic suspension Dose = 4 drop(s), Ear, both, BID, # 7.5 mL, 0 Refill(s) Start Date: 10/16/23 Status: Ordered Medication Dispense Status: Completed Quantity: 7.5 Unit: mL Total Allowed Fills: 1 Fills Dispensed: 0 citalopram 40 mg oral tablet (20 sources) Serotonin Reuptake Inhibitor Start: 03-26-2013 take 1 tablet by mouth at bedtime Citalopram 40 MG tablet Active 40 mg PO AT BEDTIME March 26, 2013 1:00am Depression Complies with drug therapy cyclobenzaprine hydrochloride 5 mg oral tablet (3 sources) Muscle Relaxant Start: 10-07-2024 cyclobenzaprine 5 mg oral tablet Dose : 5 mg = 1 tab(s), Oral, TID, # 90 tab(s), 1 Refill(s), Pharmacy: [facility], 159.3, cm, 09/21/24 10:33:00 EDT, Height, kg, 09/21/24 10:33:00 EDT, Dosing Weight Start Date: 10/07/24 Status: Ordered Medication Dispense Status: Completed Quantity: 90.0 Unit: tab(s) Total Allowed Fills: 2 Fills Dispensed: 0 Start: 09-07-2024 cyclobenzaprin e 5 mg oral tablet Dose : 5 mg = 1 tab(s), Oral, TID, # 90 tab(s), 0 Refill(s), Pharmacy: [facility], 159.3, cm, 08/19/24 11:02:00 EDT, Height, kg, 09/07/24 14:34:00 EDT, Dosing Weight Start Date: 09/07/24 Status: Ordered Quantity: 90.0 Unit: tab(s) Repeat number: 1 furosemide 20 mg oral tablet (7 sources) Loop Diuretic Start: 09-17-2019 Lasix 20 mg or al tablet Dose : 20 mg = 1 tab(s), Oral, qDay, PRN pedal edema, # 30 tab(s), 0 Refill(s), [facility] [address] 165, cm, 09/17/19 11:44:00 EDT, Height, kg, 09/17/19 11:44:00 EDT, Dosing Weight Start Date: 09/17/19 Status: Ordered Quantity: 30.0 Unit: tab(s) Repeat number: 1 glimepiride 1 mg oral tablet (9 sources) Sulfonylurea Start: 08-09-2022 glimepiride 1 mg oral tablet Dose : 1 mg = 1 tab(s), Oral, qDay, # 90 tab(s), 3 Refill(s), Pharmacy: [facility] #[id number], 164, cm, 08/09/22 9:33:00 EDT, Height, kg, 08/09/22 9:33:00 EDT, Dosing Weight Start Date: 08/09/22 Status: Ordered Start: 07-20-2021 glimepiride 1 mg oral tablet Dose : 1 mg = 1 tab(s), Oral, qDay, # 90 tab(s), 3 Refill(s), Pharmacy: [id number] 162, cm, 07/18/21 10:16:00 EDT, Height, kg, 07/18/21 10:16:00 EDT, Dosing Weight Start Date: 07/20/21 Status: Ordered Start: 05-03-2020 glimepiride 1 mg oral tablet Dose : 1 mg = 1 tab(s), Oral, qDay, change in dose, # 90 tab(s), 3 Refill(s), Pharmacy: [address] 162, cm, 04/14/20 10:00:00 EST, Height, kg, 05/03/20 10:11:00 EDT, Dosing Weight Start Date: 05/03/20 Status: Ordered GLIMEPIRIDE ORAL Take by mouth. 0 Active Comment on above: Take by mouth. hydrOXYzine hydrochloride 10 mg oral tablet (20 sources) Antihistamine Start: 04-26-2019 Hydroxyzine Hcl 10 MG tablet Active 1 - 2 {tbl} PO EVERY 6 HOURS NEEDED as needed for Anxiety April 26, 2019 12:00am Complies with drug therapy Start: 04-26-2019 take 1-2 tablets by mouth every six hours as needed for anxiety hydrOXYzine hydrochloride 10 mg oral tablet 1-2 tab(s), Oral, q6h, PRN as needed for anxiety, # 30 tab(s), 5 Refill(s), Pharmacy: [address] 162, cm, 02/23/20 10:35:00 EST, Height, kg, 02/23/20 10:35:00 EST, Dosing Weight Start Date: 02/23/20 Status: Ordered Medication Dispense Status: Completed Quantity: 30.0 Unit: tab(s) Total Allowed Fills: 6 Fills Dispensed: 0 krill oil 500 mg oral capsule (14 sources) Start: 05-29-2017 take 1 capsule by mouth once daily Krill Oil 500 MG capsule Active 500 mg PO DAILY May 29, 2017 12:00am supplement Complies with drug therapy lisinopril 10 mg oral tablet (11 sources) Angiotensin Converting Enzyme Inhibitor Start: 07-28-2024 take 1 tablet by mouth once daily Lisinopril 10 mg tablet Active 10 mg PO DAILY August 30, 2024 12:00am Complies with drug therapy magnesium oxide 400 mg oral tablet (6 sources) Start: 02-25-2024 take 1 tablet by mouth once daily Magnesium Oxide 400 mg magnesium tablet Active 400 mg PO daily February 25, 2024 1:00am Complies with drug therapy meclizine hydrochloride 25 mg oral tablet (20 sources) Antiemetic Start: 03-26-2013 take 1 tablet by mouth four times daily as needed Meclizine 25 MG tablet Active 25 mg PO 4 TIMES DAILY NEEDED as needed for Vertigo March 26, 2013 1:00am Complies with drug therapy take 1 tablet by mouth three awa es daily meclizine (ANTIVERT) 25 mg tab Take 25 mg by mouth three times daily. 0 Active Comment on above: Take 25 mg by mouth three times daily. MegaRed Ultra Krill Oil 1000 mg oral capsule (16 sources) Start: 09-01-2018 MegaRed Ultra Krill Oil 1000 mg oral capsule Dose : 1,000 mg = 1 cap(s), Oral, qDay, 0 Refill(s) Start Date: 09/01/18 Status: Ordered Medication Dispense Status: Completed Total Allowed Fills: 1 Fills Dispensed: 0 Start: 09-01-2018 MegaRed Ultra Krill Oil 1000 mg oral capsule Dose : 1,000 mg = 1 cap(s), Oral, qDay, 0 Refill(s) Start Date: 09/01/18 Status: Ordered Repeat number: 1 Start: 09-01-2018 MegaRed Ultra Krill Oil 1000 mg oral capsule Dose : 1,000 mg = 1 cap(s), Oral, qDay, 0 Refill(s) Start Date: 09/01/18 Status: Ordered metFORMIN hydrochloride 1000 mg oral tablet (20 sources) Biguanide Start: 07-09-2024 metFORMIN 1000 mg oral tablet (IR) Dose : 1,000 mg = 1 tab(s), Oral, BID, # 180 tab(s), 3 Refill(s), Pharmacy: [facility], Uncontrolled diabetes mellitus, without long-term current use of insulin, 162.6, cm, 07/02/24 8:23:00 EDT, Height, kg, 07/02/24 8:23:00 EDT, Dosing Weight Start Date: 07/09/24 Status: Ordered Medication Dispense Status: Completed Quantity: 180.0 Unit: tab(s) Total Allowed Fills: 4 Fills Dispensed: 0 Indications: Type 2 diabetes mellitus with hyperglycemia; Start: 07-31-2023 metFORMIN 1000 mg oral tablet (IR) Dose : 1,000 mg = 1 tab(s), Oral, BID, # 180 tab(s), 3 Refill(s), Pharmacy: [facility], Uncontrolled diabetes mellitus, without long-term current use of insulin, 164, cm, 07/31/23 15:55:00 EDT, Height, kg, 07/31/23 15:55:00 EDT, Dosing Weight Start Date: 07/31/23 Status: Ordered Quantity: 180.0 Unit: tab(s) Repeat number: 4 Indications: Type 2 diabetes mellitus with hyperglycemia; Start: 11-03-2020 metFORMIN 1000 mg oral tablet (IR) Dose : 1,000 mg = 1 tab(s), Oral, BID, # 180 tab(s), 3 Refill(s), Pharmacy: [facility] #[id number], Uncontrolled diabetes mellitus, without long-term current use of insulin, 164, cm, 08/09/22 9:33:00 EDT, Height, kg, 08/09/22 9:33:00 EDT, Dosing Weight Start Date: 08/09/22 Status: Ordered Start: 10-12-2019 End: 11-01-2024 take 1 tablet by mouth twice daily Metformin 500 MG tablet extended release 24hr Discontinued 1000 mg PO TWICE A DAY October 12, 2019 12:00am November 01, 2024 11:19am Start: 10-12-2019 take 1000 mg by mout h twice daily Metformin Active 1000 MG PO TWICE A DAY October 12, 2019 12:00am Comment on above: Take 1,000 mg by teodoro th daily with breakfast. montelukast 10 mg oral tablet (9 sources) Leukotriene Receptor Antagonist Start: 9 montelukast 10 mg oral tablet Dose : 10 mg = 1 tab(s), Oral, qDay, # 30 tab(s), 11 Refill(s), Pharmacy: [id number] [facility] Start Date: 01/10/19 Status: Ordered Quantity: 30.0 Unit: tab(s) Repeat number: 12 Multivitamin,Tx-Iron- Minerals (Therems-M) 1 TABLET tablet (14 sources) Start: 5 take 1 tablet by mouth once daily Multivitamin,Tx-Iron -Minerals (Therems-M) 1 TABLET tablet Active 1 TABLET PO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 for osteoporosis] Onset: 05-03-2024 Episodic Results Test Name Value Interpretation Reference Range Facility Orthopedic Visit Reporton Orthopedic Visit Report [facility] [address] [place] [address] [address] [place] [address] OFFICE VISIT Date of Service: 12/01/24 MR#: [id number] Acct: [id number] Name: IDALMIS LION Rep #: [id number] : 1960 Provider: Dr. Taco abdi DO Age/Sex: 64/F [place] [facility] Status: Signed Intake Vital Signs 09/06/24 11:12 11/17/24 08:37 Height 5 ft 4 in 5 ft 4 in Weight: 285 lb BMI 48.9 Intake Visit Reasons: RIGHT KNEE Chief Complaint: Right Knee 3rd Gelsyn 3 injection Is patient in pain?: Yes (Right knee ) Pain scale (1-10): 8 Allergies dulaglutide (From Trulicity) Allergy (Intermediate, Verified 12/01/24 10:08) Other liraglutide (From Victoza) Allergy (Intermediate, Verified 12/01/24 10:08) Other adhesive Allergy (Verified 12/01/24 10:08) Hives Sulfa (Sulfonamide Antibiotics) Allergy (Verified 12/01/24 10:08) Rash Tetanus Vaccines and Toxoid (Tetanus Vaccines Toxoid) Allergy (Verified 12/01/24 10:08) Swelling promethazine HCl (From Phenergan) Adverse Reaction (Verified 12/01/24 10:08) Vomiting Medications ???Medication ???Instructions ???Recorded ???Confirmed ???Type buspirone 30 mg tablet 30 mg PO BID Anxiety 03/26/1311/17 History citalopram 40 mg tablet 40 mg PO QHS Depression 03/26/13 1 History meclizine 25 mg tablet 25 mg PO 4X/DAY PRN PRN Vertigo 12/01/24 History pregabalin 100 mg capsule (Lyrica) 150 mg PO BID nerve pain 4 12/01/24 History biotin 5 mg capsule 5,000 mcg PO DAILY supplement 04/0312/01/24 History multivitamin,tx-iron-mi nerals 27 1 tab PO DAILY supplement 05/19/14 12/01/24 History mg-0.4 mg tablet (Therems-M) morphine 15 mg tablet,extended 15 mg PO DAILY pain 06/17/1612/01 History release diclofenac sodium 1 % topical gel 0 g topical PRN PRN Pain 11/04/16 12/01/24 History krill oil 500 mg capsule 500 mg PO DAILY supplement 8 12/01/24 History celecoxib 200 mg capsule 200 mg PO DAILY 07/07/17 12/01/24 History rivaroxaban 20 mg tablet (Xarelto) 10 mg PO QHS 07/07/17 12/01/24 H istory hydroxyzine HCl 10 mg tablet 1 - 2 tab PO Q6H PRN PRN Anxiety 0 04/26/19 12/01/24 History albuterol 90 mcg/actuation aerosol 90 mcg inhalation PRN PRN SOB 12/01/24 History inhaler albuterol sulfate 2.5 mg/3 mL 2.5 mg inhalation Q4H PRN SOB 04/1712/01/24 History (0.083 %) solution for nebulization oxycodone-acetaminophen 7.5 mg-325 1 tab PO BID PRN PRN pain 12/01/24 History mg tablet atenolol 50 mg tablet 25 mg PO QHS Blood pressure 12/01/24 History magnesium oxide 400 mg PO QDAY 02/25/24 12/01/24 H istory lisinopril 10 mg tablet 10 mg PO DAILY 08/30/24 12/01/24 H istory tirzepatide 12.5 mg/0.5 mL 12.5 mg subcut QWEEK 08/30/2411/17 History subcutaneous pen injector (Nir) Have you fallen in the past year?: No PFSH Medical History Pain Loss of hearing Wears glasses Post-menopausal Arthritis Pulmonary embolism Migraine headache Injury of head and neck Dietary restriction History of IBS Former smoker COPD (chronic obstructive pulmonary disease) On home oxygen therapy BiPAP (biphasic positive airway pressure) dependence Shortness of breath on exertion History of pain when walking History of edema Cardiology follow-up encounter History of echocardiogram History of stress test Pain HTN (hypertension) Anxiety Depression Diabetes Osteoporosis Chronic pain Surgical History History of cardiac catheterization Hx of lumbar discectomy Hx of tubal ligation History of tonsillectomy and adenoidectomy Hx of nasal septoplasty Hx of oral surgery History of myringotomy History of hysteroscopy Social History Smoking Status: Former smoker HPI RIGHT KNEE Details: This documentation accurately reflects the service provided and the decisions made by me, Dr. Taco Liriano, DO 12/01/24 0750. Part of today???s visit was documented by Shira Francis RN, acting as scribe. IDALMIS LION is a 64 year old F here today for 3rd right knee Glesyn 3 injection 2024 visit:2nd right knee Gelsyn 3 injection. 11/17/2024 visit: right knee 1st Gelysn 3 injection, 11/01/2024 visit:here today for right knee pain. She states the pain returned a month ago and is waking her up at night. She did get relief from the last steroid injection and would like to proceed with that again. 06/24/2024 visit:here today for right knee steroid injection. Patient stated that the steroid injection did help a little bit last time. She would like to start chair yoga. Patient talked to her PCP Dr. Perez at [facility] (more content not included)... Normal [facility] Orthopedic Visit Reporton Orthopedic Visit Report [facility] [address] [place] [address] [address] [place] [address] OFFICE VISIT Date of Service: 11/24/24 MR#: [id number] Acct: [id number] Name: IDALMIS LOIN Rep #: [id number] : 1960 Provider: Dr. Taco James so, DO Age/Sex: 64/F [place] [facility] Status: Signed Intake Vital Signs 09/06/24 11:12 11/17/24 08:37 Height 5 ft 4 in 5 ft 4 in Weight: 298 lb 8.094 oz 285 lb BMI 51.2 48.9 BP 177/98 H Position Semi-Fowlers Respiration 14 Pulse 78 Temp 97.0 F L Temp Source Temporal Pulse Oximetry (%) 95 Intake Visit Reasons: RIGHT KNEE Chief Complaint: Right Knee 2nd Gelsyn 3 injection Allergies dulaglutide (From Trulicity) Allergy (Intermediate, Verified 11/24/24 10:22) Other liraglutide (From Victoza) Allergy (Intermediate, Verified 11/24/24 10:22) Other adhesive Allergy (Verified 11/24/24 10:22) Hives Sulfa (Sulfonamide Antibiotics) Allergy (Verified 11/24/24 10:22) Rash Tetanus Vaccines and Toxoid (Tetanus Vaccines Toxoid) Allergy (Verified 11/24/24 10:22) Swelling promethazine HCl (From Phenergan) Adverse Reaction (Verified 11/24/24 10:22) Vomiting Medications ???Medication ???Instructions ???Recorded ???Confirmed ???Type buspirone 30 mg tablet 30 mg PO BID Anxiety 03/26/1310/11 History citalopram 40 mg tablet 40 mg PO QHS Depression 03/26/13 1 History meclizine 25 mg tablet 25 mg PO 4X/DAY PRN PRN Vertigo 11/24/24 History pregabalin 100 mg capsule (Lyrica) 150 mg PO BID nerve pain 4 11/24/24 History biotin 5 mg capsule 5,000 mcg PO DAILY supplement 04/0311/24/24 History multivitamin,tx-iron-mi nerals 27 1 tab PO DAILY supplement 05/19/14 11/24/24 History mg-0.4 mg tablet (Therems-M) morphine 15 mg tablet,extended 15 mg PO DAILY pain 06/17/1611/24 History release diclofenac sodium 1 % topical gel 0 g topical PRN PRN Pain 11/04/16 11/24/24 History krill oil 500 mg capsule 500 mg PO DAILY supplement 8 11/24/24 History celecoxib 200 mg capsule 200 mg PO DAILY 07/07/17 11/24/24 History rivaroxaban 20 mg tablet (Xarelto) 10 mg PO QHS 07/07/17 11/24/24 H istory hydroxyzine HCl 10 mg tablet 1 - 2 tab PO Q6H PRN PRN Anxiety 0 04/26/19 11/24/24 History albuterol 90 mcg/actuation aerosol 90 mcg inhalation PRN PRN SOB 11/24/24 History inhaler albuterol sulfate 2.5 mg/3 mL 2.5 mg inhalation Q4H PRN SOB 04/1711/24/24 History (0.083 %) solution for nebulization oxycodone-acetaminophen 7.5 mg-325 1 tab PO BID PRN PRN pain 11/24/24 History mg tablet atenolol 50 mg tablet 25 mg PO QHS Blood pressure 11/24/24 History magnesium oxide 400 mg PO QDAY 02/25/24 11/24/24 H istory lisinopril 10 mg tablet 10 mg PO DAILY 08/30/24 11/24/24 H istory tirzepatide 12.5 mg/0.5 mL 12.5 mg subcut QWEEK 08/30/24 1010/11 History subcutaneous pen injector (Nir) Have you fallen in the past year?: No PFSH Medical History Pain Loss of hearing Wears glasses Post-menopausal Arthritis Pulmonary embolism Migraine headache Injury of head and neck Dietary restriction History of IBS Former smoker COPD (chronic obstructive pulmonary disease) On home oxygen therapy BiPAP (biphasic positive airway pressure) dependence Shortness of breath on exertion History of pain when walking History of edema Cardiology follow-up encounter History of echocardiogram History of stress test Pain HTN (hypertension) Anxiety Depression Diabetes Osteoporosis Chronic pain Surgical History History of cardiac catheterization Hx of lumbar discectomy Hx of tubal ligation History of tonsillectomy and adenoidectomy Hx of nasal septoplasty Hx of oral surgery History of myringotomy History of hysteroscopy Social History Smoking Status: Former smoker HPI RIGHT KNEE Details: This documentation accurately reflects the service provided and the decisions made by me, Dr. Taco Liriano DO 11/24/24 0818. Part of today???s visit was documented by Olga WHITESIDE, acting as scribe. IDALMIS LION is a 64 year old F here today for 2nd right knee Gelsyn 3 injection. 11/17/2024 visit: 63 year old F here today for right knee 1st Gelysn 3 injection, 11/01/2024 visit:here today for right knee pain. She states the pain returned a month ago and is waking her up at night. She did get relief from the last steroid injection and would like to proceed with that again. 06/24/2024 visit:here today for right knee steroid injection. Patient stated that the steroid injection did help a little bit last time. She would like to (more content not included)... Normal [facility] Orthopedic Visit Reporton Orthopedic Visit Report [facility] [address] [place] [address] OFFICE VISIT Date of Service: 11/17/24 MR#: [id number] Acct: [id number] Name: IDALMIS LION Rep #: [id number] : 1960 Provider: Dr. Taco abdi DO Age/Sex: 63/F [place] [facility] Status: Signed Intake Vital Signs 09/06/24 11:12 11/17/24 08:37 Height 5 ft 4 in 5 ft 4 in Weight: 298 lb 8.094 oz 285 lb BMI 51.2 48.9 BP 177/98 H Position Semi-Fowlers Respiration 14 Pulse 78 Temp 97.0 F L Temp Source Temporal Pulse Oximetry (%) 95 Intake Visit Reasons: RIGHT KNEE Chief Complaint: Right Knee 1st Gelsyn 3 injection Accompanied by: Self Is patient in pain?: Yes Pain scale (1-10): 6 [facility]ergy (Intermediate, Verified 11/17/24 08:43) Other liraglutide (From Victoza) Allergy (Intermediate, Verified 11/17/24 08:43) Other adhesive Allergy (Verified 11/17/24 08:43) Hives Sulfa (Sulfonamide Antibiotics) Allergy (Verified 11/17/24 08:43) Rash Tetanus Vaccines and Toxoid (Tetanus Vaccines Toxoid) Allergy (Verified 11/17/24 08:43) Swelling promethazine HCl (From Phenergan) Adverse Reaction (Verified 11/17/24 08:43) Vomiting Medications ???Medication ???Instructions ???Recorded ???Confirmed ???Type buspirone 30 mg tablet 30 mg PO BID Anxiety 03/26/1303/13 History citalopram 40 mg tablet 40 mg PO QHS Depression 03/26/13 1 History meclizine 25 mg tablet 25 mg PO 4X/DAY PRN PRN Vertigo 11/17/24 History pregabalin 100 mg capsule (Lyrica) 150 mg PO BID nerve pain 4 11/17/24 History biotin 5 mg capsule 5,000 mcg PO DAILY supplement 04/0311/17/24 History multivitamin,tx-iron-mi nerals 27 1 tab PO DAILY supplement 05/19/14 11/17/24 History mg-0.4 mg tablet (Therems-M) morphine 15 mg tablet,extended 15 mg PO DAILY pain 06/17/1611/17 History release diclofenac sodium 1 % topical gel 0 g topical PRN PRN Pain 11/04/16 11/17/24 History krill oil 500 mg capsule 500 mg PO DAILY supplement 8 11/17/24 History celecoxib 200 mg capsule 200 mg PO DAILY 07/07/17 11/17/24 History rivaroxaban 20 mg tablet (Xarelto) 10 mg PO QHS 07/07/17 11/17/24 H istory hydroxyzine HCl 10 mg tablet 1 - 2 tab PO Q6H PRN PRN Anxiety 0 04/26/19 11/17/24 History albuterol 90 mcg/actuation aerosol 90 mcg inhalation PRN PRN SOB 11/17/24 History inhaler albuterol sulfate 2.5 mg/3 mL 2.5 mg inhalation Q4H PRN SOB 04/1711/17/24 History (0.083 %) solution for nebulization oxycodone-acetaminophen 7.5 mg-325 1 tab PO BID PRN PRN pain 11/17/24 History mg tablet atenolol 50 mg tablet 25 mg PO QHS Blood pressure 11/17/24 History magnesium oxide 400 mg PO QDAY 02/25/24 11/17/24 H istory lisinopril 10 mg tablet 10 mg PO DAILY 08/30/24 11/17/24 H istory tirzepatide 12.5 mg/0.5 mL 12.5 mg subcut QWEEK 08/30/2403/13 History subcutaneous pen injector (Nir) Have you fallen in the past year?: No PFSH Medical History Pain Loss of hearing Wears glasses Post-menopausal Arthritis Pulmonary embolism Migraine headache Injury of head and neck Dietary restriction History of IBS Former smoker COPD (chronic obstructive pulmonary disease) On home oxygen therapy BiPAP (biphasic positive airway pressure) dependence Shortness of breath on exertion History of pain when walking History of edema Cardiology follow-up encounter History of echocardiogram History of stress test Pain HTN (hypertension) Anxiety Depression Diabetes Osteoporosis Chronic pain Surgical History History of cardiac catheterization Hx of lumbar discectomy Hx of tubal ligation History of tonsillectomy and adenoidectomy Hx of nasal septoplasty Hx of oral surgery History of myringotomy History of hysteroscopy Social History Smoking Status: Former smoker HPI RIGHT KNEE Details: This documentation accurately reflects the service provided and the decisions made by me, Dr. Taco Liriano, DO 11/17/24 0758. Part of today???s visit was documented by Shayy Patel MA, acting as scribe. IDALMIS LINO is a 63 year old F here today for right knee 1st Gelysn 3 injection, 11/01/2024 visit:here today for right knee pain. She states the pain returned a month ago and is waking her up at night. She did get relief from the last steroid injection and would like to proceed with that again. 06/24/2024 visit:here today for right knee steroid injection. Patient stated that the steroid injection did help a little bit la (more content not included)... Normal [facility] XR SHOULDER MINIMUM 2 VIEWS RIGHTon 11-10-2024 XR SHOULDER MINIMUM 2 VIEWS RIGHT ORIGINAL EXAMINATION: 4 XRAY VIEWS OF THE RIGHT SHOULDER 11/09/2024 12:33 pm COMPARISON: None. HISTORY: ORDERING SYSTEM PROVIDED HISTORY: Reason for Exam: right shoulder pain versus radicular symptoms FINDINGS: There is no fracture or dislocation of the right shoulder. The right glenohumeral joint alignment is normal. Right humeral head and neck are unremarkable. There is mild acromioclavicular arthritis. There is no evidence of calcific tendinitis. Adjacent right ribs are intact. IMPRESSION: Mild acromioclavicular arthritis. Interpreted by: Yadiel Castillo MD Preliminary Report By: Yadiel Castillo MD Electronically signed By Yadiel Castillo MD Dictated Date: 11/10/2024 7:12:21 AM Prelim Date: 11/10/2024 7:14:29 AM Sign Date: 11/10/2024 7:14:29 AM Ordering Provider: JETHRO JOSE [facility] XR SPINE CERVICAL MINIMUM 4 VIEWSon 11-10-2024 XR SPINE CERVICAL MINIMUM 4 VIEWS ORIGINAL EXAMINATION: 3 XRAY VIEWS OF THE CERVICAL SPINE 11/09/2024 12:32 pm COMPARISON: None. HISTORY: ORDERING SYSTEM PROVIDED HISTORY: Reason for Exam: cervical ddd FINDINGS: The cervical spine alignment is normal. Vertebral bodies are normal in height with no fracture. The odontoid process is intact. There is moderately severe degenerative disc disease with disc space narrowing and endplate degenerative spur formation that is greatest at C5-C6 and C6-C7. Mild multilevel degenerative facet arthropathy is present. There are no destructive lesions. No prevertebral soft tissue swelling is present. IMPRESSION: 1. Moderately severe cervical spondylosis. 2. No subluxation or fracture. Interpreted by: Yadiel Castillo MD Preliminary Report By: Yadiel Castillo MD Electronically signed By Yadiel Castillo MD Dictated Date: 11/10/2024 7:10:14 AM Prelim Date: 11/10/2024 7:12:05 AM Sign Date: 11/10/2024 7:12:05 AM Ordering Provider: JETHRO Long [facility] .Auto Diffon 11-08-2024 Basophil, Absolute 0.0 10 3/mcL Normal 0.0-0.3 [facility] Comment on above: Performed By: #### G FR, BMP, ANEU, CBC, ADIFF, PRO #### [address] [address] Basophils/100 WBC (Bld) 0.5 % Normal 0.0-2.5 [facility] Comment on above: Performed By: #### G FR, BMP, ANEU, CBC, ADIFF, PRO #### [address] [address] Eosinophil, Absolute 0.2 10 3/mcL Normal 0.0-0.7 [facility] Comment on above: Performed By: #### G FR, BMP, ANEU, CBC, ADIFF, PRO #### [address] [address] Eosinophils/100 WBC (Bld) 2.2 % Normal 0.0-6.0 [facility] Comment on above: Performed By: #### G FR, BMP, ANEU, CBC, ADIFF, PRO #### [address] [address] Lymphocyte, Absolute 2.3 10 3/mcL Normal 0.9-4.3 [facility] Comment on above: Performed By: #### G FR, BMP, ANEU, CBC, ADIFF, PRO #### [address] [address] Lymphocytes/100 WBC (Bld) 32.8 % Normal 20.0-40.0 [facility] Comment on above: Performed By: #### G FR, BMP, ANEU, CBC, ADIFF, PRO #### [address] [address] Monocyte, Absolute 0.5 10 3/mcL Normal 0.1-1.4 [facility] Comment on above: Performed By: #### G FR, BMP, ANEU, CBC, ADIFF, PRO #### [address] [address] Monocytes/100 WBC (Bld) 6.9 % Normal 2.0-13.0 [facility] Comment on above: Performed By: #### G FR, BMP, ANEU, CBC, ADIFF, PRO #### [address] [address] Neutrophils/100 WBC (Bld) 57.6 % Normal 50.0-75.0 [facility] Comment on above: Performed By: #### G FR, BMP, ANEU, CBC, ADIFF, PRO #### [address] [address] .GFRon 11-08-2024 Estimated Glomerular Filtration Rate 75 ml/min/1.73sqm Normal [facility] Comment on above: Result Comment: Stages of Chronic Kidney Disease (CKD) Stage Description eGFR(ml/min/1.73 sq.m.) CKD 1 Normal kidney function or >=90 normal kindney function with possible kidney damage (ex. Proteinuria) CKD 2 Kidney damage with mild loss 60-89 of kidney function CKD 3a Mild to moderate loss of kidney 45-59 function CKD 3b Moderate to severe loss of 30-44 of kindey function CKD 4 Severe loss of kidney function 15-29 CKD 5 Kidney failure <15 Note: (go live 2024) the eGFR calculation was updated to the 2020 CKD-EPI creatinine equation without a race factor to calculate the eGFR results. Performed By: #### G FR, BMP, ANEU, CBC, ADIFF, PRO #### [address] [address] .NEUABSon 11-08-2024 Neutrophil, Absolute 4.0 10 3/mcL Normal 2.3-8.1 [facility] Comment on above: Performed By: #### G FR, BMP, ANEU, CBC, ADIFF, PRO #### [address] [address] A1Con 11-08-2024 Glucose [Mass/Vol] 108 mg/dL Normal [facility] Comment on above: Result Comment: Jane mated Average Glucose calculated by equation ((28.7xA1C)-46.7) Estimated average glucose (eAG) is a calculated value from Hemoglobin A1C and is labor service representative of the average blood glucose level in the last 2-3 month period. Normal range: less than 114 mg/dL Performed By: #### G FR, BMP, ANEU, CBC, ADIFF, PRO #### [place] [address] HbA1c (Bld) [Mass fraction] 5.4 % Normal 4.3-6.4 [facility] Comment on above: Performed By: #### G FR, BMP, ANEU, CBC, ADIFF, PRO #### [place] [id number] CBCon 11-08-2024 Erythrocyte distribution width (RBC) [Ratio] 13.4 % Normal 11.5-15.5 [facility] Comment on above: Performed By: #### C BC, FT4, A1C, FT3, CMP, GFR, LIPID, TSH, ADIFF, ANEU #### [place] [address] Hematocrit (Bld) [Volume fraction] 44.3 % Normal 34.0-46.0 [facility] Comment on above: Performed By: #### C BC, FT4, A1C, FT3, CMP, GFR, LIPID, TSH, ADIFF, ANEU #### [place] [id number] Hgb 15.5 G/dL Normal 12.0-16.0 [facility] Comment on above: Performed By: #### C BC, FT4, A1C, FT3, CMP, GFR, LIPID, TSH, ADIFF, ANEU #### [place] [id number] MCH (RBC) [Entitic mass] 32.3 pg Normal 27.0-33.0 [facility] Comment on above: Performed By: #### C BC, FT4, A1C, FT3, CMP, GFR, LIPID, TSH, ADIFF, ANEU #### [address] [address] MCHC 35.0 G/dL Normal 32.0-36.0 [facility] Comment on above: Performed By: #### C BC, FT4, A1C, FT3, CMP, GFR, LIPID, TSH, ADIFF, ANEU #### [address] [address] MCV (RBC) [Entitic vol] 92.2 fL Normal 80.0-99.0 [facility] Comment on above: Performed By: #### C BC, FT4, A1C, FT3, CMP, GFR, LIPID, TSH, ADIFF, ANEU #### [address] [address] Platelet 228 10 3/mcL Normal 150-450 [facility] Comment on above: Performed By: #### C BC, FT4, A1C, FT3, CMP, GFR, LIPID, TSH, ADIFF, ANEU #### [address] [address] Platelet mean volume (Bld) [Entitic vol] 8.5 fL Normal 6.6-10.5 [facility] Comment on above: Performed By: #### C BC, FT4, A1C, FT3, CMP, GFR, LIPID, TSH, ADIFF, ANEU #### [address] [address] RBC 4.80 10 6/mcL Normal 4.10-5.30 [facility] Comment on above: Performed By: #### C BC, FT4, A1C, FT3, CMP, GFR, LIPID, TSH, ADIFF, ANEU #### [address] [address] WBC 6.9 10 3/mcL Normal 4.5-10.8 [facility] Comment on above: Performed By: #### C BC, FT4, A1C, FT3, CMP, GFR, LIPID, TSH, ADIFF, ANEU #### [address] [address] CMPon 09-22-2025 Albumin Level 3.8 G/dL Normal 3.4-4.8 [facility] Comment on above: Performed By: #### G FR, BMP, ANEU, CBC, ADIFF, PRO #### [address] [address] Albumin/Globulin [Mass ratio] 1.1 {ratio} Normal 1.1-2.5 [facility] Comment on above: Performed By: #### G FR, BMP, ANEU, CBC, ADIFF, PRO #### [place] [id number] ALP [Catalytic activity/Vol] 88 U/L Normal 40-135 [facility] Comment on above: Performed By: #### G FR, BMP, ANEU, CBC, ADIFF, PRO #### [place] [id number] ALT [Catalytic activity/Vol] 21 U/L Normal 14-59 [facility] Comment on above: Performed By: #### G FR, BMP, ANEU, CBC, ADIFF, PRO #### [place] [id number] AST [Catalytic activity/Vol] 21 U/L Normal 10-40 [facility] Comment on above: Performed By: #### G FR, BMP, ANEU, CBC, ADIFF, PRO #### [address] [address] Bili Total 0.6 mg/dL Normal 0.2-1.0 [facility] Comment on above: Result Comment: Use of this assay is not recommended for patients undergoing treatment with eltrombopag due to the potential for falsely elevated results. Performed By: #### G FR, BMP, ANEU, CBC, ADIFF, PRO #### [address] [address] BUN/Creatinine Ratio 20 ratio Normal 7-27 [facility] Comment on above: Performed By: #### G FR, BMP, ANEU, CBC, ADIFF, PRO #### [address] [address] Calcium [Mass/Vol] 9.5 mg/dL Normal 8.4-10.2 [facility] Comment on above: Performed By: #### G FR, BMP, ANEU, CBC, ADIFF, PRO #### [address] [address] Chloride [Moles/Vol] 103 mmol/L Normal 98-107 [facility] Comment on above: Performed By: #### G FR, BMP, ANEU, CBC, ADIFF, PRO #### [address] [address] CO2 [Moles/Vol] 36 mmol/L High 23-31 [facility] Comment on above: Performed By: #### G FR, BMP, ANEU, CBC, ADIFF, PRO #### [address] [address] Creatinine [Mass/Vol] 0.86 mg/dL Normal 0.51-0.95 [facility] Comment on above: Performed By: #### G FR, BMP, ANEU, CBC, ADIFF, PRO #### [address] [address] Electrolyte Balance 4.0 mEq/L Normal 4.0-15.0 [facility] Comment on above: Performed By: #### G FR, BMP, ANEU, CBC, ADIFF, PRO #### [address] [address] Globulin 3.6 G/dL Normal 2.7-4.4 [facility] Comment on above: Performed By: #### G FR, BMP, ANEU, CBC, ADIFF, PRO #### [address] [address] Glucose [Mass/Vol] 109 mg/dL Normal 80-115 [facility] Comment on above: Performed By: #### G FR, BMP, ANEU, CBC, ADIFF, PRO #### [address] [address] Potassium [Moles/Vol] 4.5 mmol/L Normal 3.5-5.1 [facility] Comment on above: Performed By: #### G FR, BMP, ANEU, CBC, ADIFF, PRO #### [address] [address] Sodium [Moles/Vol] 143 mmol/L Normal 136-145 [facility] Comment on above: Performed By: #### G FR, BMP, ANEU, CBC, ADIFF, PRO #### [address] [address] Total Protein 7.4 G/dL Normal 6.4-8.2 [facility] Comment on above: Performed By: #### G FR, BMP, ANEU, CBC, ADIFF, PRO #### [place] [id number] Urea nitrogen [Mass/Vol] 17 mg/dL Normal 7-18 [facility] Comment on above: Performed By: #### G FR, BMP, ANEU, CBC, ADIFF, PRO #### [address] [address] FT3on 11-08-2024 Free T3 [Mass/Vol] 2.23 pg/mL Low 2.30-4.00 [facility] Comment on above: Performed By: #### G FR, BMP, ANEU, CBC, ADIFF, PRO #### [address] [address] FT4on 11-08-2024 Free T4 [Mass/Vol] 0.73 ng/dL Low 0.76-1.46 [facility] Comment on above: Performed By: #### G FR, BMP, ANEU, CBC, ADIFF, PRO #### [address] [address] LABORATORYOrdered By: Brett duggan on 11-08-2024 Color (U) Yellow (11/08/24 9:17 AM) Normal Yellow AO Auto Urine SS Glucose (U) [Mass/Vol] Negative Normal Negative AO Auto Urine SS Ketones Ql (U) Negative Normal Negative AO Auto Ur ine SS UA Appear Slightly Cloudy *ABN* (11/08/24 9:17 AM) Invalid Interpretation Code Clear AO Auto Urine SS UA Bili Negative (11/08/24 9:17 AM) Normal Negative AO Auto Urine SS UA Blood Negative (11/08/24 9:17 AM) Normal Negative AO Auto Urine SS UA Leuk Est Small *ABN* (11/08/24 9:17 AM) Invalid Interpretation Code Negative AO Auto Urine SS UA Nitrite Negative (11/08/24 9:17 AM) Normal Negative AO Auto Urine SS UA pH 7.0 (11/08/24 9:17 AM) Normal 5.0 - 8.0 AO Auto Urine SS UA Protein Negative Normal Negative AO Auto Urine SS UA RBC 0-2 /HPF Normal 0-2 AO Auto Urine SS UA Spec Grav 1.015 (11/08/24 9:17 AM) Normal 1.015-1.025 AO Auto Urine SS UA Specimen Type Clean Catch (11/08/24 9:17 AM) Normal AO Auto Urine SS UA Squam Epithelial 0-2 /HPF Normal 0-20 AO Au to Urine SS UA Transitional Epithelial 0-2 /HPF Normal AO Auto Urine SS UA Urobilinogen 0.2 E.U./dL Normal 0.2-1.0 AO Auto Urine SS UA WBC 0-2 /HPF Normal 0-5 AO Auto Urine SS LABORATORYOrdered By: SYSTEM SYSTEM on 11-08-2024 Albumin BCP dye [Mass/Vol] 3.8 G/dL Normal 3.4 - 4.8 G/dL AO ADM SS Albumin/Globulin [Mass ratio] 1.1 {ratio} Normal 1.1 - 2.5 ratio AO ADM SS ALP [Catalytic activity/Vol] 88 U/L Normal 40 - 135 U/L AO ADM SS ALT With P-5'-P [Catalytic activity/Vol] 21 U/L Normal 14 - 59 U/L AO ADM SS AST With P-5'-P [Catalytic activity/Vol] 21 U/L Normal 10 - 40 U/L AO ADM SS Basophils (Bld) [#/Vol] 0.0 103/mcL Normal 0.0 - 0.3 10^3/mcL AO Workflow SS Basophils/100 WBC (Bld) 0.5 % Normal 0.0 - 2.5 % AO Workflow SS Bilirubin [Mass/Vol] 0.6 mg/dL Normal 0.2 - 1 .0 mg/dL AO ADM SS Comment on above: Interpretive Data: U se of this assay is not recommended for patients undergoing treatment with eltrombopag due to the potential for falsely elevated results. Calcium [Mass/Vol] 9.5 mg/dL Normal 8.4 - 10. 2 mg/dL AO ADM SS Chloride [Moles/Vol] 103 mmol/L Normal 98 - 10 7 mmol/L AO ADM SS CO2 [Moles/Vol] 36 mmol/L High 23 - 31 mmol/L AO ADM SS Creatinine [Mass/Vol] 0.86 mg/dL Normal 0.51 - 0.95 mg/dL AO ADM SS Electrolyte Balance 4.0 mEq/L Normal 4.0 - 15 .0 mEq/L AO ADM SS Eosinophil, Absolute 0.2 103/mcL Normal 0.0 - 0 .7 10^3/mcL AO Workflow SS Eosinophils/100 WBC (Bld) 2.2 % Normal 0.0 - 6.0 % AO Workflow SS Erythrocyte distribution width (RBC) [Ratio] 13.4 % Normal 11.5 - 15.5 % AO Workflow SS Estimated Glomerular Filtration Rate 75 ml/min/1.73sqm Invalid Interpretation Code AO Chemistry S Comment on above: Interpretive Data: Stages of Chronic Kidney Disease (CKD) Stage Description eGFR(ml/min/1.73 sq.m.) CKD 1 Normal kidney function or >=90 normal kindney function with possible kidney damage (ex. Proteinuria) CKD 2 Kidney damage with mild loss 60-89 of kidney function CKD 3a Mild to moderate loss of kidney 45-59 function CKD 3b Moderate to severe loss of 30-44 of kindey function CKD 4 Severe loss of kidney function 15-29 CKD 5 Kidney failure <15 Note: (go live 2024) the eGFR calculation was updated to the 2020 CKD-EPI creatinine equation without a race factor to calculate the eGFR results. Free T3 [Mass/Vol] 2.23 pg/mL Low 2.30 - 4. 00 pg/mL AO ADM SS Free T4 [Mass/Vol] 0.73 ng/dL Low 0.76 - 1. 46 ng/dL AO ADM SS Globulin 3.6 G/dL Normal 2.7 - 4.4 G/dL AO ADM SS Glucose [Mass/Vol] 108 mg/dL Invalid Interpretation Code AO Chemistry S Comment on above: Interpretive Data: E stimated average glucose (eAG) is a calculated value from Hemoglobin A1C and is labor service representative of the average blood glucose level in the last 2-3 month period. Normal range: less than 114 mg/dL Glucose [Mass/Vol] 109 mg/dL Normal 80 - 115 mg/dL AO ADM SS HbA1c (Bld) [Mass fraction] 5.4 % Normal 4.3 - 6.4 % AO ADM SS Hematocrit (Bld) [Volume fraction] 44.3 % Normal 34.0 - 46.0 % AO Workflow SS Hemoglobin (Bld) [Mass/Vol] 15.5 G/dL Normal 12.0 - 16.0 G/dL AO Workflow SS Lymphocytes (Bld) [#/Vol] 2.3 103/mcL Normal 0.9 - 4.3 10^3/mcL AO Workflow SS Lymphocytes/100 WBC (Bld) 32.8 % Normal 20.0 - 40.0 % AO Workflow SS MCH (RBC) [Entitic mass] 32.3 pg Normal 27.0 - 33.0 pg AO Workflow SS MCHC 35.0 G/dL Normal 32.0 - 36.0 G/dL AO Workflow SS MCV (RBC) [Entitic vol] 92.2 fL Normal 80.0 - 99.0 fL AO Workflow SS Monocytes (Bld) [#/Vol] 0.5 103/mcL Normal 0.1 - 1.4 10^3/mcL AO Workflow SS Monocytes/100 WBC (Bld) 6.9 % Normal 2.0 - 13.0 % AO Workflow SS Neutrophils (Bld) [#/Vol] 4.0 103/mcL Normal 2.3 - 8.1 10^3/mcL AO Workflow SS Neutrophils/100 WBC (Bld) 57.6 % Normal 50.0 - 75.0 % AO Workflow SS Platelet mean volume (Bld) [Entitic vol] 8.5 fL Normal 6.6 - 10.5 fL AO Workflow SS Platelets (Bld) [#/Vol] 228 103/mcL Normal 150 - 450 10^3/mcL AO Workflow SS Potassium [Moles/Vol] 4.5 mmol/L Normal 3.5 - 5.1 mmol/L AO ADM SS Protein [Mass/Vol] 7.4 G/dL Normal 6.4 - 8.2 G/dL AO ADM SS RBC (Bld) [#/Vol] 4.80 106/mcL Normal 4.10 - 5.3 0 10^6/mcL AO Workflow SS Sodium [Moles/Vol] 143 mmol/L Normal 136 - 145 mmol/L AO ADM SS TSH Qn 2.83 m[IU]/L Normal 0.36 - 3.74 mcIU/mL AO ADM SS Urea nitrogen [Mass/Vol] 17 mg/dL Normal 7 - 18 mg/dL AO ADM SS Urea nitrogen/Creatinine [Mass ratio] 20 ratio Normal 7 - 27 ratio AO ADM SS WBC (Bld) [#/Vol] 6.9 103/mcL Normal 4.5 - 10.8 10^3/mcL AO Workflow SS LABORATORYOrdered By: Lexy Howard on 11-08-2024 Cholesterol [Mass/Vol] 151 mg/dL Normal 0 - 200 mg/dL AO ADM SS Comment on above: Interpretive Data: C holesterol Reference Interval: Less than 200 Desirable 200-239 Borderline high risk 240 and above High risk Cholesterol in HDL [Mass/Vol] 44 mg/dL Normal 40 - 60 mg/dL AO ADM SS Cholesterol in LDL [Mass/Vol] 80 mg/dL Normal 0 - 130 mg/dL AO ADM SS Triglyceride [Mass/Vol] 136 mg/dL Normal 0 - 150 mg/dL AO ADM SS Comment on above: Interpretive Data: T riglyceride Reference Interval: Less than 150 Normal 150-199 Borderline high risk 200-499 High risk 500 or higher Very high risk LIPIDon 11-08-2024 Cholesterol [Mass/Vol] 151 mg/dL Normal 0-200 [facility] Comment on above: Result Comment: Chol esterol Reference Interval: Less than 200 Desirable 200-239 Borderline high risk 240 and above High risk Performed By: #### G FR, BMP, ANEU, CBC, ADIFF, PRO #### [place] [address] [place], [place] [address] Cholesterol in HDL [Mass/Vol] 44 mg/dL Normal 40-60 [facility] Comment on above: Performed By: #### G FR, BMP, ANEU, CBC, ADIFF, PRO #### [place] [address] [place], [place] [address] Cholesterol in LDL [Mass/Vol] 80 mg/dL Normal 0-130 [facility] Comment on above: Performed By: #### G FR, BMP, ANEU, CBC, ADIFF, PRO #### [address] [address] Triglyceride [Mass/Vol] 136 mg/dL Normal 0-150 [facility] Comment on above: Result Comment: Trig lyceride Reference Interval: Less than 150 Normal 150-199 Borderline high risk 200-499 High risk 500 or higher Very high risk Performed By: #### G FR, BMP, ANEU, CBC, ADIFF, PRO #### [place] [address] No Panel Informationon 11-08 Culture Urine Specimen received [facility] lab. [facility] TSHon 11-08-2024 TSH Qn 2.83 m[IU]/L Normal 0.36-3.74 [facility] Comment on above: Performed By: #### G FR, BMP, ANEU, CBC, ADIFF, PRO #### [place] [id number] UAon 11-08-2024 Color (U) Yellow Normal Yellow [facility] Comment on above: Performed By: #### G FR, BMP, ANEU, CBC, ADIFF, PRO #### [place] [id number] Glucose (U) [Mass/Vol] Negative Normal Negative [facility] Comment on above: Performed By: #### G FR, BMP, ANEU, CBC, ADIFF, PRO #### [address] [address] Ketones Ql (U) Negative Normal Negative [facility] Comment on above: Performed By: #### G FR, BMP, ANEU, CBC, ADIFF, PRO #### [place] [id number] UA Appear Slightly Cloudy Abnormal Clear [facility] Comment on above: Performed By: #### G FR, BMP, ANEU, CBC, ADIFF, PRO #### [address] [address] UA Blood Negative Normal Negative [facility] Comment on above: Performed By: #### G FR, BMP, ANEU, CBC, ADIFF, PRO #### [address] [address] UA Leuk Est Small Abnormal Negative [facility] Comment on above: Performed By: #### G FR, BMP, ANEU, CBC, ADIFF, PRO #### [address] [address] UA Nitrite Negative Normal Negative [facility] Comment on above: Performed By: #### G FR, BMP, ANEU, CBC, ADIFF, PRO #### [address] [address] UA pH 7.0 Normal 5.0 - 8.0 [facility] Comment on above: Performed By: #### G FR, BMP, ANEU, CBC, ADIFF, PRO #### [address] [address] UA Protein Negative Normal Negative [facility] Comment on above: Performed By: #### G FR, BMP, ANEU, CBC, ADIFF, PRO #### [address] [address] UA Spec Grav 1.015 Normal 1.015-1.025 [facility] Comment on above: Performed By: #### G FR, BMP, ANEU, CBC, ADIFF, PRO #### [address] [address] UA Specimen Type Clean Catch Normal [facility] Comment on above: Performed By: #### G FR, BMP, ANEU, CBC, ADIFF, PRO #### [address] [address] UA Urobilinogen 0.2 E.U./dL Normal 0.2-1.0 [facility] Comment on above: Performed By: #### G FR, BMP, ANEU, CBC, ADIFF, PRO #### [address] [address] Urobilinogen (U) [Mass/Vol] Negative Normal Negative [facility] Comment on above: Performed By: #### G FR, BMP, ANEU, CBC, ADIFF, PRO #### [address] [address] UAMICon 11-08-2024 UA RBC 0-2 Normal 0-2 [facility] Comment on above: Performed By: #### G FR, BMP, ANEU, CBC, ADIFF, PRO #### [address] [address] UA Squam Epithelial 0-2 Normal 0-20 [facility] Comment on above: Performed By: #### G FR, BMP, ANEU, CBC, ADIFF, PRO #### [address] [address] UA Transitional Epithelial 0-2 Normal [facility] Comment on above: Performed By: #### G FR, BMP, ANEU, CBC, ADIFF, PRO #### [address] [address] UA WBC 0-2 Normal 0-5 [facility] Comment on above: Performed By: #### G FR, BMP, ANEU, CBC, ADIFF, PRO #### [address] [address] Orthopedic Visit Reporton Orthopedic Visit Report [facility] [address] [place] [address] OFFICE VISIT Date of Service: 11/01/24 MR#: [id number] Acct: [id number] Name: IDALMIS LION Rep #: [id number] : 1960 Provider: Dr. Taco James so, DO Age/Sex: 63/F [place] [facility] Status: Signed Intake Vital Signs 09/06/24 11:12 Height 5 ft 4 in Intake Visit Reasons: RIGHT KNEE Chief Complaint: Right Knee Steroid injection Accompanied by: Self Is patient in pain?: Yes (Right knee) Pain scale (1-10): 8 Allergies dulaglutide (From Trulicity) Allergy (Intermediate, Verified 11/01/24 11:18) Other liraglutide (From Victoza) Allergy (Intermediate, Verified 11/01/24 11:18) Other adhesive Allergy (Verified 11/01/24 11:18) Hives Sulfa (Sulfonamide Antibiotics) Allergy (Verified 11/01/24 11:18) Rash Tetanus Vaccines and Toxoid (Tetanus Vaccines Toxoid) Allergy (Verified 11/01/24 11:18) Swelling promethazine HCl (From Phenergan) Adverse Reaction (Verified 11/01/24 11:18) Vomiting Medications ???Medication ???Instructions ???Recorded ???Confirmed ???Type buspirone 30 mg tablet 30 mg PO BID Anxiety 03/26/1310/18 History citalopram 40 mg tablet 40 mg PO QHS Depression 03/26/13 0 11/01/24 History meclizine 25 mg tablet 25 mg PO 4X/DAY PRN PRN Vertigo 11/01/24 History pregabalin 100 mg capsule (Lyrica) 150 mg PO BID nerve pain 4 11/01/24 History biotin 5 mg capsule 5,000 mcg PO DAILY supplement 04/0311/01/24 History multivitamin,tx-iron-mi nerals 27 1 tab PO DAILY supplement 05/19/14 11/01/24 History mg-0.4 mg tablet (Therems-M) morphine 15 mg tablet,extended 15 mg PO DAILY pain 06/17/1611/01 History release diclofenac sodium 1 % topical gel 0 g topical PRN PRN Pain 11/04/16 11/01/24 History krill oil 500 mg capsule 500 mg PO DAILY supplement 8 11/01/24 History celecoxib 200 mg capsule 200 mg PO DAILY 07/07/17 11/01/24 History rivaroxaban 20 mg tablet (Xarelto) 10 mg PO QHS 07/07/17 11/01/24 H istory hydroxyzine HCl 10 mg tablet 1 - 2 tab PO Q6H PRN PRN Anxiety 0 04/26/19 11/01/24 History albuterol 90 mcg/actuation aerosol 90 mcg inhalation PRN PRN SOB 11/01/24 History inhaler albuterol sulfate 2.5 mg/3 mL 2.5 mg inhalation Q4H PRN SOB 04/1711/01/24 History (0.083 %) solution for nebulization oxycodone-acetaminophen 7.5 mg-325 1 tab PO BID PRN PRN pain 11/01/24 History mg tablet atenolol 50 mg tablet 25 mg PO QHS Blood pressure 11/01/24 History magnesium oxide 400 mg PO QDAY 02/25/24 11/01/24 H istory lisinopril 10 mg tablet 10 mg PO DAILY 08/30/24 11/01/24 H istory tirzepatide 12.5 mg/0.5 mL 12.5 mg subcut QWEEK 08/30/2410/18 History subcutaneous pen injector (Mounjaro) Have you fallen in the past year?: No PFSH Medical History Pain Loss of hearing Wears glasses Post-menopausal Arthritis Pulmonary embolism Migraine headache Injury of head and neck Dietary restriction History of IBS Former smoker COPD (chronic obstructive pulmonary disease) On home oxygen therapy BiPAP (biphasic positive airway pressure) dependence Shortness of breath on exertion History of pain when walking History of edema Cardiology follow-up encounter History of echocardiogram History of stress test Pain HTN (hypertension) Anxiety Depression Diabetes Osteoporosis Chronic pain Surgical History History of cardiac catheterization Hx of lumbar discectomy Hx of tubal ligation History of tonsillectomy and adenoidectomy Hx of nasal septoplasty Hx of oral surgery History of myringotomy History of hysteroscopy Social History Smoking Status: Former smoker HPI RIGHT KNEE Details: This documentation accurately reflects the service provided and the decisions made by me, Dr. Taco Liriano, DO 11/01/24 0835. Part of today???s visit was documented by Shira Francis RN, acting as sc ribe. IDALMIS LION is a 63 year old F here today for right knee pain. She states the pain returned a month ago and is waking her up at night. She did get relief from the last steroid injection and would like to proceed with that again. 06/24/2024 visit:here today for right knee steroid injection. Patient stated that the steroid injection did help a little bit last time. She would like to start chair yoga. Patient talked to her PCP Dr. Perez at [facility]. She states that her knee is moderate today, she didn't use her cane today. Plan:Patient requested and received a right knee intra-articular steroid injection today 03/29/2024: Third Gels (more content not included)... Normal [facility] Bedside Glucoseon 09-06-2024 FINGERSTICK GLU 116 mg/dL High 74-106 [facility] Comment on above: Result Comment: [facility]ACE REYES OF PATIENT CARE PER NURSING PROTOCOL Performed By: #### L 501.080 ####[facility] [id number] [facility] [place], [address] Fluor Guidance for Spine Inj on 09-06-2024 Fluor Guidance for Spine Inj [facility] Imaging Services [address] [place], [place] [address] Fluor Guidance for Spine Inj MR#: [id number] Acct: [id number] Name: IDALMIS LION Rep #: [id number] : 1960 F 63 From: Cliff Sanchez DO PCP: Dr. Adrián Sosa DO Status: [facility] Study: Fluor Guidance for Spine Inj Date of Exam: Exam# [id number] Ordering Dr: Coy Lai MD PROCEDURE: FLUOR GUIDANCE FOR SPINE INJ 09/06/2024 REASON FOR EXAM: BLOCK, CAUDAL TECHNIQUE: FLUOR GUIDANCE FOR SPINE INJ Fluoroscopy time 22.9 sec. Radiation dose: 23.86 mGy FINDINGS: 2 fluoroscopic spot images demonstrate needle approaching the sacrum. Other findings: Other: RAD/Fluor Guidance for Spine Inj IMPRESSION: Fluoroscopy provided for caudal block. For complete details, see the operative report Reading Location: [facility] CC: Dr. Adrián Sosa DO; Dr. Coy Lai MD Chief Relay Tester: Signed Normal [facility] de[facility]dered By: Coy Lai on 09-06-2024 Glucose [Mass/Vol] 116 mg/dL High 74-[address] [facility] Comment on above: MANAGEMENT OF PATIEN T CARE PER NURSING PROTOCOL Operative Reporton 5 Operative Report [facility] Medical Records Department [address] [place] [address] Operative Report 09/06/24 1137 MR#: [id number] Acct: [id number] Name: IDALMIS LION Rep #: [id number] : 1960 63 From: Coy Lai MD PCP: Dr. Adrián Sosa, DO Status:[facility] Location: [place] [address] Operative Report (Standard) Operative Information Date of Procedure: 09/06/24 Pre-Operative Diagnosis: 1 Post-Operative Diagnosis: 1 Surgery/Procedure Performed: 1 radio program checker: No Type of Anesthesia: Local RN Documented Start/Stop Times: Operation Date: 09/06/24 12:10 Case Time Into Pre-Op 09/06/24 10:45 Anesthesia Start 09/06/24 11:28 Into Room 09/06/24 11:28 Procedure Start 09/06/24 11:32 Procedure End 09/06/24 11:36 Procedure Start Time: 11:37 Procedure Stop Time: 11:37 Select all DRAINS/GRAFTS/IMPLANTS that apply: None Estimated Blood Loss: 1 Specimen collected: No Description of surgery: PREOPERATIVE DIAGNOSIS: Lumbosacral radiculopathy, lumbosacral degenerative disc disease, lumbosacral spinal stenosis POSTOPERATIVE DIAGNOSIS: Lumbosacral radiculopathy, lumbosacral degenerative disc disease, lumbosacral spinal stenosis PROCEDURE PERFORMED: Diagnostic/therapeutic caudal epidural steroid injection under fluoroscopic guidance. ANESTHESIA: Local BLOOD LOSS: Minimal. COMPLICATIONS: None. DESCRIPTION OF PROCEDURE: History and physical of today was reviewed. Risks and benefits of the procedure were explained. The patient understood and agreed to proceed. Informed consent was obtained. IV inserted per routine protocol. The patient was taken to the operating room and placed in the prone position with a pillow positioned underneath the abdomen. The lower back and tailbone area was prepped and draped in a sterile fashion using iodine x3. Under fluoroscopy guidance on a lateral view, the caudal space was identified. The skin and subcutaneous tissue was anesthetized with approximately 3 mL of 1% lidocaine using a 25-gauge regular needle. Under direct visualization with fluoroscopy, using a 22-gauge 3-1/2-inch spinal needle, the needle was advanced via the skin through the sacral hiatus. The tip of the needle was passed through the sacrococcygeal ligament and advanced to approximately S4 area. After negative aspiration of blood or CSF, a total of 3 mL of contrast was injected to confirm correct placement of the needle as well as cephalad spread. The spread was followed to approximately L5 area. After confirmation on AP as well as lateral view and repeated negative aspiration, a total of 15 mL of preservative-free 0.125% Marcaine with 80 mg of Depo-Medrol was injected easily. The needle was then removed intact. The patient experienced no sign or symptoms of intrathecal or intravascular injection. The patient experienced no paresthesia. The procedure was completed without any apparent difficulty or any complications. The patient appeared to tolerate it well. ASSESSMENT AND PLAN: This is a 63-year-old female with lumbosacral radiculopathy, lumbosacral degenerative disc disease, lumbosacral spinal stenosis status post diagnostic/therapeutic caudal epidural steroid injection under fluoroscopic guidance, patient will continue her current medications, patient will follow-up in approximately 2 weeks for reevaluation. Surgical Findings: 1 Complications Complications: No Admit VTE Documentation VTE Present on Admission: No VTE Mechan Device Prophylaxis: None VTE Pharm Prophylaxis ordered?: No 09/06/24 1139 Cosigner Signature (if applicable): CC: Dr. Adrián Sosa DO; Dr. Coy Lai MD Signed [facility] MR/PAT.JOANNAon 08-30-2024 /PAT.[facility] Medical Records Department [address] [place] [address] PAT - Anesthesia 08/30/24 1644 MR#: [id number] Acct: [id number] Name: IDALMIS LION Rep #: [id number] : 1960 63 From: Vijay León MD PCP: Dr. 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 When Was Last Pacemaker Check QUESTION #4 FULL TEXT: You/Your Family Experience fever (hyperthermia) with Anesthesia Last Oral Intake Last Oral intake: Last Oral Intake NPO since Meds taken in AM with sips of water? 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 - electronic resources librarian: PONV - electronic resources librarian Female Yes 08/30/24 13:29 HX of Motion Sickness No 08/30/24 13:29 HX of N/V After Surgery No 08/30/24 13:29 Non-Smoker Yes 08/30/24 13:29 Duration of Surgery greater No 08/30/24 13:29 than 60 minutes Number of Risk Factors 2 08/30/24 13:29 PONV Score Moderate Risk 08/30/24 13:29 Height Weight Height Weight: Anesthesia: Height Weight Height 5 ft 4 in 07/14/24 14:27 Respiratory Assessment Respiratory Assessment - electronic resources librarian: Respiratory Tract Infection Hx - electronic resources librarian Hx Respiratory Tract Infection No 08/30/24 13:29 STOP Sleep Apnea STOP Sleep Apnea - electronic resources librarian: STOP Sleep Apnea - electronic resources librarian Hx Hypertension Yes: CONTROLLED WITH MED 08/30/24 13:29 Hx Sleep Apnea Yes 08/30/24 13:29 CPAP No 08/30/24 13:29 BIPAP Yes: WITH 2L O2 08/30/24 13:29 Do you snore loudly (louder than talking or can be heard Do you often feel tired/ fatigued/ sleepy during daytime? Has anyone observed you stop breathing during sleep? STOP Results Positive 08/30/24 13:29 QUESTION #5 FULL TEXT : Do you snore loudly (louder than talking or can be heard through closed doors)? 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 Specify any problems Hx of Preganancy in last 3 No 08/30/24 13:29 Months Nurse Filling Out Transfusion VCHRISTIN 08/30/24 13:29 Questions: Date: 08/30/24 08/30/24 13:29 Time: 13:30 08/30/24 13:29 Patient unable to answer at this time (ie. confused, unrespo /Reproduction History /Reproductive History - electronic resources librarian: /Reproductive Hx- electronic resources librarian Hx Now No 08/30/24 13:29 Gestational Age (in weeks): EDC: Hx Hx Para Hx Section SAB No 08/30/24 13:29 [facility] Medical History (Updated 08/30/24 @ 13:29 by Kanika Fontanez) Pain Loss of hearing Wears glasses Post-menopausal Arthritis Pulmonary embolism Migraine headache Injury of head and neck Dietary restriction History of IBS Former smoker COPD (chronic obstructive pulmonary disease) On home oxygen therapy BiPAP (biphasic positive airway pressure) dependence Shortness of breath on exertion History of pain when walking History of edema Cardiology follow-up encounter History of echocardiogram History of stress test Pain HTN (hypertension) Anxiety Depression Diabetes Osteoporosis Chronic pain Home Medications ???Medication ???Instructions ???Recorded ???Last Taken ???Type buspirone 30 mg tablet 30 mg PO BID Anxiety 03/26/13 08/0 06/10 History citalopram 40 mg tablet 40 mg PO QHS Depression 03/26/13 0 09/21/23 History meclizi (more content not included)... Normal [facility] .Auto Diffon 08-19-2024 Basophil, Absolute 0.0 10 3/mcL Normal 0.0-0.3 [facility] Comment on above: Performed By: #### G FR, BMP, ANEU, CBC, ADIFF, PRO #### [address] [address] Basophils/100 WBC (Bld) 0.1 % Normal 0.0-2.5 [facility] Comment on above: Performed By: #### G FR, BMP, ANEU, CBC, ADIFF, PRO #### [address] [address] Eosinophil, Absolute 0.2 10 3/mcL Normal 0.0-0.7 [facility] Comment on above: Performed By: #### G FR, BMP, ANEU, CBC, ADIFF, PRO #### [address] [address] Eosinophils/100 WBC (Bld) 1.8 % Normal 0.0-6.0 [facility] Comment on above: Performed By: #### G FR, BMP, ANEU, CBC, ADIFF, PRO #### [address] [address] Lymphocyte, Absolute 3.8 10 3/mcL Normal 0.9-4.3 [facility] Comment on above: Performed By: #### G FR, BMP, ANEU, CBC, ADIFF, PRO #### [address] [address] Lymphocytes/100 WBC (Bld) 43.6 % High 20.0-40.0 [facility] Comment on above: Performed By: #### G FR, BMP, ANEU, CBC, ADIFF, PRO #### [address] [address] Monocyte, Absolute 0.6 10 3/mcL Normal 0.1-1.4 [facility] Comment on above: Performed By: #### G FR, BMP, ANEU, CBC, ADIFF, PRO #### [address] [address] Monocytes/100 WBC (Bld) 7.5 % Normal 2.0-13.0 [facility] Comment on above: Performed By: #### G FR, BMP, ANEU, CBC, ADIFF, PRO #### [address] [address] Neutrophils/100 WBC (Bld) 47.0 % Low 50.0-75.0 [facility] Comment on above: Performed By: #### G FR, BMP, ANEU, CBC, ADIFF, PRO #### [address] [address] .GFRon 08-19-2024 Estimated Glomerular Filtration Rate 76 ml/min/1.73sqm Normal [facility] Comment on above: Result Comment: Stages of Chronic Kidney Disease (CKD) Stage Description eGFR(ml/min/1.73 sq.m.) CKD 1 Normal kidney function or >=90 normal kindney function with possible kidney damage (ex. Proteinuria) CKD 2 Kidney damage with mild loss 60-89 of kidney function CKD 3a Mild to moderate loss of kidney 45-59 function CKD 3b Moderate to severe loss of 30-44 of kindey function CKD 4 Severe loss of kidney function 15-29 CKD 5 Kidney failure <15 Note: (go live 2024) the eGFR calculation was updated to the 2020 CKD-EPI creatinine equation without a race factor to calculate the eGFR results. Performed By: #### G FR, BMP, ANEU, CBC, ADIFF, PRO #### [address] [address] .NEUABSon 08-19-2024 Neutrophil, Absolute 4.1 10 3/mcL Normal 2.3-8.1 [facility] Comment on above: Performed By: #### G FR, BMP, ANEU, CBC, ADIFF, PRO #### [address] [address] BMPon 08-19-2024 BUN/Creatinine Ratio 24 ratio Normal 7-27 [facility] Comment on above: Performed By: #### G FR, BMP, ANEU, CBC, ADIFF, PRO #### [address] [address] Calcium [Mass/Vol] 9.6 mg/dL Normal 8.4-10.2 [facility] Comment on above: Performed By: #### G FR, BMP, ANEU, CBC, ADIFF, PRO #### [address] [address] Chloride [Moles/Vol] 104 mmol/L Normal 98-107 [facility] Comment on above: Performed By: #### G FR, BMP, ANEU, CBC, ADIFF, PRO #### [address] [address] CO2 [Moles/Vol] 34 mmol/L High 23-31 [facility] Comment on above: Performed By: #### G FR, BMP, ANEU, CBC, ADIFF, PRO #### [place] [address] Creatinine [Mass/Vol] 0.85 mg/dL Normal 0.51-0.95 [facility] Comment on above: Performed By: #### G FR, BMP, ANEU, CBC, ADIFF, PRO #### [place] [address] Electrolyte Balance 7.0 mEq/L Normal 4.0-15.0 [facility] Comment on above: Performed By: #### G FR, BMP, ANEU, CBC, ADIFF, PRO #### [place] [address] Glucose [Mass/Vol] 75 mg/dL Low 80-115 [facility] Comment on above: Performed By: #### G FR, BMP, ANEU, CBC, ADIFF, PRO #### [place] [id number] Potassium [Moles/Vol] 4.7 mmol/L Normal 3.5-5.1 [facility] Comment on above: Performed By: #### G FR, BMP, ANEU, CBC, ADIFF, PRO #### [place] [phone] Sodium [Moles/Vol] 145 mmol/L Normal 136-145 [facility] Comment on above: Performed By: #### G FR, BMP, ANEU, CBC, ADIFF, PRO #### [place] [phone] Urea nitrogen [Mass/Vol] 20 mg/dL High 7-18 [facility] Comment on above: Performed By: #### G FR, BMP, ANEU, CBC, ADIFF, PRO #### [address] [address] CBCon 08-19-2024 Erythrocyte distribution width (RBC) [Ratio] 12.8 % Normal 11.5-15.5 [facility] Comment on above: Performed By: #### G FR, BMP, ANEU, CBC, ADIFF, PRO #### [address] [address] Hematocrit (Bld) [Volume fraction] 44.8 % Normal 34.0-46.0 [facility] Comment on above: Performed By: #### G FR, BMP, ANEU, CBC, ADIFF, PRO #### [address] [address] Hgb 15.2 G/dL Normal 12.0-16.0 [facility] Comment on above: Performed By: #### G FR, BMP, ANEU, CBC, ADIFF, PRO #### [address] [address] MCH (RBC) [Entitic mass] 31.6 pg Normal 27.0-33.0 [facility] Comment on above: Performed By: #### G FR, BMP, ANEU, CBC, ADIFF, PRO #### [address] [address] MCHC 34.0 G/dL Normal 32.0-36.0 [facility] Comment on above: Performed By: #### G FR, BMP, ANEU, CBC, ADIFF, PRO #### [address] [address] MCV (RBC) [Entitic vol] 92.8 fL Normal 80.0-99.0 [facility] Comment on above: Performed By: #### G FR, BMP, ANEU, CBC, ADIFF, PRO #### [address] [address] Platelet 223 10 3/mcL Normal 150-450 [facility] Comment on above: Performed By: #### G FR, BMP, ANEU, CBC, ADIFF, PRO #### [place] [address] [place], [place] [address] Platelet mean volume (Bld) [Entitic vol] 9.1 fL Normal 6.6-10.5 [facility] Comment on above: Performed By: #### G FR, BMP, ANEU, CBC, ADIFF, PRO #### [place] [address] [place] [address] RBC 4.82 10 6/mcL Normal 4.10-5.30 [facility] Comment on above: Performed By: #### G FR, BMP, ANEU, CBC, ADIFF, PRO #### [place] [address] [place] [address]277 WBC 8.7 10 3/mcL Normal 4.5-10.8 [facility] Comment on above: Performed By: #### G FR, BMP, ANEU, CBC, ADIFF, PRO #### [address] [address] LABORATORYOrdered By: SYSTEM SYSTEM on 08-19-2024 Basophils (Bld) [#/Vol] 0.0 103/mcL Normal 0.0 - 0.3 10^3/mcL AO Workflow SS Basophils/100 WBC (Bld) 0.1 % Normal 0.0 - 2.5 % AO Workflow SS Calcium [Mass/Vol] 9.6 mg/dL Normal 8.4 - 10. 2 mg/dL AO ADM SS Chloride [Moles/Vol] 104 mmol/L Normal 98 - 10 7 mmol/L AO ADM SS CO2 [Moles/Vol] 34 mmol/L High 23 - 31 mmol/L AO ADM SS Creatinine [Mass/Vol] 0.85 mg/dL Normal 0.51 - 0.95 mg/dL AO ADM SS Electrolyte Balance 7.0 mEq/L Normal 4.0 - 15 .0 mEq/L AO ADM SS Eosinophil, Absolute 0.2 103/mcL Normal 0.0 - 0 .7 10^3/mcL AO Workflow SS Eosinophils/100 WBC (Bld) 1.8 % Normal 0.0 - 6.0 % AO Workflow SS Erythrocyte distribution width (RBC) [Ratio] 12.8 % Normal 11.5 - 15.5 % AO Workflow SS Estimated Glomerular Filtration Rate 76 ml/min/1.73sqm Invalid Interpretation Code AO Chemistry S Comment on above: Interpretive Data: Stages of Chronic Kidney Disease (CKD) Stage Description eGFR(ml/min/1.73 sq.m.) CKD 1 Normal kidney function or >=90 normal kindney function with possible kidney damage (ex. Proteinuria) CKD 2 Kidney damage with mild loss 60-89 of kidney function CKD 3a Mild to moderate loss of kidney 45-59 function CKD 3b Moderate to severe loss of 30-44 of kindey function CKD 4 Severe loss of kidney function 15-29 CKD 5 Kidney failure <15 Note: (go live 2024) the eGFR calculation was updated to the 2020 CKD-EPI creatinine equation without a race factor to calculate the eGFR results. Glucose [Mass/Vol] 75 mg/dL Low 80 - 115 mg/dL AO ADM SS Hematocrit (Bld) [Volume fraction] 44.8 % Normal 34.0 - 46.0 % AO Workflow SS Hemoglobin (Bld) [Mass/Vol] 15.2 G/dL Normal 12.0 - 16.0 G/dL AO Workflow SS INR Coag (PPP) [Relative time] 1.0 {INR} Invalid Interpretation Code AO HemoHub SS Comment on above: Interpretive Data: Joelle brown [employer] (CHEST, 1991, 102:312S-25S) recommended therapeutic range for oral anticoagulant therapy is: LOW RISK: Prophylaxis of venous thrombosis INR: 2.0-3.0 Treatment of pulmonary embolism 2.0-3.0 Prevention of systemic embolism 2.0-3.0 HIGH RISK: Mechanical prosthetic valves 2.5-3.5 Lymphocytes (Bld) [#/Vol] 3.8 103/mcL Normal 0.9 - 4.3 10^3/mcL AO Workflow SS Lymphocytes/100 WBC (Bld) 43.6 % High 20.0 - 40.0 % AO Workflow SS MCH (RBC) [Entitic mass] 31.6 pg Normal 27.0 - 33.0 pg AO Workflow SS MCHC 34.0 G/dL Normal 32.0 - 36.0 G/dL AO Workflow SS MCV (RBC) [Entitic vol] 92.8 fL Normal 80.0 - 99.0 fL AO Workflow SS Monocytes (Bld) [#/Vol] 0.6 103/mcL Normal 0.1 - 1.4 10^3/mcL AO Workflow SS Monocytes/100 WBC (Bld) 7.5 % Normal 2.0 - 13.0 % AO Workflow SS Neutrophils (Bld) [#/Vol] 4.1 103/mcL Normal 2.3 - 8.1 10^3/mcL AO Workflow SS Neutrophils/100 WBC (Bld) 47.0 % Low 50.0 - 75.0 % AO Workflow SS Platelet mean volume (Bld) [Entitic vol] 9.1 fL Normal 6.6 - 10.5 fL AO Workflow SS Platelets (Bld) [#/Vol] 223 103/mcL Normal 150 - 450 10^3/mcL AO Workflow SS Potassium [Moles/Vol] 4.7 mmol/L Normal 3.5 - 5.1 mmol/L AO ADM SS PT Coag (PPP) [Time] 11.7 s Normal 9.0 - 1 4.4 seconds AO HemoHub SS RBC (Bld) [#/Vol] 4.82 106/mcL Normal 4.10 - 5.3 0 10^6/mcL AO Workflow SS Sodium [Moles/Vol] 145 mmol/L Normal 136 - 145 mmol/L AO ADM SS Urea nitrogen [Mass/Vol] 20 mg/dL High 7 - 18 mg/dL AO ADM SS Urea nitrogen/Creatinine [Mass ratio] 24 ratio Normal 7 - 27 ratio AO ADM SS WBC (Bld) [#/Vol] 8.7 103/mcL Normal 4.5 - 10.8 10^3/mcL AO Workflow SS LABORATORYOrdered By: Fausto Valero on 08-19-2024 Albumin DL <= 20 mg/L (U) [Mass/Vol] 18.9 mg/L Invalid Interpretation Code AO ADM SS Albumin/Creatinine DL <= 20 mg/L (U) [Mass ratio] 26 mg/G Normal 0 - 30 mg/G AO Chemistry S Creatinine (U) [Mass/Vol] 71.6 mg/dL Invalid Interpretation Code AO ADM SS MALBRon 08-19-2024 U Creatinine 71.6 mg/dL Normal [facility] Comment on above: Performed By: #### M ALBR #### [place] [id number] U Microalb 18.9 mg/L Normal [facility] Comment on above: Performed By: #### M ALBR #### [address] [address] U Ratio Alb/Cre 26 mg/G Normal 0-30 [facility] Comment on above: Performed By: #### M ALBR #### [address] [address] PROon 08-19-2024 PT Coag (PPP) [Time] 11.7 s Normal 9.0-14.4 [facility] Comment on above: Performed By: #### G FR, BMP, ANEU, CBC, ADIFF, PRO #### [address] [address] PT International Ratio 1.0 Normal [facility] Comment on above: Result Comment: [employer] (CHEST, 1992, 102:312S-25S) recommended therapeutic range for oral anticoagulant therapy is: LOW RISK: Prophylaxis of venous thrombosis INR: 2.0-3.0 Treatment of pulmonary embolism 2.0-3.0 Prevention of systemic embolism 2.0-3.0 HIGH RISK: Mechanical prosthetic valves 2.5-3.5 Performed By: #### G FR, BMP, ANEU, CBC, ADIFF, PRO #### [address] [address] Padilla 07-21-2024 Potassium [Moles/Vol] 4.2 mmol/L Normal 3.5-5.1 [facility] Comment on above: Performed By: #### K , MG #### [address] [address] LABORATORYOrdered By: SYSTEM SYSTEM on 07-21-2024 Magnesium [Mass/Vol] 2.1 mg/dL Normal 1.8 - 2 .4 mg/dL AO ADM SS Potassium [Moles/Vol] 4.2 mmol/L Normal 3.5 - 5.1 mmol/L AO ADM SS MGon 07-21-2024 Magnesium [Mass/Vol] 2.1 mg/dL Normal 1.8-2.4 [facility] Comment on above: Performed By: #### K , MG #### [place] [address] [address] Orthopedic Visit Reporton Orthopedic Visit Report [facility] [address] [place] [address] OFFICE VISIT Date of Service: 07/14/24 MR#: [id number] Acct: [id number] Name: IDALMIS LION Rep #: [id number] : 1960 Provider: Dr. Taco abdi, DO Age/Sex: 63/F [place] [facility] Status: Signed Intake Vital Signs 02/25/24 08:55 07/14/24 14:27 Height 5 ft 4 in 5 ft 4 in Weight: 318 lb 6 oz BMI 54.6 Intake Visit Reasons: RIGHT KNEE Chief Complaint: Right Knee Steroid injection Accompanied by: Self Is patient in pain?: Yes Pain scale (1-10): 7 Allergies dulaglutide (From Trulicity) Allergy (Intermediate, Verified 07/14/24 14:31) Other liraglutide (From Victoza) Allergy (Intermediate, Verified 07/14/24 14:31) Other adhesive Allergy (Verified 07/14/24 14:31) Hives Sulfa (Sulfonamide Antibiotics) Allergy (Verified 07/14/24 14:31) Rash Tetanus Vaccines and Toxoid (Tetanus Vaccines Toxoid) Allergy (Verified 07/14/24 14:31) Swelling promethazine HCl (From Phenergan) Adverse Reaction (Verified 07/14/24 14:31) Vomiting Medications ???Medication ???Instructions ???Recorded ???Confirmed ???Type buspirone 30 mg tablet 30 mg PO BID Anxiety 03/26/13/10/11 History citalopram 40 mg tablet 40 mg PO QHS Depression 03/26/13 0 07/14/24 History meclizine 25 mg tablet 25 mg PO 4X/DAY PRN PRN Vertigo 07/14/24 History pregabalin 100 mg capsule (Lyrica) 150 mg PO BID nerve pain 4 07/14/24 History biotin 5 mg capsule 5,000 mcg PO DAILY supplement 0404/0307/14/24 History multivitamin,tx-iron-mi nerals 27 1 tab PO DAILY supplement 05/19/14 07/14/24 History mg-0.4 mg tablet (Therems-M) morphine 15 mg tablet,extended 15 mg PO DAILY pain 06/17/1607/14 History release diclofenac sodium 1 % topical gel 0 g topical PRN PRN Pain 11/04/16 07/14/24 History krill oil 500 mg capsule 500 mg PO DAILY supplement 8 07/14/24 History celecoxib 200 mg capsule 200 mg PO DAILY 07/07/17 07/14/24 History rivaroxaban 20 mg tablet (Xarelto) 20 mg PO QHS 07/07/17 07/14/24 H istory hydroxyzine HCl 10 mg tablet 1 - 2 tab PO Q6H PRN PRN Anxiety 0 04/26/19 07/14/24 History metformin 500 mg tablet,extended 1,000 mg PO BID 10/12/19 07/14/24 History release 24hr (osmotic) albuterol 90 mcg/actuation aerosol 90 mcg inhalation PRN PRN SOB 07/14/24 History inhaler albuterol sulfate 2.5 mg/3 mL 2.5 mg inhalation Q4H PRN SOB 04/1707/14/24 History (0.083 %) solution for nebulization oxycodone-acetaminophen 7.5 mg-325 1 tab PO BID PRN PRN pain 07/14/24 History mg tablet atenolol 50 mg tablet 25 mg PO QHS Blood pressure 07/14/24 History magnesium oxide 400 mg PO QDAY 02/25/24 07/14/24 H istory potassium chloride 10 mEq 10 meq PO QDAY 07/14/24 07/14/24 H istory tablet,extended release Have you fallen in the past year?: No PFSH Medical History Pain Loss of hearing Wears glasses Post-menopausal Arthritis Pulmonary embolism Migraine headache Injury of head and neck Dietary restriction History of IBS Former smoker COPD (chronic obstructive pulmonary disease) On home oxygen therapy BiPAP (biphasic positive airway pressure) dependence Shortness of breath on exertion History of pain when walking History of edema Cardiology follow-up encounter History of echocardiogram History of stress test Pain HTN (hypertension) Anxiety Depression Diabetes Osteoporosis Chronic pain Surgical History Hx of lumbar discectomy Hx of tubal ligation History of tonsillectomy and adenoidectomy Hx of nasal septoplasty Hx of oral surgery History of myringotomy History of hysteroscopy Social History Smoking Status: Former smoker HPI RIGHT KNEE Details: This documentation accurately reflects the service provided and the decisions made by me, Dr. Taco Liriano, DO 07/14/24 0826. Part of today???s visit was documented by Shayy Patel MA, acting as scribe. IDALMIS LION is a 63 year old F here today for right knee steroid injection. Patient stated that the steroid injection did help a little bit last time. She would like to start chair yoga. Patient talked to her PCP Dr. Perez at [facility]. She states that her knee is moderate today, she didn't use her cane today. 03/15/2024: First right knee Gelsyn injection 02/25/2024 visit:63 year old F with medical comorbidities significant for but not limited to morbid obesity BMI 54.6 history of pulmonary emboli, hypertension, anxiety and depression, spondylosis with myelopathy, diabetes, na (more content not included)... Normal [facility] .Auto Diffon 07-02-2024 Basophil, Absolute 0.0 10 3/mcL Normal 0.0-0.3 [facility] Comment on above: Performed By: #### A DIFF, PRO, GFR, ANEU, CBC, BMP #### [facility] [address] [place] [address] Basophils/100 WBC (Bld) 0.7 % Normal 0.0-2.5 [facility] Comment on above: Performed By: #### A DIFF, PRO, GFR, ANEU, CBC, BMP #### [facility] [address] [place] [address] Eosinophil, Absolute 0.1 10 3/mcL Normal 0.0-0.7 [facility] Comment on above: Performed By: #### A DIFF, PRO, GFR, ANEU, CBC, BMP #### [address] [address] Eosinophils/100 WBC (Bld) 2.5 % Normal 0.0-6.0 [facility] Comment on above: Performed By: #### A DIFF, PRO, GFR, ANEU, CBC, BMP #### [address] [address] Lymphocyte, Absolute 2.6 10 3/mcL Normal 0.9-4.3 [facility] Comment on above: Performed By: #### A DIFF, PRO, GFR, ANEU, CBC, BMP #### [address] [address] Lymphocytes/100 WBC (Bld) 43.5 % High 20.0-40.0 [facility] Comment on above: Performed By: #### A DIFF, PRO, GFR, ANEU, CBC, BMP #### [address] [address] Monocyte, Absolute 0.5 10 3/mcL Normal 0.1-1.4 [facility] Comment on above: Performed By: #### A DIFF, PRO, GFR, ANEU, CBC, BMP #### [address] [address] Monocytes/100 WBC (Bld) 8.1 % Normal 2.0-13.0 [facility] Comment on above: Performed By: #### A DIFF, PRO, GFR, ANEU, CBC, BMP #### [address] [address] Neutrophils/100 WBC (Bld) 45.2 % Low 50.0-75.0 [facility] Comment on above: Performed By: #### A DIFF, PRO, GFR, ANEU, CBC, BMP #### [address] [address] .GFRon 07-02-2024 Estimated Glomerular Filtration Rate 83 ml/min/1.73sqm Normal [facility] Comment on above: Result Comment: Stages of Chronic Kidney Disease (CKD) Stage Description eGFR(ml/min/1.73 sq.m.) CKD 1 Normal kidney function or >=90 normal kindney function with possible kidney damage (ex. Proteinuria) CKD 2 Kidney damage with mild loss 60-89 of kidney function CKD 3a Mild to moderate loss of kidney 45-59 function CKD 3b Moderate to severe loss of 30-44 of kindey function CKD 4 Severe loss of kidney function 15-29 CKD 5 Kidney failure <15 Note: (go live 2024) the eGFR calculation was updated to the 2020 CKD-EPI creatinine equation without a race factor to calculate the eGFR results. Performed By: #### A DIFF, PRO, GFR, ANEU, CBC, BMP #### [address] [address] .NEUABSon 07-02-2024 Neutrophil, Absolute 2.7 10 3/mcL Normal 2.3-8.1 [facility] Comment on above: Performed By: #### A DIFF, PRO, GFR, ANEU, CBC, BMP #### [place] [id number] [facility] 07-02-2024 BUN/Creatinine Ratio 21.5 ratio Normal 10.0-22.0 [facility] Comment on above: Performed By: #### A DIFF, PRO, GFR, ANEU, CBC, BMP #### [place] [id number] Calcium [Mass/Vol] 9.9 mg/dL Normal 8.7-10.4 [facility] Comment on above: Performed By: #### A DIFF, PRO, GFR, ANEU, CBC, BMP #### [address] [address] Chloride [Moles/Vol] 104 mmol/L Normal 98-110 [facility] Comment on above: Performed By: #### A DIFF, PRO, GFR, ANEU, CBC, BMP #### [place] [id number] CO2 [Moles/Vol] 34 mmol/L High 22-32 [facility] Comment on above: Performed By: #### A DIFF, PRO, GFR, ANEU, CBC, BMP #### [place] [id number] Creatinine [Mass/Vol] 0.79 mg/dL Normal 0.50-1.20 [facility] Comment on above: Result Comment: Test ing performed on [employer] analyzer using enzymatic creatinine methodology. Performed By: #### A DIFF, PRO, GFR, ANEU, CBC, BMP #### [address] [address] Electrolyte Balance 6.0 mEq/L Normal 4.0-15.0 [facility] Comment on above: Performed By: #### A DIFF, PRO, GFR, ANEU, CBC, BMP #### [address] [address] Glucose [Mass/Vol] 123 mg/dL High 82-115 [facility] Comment on above: Performed By: #### A DIFF, PRO, GFR, ANEU, CBC, BMP #### [address] [address] Potassium [Moles/Vol] 3.4 mmol/L Low 3.5-5.0 [facility] Comment on above: Performed By: #### A DIFF, PRO, GFR, ANEU, CBC, BMP #### [address] [address] Sodium [Moles/Vol] 144 mmol/L Normal 136-145 [facility] Comment on above: Performed By: #### A DIFF, PRO, GFR, ANEU, CBC, BMP #### [address] [address] Urea nitrogen [Mass/Vol] 17.0 mg/dL Normal 8.0-22.0 [facility] Comment on above: Performed By: #### A DIFF, PRO, GFR, ANEU, CBC, BMP #### [address] [address] CBCon 07-02-2024 Erythrocyte distribution width (RBC) [Ratio] 12.9 % Normal 11.5-15.5 [facility] Comment on above: Performed By: #### A DIFF, PRO, GFR, ANEU, CBC, BMP #### [address] [address] Hematocrit (Bld) [Volume fraction] 42.9 % Normal 34.0-46.0 [facility] Comment on above: Performed By: #### A DIFF, PRO, GFR, ANEU, CBC, BMP #### [place] [address] Hgb 15.0 G/dL Normal 12.0-16.0 [facility] Comment on above: Performed By: #### A DIFF, PRO, GFR, ANEU, CBC, BMP #### [place] [address] MCH (RBC) [Entitic mass] 33.0 pg Normal 27.0-33.0 [facility] Comment on above: Performed By: #### A DIFF, PRO, GFR, ANEU, CBC, BMP #### [place] [address] MCHC 35.0 G/dL Normal 32.0-36.0 [facility] Comment on above: Performed By: #### A DIFF, PRO, GFR, ANEU, CBC, BMP #### [place] [address] MCV (RBC) [Entitic vol] 94.1 fL Normal 80.0-99.0 [facility] Comment on above: Performed By: #### A DIFF, PRO, GFR, ANEU, CBC, BMP #### [place] [address] Platelet 220 10 3/mcL Normal 150-450 [facility] Comment on above: Performed By: #### A DIFF, PRO, GFR, ANEU, CBC, BMP #### [place] [address] Platelet mean volume (Bld) [Entitic vol] 8.6 fL Normal 6.6-10.5 [facility] Comment on above: Performed By: #### A DIFF, PRO, GFR, ANEU, CBC, BMP #### [place] [address] RBC 4.56 10 6/mcL Normal 4.10-5.30 [facility] Comment on above: Performed By: #### A DIFF, PRO, GFR, ANEU, CBC, BMP #### [place] [address] WBC 5.9 10 3/mcL Normal 4.5-10.8 [facility] Comment on above: Performed By: #### A DIFF, PRO, GFR, ANEU, CBC, BMP #### [place] [id number] [place] [address] LABORATORYOrdered By: SYSTEM SYSTEM on 07-02-2024 Basophils (Bld) [#/Vol] 0.0 103/mcL Normal 0.0 - 0.3 10^3/mcL Workflow SS Basophils/100 WBC (Bld) 0.7 % Normal 0.0 - 2.5 % Workflow SS Calcium [Mass/Vol] 9.9 mg/dL Normal 8.7 - 10. 4 mg/dL ADM SS Chloride [Moles/Vol] 104 mmol/L Normal 98 - 11 0 mEq/L ADM SS CO2 [Moles/Vol] 34 mmol/L High 22 - 32 mEq/L ADM SS Creatinine [Mass/Vol] 0.79 mg/dL Normal 0.50 - 1.20 mg/dL ADM SS Comment on above: Interpretive Data: T esting performed on [employer] analyzer using enzymatic creatinine methodology. Electrolyte Balance 6.0 mEq/L Normal 4.0 - 15 .0 mEq/L ADM SS Eosinophils (Bld) [#/Vol] 0.1 103/mcL Normal 0.0 - 0.7 10^3/mcL Workflow SS Eosinophils/100 WBC (Bld) 2.5 % Normal 0.0 - 6.0 % Workflow SS Erythrocyte distribution width (RBC) [Ratio] 12.9 % Normal 11.5 - 15.5 % Workflow SS Estimated Glomerular Filtration Rate 83 ml/min/1.73sqm Invalid Interpretation Code Chemistry S Comment on above: Interpretive Data: Stages of Chronic Kidney Disease (CKD) Stage Description eGFR(ml/min/1.73 sq.m.) CKD 1 Normal kidney function or >=90 normal kindney function with possible kidney damage (ex. Proteinuria) CKD 2 Kidney damage with mild loss 60-89 of kidney function CKD 3a Mild to moderate loss of kidney 45-59 function CKD 3b Moderate to severe loss of 30-44 of kindey function CKD 4 Severe loss of kidney function 15-29 CKD 5 Kidney failure <15 Note: (go live 2024) the eGFR calculation was updated to the 2020 CKD-EPI creatinine equation without a race factor to calculate the eGFR results. Glucose [Mass/Vol] 123 mg/dL High 82 - 115 mg/dL ADM SS Hematocrit (Bld) [Volume fraction] 42.9 % Normal 34.0 - 46.0 % AH Workflow SS Hemoglobin (Bld) [Mass/Vol] 15.0 G/dL Normal 12.0 - 16.0 G/dL AH Workflow SS Lymphocytes (Bld) [#/Vol] 2.6 103/mcL Normal 0.9 - 4.3 10^3/mcL AH Workflow SS Lymphocytes/100 WBC (Bld) 43.5 % High 20.0 - 40.0 % AH Workflow SS MCH (RBC) [Entitic mass] 33.0 pg Normal 27.0 - 33.0 pg AH Workflow SS MCHC 35.0 G/dL Normal 32.0 - 36.0 G/dL AH Workflow SS MCV (RBC) [Entitic vol] 94.1 fL Normal 80.0 - 99.0 fL Workflow SS Monocytes (Bld) [#/Vol] 0.5 103/mcL Normal 0.1 - 1.4 10^3/mcL AH Workflow SS Monocytes/100 WBC (Bld) 8.1 % Normal 2.0 - 13.0 % AH Workflow SS Neutrophils (Bld) [#/Vol] 2.7 103/mcL Normal 2.3 - 8.1 10^3/mcL AH Workflow SS Neutrophils/100 WBC (Bld) 45.2 % Low 50.0 - 75.0 % AH Workflow SS Platelet mean volume (Bld) [Entitic vol] 8.6 fL Normal 6.6 - 10.5 fL Workflow SS Platelets (Bld) [#/Vol] 220 103/mcL Normal 150 - 450 10^3/mcL AH Workflow SS Potassium [Moles/Vol] 3.4 mmol/L Low 3.5 - 5.0 mEq/L ADM SS PT Coag (PPP) [Time] 11.6 s Normal 9.0 - 1 4.4 seconds [facility] SS Comment on above: Interpretive Data: E ffective 09/01/07, Protime results may be affected by some antibiotics (i.e. Ciprofloxacin, Azithromycin, Bactrim) which may potentiate the action of oral anticoagulants, with further increases in Protime/INR. PT International Ratio 1.0 ratio Invalid Interpretation Code AH [facility] SS Comment on above: Interpretive Data: T kevin [employer] (CHEST, 1991, 102:312S-25S) recommended therapeutic range for oral anticoagulant therapy is: LOW RISK: Prophylaxis of venous thrombosis INR: 2.0-3.0 Treatment of pulmonary embolism 2.0-3.0 Prevention of systemic embolism 2.0-3.0 HIGH RISK: Mechanical prosthetic valves 2.5-3.5 RBC (Bld) [#/Vol] 4.56 106/mcL Normal 4.10 - 5.3 0 10^6/mcL AH Workflow SS Sodium [Moles/Vol] 144 mmol/L Normal 136 - 145 mEq/L ADM SS Urea nitrogen [Mass/Vol] 17.0 mg/dL Normal 8.0 - 22.0 mg/dL ADM SS Urea nitrogen/Creatinine [Mass ratio] 21.5 ratio Normal 10.0 - 22.0 ratio ADM SS WBC (Bld) [#/Vol] 5.9 103/mcL Normal 4.5 - 10.8 10^3/mcL Workflow SS PROon 07-02-2024 INR Coag (PPP) [Relative time] 1.0 {INR} Normal [facility] Comment on above: Result Comment: [employer] (CHEST, 1991, 102:312S-25S) recommended therapeutic range for oral anticoagulant therapy is: LOW RISK: Prophylaxis of venous thrombosis INR: 2.0-3.0 Treatment of pulmonary embolism 2.0-3.0 Prevention of systemic embolism 2.0-3.0 HIGH RISK: Mechanical prosthetic valves 2.5-3.5 Performed By: #### A DIFF, PRO, GFR, ANEU, CBC, BMP #### [place] [id number] [place] [address] PT Coag (PPP) [Time] 11.6 s Normal 9.0-14.4 [facility] Comment on above: Result Comment: Effe ctive 09/01/07, Protime results may be affected by some antibiotics (i.e. Ciprofloxacin, Azithromycin, Bactrim) which may potentiate the action of oral anticoagulants, with further increases in Protime/INR. Performed By: #### A DIFF, PRO, GFR, ANEU, CBC, BMP #### [facility] [place] [address] [place], [place] [id number] No Panel Informationon 06-17 Culture Urine 10,000 - 50,000 cfu/ ml Multiple bacterial morphotypes present. Probable Contamination. Suggest recollection if clinically indicated. [facility] CT THORAX SCREENING W/O CONT Will 05-05-2024 CT THORAX SCREENING W/O CONTRAST ORIGINAL EXAMINATION: LOW DOSE SCREENING CT OF THE CHEST WITHOUT CONTRAST05/03/2024 2:49 pm TECHNIQUE: Low dose lung cancer screening CT of the chest was performed without the administration of intravenous contrast. Multiplanar reformatted images are provided for review. Automated exposure control, iterative reconstruction, and/or weight based adjustment of the mA/kV was utilized to reduce the radiation dose to as low as reasonably achievable. COMPARISON: None. HISTORY: ORDERING SYSTEM PROVIDED HISTORY: Reason for Exam: Lung Cancer Screening SMOKER 1PK DAILY X 20YRS FINDINGS: The heart is borderline in size. Atherosclerosis seen of the coronary arteries and aorta. The central pulmonary arteries are large in caliber. No lymphadenopathy is visible on this unenhanced exam. No suspicious findings seen in the visualized portion of the abdomen. The abdomen is not evaluated in detail. Punctate calcified right lower lobe nodule seen image 81. No pulmonary consolidation is identified. No pneumothorax or pleural effusion. No aggressive osseous lesions visible. Degenerative changes seen in the spine. IMPRESSION: No significant lung nodule. For patients with appropriate lung cancer risk, annual CT screening is recommended. Atherosclerosis including coronary artery calcification Enlarged pulmonary arteries can be an indicator pulmonary arterial hypertension Information below is for Lung nodule tracking purposes: Nodule: BLN Other Findings: P-CAC Change: Na Recall : 1yr scr Recall Type: LDCT LungRads: 1s Interpreted by: Lamont Cannon MD Preliminary Report By: Lamont Cannon MD Electronically signed By Lamont Cannon MD Dictated Date: 05/05/2024 10:59:45 AM Prelim Date: 05/05/2024 11:04:13 AM Sign Date: 05/05/2024 11:04:13 AM Ordering Provider: TRESSA Long [facility] MAMMOGRAM SCREENING BILAT ERAL W/TOMOon 05-05-2024 [place] MAMMOGRAM SCREENING BILATERAL W/FRITZ ORIGINAL FROM: [id number] [address] PROCEDURE FOR: [place] [address] Home: PID#: [id number] Exam#: [id number] : 1960 Age: 63 TO: TRESSA PEREZ DO [address] [place] [address] Fax: NO FAX EXAMINATION: SCREENING DIGITAL BILATERAL MAMMOGRAM WITH TOMOSYNTHESIS, 05/03/2024 1:58 pm TECHNIQUE: Screening mammography of the bilateral breasts was performed with tomosynthesis. 2D standard and 3D tomosynthesis combination imaging performed through both breasts in the MLO and CC projection. Computer aided detection was utilized in the interpretation of this exam. COMPARISON: 05/07/2013 HISTORY: Breast cancer screening. FINDINGS: BREAST DENSITY: There are scattered areas of fibroglandular density. There are bilateral benign breast calcifications and benign lymph nodes. There are no significant masses or calcifications. IMPRESSION: No mammographic evidence of malignancy. Continued screening with annual mammograms is recommended. Chevy zick risk calculations, generated with the history provided, report this patient's 10 year risk and lifetime risk for developing breast cancer at 2.9% and 6.1%, respectively. Based on this assessment tool, if the patient's calculated lifetime risk is below 20%, then the patient is considered at average risk for developing breast cancer. If the patient's calculated lifetime risk is at or above 20%, then the patient is considered high risk for developing breast cancer and may be a candidate for supplemental breast MRI screening in addition to annual mammographic screening per the [employer]. BIRADS: BI-RADS: 2: Benign RECALL: 1 year screening RECALL TYPE: mammo LETTER SENT: Normal BI-RADS 1 and 2 Interpreted by: Kenneth Jimenez MD Preliminary Report By: Kenneth Jimenez MD Electronically signed By Kenneth Jimenez MD Dictated Date: 05/05/2024 10:47:38 AM Prelim Date: 05/05/2024 10:50:36 AM Sign Date: 05/05/2024 10:50:36 AM Ordering Provider: TRESSA GUILLERMO Mobile Device Engineer: MELANI LEONG RT(R)(M) RDMS letter sent: Normal BI-RADS 1 and 2 Mammogram BI-RADS: 2 Benign Normal [facility] BD BONE DENSITY DEXA AXIAL S Lopez 05-04-2024 BD BONE DENSITY DEXA AXIAL SKELETON ORIGINAL EXAMINATION: BONE DENSITOMETRY05/03/2024 2:31 pm TECHNIQUE: Dual energy bone densitometry left distal radius and hip on a Hologic system. COMPARISON: None. HISTORY: Reason For Exam: Postmenopausal, osteoporosis screening. FINDINGS: Total bone mineral density of the left distal radius is 0.649 grams per square centimeters, and T-score being -0.6, indicating that this patient has normal bone mineral density. Bone mineral density of the left femoral neck is 0.923 grams per square centimeters, and T-score being 0.7, indicating that this patient has normal bone mineral density. Total bone mineral density of the left hip is 1.165 grams per square centimeters, and T-score being 1.8, indicating that this patient has normal bone mineral density. FRAX score: Not reported as T-scores are at or above -1. The BHOF f/k/a NOF recommends that FDA-approved medical therapies be considered in post-menopausal women and men age >/= 50 years with a: * Hip or vertebral fracture, or * T-score of /= 20% for major osteoporotic fractures or * >/= 3% for hip fractures All treatment decisions require clinical judgement and consideration of individual patient factors, including patient preferences, comorbidities, previous drug use, risk factors not captured in the FRAX registered model (e.g., frailty, falls, vitamin D deficiency, increased bone turnover, interval significant decline in bone density) and possible under- or over-estimation of fracture risk by FRAX. IMPRESSION: Normal bone mineral density. I have personally reviewed the images of this examination and agree with the resident's finding and interpretation. Interpreted by: Luke Toney MD Preliminary Report By: Christian Hilario Electronically signed By Luke Toney MD Dictated Date: 05/03/2024 3:21:47 PM Prelim Date: 05/04/2024 11:42:03 AM Sign Date: 05/04/2024 11:42:03 AM Ordering Provider: TRESSA Long [facility] US AORTAon 04-26-2024 US AORTA ORIGINAL EXAMINATION: SCREENING ULTRASOUND OF THE AORTA04/26/2024 9:00 am Ultrasound of the abdominal aorta COMPARISON: None TECHNIQUE: This report is based on interpretation of permanently recorded ultrasound images. HISTORY: ORDERING SYSTEM PROVIDED HISTORY: Reason for Exam: family history AAA, history of hypertension and diabetes FINDINGS: There is suboptimal visualization of the aorta due to artifacts from body habitus and bowel gas. As possible images are obtained. The abdominal aorta shows at least mild atherosclerotic changes. No aneurysm is seen within limitations of this study. The aortic bifurcation and proximal common iliac arteries arenonaneurysmal also. AP and Transverse diameter of the proximal segment: 3.0 x 3.1 cm AP and Transverse diameter of the mid segment: 2.1 x 2.5 cm AP and Transverse diameter of the distal segment: 1.7 x 2.4 cm IMPRESSION: Suboptimal evaluation of the aorta. No aneurysm is seen on this study. Interpreted by: Mauricio Ludwig MD Preliminary Report By: Mauricio Ludwig MD Electronically signed By Mauricio Ludwig MD Dictated Date: 04/26/2024 11:42:11 AM Prelim Date: 04/26/2024 11:43:43 AM Sign Date: 04/26/2024 11:43:43 AM Ordering Provider: TRESSA Long [facility] .Auto Diffon 04-09-2024 Basophil, Absolute 0.1 10 3/mcL Normal 0.0-0.2 [facility] Comment on above: Performed By: #### G FR, BMP, ANEU, CBC, ADIFF, PRO #### [place] [address] [place], [place] [address] Basophils/100 WBC (Bld) 0.8 % Normal 0.0-2.5 [facility] Comment on above: Performed By: #### G FR, BMP, ANEU, CBC, ADIFF, PRO #### [place] [address] [place], [place] [address] Eosinophil, Absolute 0.2 10 3/mcL Normal 0.0-0.7 [facility] Comment on above: Performed By: #### G FR, BMP, ANEU, CBC, ADIFF, PRO #### [address] [address] Eosinophils/100 WBC (Bld) 2.0 % Normal 0.0-7.0 [facility] Comment on above: Performed By: #### G FR, BMP, ANEU, CBC, ADIFF, PRO #### [address] [address] Lymphocyte, Absolute 3.0 10 3/mcL Normal 0.9-4.3 [facility] Comment on above: Performed By: #### G FR, BMP, ANEU, CBC, ADIFF, PRO #### [address] [address] Lymphocytes/100 WBC (Bld) 38.7 % Normal 20.0-40.0 [facility] Comment on above: Performed By: #### G FR, BMP, ANEU, CBC, ADIFF, PRO #### [address] [address] Monocyte, Absolute 0.5 10 3/mcL Normal 0.1-1.4 [facility] Comment on above: Performed By: #### G FR, BMP, ANEU, CBC, ADIFF, PRO #### [address] [address] Monocytes/100 WBC (Bld) 6.1 % Normal 2.0-13.0 [facility] Comment on above: Performed By: #### G FR, BMP, ANEU, CBC, ADIFF, PRO #### [address] [address] Neutrophils/100 WBC (Bld) 52.4 % Normal 50.0-75.0 [facility] Comment on above: Performed By: #### G FR, BMP, ANEU, CBC, ADIFF, PRO #### [address] [address] .GFRon 04-09-2024 Estimated Glomerular Filtration Rate 91 ml/min/1.73sqm Normal [facility] Comment on above: Result Comment: Stages of Chronic Kidney Disease (CKD) Stage Description eGFR(ml/min/1.73 sq.m.) CKD 1 Normal kidney function or >=90 normal kindney function with possible kidney damage (ex. Proteinuria) CKD 2 Kidney damage with mild loss 60-89 of kidney function CKD 3a Mild to moderate loss of kidney 45-59 function CKD 3b Moderate to severe loss of 30-44 of kindey function CKD 4 Severe loss of kidney function 15-29 CKD 5 Kidney failure <15 Note: (go live 2024) the eGFR calculation was updated to the 2020 CKD-EPI creatinine equation without a race factor to calculate the eGFR results. Performed By: #### G FR, BMP, ANEU, CBC, ADIFF, PRO #### [address] [address] .NEUABSon 04-09-2024 Neutrophil, Absolute 4.0 10 3/mcL Normal 2.3-8.1 [facility] Comment on above: Performed By: #### G FR, BMP, ANEU, CBC, ADIFF, PRO #### [place] [id number] A1Con 04-09-2024 Glucose [Mass/Vol] 143 mg/dL Normal [facility] Comment on above: Result Comment: Jane mated Average Glucose calculated by equation ((28.7xA1C)-46.7) Estimated average glucose (eAG) is a calculated value from Hemoglobin A1C and is labor service representative of the average blood glucose level in the last 2-3 month period. Normal range: less than 114 mg/dL Performed By: #### G FR, BMP, ANEU, CBC, ADIFF, PRO #### [place] [id number] HbA1c (Bld) [Mass fraction] 6.6 % High 4.3-6.4 [facility] Comment on above: Performed By: #### G FR, BMP, ANEU, CBC, ADIFF, PRO #### [address] [address] CBCon 04-09-2024 Erythrocyte distribution width (RBC) [Ratio] 13.0 % Normal 11.5-15.5 [facility] Comment on above: Performed By: #### G FR, BMP, ANEU, CBC, ADIFF, PRO #### [address] [address] Hematocrit (Bld) [Volume fraction] 43.0 % Normal 34.0-46.0 [facility] Comment on above: Performed By: #### G FR, BMP, ANEU, CBC, ADIFF, PRO #### [place] [address] Hgb 14.8 G/dL Normal 12.0-16.0 [facility] Comment on above: Performed By: #### G FR, BMP, ANEU, CBC, ADIFF, PRO #### [place] [address] MCH (RBC) [Entitic mass] 32.0 pg Normal 27.0-33.0 [facility] Comment on above: Performed By: #### G FR, BMP, ANEU, CBC, ADIFF, PRO #### [place] [address] MCHC 34.3 G/dL Normal 32.0-36.0 [facility] Comment on above: Performed By: #### G FR, BMP, ANEU, CBC, ADIFF, PRO #### [place] [address] MCV (RBC) [Entitic vol] 93.3 fL Normal 80.0-99.0 [facility] Comment on above: Performed By: #### G FR, BMP, ANEU, CBC, ADIFF, PRO #### [place] [address] Platelet 219 10 3/mcL Normal 150-450 [facility] Comment on above: Performed By: #### G FR, BMP, ANEU, CBC, ADIFF, PRO #### [place] [address] Platelet mean volume (Bld) [Entitic vol] 8.9 fL Normal 6.6-10.5 [facility] Comment on above: Performed By: #### G FR, BMP, ANEU, CBC, ADIFF, PRO #### [place] [id number] RBC 4.60 10 6/mcL Normal 4.10-5.30 [facility] Comment on above: Performed By: #### G FR, BMP, ANEU, CBC, ADIFF, PRO #### [address] [address] WBC 7.7 10 3/mcL Normal 4.5-10.8 [facility] Comment on above: Performed By: #### G FR, BMP, ANEU, CBC, ADIFF, PRO #### [address] [address] CMPon 04-09-2024 Albumin Level 3.5 G/dL Normal 3.4-4.8 [facility] Comment on above: Performed By: #### G FR, BMP, ANEU, CBC, ADIFF, PRO #### [address] [address] Albumin/Globulin [Mass ratio] 1.0 {ratio} Low 1.1-2.5 [facility] Comment on above: Performed By: #### G FR, BMP, ANEU, CBC, ADIFF, PRO #### [address] [address] ALP [Catalytic activity/Vol] 81 U/L Normal 40-135 [facility] Comment on above: Performed By: #### G FR, BMP, ANEU, CBC, ADIFF, PRO #### [address] [address] ALT [Catalytic activity/Vol] 26 U/L Normal 14-59 [facility] Comment on above: Performed By: #### G FR, BMP, ANEU, CBC, ADIFF, PRO #### [address] [address] AST [Catalytic activity/Vol] 17 U/L Normal 10-40 [facility] Comment on above: Performed By: #### G FR, BMP, ANEU, CBC, ADIFF, PRO #### [address] [address] Bili Total 0.5 mg/dL Normal 0.2-1.0 [facility] Comment on above: Result Comment: Use of this assay is not recommended for patients undergoing treatment with eltrombopag due to the potential for falsely elevated results. Performed By: #### G FR, BMP, ANEU, CBC, ADIFF, PRO #### [place] [address] BUN/Creatinine Ratio 26 ratio Normal 7-27 [facility] Comment on above: Performed By: #### G FR, BMP, ANEU, CBC, ADIFF, PRO #### [place] [address] Calcium [Mass/Vol] 9.2 mg/dL Normal 8.4-10.2 [facility] Comment on above: Performed By: #### G FR, BMP, ANEU, CBC, ADIFF, PRO #### [place] [address] Chloride [Moles/Vol] 104 mmol/L Normal 98-107 [facility] Comment on above: Performed By: #### G FR, BMP, ANEU, CBC, ADIFF, PRO #### [place] [address] CO2 [Moles/Vol] 31 mmol/L Normal 23-31 [facility] Comment on above: Performed By: #### G FR, BMP, ANEU, CBC, ADIFF, PRO #### [place] [address] Creatinine [Mass/Vol] 0.73 mg/dL Normal 0.55-1.02 [facility] Comment on above: Result Comment: Test ing performed on Siemens Dimension EXL analyzer using a modified kinetic [place] technique. Performed By: #### G FR, BMP, ANEU, CBC, ADIFF, PRO #### [place] [address] Electrolyte Balance 7.0 mEq/L Normal 4.0-15.0 [facility] Comment on above: Performed By: #### G FR, BMP, ANEU, CBC, ADIFF, PRO #### [place] [id number] Globulin 3.4 G/dL Normal 1.5-3.8 [facility] Comment on above: Performed By: #### G FR, BMP, ANEU, CBC, ADIFF, PRO #### [address] [address] Glucose [Mass/Vol] 106 mg/dL Normal 80-115 [facility] Comment on above: Performed By: #### G FR, BMP, ANEU, CBC, ADIFF, PRO #### [address] [address] Potassium [Moles/Vol] 3.8 mmol/L Normal 3.5-5.1 [facility] Comment on above: Performed By: #### G FR, BMP, ANEU, CBC, ADIFF, PRO #### [address] [address] Sodium [Moles/Vol] 142 mmol/L Normal 136-145 [facility] Comment on above: Performed By: #### G FR, BMP, ANEU, CBC, ADIFF, PRO #### [address] [address] Total Protein 6.9 G/dL Normal 6.4-8.2 [facility] Comment on above: Performed By: #### G FR, BMP, ANEU, CBC, ADIFF, PRO #### [address] [address] Urea nitrogen [Mass/Vol] 19 mg/dL High 7-18 [facility] Comment on above: Performed By: #### G FR, BMP, ANEU, CBC, ADIFF, PRO #### [address] [address] LABORATORYOrdered By: SYSTEM SYSTEM on 04-09-2024 Albumin BCP dye [Mass/Vol] 3.5 G/dL Normal 3.4 - 4.8 G/dL AO ADM SS Albumin/Globulin [Mass ratio] 1.0 {ratio} Low 1.1 - 2.5 ratio AO ADM SS ALP [Catalytic activity/Vol] 81 U/L Normal 40 - 135 U/L AO ADM SS ALT With P-5'-P [Catalytic activity/Vol] 26 U/L Normal 14 - 59 U/L AO ADM SS AST With P-5'-P [Catalytic activity/Vol] 17 U/L Normal 10 - 40 U/L AO ADM SS Basophils (Bld) [#/Vol] 0.1 103/mcL Normal 0.0 - 0.2 10^3/mcL AO Workflow SS Basophils/100 WBC (Bld) 0.8 % Normal 0.0 - 2.5 % AO Workflow SS Bilirubin [Mass/Vol] 0.5 mg/dL Normal 0.2 - 1 .0 mg/dL AO ADM SS Comment on above: Interpretive Data: U se of this assay is not recommended for patients undergoing treatment with eltrombopag due to the potential for falsely elevated results. Calcium [Mass/Vol] 9.2 mg/dL Normal 8.4 - 10. 2 mg/dL AO ADM SS Chloride [Moles/Vol] 104 mmol/L Normal 98 - 10 7 mmol/L AO ADM SS CO2 [Moles/Vol] 31 mmol/L Normal 23 - 31 mmol/L AO ADM SS Creatinine [Mass/Vol] 0.73 mg/dL Normal 0.55 - 1.02 mg/dL AO ADM SS Comment on above: Interpretive Data: T esting performed on Siemens Dimension EXL analyzer using a modified kinetic [employer] technique. Electrolyte Balance 7.0 mEq/L Normal 4.0 - 15 .0 mEq/L AO ADM SS Eosinophil, Absolute 0.2 103/mcL Normal 0.0 - 0 .7 10^3/mcL AO Workflow SS Eosinophils/100 WBC (Bld) 2.0 % Normal 0.0 - 7.0 % AO Workflow SS Erythrocyte distribution width (RBC) [Ratio] 13.0 % Normal 11.5 - 15.5 % AO Workflow SS Estimated Glomerular Filtration Rate 91 ml/min/1.73sqm Invalid Interpretation Code AO Chemistry S Comment on above: Interpretive Data: Stages of Chronic Kidney Disease (CKD) Stage Description eGFR(ml/min/1.73 sq.m.) CKD 1 Normal kidney function or >=90 normal kindney function with possible kidney damage (ex. Proteinuria) CKD 2 Kidney damage with mild loss 60-89 of kidney function CKD 3a Mild to moderate loss of kidney 45-59 function CKD 3b Moderate to severe loss of 30-44 of kindey function CKD 4 Severe loss of kidney function 15-29 CKD 5 Kidney failure <15 Note: (go live 2024) the eGFR calculation was updated to the 2020 CKD-EPI creatinine equation without a race factor to calculate the eGFR results. Globulin 3.4 G/dL Normal 1.5 - 3.8 G/dL AO ADM SS Glucose [Mass/Vol] 106 mg/dL Normal 80 - 115 mg/dL AO ADM SS Glucose [Mass/Vol] 143 mg/dL Invalid Interpretation Code AO Chemistry S Comment on above: Interpretive Data: E stimated average glucose (eAG) is a calculated value from Hemoglobin A1C and is labor service representative of the average blood glucose level in the last 2-3 month period. Normal range: less than 114 mg/dL HbA1c (Bld) [Mass fraction] 6.6 % High 4.3 - 6.4 % AO ADM SS Hematocrit (Bld) [Volume fraction] 43.0 % Normal 34.0 - 46.0 % AO Workflow SS Hemoglobin (Bld) [Mass/Vol] 14.8 G/dL Normal 12.0 - 16.0 G/dL AO Workflow SS Lymphocytes (Bld) [#/Vol] 3.0 103/mcL Normal 0.9 - 4.3 10^3/mcL AO Workflow SS Lymphocytes/100 WBC (Bld) 38.7 % Normal 20.0 - 40.0 % AO Workflow SS MCH (RBC) [Entitic mass] 32.0 pg Normal 27.0 - 33.0 pg AO Workflow SS MCHC 34.3 G/dL Normal 32.0 - 36.0 G/dL AO Workflow SS MCV (RBC) [Entitic vol] 93.3 fL Normal 80.0 - 99.0 fL AO Workflow SS Monocytes (Bld) [#/Vol] 0.5 103/mcL Normal 0.1 - 1.4 10^3/mcL AO Workflow SS Monocytes/100 WBC (Bld) 6.1 % Normal 2.0 - 13.0 % AO Workflow SS Neutrophils (Bld) [#/Vol] 4.0 103/mcL Normal 2.3 - 8.1 10^3/mcL AO Workflow SS Neutrophils/100 WBC (Bld) 52.4 % Normal 50.0 - 75.0 % AO Workflow SS Platelet mean volume (Bld) [Entitic vol] 8.9 fL Normal 6.6 - 10.5 fL AO Workflow SS Platelets (Bld) [#/Vol] 219 103/mcL Normal 150 - 450 10^3/mcL AO Workflow SS Potassium [Moles/Vol] 3.8 mmol/L Normal 3.5 - 5.1 mmol/L AO ADM SS Protein [Mass/Vol] 6.9 G/dL Normal 6.4 - 8.2 G/dL AO ADM SS RBC (Bld) [#/Vol] 4.60 106/mcL Normal 4.10 - 5.3 0 10^6/mcL AO Workflow SS Sodium [Moles/Vol] 142 mmol/L Normal 136 - 145 mmol/L AO ADM SS TSH Qn 3.10 m[IU]/L Normal 0.36 - 3.74 mcIU/mL AO ADM SS Urea nitrogen [Mass/Vol] 19 mg/dL High 7 - 18 mg/dL AO ADM SS Urea nitrogen/Creatinine [Mass ratio] 26 ratio Normal 7 - 27 ratio AO ADM SS WBC (Bld) [#/Vol] 7.7 103/mcL Normal 4.5 - 10.8 10^3/mcL AO Workflow SS LABORATORYOrdered By: Maddie Luna on 04-09-2024 Cholesterol [Mass/Vol] 127 mg/dL Normal 0 - 200 mg/dL AO ADM SS Comment on above: Interpretive Data: C holesterol Reference Interval: Less than 200 Desirable 200-239 Borderline high risk 240 and above High risk Cholesterol in HDL [Mass/Vol] 46 mg/dL Normal 40 - 60 mg/dL AO ADM SS Cholesterol in LDL [Mass/Vol] 49 mg/dL Normal 0 - 130 mg/dL AO ADM SS Triglyceride [Mass/Vol] 158 mg/dL High 0 - 150 mg/dL AO ADM SS Comment on above: Interpretive Data: T riglyceride Reference Interval: Less than 150 Normal 150-199 Borderline high risk 200-499 High risk 500 or higher Very high risk LIPIDon 04-09-2024 Cholesterol [Mass/Vol] 127 mg/dL Normal 0-200 [facility] Comment on above: Result Comment: Chol esterol Reference Interval: Less than 200 Desirable 200-239 Borderline high risk 240 and above High risk Performed By: #### G FR, BMP, ANEU, CBC, ADIFF, PRO #### [place]ika [place] [address] [place], [place] [address] Cholesterol in HDL [Mass/Vol] 46 mg/dL Normal 40-60 [facility] Comment on above: Performed By: #### G FR, BMP, ANEU, CBC, ADIFF, PRO #### [address] [place], [place] [address] Cholesterol in LDL [Mass/Vol] 49 mg/dL Normal 0-130 [facility] Comment on above: Performed By: #### G FR, BMP, ANEU, CBC, ADIFF, PRO #### [address] [place], [place] [address] Triglyceride [Mass/Vol] 158 mg/dL High 0-150 [facility] Comment on above: Result Comment: Trig lyceride Reference Interval: Less than 150 Normal 150-199 Borderline high risk 200-499 High risk 500 or higher Very high risk Performed By: #### G FR, BMP, ANEU, CBC, ADIFF, PRO #### [address] [place], [place] [address] TSHon 04-09-2024 TSH Qn 3.10 m[IU]/L Normal 0.36-3.74 [facility] Comment on above: Performed By: #### G FR, BMP, ANEU, CBC, ADIFF, PRO #### [address] [address] Orthopedic Visit Reporton Orthopedic Visit Report [facility] [address] [place] [address] OFFICE VISIT Date of Service: 03/29/24 MR#: [id number] Acct: [id number] Name: IDALMIS LION Rep #: [id number] : 1960 Provider: Dr. Taco abdi DO Age/Sex: 63/F Location[place] [facility] Status: Signed with Addenda ADDENDUM by Margret Griffin on 03/29/24 at 1054 Office Procedure Documentation entered by Margret Griffin 03/29/24 10:54: Injections Procedure performed by: Taco Liriano Medication Given: Yes Is this a patient provided medication?: No Additional Details: Obtained consent for injection. Under sterile conditions, injected the patients right knee with 16.8mg/2mL of gelsyn-3. The patient tolerated the injection well without any noted complication. Patient should call our office if redness develops, pain worsens or if they have any concerns. Office Meds Gelsyn-3 16.8 mg/2 mL intra-articular syringe Performing Provider: Taco Liriano DO Performing Location: [facility] Administered by: Taco Liriano DO on 03/29/24 10:52 Dose Route Admin Location Dispensed Lot Number Expiration Date [facility] Man ufacturer 16.8 mg intra-articular right knee 2 mL [id number] 06/16/26 [address]-7 Shake Date cc: * Signed Intake Vital Signs 02/25/24 08:55 Height 5 ft 4 in Weight: 318 lb 6 oz BMI 54.6 Intake Visit Reasons: RIGHT KNEE Chief Complaint: 3rd Gelsyn - Right Knee Allergies dulaglutide (From Trulicity) Allergy (Intermediate, Verified 03/29/24 09:52) Other liraglutide (From Victoza) Allergy (Intermediate, Verified 03/29/24 09:52) Other adhesive Allergy (Verified 03/29/24 09:52) Hives Sulfa (Sulfonamide Antibiotics) Allergy (Verified 03/29/24 09:52) Rash Tetanus Vaccines and Toxoid (Tetanus Vaccines Toxoid) Allergy (Verified 03/29/24 09:52) Swelling promethazine HCl (From Phenergan) Adverse Reaction (Verified 03/29/24 09:52) Vomiting Medications ???Medication ???Instructions ???Recorded ???Confirmed ???Type buspirone 30 mg tablet 30 mg PO BID Anxiety 03/26/1303/20 History citalopram 40 mg tablet 40 mg PO QHS Depression 03/26/13 0 03/29/24 History meclizine 25 mg tablet 25 mg PO 4X/DAY PRN PRN Vertigo 03/29/24 History pregabalin 100 mg capsule (Lyrica) 150 mg PO BID nerve pain 4 03/29/24 History biotin 5 mg capsule 5,000 mcg PO DAILY supplement 04/0303/29/24 History multivitamin,tx-iron-mi nerals 27 1 tab PO DAILY supplement 05/19/14 03/29/24 History mg-0.4 mg tablet (Therems-M) morphine 15 mg tablet,extended 15 mg PO DAILY pain 06/17/1603/29 History release diclofenac sodium 1 % topical gel 0 g topical PRN PRN Pain 11/04/16 03/29/24 History krill oil 500 mg capsule 500 mg PO DAILY supplement 8 03/29/24 History celecoxib 200 mg capsule 200 mg PO DAILY 07/07/17 03/29/24 History rivaroxaban 20 mg tablet (Xarelto) 20 mg PO QHS 07/07/17 03/29/24 H istory hydroxyzine HCl 10 mg tablet 1 - 2 tab PO Q6H PRN PRN Anxiety 0 04/26/19 03/29/24 History metformin 500 mg tablet,extended 1,000 mg PO BID 10/12/19 03/29/24 History release 24hr (osmotic) albuterol 90 mcg/actuation aerosol 90 mcg inhalation PRN PRN SOB 03/29/24 History inhaler albuterol sulfate 2.5 mg/3 mL 2.5 mg inhalation Q4H PRN SOB 04/1703/29/24 History (0.083 %) solution for nebulization exenatide 5 mcg/dose (250 5 mcg subcut BID 06/20/23 03/29/24 History mcg/mL)1.2 mL subcutaneous pen injector (Ching) oxycodone-acetaminophen 7.5 mg-325 1 tab PO BID PRN PRN pain 03/29/24 History mg tablet atenolol 50 mg tablet 25 mg PO QHS Blood pressure 03/29/24 History magnesium oxide 400 mg PO QDAY 02/25/24 03/29/24 H istory Have you fallen in the past year?: No PFSH Medical History Pain Loss of hearing Wears glasses Post-menopausal Arthritis Pulmonary embolism Migraine headache Injury of head and neck Dietary restriction History of IBS Former smoker COPD (chronic obstructive pulmonary disease) On home oxygen therapy BiPAP (biphasic positive airway pressure) dependence Shortness of breath on exertion History of pain when walking History of edema Cardiology follow-up encounter History of echocardiogram History of stress test Pain HTN (hypertension) Anxiety Depression Diabetes Osteoporosis Chronic pain Surgical History Hx of lumbar discectomy Hx of tubal ligation History of tonsillectomy and adenoidectomy Hx of nasal septoplasty Hx of oral surgery History of myringotomy History of hysteroscopy (more content not included)... Normal [facility] Orthopedic Visit Reporton Orthopedic Visit Report [facility] [address] [place] [address] OFFICE VISIT Date of Service: 03/22/24 MR#: [id number] Acct: [id number] Name: IDALMIS LION Rep #: [id number] : 1960 Provider: Dr. Taco abdi, DO Age/Sex: 63/F [place] [facility] Status: Signed Intake Vital Signs 02/25/24 08:55 Height 5 ft 4 in Weight: 318 lb 6 oz BMI 54.6 Intake Visit Reasons: RIGHT KNEE Chief Complaint: 2nd Gelsyn - Right Knee Accompanied by: Self Is patient in pain?: Yes Pain scale (1-10): 8 Allergies dulaglutide (From Trulicity) Allergy (Intermediate, Verified 03/22/24 09:55) Other liraglutide (From Victoza) Allergy (Intermediate, Verified 03/22/24 09:55) Other adhesive Allergy (Verified 03/22/24 09:55) Hives Sulfa (Sulfonamide Antibiotics) Allergy (Verified 03/22/24 09:55) Rash Tetanus Vaccines and Toxoid (Tetanus Vaccines Toxoid) Allergy (Verified 03/22/24 09:55) Swelling promethazine HCl (From Phenergan) Adverse Reaction (Verified 03/22/24 09:55) Vomiting Medications ???Medication ???Instructions ???Recorded ???Confirmed ???Type buspirone 30 mg tablet 30 mg PO BID Anxiety 03/26/1305/11 History citalopram 40 mg tablet 40 mg PO QHS Depression 03/26/13 0 03/22/24 History meclizine 25 mg tablet 25 mg PO 4X/DAY PRN PRN Vertigo 03/22/24 History pregabalin 100 mg capsule (Lyrica) 150 mg PO BID nerve pain 4 03/22/24 History biotin 5 mg capsule 5,000 mcg PO DAILY supplement 04/0303/22/24 History multivitamin,tx-iron-mi nerals 27 1 tab PO DAILY supplement 05/19/14 03/22/24 History mg-0.4 mg tablet (Therems-M) morphine 15 mg tablet,extended 15 mg PO DAILY pain 06/17/1603/22 History release diclofenac sodium 1 % topical gel 0 g topical PRN PRN Pain 11/04/16 03/22/24 History krill oil 500 mg capsule 500 mg PO DAILY supplement 8 03/22/24 History celecoxib 200 mg capsule 200 mg PO DAILY 07/07/17 03/22/24 History rivaroxaban 20 mg tablet (Xarelto) 20 mg PO QHS 07/07/17 03/22/24 H istory hydroxyzine HCl 10 mg tablet 1 - 2 tab PO Q6H PRN PRN Anxiety 0 04/26/19 03/22/24 History metformin 500 mg tablet,extended 1,000 mg PO BID 10/12/19 03/22/24 History release 24hr (osmotic) albuterol 90 mcg/actuation aerosol 90 mcg inhalation PRN PRN SOB 03/22/24 History inhaler albuterol sulfate 2.5 mg/3 mL 2.5 mg inhalation Q4H PRN SOB 04/1703/22/24 History (0.083 %) solution for nebulization exenatide 5 mcg/dose (250 5 mcg subcut BID 06/20/23 03/22/24 History mcg/mL)1.2 mL subcutaneous pen injector (Ching) oxycodone-acetaminophen 7.5 mg-325 1 tab PO BID PRN PRN pain 03/22/24 History mg tablet atenolol 50 mg tablet 25 mg PO QHS Blood pressure 03/22/24 History magnesium oxide 400 mg PO QDAY 02/25/24 03/22/24 H istory Have you fallen in the past year?: No PFSH Medical History Pain Loss of hearing Wears glasses Post-menopausal Arthritis Pulmonary embolism Migraine headache Injury of head and neck Dietary restriction History of IBS Former smoker COPD (chronic obstructive pulmonary disease) On home oxygen therapy BiPAP (biphasic positive airway pressure) dependence Shortness of breath on exertion History of pain when walking History of edema Cardiology follow-up encounter History of echocardiogram History of stress test Pain HTN (hypertension) Anxiety Depression Diabetes Osteoporosis Chronic pain Surgical History Hx of lumbar discectomy Hx of tubal ligation History of tonsillectomy and adenoidectomy Hx of nasal septoplasty Hx of oral surgery History of myringotomy History of hysteroscopy Social History Smoking Status: Former smoker HPI RIGHT KNEE Details: This documentation accurately reflects the service provided and the decisions made by me, Dr. Taco Liriano, DO 03/22/24 0756. Part of today???s visit was documented by Nikky Rincon ATC, acting as scribe. IDALMIS LION is a 63 year old F here today for right knee 2nd Gelsyn-3 injection as well as a steroid injection. Patient rates her knee pain a 8/10 today. Patient denies any reactions or concerns following the first injection. Ortho Exam General General: Yes no acute distress and Yes well groomed Neurologic: Yes alert and Yes oriented x3 Psychologic: Yes reasonable and appropriate Right Knee Skin/Wound: Yes CDI, No erythema, No ecchymosis and No swelling Knee ROM: No ROM-Extension -20 to 0 (-4) and No ROM-Flexion 0-140 (90) Examination: Yes Med jt line tenderness, Yes Lat jt line tenderness, No Crepitus, Yes Pain with f (more content not included)... Normal [facility] Orthopedic Visit Reporton Orthopedic Visit Report [facility] [address] [place] [address] [address] [place] [address] OFFICE VISIT Date of Service: 03/15/24 MR#: [id number] Acct: [id number] Name: IDALMIS LION Rep #: [id number] : 1960 Provider: Dr. Taco abdi, DO Age/Sex: 63/F Location: [facility] Status: Signed Intake Vital Signs 02/25/24 08:55 Height 5 ft 4 in Weight: 318 lb 6 oz BMI 54.6 Intake Visit Reasons: RIGHT KNEE Chief Complaint: 1st Gelsyn - Right Knee Accompanied by: Self Is patient in pain?: Yes Pain scale (1-10): 8 Allergies dulaglutide (From Trulicity) Allergy (Intermediate, Verified 03/15/24 09:41) Other liraglutide (From Victoza) Allergy (Intermediate, Verified 03/15/24 09:41) Other adhesive Allergy (Verified 03/15/24 09:41) Hives Sulfa (Sulfonamide Antibiotics) Allergy (Verified 03/15/24 09:41) Rash Tetanus Vaccines and Toxoid (Tetanus Vaccines Toxoid) Allergy (Verified 03/15/24 09:41) Swelling promethazine HCl (From Phenergan) Adverse Reaction (Verified 03/15/24 09:41) Vomiting Medications ???Medication ???Instructions ???Recorded ???Confirmed ???Type buspirone 30 mg tablet 30 mg PO BID Anxiety 03/26/13 03/15/24 History citalopram 40 mg tablet 40 mg PO QHS Depression 03/26/13 03/15/24 History meclizine 25 mg tablet 25 mg PO 4X/DAY PRN PRN Vertigo 03/26/13 03/15/24 History pregabalin 100 mg capsule (Lyrica) 150 mg PO BID nerve pain 03/26/13 03/15/24 History biotin 5 mg capsule 5,000 mcg PO DAILY supplement 05/19/14 03/15/24 History multivitamin,tx-iron-mi nerals 27 1 tab PO DAILY supplement 05/19/14 03/15/24 History mg-0.4 mg tablet (Therems-M) morphine 15 mg tablet,extended 15 mg PO DAILY pain 06/17/16 03/15/24 History release diclofenac sodium 1 % topical gel 0 g topical PRN PRN Pain 11/04/16 03/15/24 History krill oil 500 mg capsule 500 mg PO DAILY supplement 05/29/17 03/15/24 History celecoxib 200 mg capsule 200 mg PO DAILY 07/07/17 03/15/24 History rivaroxaban 20 mg tablet (Xarelto) 20 mg PO QHS 07/07/17 03/15/24 History hydroxyzine HCl 10 mg tablet 1 - 2 tab PO Q6H PRN PRN Anxiety 04/26/19 03/15/24 History metformin 500 mg tablet,extended 1,000 mg PO BID 10/12/19 03/15/24 History release 24hr (osmotic) albuterol 90 mcg/actuation aerosol 90 mcg inhalation PRN PRN SOB 05/03/22 03/15/24 History inhaler albuterol sulfate 2.5 mg/3 mL 2.5 mg inhalation Q4H PRN SOB 05/03/22 03/15/24 History (0.083 %) solution for nebulization exenatide 5 mcg/dose (250 5 mcg subcut BID 06/20/23 03/15/24 History mcg/mL)1.2 mL subcutaneous pen injector ([employer]) oxycodone-acetaminophen 7.5 mg-325 1 tab PO BID PRN PRN pain 06/20/23 03/15/24 History mg tablet atenolol 50 mg tablet 25 mg PO QHS Blood pressure 02/25/24 03/15/24 History magnesium oxide 400 mg PO QDAY 02/25/24 03/15/24 History Have you fallen in the past year?: No PFSH Medical History Pain Loss of hearing Wears glasses Post-menopausal Arthritis Pulmonary embolism Migraine headache Injury of head and neck Dietary restriction History of IBS Former smoker COPD (chronic obstructive pulmonary disease) On home oxygen therapy BiPAP (biphasic positive airway pressure) dependence Shortness of breath on exertion History of pain when walking History of edema Cardiology follow-up encounter History of echocardiogram History of stress test Pain HTN (hypertension) Anxiety Depression Diabetes Osteoporosis Chronic pain Surgical History Hx of lumbar discectomy Hx of tubal ligation History of tonsillectomy and adenoidectomy Hx of nasal septoplasty Hx of oral surgery History of myringotomy History of hysteroscopy Social History Smoking Status: Former smoker HPI RIGHT KNEE Details: This documentation accurately reflects the service provided and the decisions made by me, Dr. Taco Liriano DO 03/15/24 0754. Part of today???s visit was documented by Nikky Rincon ATC, acting as scribe. IDALMIS LION is a 63 year old F here today for right knee 1st Gelsyn 3 injection. Patient states the next visit she would be able to get a steroid injection and she is interested in that since her last one was 3 months prior to March 20, 2024. Ortho Exam General General: Yes no acute distress and Yes well groomed Neurologic: Yes alert and Yes oriented x3 Psychologic: Yes reasonable and appropriate Right Knee Skin/Wound: Yes CDI, No erythema, No ecchymosis and No swelling Knee ROM: No ROM-Extension -20 to 0 (-4) and No ROM-Flexion 0-140 (90) Examination: Yes Med jt line tenderness, Yes Lat jt line tenderness, No Crepitus, Yes Pain with flexion and Yes Pain with extention (more content not included)... Normal [facility] Orthopedic Visit Reporton Orthopedic Visit Report [facility] [address] [place] [address] OFFICE VISIT Date of Service: 02/25/24 MR#: [id number] Acct: [id number] Name: IDALMIS LION Rep #: [id number] : 1960 Provider: Dr. Taco abdi DO Age/Sex: 63/F [place] [facility] Status: Signed Intake Vital Signs 09/22/23 07:51 02/23/24 11:13 02/25/24 08:55 Height 5 ft 4 in 5 ft 4 in 5 ft 4 in Weight: 318 lb 6 oz BMI 54.6 Intake Visit Reasons: RIGHT KNEE Chief Complaint: Right Knee Pain Accompanied by: Self Is patient in pain?: Yes Pain scale (1-10): 6 Allergies dulaglutide (From Trulicity) Allergy (Intermediate, Verified 02/25/24 08:55) Other liraglutide (From Victoza) Allergy (Intermediate, Verified 02/25/24 08:55) Other adhesive Allergy (Verified 02/25/24 08:55) Hives Sulfa (Sulfonamide Antibiotics) Allergy (Verified 02/25/24 08:55) Rash Tetanus Vaccines and Toxoid (Tetanus Vaccines Toxoid) Allergy (Verified 02/25/24 08:55) Swelling promethazine HCl (From Phenergan) Adverse Reaction (Verified 02/25/24 08:55) Vomiting Medications ???Medication ???Instructions ???Recorded ???Confirmed ???Type buspirone 30 mg tablet 30 mg PO BID Anxiety 03/26/13 02/25/24 History citalopram 40 mg tablet 40 mg PO QHS Depression 03/26/13 02/25/24 History meclizine 25 mg tablet 25 mg PO 4X/DAY PRN PRN Vertigo 03/26/13 02/25/24 History pregabalin 100 mg capsule (Lyrica) 150 mg PO BID nerve pain 03/26/13 02/25/24 History biotin 5 mg capsule 5,000 mcg PO DAILY supplement 05/19/14 02/25/24 History multivitamin,tx-iron-mi nerals 27 1 tab PO DAILY supplement 05/19/14 02/25/24 History mg-0.4 mg tablet (Therems-M) morphine 15 mg tablet,extended 15 mg PO DAILY pain 06/17/16 02/25/24 History release diclofenac sodium 1 % topical gel 0 g topical PRN PRN Pain 11/04/16 02/25/24 History krill oil 500 mg capsule 500 mg PO DAILY supplement 05/29/17 02/25/24 History celecoxib 200 mg capsule 200 mg PO DAILY 07/07/17 02/25/24 History rivaroxaban 20 mg tablet (Xarelto) 20 mg PO QHS 07/07/17 02/25/24 History hydroxyzine HCl 10 mg tablet 1 - 2 tab PO Q6H PRN PRN Anxiety 04/26/19 02/25/24 History metformin 500 mg tablet,extended 1,000 mg PO BID 10/12/19 02/25/24 History release 24hr (osmotic) albuterol 90 mcg/actuation aerosol 90 mcg inhalation PRN PRN SOB 05/03/22 02/25/24 History inhaler albuterol sulfate 2.5 mg/3 mL 2.5 mg inhalation Q4H PRN SOB 05/03/22 02/25/24 History (0.083 %) solution for nebulization exenatide 5 mcg/dose (250 5 mcg subcut BID 06/20/23 02/25/24 History mcg/mL)1.2 mL subcutaneous pen injector ([employer]) oxycodone-acetaminophen 7.5 mg-325 1 tab PO BID PRN PRN pain 06/20/23 02/25/24 History mg tablet atenolol 50 mg tablet 25 mg PO QHS Blood pressure 02/25/24 02/25/24 History magnesium oxide 400 mg PO QDAY 02/25/24 02/25/24 History Have you fallen in the past year?: No PFSH Medical History Pain Loss of hearing Wears glasses Post-menopausal Arthritis Pulmonary embolism Migraine headache Injury of head and neck Dietary restriction History of IBS Former smoker COPD (chronic obstructive pulmonary disease) On home oxygen therapy BiPAP (biphasic positive airway pressure) dependence Shortness of breath on exertion History of pain when walking History of edema Cardiology follow-up encounter History of echocardiogram History of stress test Pain HTN (hypertension) Anxiety Depression Diabetes Osteoporosis Chronic pain Surgical History Hx of lumbar discectomy Hx of tubal ligation History of tonsillectomy and adenoidectomy Hx of nasal septoplasty Hx of oral surgery History of myringotomy History of hysteroscopy Social History Smoking Status: Former smoker HPI RIGHT KNEE Details: This documentation accurately reflects the service provided and the decisions made by me, Dr. Taco Liriano, DO 02/25/24 0802. Part of today???s visit was documented by Nikky Rincon ATC, acting as scribe. IDALMIS LION is a 63 year old F with medical comorbidities significant for but not limited to morbid obesity BMI 54.6 history of pulmonary emboli, hypertension, anxiety and depression, spondylosis with myelopathy, diabetes, narcotic use, Xarelto here as a referral from [facility] for potential viscosupplementation of her right knee. has been bothering her for quite awhile and she states it is gradually getting worse and she is bone on bone now. Patient states she has been getting steroid injections at [facility] and with her PCP for about a year now. Patient states the last steroid injection would have been given the (more content not included)... Normal [facility] Bedside Glucoseon 02-23-2024 FINGERSTICK GLU 151 mg/dL High 74-106 [facility] Comment on above: Result Comment: [facility] REYES OF PATIENT CARE PER NURSING PROTOCOL Performed By: #### L [id number] ####[facility] [id number] [place], [place], [address] [facility] for Spine Inj on 02-23-2024 Fluor [facility] Spine Inj [facility] Imaging Services [address] [place], [place] [address] [employer] [facility] [facility] Spine Inj MR#: [id number] Acct: [id number] Name: IDALMIS LION Rep #: [id number] : 1960 F 63 From: Jaziel brar MD PCP: Dr. Adrián Sosa DO Status: [facility] Study: Fluor Guidance for Spine Inj Date of Exam: 08/11 Exam# [id number] Ordering Dr: [place] [id number] PROCEDURE: Caudal block. DATE OF EXAMINATION: February 23, 2024. INDICATION: Female, 63 years old. Chronic low back pain. FLUOROSCOPY TIME (if supplied): (8 seconds) minutes/seconds. 10.6 mGy. One image was submitted. RAD/Fluor Guidance for Spine Inj IMPRESSION: Fluoroscopic services provided for caudal block. Electronically Signed: Jaziel Carlos MD at 12:05 EST , CC: Dr. Adrián Sosa DO; Dr. Coy Lai MD Chief Relay Tester: Signed [facility] MR/POSTOP.ANEon 02-23-2024 MR/POSTOP.[facility] Medical Records Department [address] [place] [address] Anesthesia Postop Eval I 02/23/24 1407 MR#: [id number] Acct: [id number] Name: IDALMIS LION Rep #: [id number] : 1960 63 From: Reji Scanlon CRNA PCP: Dr. Adrián Sosa, DO Status:[facility] Y Race: C Location: [facility] Anesthesia: Postop Eval I Current Vital Signs Temperature: 99.5 F Pulse Rate: 69 Blood Pressure: 152/82 Respiratory Rate: 16 Pulse Ox: 93 Oxygen Delivery Method: Room Air Assessment Airway patent: Yes Spontaneous unlabored respirations: Yes Mental status: Awake and Calm nausea: No Vomiting: No Anesthesia Complication: No Fluid Hydration Crystalloid volume administer (ml): 30 Total IV fluid infused: 30 Progress Note Anesthesia document: Postop Eval 1 completed: Yes 02/23/24 1408 Date Reji Scanlon CRNA Cosigner Signature: Date CC: Signed [facility] MR/[id number] 02-23-2024 MR/POSTOPAN2 [facility] Medical Records Department [address] [facility] [place] [address] Anesthesia Postop Eval II 02/23/24 1416 MR#: [id number] Acct: [id number] Name: IDALMIS LION Rep #: [id number] : 1960 63 From: Celio Norman MD PCP: Dr. Adrián Sosa, DO Status:[facility] Y Race: C Location: [facility] Anesthesia Postop Eval I Sum Postop Eval Completion status Anesthesia document: Postop Eval 1 completed: Yes Anesthesia Postop Eval I Summary Anesthesia Postop Eval I Summary: Anesthesia Postop Eval I: Assessment Summary Airway patent Yes 02/23/24 14:08 SAND [email or web address].JBLOU Spontaneous unlabored Yes 02/23/24 14:08 SAND ANALYST.JBLOU respirations Mental status Awake,Calm 02/23/24 14:08 SAND ANALYST.JBLOU nausea No 02/23/24 14:08 SAND ANALYST.JBLOU Vomiting No 02/23/24 14:08 SAND ANALYST.JBLOU Anesthesia Postop Eval I: Fluid Summary Crystalloid volume administer 30 02/23/24 14:08 SAND ANALYST.JBLOU (ml) Colloids volume administered ( ml) Blood Product volume administered (ml) Total IV fluid infused 30 02/23/24 14:08 SAND ANALYST.JBLOU Anesthesia Postop Eval I: Summary Notes Anesthesia Complication No 02/23/24 14:08 SAND ANALYST.JBLOU Anesthesia Complication Comment: Post-operative progress note Anesthesia: Postop Eval II Evaluation Mental status: Awake and Calm Pain Level: 1 nausea: No Vomiting: No Complications Anesthesia Complication: No 02/23/24 1417 Date Celio Norman MD Cosigner Signature: Date CC: Signed Normal [facility] Operative Reporton 5 Operative Report [facility] Medical Records Department [address] [place] [address] Operative Report 02/23/24 1154 MR#: [id number] Acct: [id number] Name: IDALMIS LION Faye Rep #: [id number] : 1960 63 From: Coy Lai MD PCP: Dr. Adrián Sosa, DO Status:[facility] Location: [place] [address] Operative Report (Standard) Operative Information Date of Procedure: 02/23/24 Pre-Operative Diagnosis: 1 Post-Operative Diagnosis: 1 Surgery/Procedure Performed: 1 radio program checker: No Type of Anesthesia: MAC and Topical Anesth RN Documented Start/Stop Times: Operation Date: 02/23/24 12:20 Case Time Into Pre-Op 02/23/24 11:02 Anesthesia Start 02/23/24 11:42 Into Room 02/23/24 11:42 Procedure Start 02/23/24 11:51 Procedure End 02/23/24 11:52 Procedure Start Time: 11:54 Procedure Stop Time: 11:54 Select all DRAINS/GRAFTS/IMPLANTS that apply: None Estimated Blood Loss: 0 Specimen collected: No Description of surgery: Pre-Operative Diagnosis: Lumbosacral radiculopathy, lumbosacral degenerative disc disease, lumbosacral spinal stenosis Post-Operative Diagnosis: Lumbosacral radiculopathy, lumbosacral degenerative disc disease, lumbosacral spinal stenosis Surgery/Procedure Performed:: Diagnostic/therapeutic caudal epidural steroid injection under fluoroscopic guidance Type of Anesthesia: MAC Estimated Blood Loss (mL): Minimal Description of Procedure: DESCRIPTION OF PROCEDURE: History and physical of today was reviewed. Risks and benefits of the procedure were explained. The patient understood and agreed to proceed. Informed consent was obtained. IV inserted per routine protocol. The patient was taken to the operating room and placed in the prone position with a pillow positioned underneath the abdomen. The lower back and tailbone area was prepped and draped in a sterile fashion using iodine x3. Under fluoroscopy guidance on a lateral view, the caudal space was identified. The skin and subcutaneous tissue was anesthetized with approximately 3 mL of 1% lidocaine using a 25-gauge regular needle. Under direct visualization with fluoroscopy, using a 22-gauge 3-1/2-inch spinal needle, the needle was advanced via the skin through the sacral hiatus. The tip of the needle was passed through the sacrococcygeal ligament and advanced to approximately S4 area. After negative aspiration of blood or CSF, a total of 3 mL of contrast was injected to confirm correct placement of the needle as well as cephalad spread. The spread was followed to approximately L5 area. After confirmation on AP as well as lateral view and repeated negative aspiration, a total of 15 mL of preservative-free 0.125% Marcaine with 80 mg of Depo-Medrol was injected easily. The needle was then removed intact. The patient experienced no sign or symptoms of intrathecal or intravascular injection. The patient experienced no paresthesia. The procedure was completed without any apparent difficulty or any complications. The patient appeared to tolerate it well. ASSESSMENT AND PLAN: This is a 63-year-old female with lumbosacral radiculopathy, lumbosacral degenerative disc disease, lumbosacral spinal stenosis status post diagnostic/therapeutic caudal epidural steroid injection, patient will continue her current medications, patient will follow in approximately 2 weeks for reevaluation. Surgical Findings: 0 Complications Complications: No Admit VTE Documentation VTE Present on Admission: No VTE Mechan Device Prophylaxis: None VTE Pharm Prophylaxis ordered?: No 02/23/24 9452 Cosigner Signature (if applicable): CC: Dr. Adrián Sosa DO; Dr. Coy Lai MD Signed [facility] .GFRon 07-24-2023 GFR Non- 75 ml/min/1.73sqm [facility] ([place]) Comment on above: Result Comment: GFR Population mean for , [...] 15 mL/min/1.73 square meters Performed By: #### A 1C, LIPID, ADIFF, TSH, ANEU, CBC, GFR, CMP #### [place] [address] [place], [place] [address] #### HCV1 #### [address] [address] GFR 91 ml/min/1.73sqm [facility] ([place]) Comment on above: Result Comment: GFR Population mean for , [...] 15 mL/min/1.73 square meters Performed By: #### A 1C, LIPID, ADIFF, TSH, ANEU, CBC, GFR, CMP #### [address] [address] #### HCV1 #### [address] [address] A1Con 07-24-2023 HbA1c (Bld) [Mass fraction] 6.4 % Normal 4.3-6.4 [facility] ([place]) Comment on above: Performed By: #### A 1C, LIPID, ADIFF, TSH, ANEU, CBC, GFR, CMP #### [address] [address] #### HCV1 #### [address] [address] [facility] Albumin Level 3.7 G/dL Normal 3.4-4.8 [facility] ([place]) Comment on above: Performed By: #### A 1C, LIPID, ADIFF, TSH, ANEU, CBC, GFR, CMP #### [address] [address] #### HCV1 #### [address] [address] Albumin/Globulin [Mass ratio] 1.2 {ratio} Normal 1.1-2.5 [facility] ([place]) Comment on above: Performed By: #### A 1C, LIPID, ADIFF, TSH, ANEU, CBC, GFR, CMP #### [address] [address] #### HCV1 #### [address] [address] ALP [Catalytic activity/Vol] 76 U/L Normal 40-135 [facility] ([place]) Comment on above: Performed By: #### A 1C, LIPID, ADIFF, TSH, ANEU, CBC, GFR, CMP #### [address] [address] #### HCV1 #### [address] [address] ALT [Catalytic activity/Vol] 44 U/L Normal 14-59 [facility] ([place]) Comment on above: Performed By: #### A 1C, LIPID, ADIFF, TSH, ANEU, CBC, GFR, CMP #### [address] [address] #### HCV1 #### [place] [address] AST [Catalytic activity/Vol] 18 U/L Normal 10-40 [facility] ([place]) Comment on above: Performed By: #### A 1C, LIPID, ADIFF, TSH, ANEU, CBC, GFR, CMP #### [place] [address] #### HCV1 #### [address] [address] Bili Total 0.6 mg/dL Normal 0.2-1.0 [facility] ([place]) Comment on above: Result Comment: Use of this assay is not recommended for patients undergoing treatment with eltrombopag due to the potential for falsely elevated results. Performed By: #### A 1C, LIPID, ADIFF, TSH, ANEU, CBC, GFR, CMP #### [address] [address] #### HCV1 #### [address] [address] BUN/Creatinine Ratio 23 ratio Normal 7-27 [facility] ([place]) Comment on above: Performed By: #### A 1C, LIPID, ADIFF, TSH, ANEU, CBC, GFR, CMP #### [address] [address] #### HCV1 #### [place] [address] Calcium [Mass/Vol] 8.8 mg/dL Normal 8.4-10.2 [facility] ([place]) Comment on above: Performed By: #### A 1C, LIPID, ADIFF, TSH, ANEU, CBC, GFR, CMP #### [address] [address] #### HCV1 #### [place] [address] Chloride [Moles/Vol] 104 mmol/L Normal 98-107 [facility] ([place]) Comment on above: Performed By: #### A 1C, LIPID, ADIFF, TSH, ANEU, CBC, GFR, CMP #### [place] [address] #### HCV1 #### [place] [address] CO2 [Moles/Vol] 35 mmol/L High 23-31 [facility] ([place]) Comment on above: Performed By: #### A 1C, LIPID, ADIFF, TSH, ANEU, CBC, GFR, CMP #### [place] [address] #### HCV1 #### [place] [address] Creatinine [Mass/Vol] 0.77 mg/dL Normal 0.55-1.02 [facility] ([place]) Comment on above: Performed By: #### A 1C, LIPID, ADIFF, TSH, ANEU, CBC, GFR, CMP #### [place] [address] #### HCV1 #### [place] [address] Electrolyte Balance 5.0 mEq/L Normal 4.0-15.0 [facility] ([place]) Comment on above: Performed By: #### A 1C, LIPID, ADIFF, TSH, ANEU, CBC, GFR, CMP #### [place] [address] #### HCV1 #### [place] [address] Globulin 3.1 G/dL Normal [facility] ([place]) Comment on above: Performed By: #### A 1C, LIPID, ADIFF, TSH, ANEU, CBC, GFR, CMP #### [address] [address] #### HCV1 #### [address] [address] Glucose [Mass/Vol] 98 mg/dL Normal 80-115 [facility] ([place] Comment on above: Performed By: #### A 1C, LIPID, ADIFF, TSH, ANEU, CBC, GFR, CMP #### [address] [address] #### HCV1 #### [address] [address] Potassium [Moles/Vol] 4.7 mmol/L Normal 3.5-5.1 [facility] ([place]) Comment on above: Performed By: #### A 1C, LIPID, ADIFF, TSH, ANEU, CBC, GFR, CMP #### [address] [address] #### HCV1 #### [address] [address] Sodium [Moles/Vol] 144 mmol/L Normal 136-145 [facility] ([place] Comment on above: Performed By: #### A 1C, LIPID, ADIFF, TSH, ANEU, CBC, GFR, CMP #### [address] [address] #### HCV1 #### [address] [address] Total Protein 6.8 G/dL Normal 6.4-8.2 [facility] ([place]) Comment on above: Performed By: #### A 1C, LIPID, ADIFF, TSH, ANEU, CBC, GFR, CMP #### [address] [address] #### HCV1 #### [address] [address] Urea nitrogen [Mass/Vol] 18 mg/dL Normal 7-18 [facility] ([place]) Comment on above: Performed By: #### A 1C, LIPID, ADIFF, TSH, ANEU, CBC, GFR, CMP #### [place] [address] [place], [place] [address] #### HCV1 #### [facility] [place] [address] [place] [address] LABORATORYOrdered By: SYSTEM SYSTEM on 07-24-2023 Albumin BCP dye [Mass/Vol] 3.7 G/dL Normal 3.4 - 4.8 G/dL AO ADM SS Albumin/Globulin [Mass ratio] 1.2 {ratio} Normal 1.1 - 2.5 ratio AO ADM SS ALP [Catalytic activity/Vol] 76 U/L Normal 40 - 135 U/L AO ADM SS ALT With P-5'-P [Catalytic activity/Vol] 44 U/L Normal 14 - 59 U/L AO ADM SS AST With P-5'-P [Catalytic activity/Vol] 18 U/L Normal 10 - 40 U/L AO ADM SS Bilirubin [Mass/Vol] 0.6 mg/dL Normal 0.2 - 1 .0 mg/dL AO ADM SS Comment on above: Interpretive Data: U se of this assay is not recommended for patients undergoing treatment with eltrombopag due to the potential for falsely elevated results. Calcium [Mass/Vol] 8.8 mg/dL Normal 8.4 - 10. 2 mg/dL AO ADM SS Chloride [Moles/Vol] 104 mmol/L Normal 98 - 10 7 mmol/L AO ADM SS CO2 [Moles/Vol] 35 mmol/L High 23 - 31 mmol/L AO ADM SS Creatinine [Mass/Vol] 0.77 mg/dL Normal 0.55 - 1.02 mg/dL AO ADM SS Electrolyte Balance 5.0 mEq/L Normal 4.0 - 15 .0 mEq/L AO ADM SS GFR/1.73 sq M.predicted among blacks MDRD (S/P/Bld) [Vol rate/Area] 91 ml/min/1.73sqm Invalid Interpretation Code AO Chemistry S Comment on above: Interpretive Data: GFR Population mean for , Non- Americans Ages 20-29 = 116 mL/min/1.73 sq.m. Ages 30-39 = 107 mL/min/1.73 sq.m. Ages 40-49 = 99 mL/min/1.73 sq.m. Ages 50-59 = 93 mL/min/1.73 sq.m. Ages 60-69 = 85 mL/min/1.73 sq.m. Ages 70+ = 75 mL/min/1.73 sq.m. Chronic Kidney Disease: Less than 60 mL/min/1.73 square meters End Stage Renal Disease: Less than 15 mL/min/1.73 square meters GFR/1.73 sq M.predicted among non-blacks MDRD (S/P/Bld) [Vol rate/Area] 75 ml/min/1.73sqm Invalid Interpretation Code AO Chemistry S Comment on above: Interpretive Data: GFR Population mean for , Non- Americans Ages 20-29 = 116 mL/min/1.73 sq.m. Ages 30-39 = 107 mL/min/1.73 sq.m. Ages 40-49 = 99 mL/min/1.73 sq.m. Ages 50-59 = 93 mL/min/1.73 sq.m. Ages 60-69 = 85 mL/min/1.73 sq.m. Ages 70+ = 75 mL/min/1.73 sq.m. Chronic Kidney Disease: Less than 60 mL/min/1.73 square meters End Stage Renal Disease: Less than 15 mL/min/1.73 square meters Globulin 3.1 G/dL Invalid Interpretation Code AO ADM SS Glucose [Mass/Vol] 98 mg/dL Normal 80 - 115 mg/dL AO ADM SS HbA1c (Bld) [Mass fraction] 6.4 % Normal 4.3 - 6.4 % AO ADM SS Potassium [Moles/Vol] 4.7 mmol/L Normal 3.5 - 5.1 mmol/L AO ADM SS Protein [Mass/Vol] 6.8 G/dL Normal 6.4 - 8.2 G/dL AO ADM SS Sodium [Moles/Vol] 144 mmol/L Normal 136 - 145 mmol/L AO ADM SS Urea nitrogen [Mass/Vol] 18 mg/dL Normal 7 - 18 mg/dL AO ADM SS Urea nitrogen/Creatinine [Mass ratio] 23 ratio Normal 7 - 27 ratio AO ADM SS LABORATORYOrdered By: Maddie Luna on 07-24-2023 Cholesterol [Mass/Vol] 127 mg/dL Normal 0 - 200 mg/dL AO ADM SS Comment on above: Interpretive Data: C holesterol Reference Interval: Less than 200 Desirable 200-239 Borderline high risk 240 and above High risk Cholesterol in HDL [Mass/Vol] 45 mg/dL Normal 40 - 60 mg/dL AO ADM SS Cholesterol in LDL [Mass/Vol] 62 mg/dL Normal 0 - 130 mg/dL AO ADM SS Triglyceride [Mass/Vol] 100 mg/dL Normal 0 - 150 mg/dL AO ADM SS Comment on above: Interpretive Data: T riglyceride Reference Interval: Less than 150 Normal 150-199 Borderline high risk 200-499 High risk 500 or higher Very high risk LIPIDon 07-24-2023 Cholesterol [Mass/Vol] 127 mg/dL Normal 0-200 [facility] ([place]) Comment on above: Result Comment: Chol esterol Reference Interval: Less than 200 Desirable 200-239 Borderline high risk 240 and above High risk Performed By: #### A 1C, LIPID, ADIFF, TSH, ANEU, CBC, GFR, CMP #### [address] [address] #### HCV1 #### [address] [address] Cholesterol in HDL [Mass/Vol] 45 mg/dL Normal 40-60 [facility] ([place]) Comment on above: Performed By: #### A 1C, LIPID, ADIFF, TSH, ANEU, CBC, GFR, CMP #### [address] [address] #### HCV1 #### [address] [address] Cholesterol in LDL [Mass/Vol] 62 mg/dL Normal 0-130 [facility] ([place]) Comment on above: Performed By: #### A 1C, LIPID, ADIFF, TSH, ANEU, CBC, GFR, CMP #### [address] [address] #### HCV1 #### [address] [address] Triglyceride [Mass/Vol] 100 mg/dL Normal 0-150 [facility] ([place]) Comment on above: Result Comment: Trig lyceride Reference Interval: Less than 150 Normal 150-199 Borderline high risk 200-499 High risk 500 or higher Very high risk Performed By: #### A 1C, LIPID, ADIFF, TSH, ANEU, CBC, GFR, CMP #### [place] [address] [place], [place] [address] #### HCV1 #### [place] [address] Thin prep Papanicolaou smear with manual screeningOrdered By: Coy Lai on 06-23-2023 Thin prep Papanicolaou smear with manual screening 135 mg/dL 74-106 [facility] Comment on above: MANAGEMENT OF PATIEN T CARE PER NURSING PROTOCOL LABORATORYOrdered By: Lexy Howard on 01-24-2023 Albumin DL <= 20 mg/L (U) [Mass/Vol] 3451 mcg/dL Invalid Interpretation Code AO ADM SS Albumin/Creatinine DL <= 20 mg/L (U) [Mass ratio] 37 mcg/mg High 0 - 30 mcg/mg AO ADM SS Creatinine (U) [Mass/Vol] 94.5 mg/dL Normal 28.0 - 117.0 mg/dL AO ADM SS MALBRon 01-24-2023 U Creatinine 94.5 mg/dL Normal 28.0-117.0 [facility] ([place]) Comment on above: Performed By: #### M ALBR #### [place] [address] [address] U Microalb 3451 mcg/dL Normal [facility] ([place]) Comment on above: Performed By: #### M ALBR #### [place] [address] [place], [place] [address] U Ratio Alb/Cre 37 mcg/mg High 0-30 [facility] ([place]) Comment on above: Performed By: #### M ALBR #### [place] [address] [place], [place] [address] ARTERIAL BLOOD GASESon 12-24 Base excess Calc (Bld) [Moles/Vol] 3 mmol/L High 0-2 [facility] Comment on above: Order Comment: Speci men Type: ARTERIAL BLOOD SPECIMEN Ordering Facility: [facility] Address: [address] [place] [address] Performed By: #### A LLBG #### [facility] CLIA [id number] [address] [place] [address] [place] Calcium.ionized (Bld) [Mass/Vol] 1.17 mmol/L Normal 1.08-1.30 [facility] Comment on above: Order Comment: Speci men Type: ARTERIAL BLOOD SPECIMEN Ordering Facility: [facility] Address: [address] [place] [address] Performed By: #### A LLBG #### [facility] CLIA [id number] [address] [place] [address] [place] Calcium.ionized adjusted to pH 7.4 (BldA) [Moles/Vol] 1.20 mmol/L Normal 1.08-1.30 [facility] Comment on above: Order Comment: Speci men Type: ARTERIAL BLOOD SPECIMEN Ordering Facility: [facility] Address: [address] [place] [address] Performed By: #### A LLBG #### [facility] CLIA [id number] [address] [place] [address] [place] Carboxyhemoglobin (BldA) [Mass fraction] 1.5 % Normal 0.0-2.0 [facility] Comment on above: Order Comment: Speci men Type: ARTERIAL BLOOD SPECIMEN Ordering Facility: [facility] Address: [address] [place] [address] Result Comment: Carb oxyhemoglobin Reference Range for Smokers: 2.0-8.0% Performed By: #### A LLBG #### [facility] CLIA [id number] [address] [place] [address] [place] CO2 (Bld) [Partial pressure] 37 mm Hg Normal 36-46 [facility] Comment on above: Order Comment: Speci men Type: ARTERIAL BLOOD SPECIMEN Ordering Facility: [facility] Address: [address] [place] [address] Performed By: #### A LLBG #### [facility] CLIA [id number] [address] [place] [address] [place] CO2 adjusted to patient's actual temperature (Bld) [Partial pressure] 37 mmHg Normal 36-46 [facility] Comment on above: Order Comment: Speci men Type: ARTERIAL BLOOD SPECIMEN Ordering Facility: [facility] Address: [address] [place] [address] Performed By: #### A LLBG #### [facility] CLIA [id number] [address] [place] [address] [place] Glucose [Mass/Vol] 128 mg/dL High 60-105 [facility] Comment on above: Order Comment: Speci men Type: ARTERIAL BLOOD SPECIMEN Ordering Facility: [facility] Address: [address] [place] [address] Performed By: #### A LLBG #### [facility] CLIA [id number] [address] [place] [address] [place] HCO3 (Bld) [Moles/Vol] 26 mmol/L Normal 22-26 [facility] Comment on above: Order Comment: Speci men Type: ARTERIAL BLOOD SPECIMEN Ordering Facility: [facility] Address: [address] [place] [address] Performed By: #### A LLBG #### [facility] CLIA [id number] [address] [place] [address] [place] Hematocrit (Bld) [Volume fraction] 45.6 % Normal 36.0-46.0 [facility] Comment on above: Order Comment: Speci men Type: ARTERIAL BLOOD SPECIMEN Ordering Facility: [facility] Address: [address] [place] [address] Performed By: #### A LLBG #### [facility] CLIA [id number] [address] [place] [address] [place] Hemoglobin (Bld) [Mass/Vol] 14.9 g/dL Normal 11.5-15.5 [facility] Comment on above: Order Comment: Speci men Type: ARTERIAL BLOOD SPECIMEN Ordering Facility: [facility] Address: [address] [place] [address] Performed By: #### A LLBG #### [facility] CLIA [id number] [address] [place] [id number] [place] Lactate [Moles/Vol] 2.0 mmol/L Normal 0.5-2.2 [facility] Comment on above: Order Comment: Speci men Type: ARTERIAL BLOOD SPECIMEN Ordering Facility: [facility] Address: [address] [place] [address] Performed By: #### A LLBG #### [facility] CLIA [id number] [address] [place] [address] [place] Methemoglobin (Bld) [Mass fraction] 0.6 % Normal 0.0-1.5 [facility] Comment on above: Order Comment: Speci men Type: ARTERIAL BLOOD SPECIMEN Ordering Facility: [facility] Address: [address] [place] [address] Performed By: #### A LLBG #### [facility] CLIA [id number] [address] [place] [address] [place] Oxygen (Bld) [Partial pressure] 61 mm Hg Low 85-95 [facility] Comment on above: Order Comment: Speci men Type: ARTERIAL BLOOD SPECIMEN Ordering Facility: [facility] Address: [address] [place] [address] Performed By: #### A LLBG #### [facility] CLIA [id number] [address] [place] [id number] [place] Oxygen adjusted to patient's actual temperature (Bld) [Partial pressure] 61 mmHg Low 85-95 [facility] Comment on above: Order Comment: Speci men Type: ARTERIAL BLOOD SPECIMEN Ordering Facility: [facility] Address: [address] [place] [address] Performed By: #### A LLBG #### [facility] CLIA [id number] [address] [place] [address] [place] Oxyhemoglobin (BldA) [Mass fraction] 91 % Low 95-98 [facility] Comment on above: Order Comment: Speci men Type: ARTERIAL BLOOD SPECIMEN Ordering Facility: [facility] Address: [address] [place] [address] Performed By: #### A LLBG #### [facility] CLIA [id number] [address] [place] [address] [place] PATIENT POSITION-ICPET Wedge Normal [facility] Comment on above: Order Comment: Speci men Type: ARTERIAL BLOOD SPECIMEN Ordering Facility: [facility] Address: [address] [place] [address] Performed By: #### A LLBG #### [facility] CLIA [id number] [address] [place] [address] [place] pH (Bld) 7.46 [pH] High 7.35-7.45 [facility] Comment on above: Order Comment: Speci men Type: ARTERIAL BLOOD SPECIMEN Ordering Facility: [facility] Address: [address] [place] [address] Performed By: #### A LLBG #### [facility] CLIA [id number] [address] [place] [address] [place] pH adjusted to patient's actual temperature (Bld) 7.46 High 7.35-7.45 [facility] Comment on above: Order Comment: Speci men Type: ARTERIAL BLOOD SPECIMEN Ordering Facility: [facility] Address: [address] [place] [address] Performed By: #### A LLBG #### [facility] CLIA [id number] [address] [place] [address] [place] Potassium [Moles/Vol] 3.5 mmol/L Normal 3.5-5.0 [facility] Comment on above: Order Comment: Speci men Type: ARTERIAL BLOOD SPECIMEN Ordering Facility: [facility] Address: [address] [place] [address] Performed By: #### A LLBG #### [facility] CLIA [id number] [address] [place] Order Comment: Speci men Type: VENOUS BLOOD SPECIMEN Ordering Facility: [facility] Address: [address] [place] [address] Performed By: #### 2 4344-4 #### [facility] CLIA [id number] [address] [place] [address] [place] Sodium [Moles/Vol] 141 mmol/L Normal 136-144 [facility] Comment on above: Order Comment: Speci men Type: ARTERIAL BLOOD SPECIMEN Ordering Facility: [facility] Address: [address] [place] [address] Performed By: #### A LLBG #### [facility] CLIA [id number] [facility] [place] [address] [place] Order Comment: Speci men Type: VENOUS BLOOD SPECIMEN Ordering Facility: [facility] Address: [address] [place] [address] Performed By: #### 2 4344-4 #### [facility] CLIA [id number] [address] [place] [address] [place] Base excess Calc (Bld) [Moles/Vol] 3 mmol/L High 0 - 2 mmol/L [facility] Calcium.ionized (Bld) [Mass/Vol] 1.17 mmol/L 1.08 - 1.30 mmol/L [facility] Calcium.ionized adjusted to pH 7.4 (BldA) [Moles/Vol] 1.20 mmol/L 1.08 - 1.30 mmol/L [facility] Carboxyhemoglobin (BldA) [Mass fraction] 1.5 % 0.0 - 2.0 % [facility] CO2 (Bld) [Partial pressure] 37 mm Hg 36 - 46 mm Hg [facility] CO2 adjusted to patient's actual temperature (Bld) [Partial pressure] 37 mmHg 36 - 46 mmHg [facility] Glucose [Mass/Vol] 128 mg/dL High 60 - 105 mg/dL [facility] HCO3 (Bld) [Moles/Vol] 26 mmol/L 22 - 26 mmol/L [facility] Hematocrit (Bld) [Volume fraction] 45.6 % 36.0 - 46.0 % [facility] Hemoglobin (Bld) [Mass/Vol] 14.9 g/dL 11.5 - 15.5 g/dL [facility] Lactate [Moles/Vol] 2.0 mmol/L 0.5 - 2. 2 mmol/L [facility] Methemoglobin (Bld) [Mass fraction] 0.6 % 0.0 - 1.5 % [facility] Oxygen (Bld) [Partial pressure] 61 mm Hg Low 85 - 95 mm Hg [facility] Oxygen adjusted to patient's actual temperature (Bld) [Partial pressure] 61 mmHg Low 85 - 95 mmHg [facility] Oxyhemoglobin (BldA) [Mass fraction] 91 % Low 95 - 98 % [facility] Patient Position Wedge [facility] pH (Bld) 7.46 [pH] High 7.35 - 7.45 [facility] pH adjusted to patient's actual temperature (Bld) 7.46 High 7.35 - 7.45 [facility] Potassium [Moles/Vol] 3.5 mmol/L 3.5 - 5.0 mmol/L [facility] Sodium [Moles/Vol] 141 mmol/L 136 - 144 mmol/L [facility] CNOVon 12-24-2022 CNOV Office Visit ([place] ) AYADIDALMIS ([id number]) 1960 F Date Time Provider Department 12/24/22 9:00 AM MILLIE PEREZ [id number] PROCEDURE RMPUBRON During your visit today, we recorded the following information about you: William Croft MD 12/24/2022 10:47 AM Addendum Patient Name: Idalmis Lion Patient Date of Procedure: December 24, 2022 Time of Procedure: 9:00 AM UNIVERSAL PROTOCOL / SAFETY CHECKLIST Procedure to be performed: Right Heart Catheterization Sign in Communication: completed Time Out: Team Confirms the Correct Patient, Correct Procedure, Correct Site and Site Marking, Correct Position (if applicable). Time: 9:00 AM Affirmation of Time Out: YES Sign Out Discussion: Completed Procedure start time: 9:10 AM Procedure end time: 9:55 AM Staff involved: William Croft MD Nurse(s): Tahir Leigh RN Procedure(s): Right Heart Catheterization. Right Heart Catheterization Indications: Other Specified Disease of Pulmonary Circulation Pre Procedure Diagnosis: Pulmonary Hypertension Post Procedure Diagnosis: No Pulmonary Hypertension Medications: None Access site: Right internal jugular vein [place] Joey size: 7.5 F. Anesthesia: Lidocaine 1% Procedure Narrative: Consent was obtained. Time out taken. Performed at procedure room in 1. Under sterile condition, lidocaine 1 % (5 ml) was applied and under US guidance a 8.0 F introducer was inserted without difficulty. Of note, access was challenging and multiple attempts were performed until guide wire was able to be passed. Wire was noted to be located in the SVC under fluoroscopy. A [place]-Joey catheter was advanced to the right pulmonary artery without difficulties (RA, RV, PA pressures were measured). Wedge was obtained and confirmed to be appropriate by fluoroscopy (stable catheter) and blood gas analysis. Mixed venous blood was obtained for indirect Ludwig determination. CO was determined by thermodilution and indirect Ludwig methodology. Disposition: Patient was discharged in stable condition. RHC determinations Determinations Result Units Rhythm NSR Inspired fraction of oxygen 21.00 % Oxygen flow 0.00 L/min SpO2 92.00 % Systolic BP 188.00 mmHg Diastolic BP 86.00 mmHg Mean BP 120.00 mmHg Heart Rate 68.00 bpm Height 162.60 cm Weight 155.60 Kg Body surface area 2.46 m2 Body mass index 58.85 kg/m2 Right atrial pressure (mean) 11.00 mmHg Right atrial pressure (mean) peak "v" wave (end-expiration) 22.00 Right ventricular systolic pressure 47.00 mmHg Right ventricular diastolic pressure 10.00 mmHg Systolic pulmonary artery pressure 46.00 mmHg Mean pulmonary artery pressure 34.00 mmHg Diastolic pulmonary artery pressure 28.00 mmHg Pumonary artery pulse pressure 18.00 mmHg Pulmonary artery occlusion pressure (mean) 19.00 mmHg Pulmonary artery occlusion pressure (end-expiration) mid "a" wave 22.00 mmHg Pulmonary artery occlusion pressure (end-expiration) peak "v" wave 28.00 Diastolic pulmonary gradient 6.00 mmHg Transpulmonary gradient 12.00 mmHg Pulmonary artery capacitance 5.31 mL/mmHg Cardiac output (thermodilution) 6.50 L/min Cardiac index (thermodilution) 2.64 L/min/m2 Cardiac output (indirect LUDWIG) 5.65 L/min Cardiac index (indirect LUDWIG) 2.30 L/min/m2 Systemic vascular resistance 1341.54 dynes/sec/cm5 Stroke volume 95.59 mL Stroke volume index 38.85 mL/m2 Right ventricular stroke work index 12.15 g*m/m2 Pulmonary vascular resistance 1.85 Wood Units Hemoglobin (mixed venous) 14.30 g/dL Arterial oxyhemoglobin (Pulse oxymeter) 93.00 % Mixed venous oxyhemoglobin 65.00 % Lactic acid (arterial) 1.70 mmol/L Abbreviated version Right atrial pressure (mean) 11.00 mmHg Mean pulmonary artery pressure 34.00 mmHg Pulmonary artery occlusion pressure (end-expiration) mid "a" wave 22.00 mmHg Cardiac index (thermodilution) 2.64 L/min/m2 Pulmonary vascular resistance 1.85 Wood Units Mixed venous oxyhemoglobin 65.00 % Fluoro time 0.19 min:sec Cumulative area dose product 2278.00 cGy cm2 Cumulative air kerma 5.40 mGy SITTING UP-RIGHT Right Atrial Pressure/CVP 7.00 mmHg Systolic pulmonary artery pressure 32.00 mmHg Mean pulmonary artery pressure 23.00 mmHg Diastolic pulmonary artery pressure 18.00 mmHg Pumonary artery pulse pressure 14.00 mmHg Pulmonary artery occlusion pressure (mean) 7.00 mmHg Pulmonary artery occlusion pressure (end-expiration) mid "a" wave 11.00 mmHg Pulmonary artery occlusion pressure (end-expiration) peak "v" wave NA Diastolic pulmonary gradient 7.00 mmHg Transpulmonary gradient 12.00 mmHg Cardiac output (thermodilution) 6.90 L/min Cardiac index (thermodilution) 2.80 L/min/m2 Pulmonary vascular resistance 1.74 Wood Units Intrathoracic pressure determination (Esophageal Manometry): Sitting intrathoracic pressure at end-expiration 4.00 mmHg Sitting intrathoracic pressur (more content not included)... Normal [facility] Gas and Carbon monoxide pane l (BldV)on 12-24-2022 Base excess Calc (BldV) [Moles/Vol] 3 mmol/L High 0-2 [facility] Comment on above: Order Comment: Speci men Type: VENOUS BLOOD SPECIMEN Ordering Facility: [facility] Address: [address] [place] [address] Performed By: #### 2 4344-4 #### [facility] CLIA [id number] [address] [place] [address] [place] Calcium.ionized (Bld) [Mass/Vol] 1.16 mmol/L Normal 1.08-1.30 [facility] Comment on above: Order Comment: Speci men Type: VENOUS BLOOD SPECIMEN Ordering Facility: [facility] Address: [address] [place] [address] Performed By: #### 2 4344-4 #### [facility] CLIA [id number] [address] [place] [address] [place] Calcium.ionized adjusted to pH 7.4 (BldA) [Moles/Vol] 1.15 mmol/L Normal 1.08-1.30 [facility] Comment on above: Order Comment: Speci men Type: VENOUS BLOOD SPECIMEN Ordering Facility: [facility] Address: [address] [place] [address] Performed By: #### 2 4344-4 #### [facility] CLIA [id number] [address] [place] [address] [place] Carboxyhemoglobin (BldV) [Mass fraction] 1.1 % Normal 0.0-2.0 [facility] Comment on above: Order Comment: Speci men Type: VENOUS BLOOD SPECIMEN Ordering Facility: [facility] Address: [address] [place] [address] Result Comment: Carb oxyhemoglobin Reference Range for Smokers: 2.0-8.0% Performed By: #### 2 4344-4 #### [facility] CLIA [id number] [address] [place] [address] [place] CO2 (BldV) [Partial pressure] 47 mm[Hg] Normal 42-55 [facility] Comment on above: Order Comment: Speci men Type: VENOUS BLOOD SPECIMEN Ordering Facility: [facility] Address: [address] [place] [address] Performed By: #### 2 4344-4 #### [facility] CLIA [id number] [address] [place] [address] [place] CO2 adjusted to patient's actual temperature (BldV) [Partial pressure] 47 mmHg Normal 42-55 [facility] Comment on above: Order Comment: Speci men Type: VENOUS BLOOD SPECIMEN Ordering Facility: [facility] Address: [address] [place] [address] Performed By: #### 2 4344-4 #### [facility] CLIA [id number] [address] [place] [address] [place] Glucose [Mass/Vol] 126 mg/dL High 60-105 [facility] Comment on above: Order Comment: Speci men Type: VENOUS BLOOD SPECIMEN Ordering Facility: [facility] Address: [address] [place] [address] Performed By: #### 2 4344-4 #### [facility] CLIA [id number] [address] [place] [address] [place] HCO3 (Bld) [Moles/Vol] 28 mmol/L Normal 24-28 [facility] Comment on above: Order Comment: Speci men Type: VENOUS BLOOD SPECIMEN Ordering Facility: [facility] Address: [address] [place] [address] Performed By: #### 2 4344-4 #### [facility] CLIA [id number] [address] [place] [address] [place] Hematocrit (Bld) [Volume fraction] 43.7 % Normal 36.0-46.0 [facility] Comment on above: Order Comment: Speci men Type: VENOUS BLOOD SPECIMEN Ordering Facility: [facility] Address: [address] [place] [address] Performed By: #### 2 4344-4 #### [facility] CLIA [id number] [address] [place] [address] [place] Hemoglobin (Bld) [Mass/Vol] 14.3 g/dL Normal 11.5-15.5 [facility] Comment on above: Order Comment: Speci men Type: VENOUS BLOOD SPECIMEN Ordering Facility: [facility] Address: [address] [place] [address] Performed By: #### 2 4344-4 #### [facility] CLIA [id number] [address] [place] [address] [place] Lactate [Moles/Vol] 1.7 mmol/L Normal 0.5-2.2 [facility] Comment on above: Order Comment: Speci men Type: VENOUS BLOOD SPECIMEN Ordering Facility: [facility] Address: [address] [place] [address] Performed By: #### 2 4344-4 #### [facility] CLIA [id number] [address] [place] [address] [place] Methemoglobin (Bld) [Mass fraction] 0.5 % Normal 0.0-1.5 [facility] Comment on above: Order Comment: Speci men Type: VENOUS BLOOD SPECIMEN Ordering Facility: [facility] Address: [address] [place] [address] Performed By: #### 2 4344-4 #### [facility] CLIA [id number] [address] [place] [address] [place] Oxygen (BldV) [Partial pressure] 36 mm[Hg] Normal 35-45 [facility] Comment on above: Order Comment: Speci men Type: VENOUS BLOOD SPECIMEN Ordering Facility: [facility] Address: [address] [place] [address] Performed By: #### 2 4344-4 #### [facility] CLIA [id number] [address] [address] [place] Oxygen adjusted to patient's actual temperature (BldV) [Partial pressure] 36 mmHg Normal 35-45 [facility] Comment on above: Order Comment: Speci men Type: VENOUS BLOOD SPECIMEN Ordering Facility: [facility] Address: [address] [place] [address] Performed By: #### 2 4344-4 #### [facility] CLIA [id number] [address] [place] [id number] [place] Oxygen saturation in Venous blood 66 % Normal 60-85 [facility] Comment on above: Order Comment: Speci men Type: VENOUS BLOOD SPECIMEN Ordering Facility: [facility] Address: [address] [place] [address] Performed By: #### 2 4344-4 #### [facility] CLIA [id number] [address] [place] [address] [place] Oxyhemoglobin (BldV) [Mass fraction] 65 % Normal 60-85 [facility] Comment on above: Order Comment: Speci men Type: VENOUS BLOOD SPECIMEN Ordering Facility: [facility] Address: [address] [place] [address] Performed By: #### 2 4344-4 #### [facility] CLIA [id number] [address] [place] [id number] [place] PATIENT POSITION-ICPET Baseline Normal [facility] Comment on above: Order Comment: Speci men Type: VENOUS BLOOD SPECIMEN Ordering Facility: [facility] Address: [address] [place] [id number] Result Comment: Supi ne Performed By: #### 2 4344-4 #### [facility] CLIA [id number] [address] [place] [id number] [place] pH (BldV) 7.40 [pH] Normal 7.32-7.42 [facility] Comment on above: Order Comment: Speci men Type: VENOUS BLOOD SPECIMEN Ordering Facility: [facility] Address: [address] [place] [address] Performed By: #### 2 4344-4 #### [facility] CLIA [id number] [address] [place] [address] [place] pH adjusted to patient's actual temperature (BldV) 7.40 Normal 7.32-7.42 [facility] Comment on above: Order Comment: Speci men Type: VENOUS BLOOD SPECIMEN Ordering Facility: [facility] Address: [address] [place] [address] Performed By: #### 2 4344-4 #### [facility] CLIA [id number] [address] [place] [address] [place] Base excess Calc (BldV) [Moles/Vol] 3 mmol/L High 0 - 2 mmol/L [facility] Calcium.ionized (Bld) [Mass/Vol] 1.16 mmol/L 1.08 - 1.30 mmol/L [facility] Calcium.ionized adjusted to pH 7.4 (BldA) [Moles/Vol] 1.15 mmol/L 1.08 - 1.30 mmol/L [facility] Carboxyhemoglobin (BldV) [Mass fraction] 1.1 % 0.0 - 2.0 % [facility] CO2 (BldV) [Partial pressure] 47 mm[Hg] 42 - 55 mmHg [facility] CO2 adjusted to patient's actual temperature (BldV) [Partial pressure] 47 mmHg 42 - 55 mmHg [facility] Glucose [Mass/Vol] 126 mg/dL High 60 - 105 mg/dL [facility] HCO3 (Bld) [Moles/Vol] 28 mmol/L 24 - 28 mmol/L [facility] Hematocrit (Bld) [Volume fraction] 43.7 % 36.0 - 46.0 % [facility] Hemoglobin (Bld) [Mass/Vol] 14.3 g/dL 11.5 - 15.5 g/dL [facility] Lactate [Moles/Vol] 1.7 mmol/L 0.5 - 2. 2 mmol/L [facility] Methemoglobin (Bld) [Mass fraction] 0.5 % 0.0 - 1.5 % [facility] Oxygen (BldV) [Partial pressure] 36 mm[Hg] 35 - 45 mmHg [facility] Oxygen adjusted to patient's actual temperature (BldV) [Partial pressure] 36 mmHg 35 - 45 mmHg [facility] Oxygen saturation in Venous blood 66 % 60 - 85 % [facility] Oxyhemoglobin (BldV) [Mass fraction] 65 % 60 - 85 % [facility] Patient Position Baseline Supine [facility] pH (BldV) 7.40 [pH] 7.32 - 7.42 [facility] pH adjusted to patient's actual temperature (BldV) 7.40 7.32 - 7.42 [facility] Potassium [Moles/Vol] 3.5 mmol/L 3.5 - 5.0 mmol/L [facility] Sodium [Moles/Vol] 141 mmol/L 136 - 144 mmol/L [facility] US VASCULAR (POC) FOR CURLY US E ONLYon 12-24-2022 [facility] XR ARTERY CATHETER (POC) FOR CURLY USE ONLYon 12-24-2022 [facility] Glucose Glucometer (dC) [M ass/Vol]Ordered By: Coy Lai on 12-23-2022 Glucose [Mass/Vol] 189 mg/dL 74-[address] [facility] Comment on above: MANAGEMENT OF PATIEN T CARE PER NURSING PROTOCOL Neil 12-17-2022 JOVANNY Telephone (SAMI) IDALMIS LION ([id number]) 1960 F Date Time Provider Department 12/17/22 FROILAN BEDOYA During your visit today, we recorded the following information about you: Froilan Bedoay MA 12/17/2022 10:52 AM Signed Called patient to schedule her RHC with Dr. Croft on 12/24 at 9am Froilan Bedoya Clinical Eyelet Machine Operator [facility] [place] Allergies As of Date: 12/17/2022 Noted Allergy Reaction PHENERGAN (PROMETHAZINE) 07/03/2016 11 - Vomiting SULFA (SULFONAMIDE ANTIBIOTICS) 07/03/2016 2 - Rash TETNUS (TETANUS VACCINES AND TOXO*07/03/2016 7 - Swelling Comments: Arm became red painful swollen Date Reviewed: 12/13/2022 Reviewed by: William Croft MD - Fully Assessed Reason for Visit: Care Coordination [3491] Prescriptions as of 12/17/2022 - metFORMIN (GLUCOPHAGE) 1,000 mg tablet Take 1,000 mg by mouth daily with breakfast. - eluxadoline (VIBERZI) 100 mg tab Take 100 mg by mouth two times a day. - GLIMEPIRIDE ORAL Take by mouth. - rosuvastatin (CRESTOR) 10 mg tablet Take 10 mg by mouth once daily. - celecoxib (CELEBREX) 200 mg capsule Take 200 mg by mouth two times a day. - rivaroxaban (XARELTO) 20 mg tablet Take 20 mg by mouth daily with dinner. - budesonide (PULMICORT) 0.5 mg/2 mL nebulizer solution Use 0.5 mg via nebulizer once daily. - albuterol sulfate (VENTOLIN INHALATION) Inhale as instructed. - olopatadine (PATANOL) 0.1 % ophthalmic solution Use 1 Drop in both eyes twice daily. - ciprofloxacin HCl (CILOXAN) 0.3 % ophthalmic solution Use 1 Drop in both eyes three times daily. - atenolol (TENORMIN) 50 mg tablet - busPIRone HCl 30 mg tablet - citalopram (CELEXA) 40 mg tablet - fluticasone (FLONASE) 50 mcg/actuation nasal spray - morphine SR (MS CONTIN, ORAMORPH SR) 15 mg 12 hr tablet - LYRICA 100 mg capsule - FLUTICASONE/SALMETEROL (ADVAIR HFA INHALATION) Inhale as instructed. - aspirin 81 mg chewable tablet Take 81 mg by mouth once daily. - biotin 5 mg tab Take 5 mg by mouth once daily. - oxyCODONE-acetaminophen (ENDOCET) 10-325 mg tablet Take 1 tablet by mouth every 4 hours as needed. - meclizine (ANTIVERT) 25 mg tab Take 25 mg by mouth three times daily. - ALPRAZolam (XANAX) 0.25 mg tablet Take 0.25 mg by mouth at bedtime as needed. - baclofen (LIORESAL) 20 mg tablet Take 20 mg by mouth three times daily. Problem List As Of Date: 12/17/2022 (None) Encounter Status:Closed by FROILAN BEDOYA on 12/17/22 [facility] CNOVon 12-13-2022 CNOV Office Visit ([facility] ) IDALMIS LION ([id number]) 1960 F Date Time Provider Department 12/13/22 1:00 PM WILLIAM CROFT [facility] During your visit today, we recorded the following information about you: Temperature Pulse Respiration Blood pressure 97 degrees 89/minute 22/minute 125/79 Weight Height 155.6 kg 1.626 m William Croft MD 12/13/2022 1:52 PM Signed Patient Name: Idalmis Lion PRIMARY CARE PHYSICIAN: Rigo Berger DO Date of visit: December 13, 2022 COMMUNICATION WILL BE SENT VIA SHARED MEDICAL RECORDS OR US MAIL. Subjective: Idalmis Lion is a 62 year old female who is new to this clinic for evaluation of pulmonary hypertension and right heart catheterization. This is a referral from Dr Rigo Sands in [place] for evaluation for RHC. Patient has history of HARRISON on BIPAP (compliant with NIPPV), hx of PE back in 2018 on xarelto, and morbid obesity. She starts the visit by discussing her experience with shortness of breath. This has been going on for years and has been progressively getting worse. Minimal activities such as short walks around the house, stair climbing, or basic ADLs/chores result in dyspnea. This is associated with "leg heaviness" as she feels she just can't due it anymore. She did previously have wheezing and she was put on inhalers which helped with the wheezing, but not with dyspnea. She is currently on nebulized budesonide and albuterol. She denies chest pain. + weight gain over the last year, about 20lbs. + pedal edema R>L. She went on course of lasix with no improvement in edema or respiratory symptoms, so this was discontinued. + nasal congestion/PND which she takes flonase for with + clinical improvement. She denies any history of asthma, COPD, or any other lung disorders. Smoked for total of 20 years, quit 10 years ago. 1ppd on average. Rare ETOH use. 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 Has no environmental allergies. 2 dogs (poodle/boxer) QUESTIONS SURROUNDING PULMONARY HYPERTENSION RISK: Prior diet pill use? Yes (OTC) Prior use of amphetamines? Teenager - 1 year only socially H/o DVT or PE? Yes Prior liver disease? No Prior HIV/Hepatitis B or C risk? No H/o splenectomy? No Prior thyroid disease? No Prior lung disease? No Family h/o PAH? No Snoring or witnessed apneas? Yes Arthralgias? Back pain, knee Skin rash or lesions? No Raynaud's symptoms? No PMHx: PAST MEDICAL HISTORY Diagnosis Date Diabetes mellitus (HCC) Essential hypertension Sleep apnea Social Hx: MEDICATIONS: metFORMIN (GLUCOPHAGE) 1,000 mg tablet Take 1,000 mg by mouth daily with breakfast. eluxadoline (VIBERZI) 100 mg tab Take 100 mg by mouth two times a day. GLIMEPIRIDE ORAL Take by mouth. rosuvastatin (CRESTOR) 10 mg tablet Take 10 mg by mouth once daily. celecoxib (CELEBREX) 200 mg capsule Take 200 mg by mouth two times a day. rivaroxaban (XARELTO) 20 mg tablet Take 20 mg by mouth daily with dinner. budesonide (PULMICORT) 0.5 mg/2 mL nebulizer solution Use 0.5 mg via nebulizer once daily. albuterol sulfate (VENTOLIN INHALATION) Inhale as instructed. ciprofloxacin HCl (CILOXAN) 0.3 % ophthalmic solution Use 1 Drop in both eyes three times daily. atenolol (TENORMIN) 50 mg tablet busPIRone HCl 30 mg tablet citalopram (CELEXA) 40 mg tablet fluticasone (FLONASE) 50 mcg/actuation nasal spray morphine SR (MS CONTIN, ORAMORPH SR) 15 mg 12 hr tablet LYRICA 100 mg capsule biotin 5 mg tab Take 5 mg by mouth once daily. oxyCODONE-acetaminophen (ENDOCET) 10-325 mg tablet Take 1 tablet by mouth every 4 hours as needed. meclizine (ANTIVERT) 25 mg tab Take 25 mg by mouth three times daily. olopatadine (PATANOL) 0.1 % ophthalmic solution Use 1 Drop in both eyes twice daily. (Patient not taking: Reported on 12/13/2022) FLUTICASONE/SALMETEROL (ADVAIR HFA INHALATION) Inhale as instructed. (Patient not taking: Reported on 12/13/2022) aspirin 81 mg chewable tablet Take 81 mg by mouth once daily. (Patient not taking: Reported on 12/13/2022) ALPRAZolam (XANAX) 0.25 mg tablet Take 0.25 mg by mouth at bedtime as needed. (Patient not taking: Reported on 12/13/2022) baclofen (LIORESAL) 20 mg tablet Take 20 mg by mouth three times daily. (Patient not taking: Reported on 12/13/2022) Allergies: Phenergan [Promethazine], Sulfa (Sulfonamide Antibiotics), and Tetnus [Tetanus Vaccines And Toxoid] ROS: GENERAL: (-) fevers, (-) chills, (-) night sweats, (-) nausea/vomiting, (-) weight loss, (+++) weight gain HEENT: (-) runny nose, (-) sore throat, (-) post-nasal drip RESPIRATORY: As above in subjective CARDIOVASCULAR: (-) chest pain, (-) palpitations, (+) LE edema. All other 10 point ROS reviewed and negative except for that mentioned above. PHYSICAL EXAM: BP 125/79 Pulse 89 Temp (Src) 97 (Temporal) Resp 22 (more content not included)... Normal [facility] .Auto Diffon 08-24-2022 Basophil, Absolute 0.0 10 3/mcL Normal 0.0-0.2 [facility] ([place]) Comment on above: Performed By: #### A 1C, LIPID, ADIFF, TSH, ANEU, CBC, GFR, CMP #### [place] [address] [place], [place] [address] #### HCV1 #### [address] [address] Basophils/100 WBC (Bld) 0.2 % Normal 0.0-2.5 [facility] ([place]) Comment on above: Performed By: #### A 1C, LIPID, ADIFF, TSH, ANEU, CBC, GFR, CMP #### [address] [address] #### HCV1 #### [address] [address] Eosinophil, Absolute 0.1 10 3/mcL Normal 0.0-0.4 [facility] ([place]) Comment on above: Performed By: #### A 1C, LIPID, ADIFF, TSH, ANEU, CBC, GFR, CMP #### [address] [address] #### HCV1 #### [address] [address] Eosinophils/100 WBC (Bld) 1.8 % Normal 0.0-7.0 [facility] ([place]) Comment on above: Performed By: #### A 1C, LIPID, ADIFF, TSH, ANEU, CBC, GFR, CMP #### [address] [address] #### HCV1 #### [address] [address] Lymphocyte, Absolute 2.4 10 3/mcL Normal 0.8-3.9 [facility] ([place]) Comment on above: Performed By: #### A 1C, LIPID, ADIFF, TSH, ANEU, CBC, GFR, CMP #### [address] [address] #### HCV1 #### [address] [address] Lymphocytes/100 WBC (Bld) 36.2 % Normal 10.0-50.0 [facility] ([place]) Comment on above: Performed By: #### A 1C, LIPID, ADIFF, TSH, ANEU, CBC, GFR, CMP #### [place] [address] #### HCV1 #### [address] [address] Monocyte, Absolute 0.4 10 3/mcL Normal 0.2-1.0 [facility] ([place]) Comment on above: Performed By: #### A 1C, LIPID, ADIFF, TSH, ANEU, CBC, GFR, CMP #### [address] [address] #### HCV1 #### [address] [address] Monocytes/100 WBC (Bld) 6.2 % Normal 1.7-13.0 [facility] ([place]) Comment on above: Performed By: #### A 1C, LIPID, ADIFF, TSH, ANEU, CBC, GFR, CMP #### [address] [address] #### HCV1 #### [address] [address] Neutrophils/100 WBC (Bld) 55.6 % Normal 37.0-80.0 [facility] ([place]) Comment on above: Performed By: #### A 1C, LIPID, ADIFF, TSH, ANEU, CBC, GFR, CMP #### [address] [address] #### HCV1 #### [address] [address] .GFRon 08-24-2022 GFR 79 ml/min/1.73sqm Normal [facility] ([place]) Comment on above: Result Comment: GFR Population mean for , [...] 15 mL/min/1.73 square meters Performed By: #### A 1C, LIPID, ADIFF, TSH, ANEU, CBC, GFR, CMP #### [address] [address] #### HCV1 #### [address] [address] GFR Non- 65 ml/min/1.73sqm Normal [facility] ([place]) Comment on above: Result Comment: GFR Population mean for , [...] 15 mL/min/1.73 square meters Performed By: #### A 1C, LIPID, ADIFF, TSH, ANEU, CBC, GFR, CMP #### [address] [address] #### HCV1 #### [address] [address] .NEUABSon 08-24-2022 Neutrophil, Absolute 3.7 10 3/mcL Normal 2.9-6.2 [facility] ([place]) Comment on above: Performed By: #### A 1C, LIPID, ADIFF, TSH, ANEU, CBC, GFR, CMP #### [address] [address] #### HCV1 #### [address] [address] A1Con 08-24-2022 HbA1c (Bld) [Mass fraction] 6.8 % High 4.3-6.4 [facility] ([place]) Comment on above: Performed By: #### A 1C, LIPID, ADIFF, TSH, ANEU, CBC, GFR, CMP #### [place] [address] #### HCV1 #### [place] [address] CBCon 08-24-2022 Erythrocyte distribution width (RBC) [Ratio] 12.7 % Normal 11.5-14.5 [facility] ([place]) Comment on above: Performed By: #### A 1C, LIPID, ADIFF, TSH, ANEU, CBC, GFR, CMP #### [place] [address] #### HCV1 #### [place] [address] Hematocrit (Bld) [Volume fraction] 47.8 % High 37.0-47.0 [facility] ([place]) Comment on above: Performed By: #### A 1C, LIPID, ADIFF, TSH, ANEU, CBC, GFR, CMP #### [place] [address] #### HCV1 #### [place] [address] Hgb 16.1 G/dL High 12.0-16.0 [facility] ([place]) Comment on above: Performed By: #### A 1C, LIPID, ADIFF, TSH, ANEU, CBC, GFR, CMP #### [place] [address] #### HCV1 #### [place] [address] MCH (RBC) [Entitic mass] 32.5 pg High 27.0-31.2 [facility] ([place]) Comment on above: Performed By: #### A 1C, LIPID, ADIFF, TSH, ANEU, CBC, GFR, CMP #### [place] [address] #### HCV1 #### [place] [address] MCHC 33.8 G/dL Normal 33.0-37.0 [facility] ([place]) Comment on above: Performed By: #### A 1C, LIPID, ADIFF, TSH, ANEU, CBC, GFR, CMP #### [place] [address] #### HCV1 #### [place] [id number] MCV (RBC) [Entitic vol] 96.1 fL High 80.0-94.0 [facility] ([place]) Comment on above: Performed By: #### A 1C, LIPID, ADIFF, TSH, ANEU, CBC, GFR, CMP #### [place] [address] #### HCV1 #### [place] [address] Platelet 200 10 3/mcL Normal 130-400 [facility] ([place]) Comment on above: Performed By: #### A 1C, LIPID, ADIFF, TSH, ANEU, CBC, GFR, CMP #### [place] [address] #### HCV1 #### [place] [address] Platelet mean volume (Bld) [Entitic vol] 8.5 fL Normal 7.4-10.4 [facility] ([place]) Comment on above: Performed By: #### A 1C, LIPID, ADIFF, TSH, ANEU, CBC, GFR, CMP #### [place] [address] #### HCV1 #### [place] [address] RBC 4.97 10 6/mcL Normal 4.20-5.40 [facility] ([place]) Comment on above: Performed By: #### A 1C, LIPID, ADIFF, TSH, ANEU, CBC, GFR, CMP #### [place] [address] #### HCV1 #### [place] [address] WBC 6.7 10 3/mcL Normal 4.6-10.8 [facility] ([place]) Comment on above: Performed By: #### A 1C, LIPID, ADIFF, TSH, ANEU, CBC, GFR, CMP #### [address] [address] #### HCV1 #### [address] [address] CMPon 08-24-2022 Albumin Level 3.7 G/dL Normal 3.4-4.8 [facility] ([place]) Comment on above: Performed By: #### A 1C, LIPID, ADIFF, TSH, ANEU, CBC, GFR, CMP #### [address] [address] #### HCV1 #### [address] [address] Albumin/Globulin [Mass ratio] 1.3 {ratio} Normal 1.1-2.5 [facility] ([place]) Comment on above: Performed By: #### A 1C, LIPID, ADIFF, TSH, ANEU, CBC, GFR, CMP #### [address] [address] #### HCV1 #### [address] [address] ALP [Catalytic activity/Vol] 92 U/L Normal 40-135 [facility] ([place]) Comment on above: Performed By: #### A 1C, LIPID, ADIFF, TSH, ANEU, CBC, GFR, CMP #### [address] [address] #### HCV1 #### [address] [address] ALT [Catalytic activity/Vol] 37 U/L Normal 14-59 [facility] ([place]) Comment on above: Performed By: #### A 1C, LIPID, ADIFF, TSH, ANEU, CBC, GFR, CMP #### [address] [address] #### HCV1 #### [address] [address] AST [Catalytic activity/Vol] 14 U/L Normal 10-40 [facility] ([place]) Comment on above: Performed By: #### A 1C, LIPID, ADIFF, TSH, ANEU, CBC, GFR, CMP #### [address] [address] #### HCV1 #### [address] [address] Bili Total 0.6 mg/dL Normal 0.2-1.0 [facility] ([place]) Comment on above: Result Comment: Use of this assay is not recommended for patients undergoing treatment with eltrombopag due to the potential for falsely elevated results. Performed By: #### A 1C, LIPID, ADIFF, TSH, ANEU, CBC, GFR, CMP #### [address] [address] #### HCV1 #### [address] [address] BUN/Creatinine Ratio 23 ratio Normal 7-27 [facility] ([place]) Comment on above: Performed By: #### A 1C, LIPID, ADIFF, TSH, ANEU, CBC, GFR, CMP #### [place] [address] #### HCV1 #### [address] [address] Calcium [Mass/Vol] 9.1 mg/dL Normal 8.4-10.2 [facility] ([place] Comment on above: Performed By: #### A 1C, LIPID, ADIFF, TSH, ANEU, CBC, GFR, CMP #### [place] [address] #### HCV1 #### [address] [address] Chloride [Moles/Vol] 100 mmol/L Normal 98-107 [facility] ([place]) Comment on above: Performed By: #### A 1C, LIPID, ADIFF, TSH, ANEU, CBC, GFR, CMP #### [place] [address] #### HCV1 #### [address] [address] CO2 [Moles/Vol] 32 mmol/L High 23-31 [facility] ([place]) Comment on above: Performed By: #### A 1C, LIPID, ADIFF, TSH, ANEU, CBC, GFR, CMP #### [address] [address] #### HCV1 #### [address] [address] Creatinine [Mass/Vol] 0.88 mg/dL Normal 0.55-1.02 [facility] ([place]) Comment on above: Performed By: #### A 1C, LIPID, ADIFF, TSH, ANEU, CBC, GFR, CMP #### [address] [address] #### HCV1 #### [address] [address] Electrolyte Balance 10.0 mEq/L Normal 4.0-15.0 [facility] ([place]) Comment on above: Performed By: #### A 1C, LIPID, ADIFF, TSH, ANEU, CBC, GFR, CMP #### [place] [address] #### HCV1 #### [address] [address] Globulin 2.9 G/dL Normal [facility] ([place]) Comment on above: Performed By: #### A 1C, LIPID, ADIFF, TSH, ANEU, CBC, GFR, CMP #### [address] [address] #### HCV1 #### [address] [address] Glucose [Mass/Vol] 157 mg/dL High 80-115 [facility] ([place] Comment on above: Performed By: #### A 1C, LIPID, ADIFF, TSH, ANEU, CBC, GFR, CMP #### [address] [address] #### HCV1 #### [address] [address] Potassium [Moles/Vol] 4.6 mmol/L Normal 3.5-5.1 [facility] ([place]) Comment on above: Performed By: #### A 1C, LIPID, ADIFF, TSH, ANEU, CBC, GFR, CMP #### [address] [address] #### HCV1 #### [address] [address] Sodium [Moles/Vol] 142 mmol/L Normal 136-145 [facility] ([place] Comment on above: Performed By: #### A 1C, LIPID, ADIFF, TSH, ANEU, CBC, GFR, CMP #### [place] [address] #### HCV1 #### [place] [address] Total Protein 6.6 G/dL Normal 6.4-8.2 [facility] ([place]) Comment on above: Performed By: #### A 1C, LIPID, ADIFF, TSH, ANEU, CBC, GFR, CMP #### [place] [address] #### HCV1 #### [address] [address] Urea nitrogen [Mass/Vol] 20 mg/dL High 7-18 [facility] ([place]) Comment on above: Performed By: #### A 1C, LIPID, ADIFF, TSH, ANEU, CBC, GFR, CMP #### [address] [address] #### HCV1 #### [place] [id number] HCVon 08-24-2022 Hep C Ab Non-Reactive Normal Non-Reactive [facility] ([place]) Comment on above: Performed By: #### A 1C, LIPID, ADIFF, TSH, ANEU, CBC, GFR, CMP #### [place] [address] #### HCV1 #### [address] [address] Hep C Ab Int Normal [facility] ([place]) Comment on above: Result Comment: Nonr eactive: Samples with a value < 0.80 are considered nonreactive (negative) for antibodies to HCV. A negative test result does not exclude the possibility of exposure to or infection with HCV. HCV antibodies may be undetectable in some stages of the infection and in some clinical conditions. See Interp Performed By: #### A 1C, LIPID, ADIFF, TSH, ANEU, CBC, GFR, CMP #### [address] [place], [place] [address] #### HCV1 #### [address] [address] LABORATORYOrdered By: SYSTEM SYSTEM on 08-24-2022 Albumin BCP dye [Mass/Vol] 3.7 G/dL Invalid Interpretation Code 3.4 - 4.8 G/dL AO ADM SS Albumin/Globulin [Mass ratio] 1.3 {ratio} Invalid Interpretation Code 1.1 - 2.5 ratio AO ADM SS ALP [Catalytic activity/Vol] 92 U/L Invalid Interpretation Code 40 - 135 U/L AO ADM SS ALT With P-5'-P [Catalytic activity/Vol] 37 U/L Invalid Interpretation Code 14 - 59 U/L AO ADM SS AST With P-5'-P [Catalytic activity/Vol] 14 U/L Invalid Interpretation Code 10 - 40 U/L AO ADM SS Basophil, Absolute 0.0 103/mcL Invalid Interpretation Code 0.0 - 0.2 10^3/mcL AO Workflow SS Basophils/100 WBC (Bld) 0.2 % Invalid Interpretation Code 0.0 - 2.5 % AO Workflow SS Bilirubin [Mass/Vol] 0.6 mg/dL Invalid Interpretation Code 0.2 - 1.0 mg/dL AO ADM SS Calcium [Mass/Vol] 9.1 mg/dL Invalid Interpretation Code 8.4 - 10.2 mg/dL AO ADM SS Chloride [Moles/Vol] 100 mmol/L Invalid Interpretation Code 98 - 107 mmol/L AO ADM SS CO2 [Moles/Vol] 32 mmol/L Invalid Interpretation Code 23 - 31 mmol/L AO ADM SS Creatinine [Mass/Vol] 0.88 mg/dL Invalid Interpretation Code 0.55 - 1.02 mg/dL AO ADM SS Electrolyte Balance 10.0 mEq/L Invalid Interpretation Code 4.0 - 15.0 mEq/L AO ADM SS Eosinophil, Absolute 0.1 103/mcL Invalid Interpretation Code 0.0 - 0.4 10^3/mcL AO Workflow SS Eosinophils/100 WBC (Bld) 1.8 % Invalid Interpretation Code 0.0 - 7.0 % AO Workflow SS Erythrocyte distribution width (RBC) [Ratio] 12.7 % Invalid Interpretation Code 11.5 - 14.5 % AO Workflow SS GFR/1.73 sq M.predicted among blacks MDRD (S/P/Bld) [Vol rate/Area] 79 ml/min/1.73sqm Invalid Interpretation Code AO Chemistry S GFR/1.73 sq M.predicted among non-blacks MDRD (S/P/Bld) [Vol rate/Area] 65 ml/min/1.73sqm Invalid Interpretation Code AO Chemistry S Globulin 2.9 G/dL Invalid Interpretation Code AO ADM SS Glucose [Mass/Vol] 157 mg/dL Invalid Interpretation Code 80 - 115 mg/dL AO ADM SS HbA1c (Bld) [Mass fraction] 6.8 % Invalid Interpretation Code 4.3 - 6.4 % AO ADM SS Hematocrit (Bld) [Volume fraction] 47.8 % Invalid Interpretation Code 37.0 - 47.0 % AO Workflow SS Hemoglobin (Bld) [Mass/Vol] 16.1 G/dL Invalid Interpretation Code 12.0 - 16.0 G/dL AO Workflow SS Lymphocyte, Absolute 2.4 103/mcL Invalid Interpretation Code 0.8 - 3.9 10^3/mcL AO Workflow SS Lymphocytes/100 WBC (Bld) 36.2 % Invalid Interpretation Code 10.0 - 50.0 % AO Workflow SS MCH (RBC) [Entitic mass] 32.5 pg Invalid Interpretation Code 27.0 - 31.2 pg AO Workflow SS MCHC 33.8 G/dL Invalid Interpretation Code 33.0 - 37.0 G/dL AO Workflow SS MCV (RBC) [Entitic vol] 96.1 fL Invalid Interpretation Code 80.0 - 94.0 fL AO Workflow SS Monocyte, Absolute 0.4 103/mcL Invalid Interpretation Code 0.2 - 1.0 10^3/mcL AO Workflow SS Monocytes/100 WBC (Bld) 6.2 % Invalid Interpretation Code 1.7 - 13.0 % AO Workflow SS Neutrophil, Absolute 3.7 103/mcL Invalid Interpretation Code 2.9 - 6.2 10^3/mcL AO Workflow SS Neutrophils/100 WBC (Bld) 55.6 % Invalid Interpretation Code 37.0 - 80.0 % AO Workflow SS Platelet mean volume (Bld) [Entitic vol] 8.5 fL Invalid Interpretation Code 7.4 - 10.4 fL AO Workflow SS Platelets (Bld) [#/Vol] 200 103/mcL Invalid Interpretation Code 130 - 400 10^3/mcL AO Workflow SS Potassium [Moles/Vol] 4.6 mmol/L Invalid Interpretation Code 3.5 - 5.1 mmol/L AO ADM SS Protein [Mass/Vol] 6.6 G/dL Invalid Interpretation Code 6.4 - 8.2 G/dL AO ADM SS RBC (Bld) [#/Vol] 4.97 106/mcL Invalid Interpretation Code 4.20 - 5.40 10^6/mcL AO Workflow SS Sodium [Moles/Vol] 142 mmol/L Invalid Interpretation Code 136 - 145 mmol/L AO ADM SS TSH Qn 2.76 m[IU]/L Invalid Interpretation Code 0.36 - 3.74 mcIU/mL AO ADM SS Urea nitrogen [Mass/Vol] 20 mg/dL Invalid Interpretation Code 7 - 18 mg/dL AO ADM SS Urea nitrogen/Creatinine [Mass ratio] 23 ratio Invalid Interpretation Code 7 - 27 ratio AO ADM SS WBC (Bld) [#/Vol] 6.7 103/mcL Invalid Interpretation Code 4.6 - 10.8 10^3/mcL AO Workflow SS LABORATORYOrdered By: Lexy Howard on 08-24-2022 Cholesterol [Mass/Vol] 171 mg/dL Invalid Interpretation Code 0 - 200 mg/dL AO ADM SS Cholesterol in HDL [Mass/Vol] 52 mg/dL Invalid Interpretation Code 40 - 60 mg/dL AO ADM SS Cholesterol in LDL [Mass/Vol] 99 mg/dL Invalid Interpretation Code 0 - 130 mg/dL AO ADM SS Triglyceride [Mass/Vol] 99 mg/dL Invalid Interpretation Code 0 - 150 mg/dL AO ADM SS LABORATORYOrdered By: Paige Lopez on 08-24-2022 HCV Ab IA Ql Non-Reactive (08/24/22 9:32 AM) Invalid Interpretation Code Non-Reactive AH ADM SS HCV Ab IA Ql Nonreactive: Samples with a value < 0.80 are considered nonreactive (negative) for antibodies to HCV.A negative test result does not exclude the possibility of exposure to or infection with HCV. HCV antibodies may be undetectable in some stages of the infection and in some clinical conditions. Invalid Interpretation Code Chemistry S LIPIDon 08-24-2022 Cholesterol [Mass/Vol] 171 mg/dL Normal 0-200 [facility] ([place]) Comment on above: Result Comment: Chol esterol Reference Interval: Less than 200 Desirable 200-239 Borderline high risk 240 and above High risk Performed By: #### A 1C, LIPID, ADIFF, TSH, ANEU, CBC, GFR, CMP #### [address] [address] #### HCV1 #### [address] [address] Cholesterol in HDL [Mass/Vol] 52 mg/dL Normal 40-60 [facility] ([place]) Comment on above: Performed By: #### A 1C, LIPID, ADIFF, TSH, ANEU, CBC, GFR, CMP #### [address] [address] #### HCV1 #### [address] [address] Cholesterol in LDL [Mass/Vol] 99 mg/dL Normal 0-130 [facility] ([place]) Comment on above: Performed By: #### A 1C, LIPID, ADIFF, TSH, ANEU, CBC, GFR, CMP #### [address] [address] #### HCV1 #### [address] [address] Triglyceride [Mass/Vol] 99 mg/dL Normal 0-150 [facility] ([place]) Comment on above: Result Comment: Trig lyceride Reference Interval: Less than 150 Normal 150-199 Borderline high risk 200-499 High risk 500 or higher Very high risk Performed By: #### A 1C, LIPID, ADIFF, TSH, ANEU, CBC, GFR, CMP #### [place] [address] #### HCV1 #### [address] [address] TSHon 08-24-2022 TSH Qn 2.76 m[IU]/L Normal 0.36-3.74 [facility] ([place]) Comment on above: Performed By: #### A 1C, LIPID, ADIFF, TSH, ANEU, CBC, GFR, CMP #### [place] [address] [place], [place] [address] #### HCV1 #### [facility] [place] [address] [place] [id number] Glucose Glucometer (BldC) [M ass/Vol]Ordered By: Dr. Lai on 08-05-2022 Glucose [Mass/Vol] 153 mg/dL 74-[address] [facility] Comment on above: MANAGEMENT OF PATIEN T CARE PER NURSING PROTOCOL Glucose Glucometer (BldC) [M ass/Vol]Ordered By: Dr. Lai on 05-06-2022 Glucose [Mass/Vol] 163 mg/dL 74-[address] [facility] Comment on above: MANAGEMENT OF PATIEN T CARE PER NURSING PROTOCOL Glucose Glucometer (BldC) [M ass/Vol]Ordered By: Dr. Lai on 03-04-2022 Glucose [Mass/Vol] 105 mg/dL 74-[address] [facility] Comment on above: MANAGEMENT OF PATIEN T CARE PER NURSING PROTOCOL Glucose Glucometer (BldC) [M ass/Vol]on 11-05-2021 Glucose [Mass/Vol] 173 mg/dL 74-[address] [facility] Work Phone: Comment on above: MANAGEMENT OF PATIEN T CARE PER NURSING PROTOCOL DRUG TOX MONITORING 4 W/CONF , URINEon 07-20-2021 Amphetamines Negative Normal <500 [facility] Comment on above: Order Comment: FASTI NG: UNKNOWN Performed By: #### 9 1484 #### [facility] [address], [address] [place] [id number] [employer]: Ventura Zuniga MD Barbiturates Negative Normal <300 [facility] Comment on above: Order Comment: FASTI NG: UNKNOWN Performed By: #### 9 1484 #### [facility] [address], [address] [place] [phone] [employer]: Ventura Zuniga MD Benzodiazepines Negative Normal <100 [facility] Comment on above: Order Comment: FASTI NG: UNKNOWN Performed By: #### 9 1484 #### [facility] [address], [address] [place] [address] [employer]: Ventura Zuniga MD Buprenorphine Negative Normal <5 [facility] Comment on above: Order Comment: FASTI NG: UNKNOWN Performed By: #### 9 1484 #### [facility] of [address], [address] [place] [address] [employer]: Ventura Zuniga MD Cocaine Metabolite Negative Normal <150 [facility] Comment on above: Order Comment: FASTI NG: UNKNOWN Performed By: #### 9 1484 #### [facility] of [address], [address] [place] [address] [employer]: Ventura Zuniga MD Codeine Negative Normal <50 [facility] Comment on above: Order Comment: FASTI NG: UNKNOWN Result Comment: See Note 1 Performed By: #### 9 1484 #### [facility] [address], [address] [place] [address] [employer]: Ventura Zuniga MD COMMENT Normal [facility] Comment on above: Order Comment: FASTI NG: UNKNOWN Result Comment: See Note 2 Note 1 This test was developed and its analytical performance characteristics have been determined by [facility]. It has not been cleared or approved by the FDA. This assay has been validated pursuant to the CLIA regulations and is used for clinical purposes. Note 2 This drug testing is for medical treatment only. Analysis was performed as non-forensic testing and these results should be used only by healthcare providers to render diagnosis or treatment, or to monitor progress of medical conditions. For assistance with interpreting these drug results, please contact a [facility] Toxicology Specialist: [phone] ( ), M-F, 8am-6pm EST. Performed By: #### 9 1484 #### [facility] of [address], [address] [place] [address] [employer]: Ventura Zuniga MD Heroin Metabolite Negative Normal <10 [facility] Comment on above: Order Comment: FASTI NG: UNKNOWN Performed By: #### 9 1484 #### [facility] [address], [address] [place] [address] [employer]: Ventura Zuniga MD Hydrocodone Negative Normal <50 [facility] Comment on above: Order Comment: FASTI NG: UNKNOWN Result Comment: See Note 1 Performed By: #### 9 1484 #### [facility] of [address], [address] [place] [address] [employer]: Ventura Zuniga MD Hydromorphone Negative Normal <50 [facility] Comment on above: Order Comment: FASTI NG: UNKNOWN Result Comment: See Note 1 Performed By: #### 9 1484 #### [facility] of [address], [address] [place] [address] [employer]: Ventura Zuniga MD Marijuana Metabolite 20 Negative Normal <20 [facility] Comment on above: Order Comment: FASTI NG: UNKNOWN Performed By: #### 9 1484 #### [facility] of [address], [address] [place] [address] [employer]: Ventura Zuniga MD Methadone Metabolite Negative Normal <100 [facility] Comment on above: Order Comment: FASTI NG: UNKNOWN Performed By: #### 9 1484 #### [facility] of [address], [address] [place] [address] [employer]: Ventura Zuniga MD Morphine 5640 ng/mL High <50 [facility] Comment on above: Order Comment: FASTI NG: UNKNOWN Result Comment: See Note 1 Performed By: #### 9 1484 #### [facility] of [address], [address] [place] [address] [employer]: Ventura Zuniga MD Norhydrocodone Negative Normal <50 [facility] Comment on above: Order Comment: FASTI NG: UNKNOWN Result Comment: See Note 1 Performed By: #### 9 1484 #### [facility] of [address], [address] [place] [address] [employer]: Ventura Zuniga MD Noroxycodone 415 ng/mL High <50 [facility] Comment on above: Order Comment: FASTI NG: UNKNOWN Result Comment: See Note 1 Performed By: #### 9 1484 #### [facility] of [address], [address] [place] [address] [employer]: Ventura Zuniga MD Opiates Positive Abnormal <100 [facility] Comment on above: Order Comment: FASTI NG: UNKNOWN Performed By: #### 9 1484 #### [facility] of [address], [address] [place] [address] [employer]: Ventura Zuniga MD Oxycodone Positive Abnormal <100 [facility] Comment on above: Order Comment: FASTI NG: UNKNOWN Performed By: #### 9 1484 #### [facility] of [address], [address] [place] [address] [employer]: Ventura Zuniga MD Oxycodone 139 ng/mL High <50 [facility] Comment on above: Order Comment: FASTI NG: UNKNOWN Result Comment: See Note 1 Performed By: #### 9 1484 #### [facility] of [place] [address] [employer]: Ventura Zuniga MD Oxymorphone Negative Normal <50 [facility] Comment on above: Order Comment: FASTI NG: UNKNOWN Result Comment: See Note 1 Performed By: #### 9 1484 #### [facility] [place] [address] [place]: Ventura Zuniga MD Phencyclidine Negative Normal <25 [facility] Comment on above: Order Comment: FASTI NG: UNKNOWN Performed By: #### [id number] #### [facility] [place] [address] [place]: Ventura Zuniga MD Glucose Glucometer (BldC) [M ass/Vol]on 05-21-2021 Glucose [Mass/Vol] 138 mg/dL 74-[address] [facility] Work Phone: Comment on above: MANAGEMENT OF PATIEN T CARE PER NURSING PROTOCOL LABORATORYOrdered By: Hernán Toney on 05-10-2021 Natriuretic peptide.B prohormone N-Terminal [Mass/Vol] 251 pg/mL Invalid Interpretation Code 0 - 125 pg/mL AO ADM SS Glucose Glucometer (BldC) [M ass/Vol]on 02-19-2021 Glucose [Mass/Vol] 148 mg/dL 70-[address] [facility] Work Phone: Comment on above: MANAGEMENT OF PATIEN T CARE PER NURSING PROTOCOL RIGHT HEART CATH O2 SATURATI ON & CARDIAC OUTPUT [facility] Vital Signs Date Time Vital Sign Value Performing Clinician Facility 11-17-2024 08:37-0400 Body height 162.[address] Adrián Sosa DO Work Phone: [facility] 11-17-2024 08:37-0400 Body mass index (BMI) [Ratio] 48.9 kg/m2 Dr. Adrián Sosa DO Work Phone: [facility] 11-17-2024 08:37-0400 Body weight 129.[address] Adrián Sosa DO Work Phone: [facility] 09-06-2024 11:49-0400 Body temperature 98.6 [degF] Dr. Adrián Sosa DO Work Phone: [facility] 09-06-2024 11:49-0400 Diastolic blood pressure 59 mm[Hg] Dr. Adrián Sosa DO Work Phone: [facility] 09-06-2024 11:49-0400 Heart rate 68 /min Dr. Adrián Sosa DO Work Phone: [facility] 09-06-2024 11:49-0400 Respiratory rate 16 /min Dr. Adrián Sosa DO Work Phone: [facility] 09-06-2024 11:49-0400 SaO2% (BldA) [Mass fraction] 94 % Dr. Adrián Sosa DO Work Phone: [facility] 09-06-2024 11:49-0400 Systolic blood pressure 144 mm[Hg] Dr. Adrián Sosa DO Work Phone: [facility] 09-06-2024 11:12-0400 Body height 162.[address] Adrián Sosa DO Work Phone: [facility] 09-06-2024 11:12-0400 Body mass index (BMI) [Ratio] 51.2 kg/m2 Dr. Adrián Sosa DO Work Phone: [facility] 09-06-2024 11:12-0400 Body weight 135.[address] Adrián Sosa DO Work Phone: [facility] 07-14-2024 14:27-0400 Body height 162.[address] Adrián Sosa DO Work Phone: [facility] 07-02-2024 13:15-0400 Diastolic Blood Pressure Non-Invasive 68 mm[Hg] SHARON BEY MD [address] 07-02-2024 13:15-0400 Heart rate 62 /min SHARON BEY MD [address] [place] [address] 07-02-2024 13:15-0400 Respiratory rate 16 /min SHARON BEY MD [facility] 07-02-2024 13:15-0400 Systolic Blood Pressure Non-Invasive 162 mm[Hg] SHARON BEY MD [facility] 07-02-2024 12:45-0400 Diastolic Blood Pressure Non-Invasive 58 mm[Hg] SHARON BEY MD [facility] 07-02-2024 12:45-0400 Heart rate 65 /min SHARON BEY MD [facility] 07-02-2024 12:45-0400 Respiratory rate 16 /min SHARON BEY MD [facility] 07-02-2024 12:45-0400 Systolic Blood Pressure Non-Invasive 155 mm[Hg] SHARON BEY MD [facility] 07-02-2024 12:18-0400 Diastolic Blood Pressure Non-Invasive 62 mm[Hg] SHARON BEY MD [facility] 07-02-2024 12:18-0400 Heart rate 64 /min SHARON BEY MD [address] [place] [address] 07-02-2024 12:18-0400 Respiratory rate 16 /min SHARON BEY MD [address] [place] [address] 07-02-2024 12:18-0400 Systolic Blood Pressure Non-Invasive 154 mm[Hg] SHARON BEY MD [address] [place] [address] 07-02-2024 11:20-0400 Reason For Taking VItal Signs SHARON BEY MD [address] [place] [address] 07-02-2024 08:19-0400 Body height 162.6 cm SHARON BEY MD [address] [place] [address] 07-02-2024 08:19-0400 Body temperature 98.42 [degF] SHARON BEY MD [address] [place] [address] 07-02-2024 08:19-0400 Body weight 139.3 kg SHARON BEY MD [address] [place] [address] 07-02-2024 08:19-0400 Heart rate 65 /min SHARON BEY MD [facility] 06-23-2023 12:45-0400 Body temperature 98.9 [degF] [facility] 06-23-2023 12:45-0400 Diastolic blood pressure 74 mm[Hg] [facility] 06-23-2023 12:45-0400 Heart rate 68 /min [facility] 06-23-2023 12:45-0400 Respiratory rate 16 /min [facility] 06-23-2023 12:45-0400 SaO2% (BldA) [Mass fraction] 93 % [facility] 06-23-2023 12:45-0400 Systolic blood pressure 156 mm[Hg] [facility] 06-23-2023 11:41-0400 Body height 162.56 cm [facility] 06-23-2023 11:41-0400 Body mass index (BMI) [Ratio] 56 kg/m2 [facility] 06-23-2023 11:41-0400 Body weight 148 kg [facility] 12-24-2022 11:31-0500 SaO2% (BldA) [Mass fraction] 93 % RIGO BERGER [facility] Comment on above: Order Comment: Specimen Type: ARTERIAL B LOOD SPECIMEN Ordering Facility: [facility] Address: [address] [place] [address] Performed By: #### A LLBG #### [facility] CLIA [id number] [facility] DESK [id number] [place] [address] [place] 12-24-2022 09:38-0500 SaO2% (BldA) [Mass fraction] 93 % Pulm Rm Work Phone: [facility] 12-23-2022 11:02-0500 Body temperature 98.3 [degF] Dr. Adrián Sosa Work Phone: [facility] 12-23-2022 11:02-0500 Diastolic blood pressure 72 mm[Hg] Dr. Adrián Sosa Work Phone: [facility] 12-23-2022 11:02-0500 Heart rate 72 /min Dr. Adrián Sosa Work Phone: [facility] 12-23-2022 11:02-0500 Respiratory rate 16 /min Dr. Adrián Sosa Work Phone: [facility] 12-23-2022 11:02-0500 SaO2% (BldA) [Mass fraction] 93 % Dr. Adrián Sosa Work Phone: [facility] 12-23-2022 11:02-0500 Systolic blood pressure 158 mm[Hg] Dr. Adrián Sosa Work Phone: [facility] 12-23-2022 10:21-0500 Body height 162.[address] Adrián Sosa Work Phone: [facility] 12-23-2022 10:21-0500 Body mass index (BMI) [Ratio] 58.1 kg/m2 Dr. Adrián Sosa Work Phone: [facility] 12-23-2022 10:21-0500 Body weight 153.[address] Adrián Sosa Work Phone: [facility] 12-13-2022 12:46-0400 Body height 162.6 cm William Croft MD Work Phone: [facility] 12-13-2022 12:46-0400 Body temperature 97 [degF] William Croft MD Work Phone: [facility] 12-13-2022 12:46-0400 Body weight 155.63 kg William Croft MD Work Phone: [facility] 12-13-2022 12:46-0400 Diastolic blood pressure 79 mm[Hg] William Croft MD Work Phone: [facility] 12-13-2022 12:46-0400 Heart rate 89 /min William Croft MD Work Phone: [facility] 12-13-2022 12:46-0400 Respiratory rate 22 /min William Croft MD Work Phone: [facility] 12-13-2022 12:46-0400 SaO2% (BldA) [Mass fraction] 93 % William Croft MD Work Phone: [facility] 12-13-2022 12:46-0400 Systolic blood pressure 125 mm[Hg] William Croft MD Work Phone: [facility] 08-05-2022 10:45-0400 Body temperature 98.3 [degF] [facility] 08-05-2022 10:45-0400 Diastolic blood pressure 72 mm[Hg] [facility] 08-05-2022 10:45-0400 Heart rate 60 /min [facility] 08-05-2022 10:45-0400 Respiratory rate 16 /min [facility] 08-05-2022 10:45-0400 SaO2% (BldA) [Mass fraction] 94 % [facility] 08-05-2022 10:45-0400 Systolic blood pressure 149 mm[Hg] [facility] 08-05-2022 09:27-0400 Body height 162.56 cm [facility] 08-05-2022 09:27-0400 Body mass index (BMI) [Ratio] 55.9 kg/m2 [facility] 08-05-2022 09:27-0400 Body weight 147.87 kg [facility] 07-17-2022 20:36-0400 Body height 162.[address] WALT CASTANEDA MD [facility] 07-17-2022 20:36-0400 Body temperature 98.6 [degF] DR WALT CASTANEDA MD [facility] 07-17-2022 20:36-0400 Body weight [address] WALT CASTANEDA MD [facility] 07-17-2022 20:36-0400 Diastolic Blood Pressure Non-Invasive [address] WALT CASTANEDA MD [facility] 07-17-2022 20:36-0400 Heart rate 76 /min DR WALT CASTANEDA MD [facility] 07-17-2022 20:36-0400 Respiratory rate 18 /min DR WALT CASTANEDA MD [facility] 07-17-2022 20:36-0400 Systolic Blood Pressure Non-Invasive [address] WALT CASTANEDA MD [facility] 05-06-2022 08:40-0400 Body temperature 97.5 [degF] [facility] 05-06-2022 08:40-0400 Diastolic blood pressure 67 mm[Hg] [facility] 05-06-2022 08:40-0400 Heart rate 60 /min [facility] 05-06-2022 08:40-0400 Respiratory rate 16 /min [facility] 05-06-2022 08:40-0400 SaO2% (BldA) [Mass fraction] 95 % [facility] 05-06-2022 08:40-0400 Systolic blood pressure 152 mm[Hg] [facility] 05-06-2022 06:44-0400 Body height 162.56 cm [facility] 05-06-2022 06:44-0400 Body mass index (BMI) [Ratio] 55.6 kg/m2 [facility] 05-06-2022 06:44-0400 Body weight 147 kg [facility] 03-04-2022 15:45-0500 Body temperature 98.3 [degF] [facility] 03-04-2022 15:45-0500 Diastolic blood pressure 93 mm[Hg] [facility] 03-04-2022 15:45-0500 Heart rate 66 /min [facility] 03-04-2022 15:45-0500 Respiratory rate 16 /min [facility] 03-04-2022 15:45-0500 SaO2% (BldA) [Mass fraction] 94 % [facility] 03-04-2022 15:45-0500 Systolic blood pressure 159 mm[Hg] [facility] 03-04-2022 14:26-0500 Body mass index (BMI) [Ratio] 55.6 kg/m2 [facility] 03-04-2022 14:26-0500 Body weight 147 kg [facility] 11-05-2021 11:45-0400 Body temperature 98.7 [degF] Dr. Adrián Sosa Work Phone: [facility] Work Phone: 11-05-2021 11:45-0400 Diastolic blood pressure 71 mm[Hg] Dr. Adrián Sosa Work Phone: [facility] Work Phone: 11-05-2021 11:45-0400 Heart rate 59 /min Dr. Adrián Sosa Work Phone: [facility] Work Phone: 11-05-2021 11:45-0400 Respiratory rate 16 /min Dr. Adrián Sosa Work Phone: [facility] Work Phone: 11-05-2021 11:45-0400 SaO2% (BldA) [Mass fraction] 98 % Dr. Adrián Sosa Work Phone: [facility] Work Phone: 11-05-2021 11:45-0400 Systolic blood pressure 156 mm[Hg] Dr. Adrián Sosa Work Phone: [facility] Work Phone: 11-05-2021 11:40-0400 Inhaled oxygen flow rate 4 L/min Dr. Adrián Sosa Work Phone: [facility] Work Phone: 11-05-2021 10:12-0400 Body height 162.[address] Adrián Sosa Work Phone: [facility] Work Phone: 11-05-2021 10:12-0400 Body mass index (BMI) [Ratio] 56.7 kg/m2 Dr. Adrián Sosa Work Phone: [facility] Work Phone: 11-05-2021 10:12-0400 Body weight 150.[address] Adrián Sosa Work Phone: [facility] Work Phone: 05-21-2021 11:10-0400 Body temperature 97.4 [degF] [facility] Work Phone: 05-21-2021 11:10-0400 Diastolic blood pressure 57 mm[Hg] [facility] Work Phone: 05-21-2021 11:10-0400 Heart rate 57 /min [facility] Work Phone: 05-21-2021 11:10-0400 Respiratory rate 16 /min [facility] Work Phone: 05-21-2021 11:10-0400 SaO2% (BldA) [Mass fraction] 92 % [facility] Work Phone: 05-21-2021 11:10-0400 Systolic blood pressure 126 mm[Hg] [facility] Work Phone: 05-21-2021 10:06-0400 Body height 162.56 cm [facility] Work Phone: 05-21-2021 10:06-0400 Body mass index (BMI) [Ratio] 55.3 kg/m2 [facility] Work Phone: 05-21-2021 10:06-0400 Body weight 146.4 kg [facility] Work Phone: 02-19-2021 08:21-0500 Body temperature 96.9 [degF] [facility] Work Phone: 02-19-2021 08:21-0500 Diastolic blood pressure 94 mm[Hg] [facility] Work Phone: 02-19-2021 08:21-0500 Heart rate 62 /min [facility] Work Phone: 02-19-2021 08:21-0500 Respiratory rate 18 /min [facility] Work Phone: 02-19-2021 08:21-0500 SaO2% (BldA) [Mass fraction] 93 % [facility] Work Phone: 02-19-2021 08:21-0500 Systolic blood pressure 155 mm[Hg] [facility] Work Phone: 02-19-2021 06:43-0500 Body mass index (BMI) [Ratio] 57.5 kg/m2 [facility] Work Phone: 02-19-2021 06:43-0500 Body weight 152 kg [facility] Work Phone: Encounters Encounter Date Encounter Type Care Provider Facility Start: 01-03-2025 ambulatory Coy Lai Facilit y:[facility] Start: 12-01-2024 End: 12-01-[address] Taco Liriano DO -[facility] Work Phone: Start: 12-01-2024 End: 12-01-[address] Adrián Sosa DO Work Phone: -[facility] Start: 2024 End: [address] Taco Liriano DO -[facility] Work Phone: Start: 2024 End: [address] Adrián Sosa DO Work Phone: [facility] Start: 11-17-2024 End: 11-17-[address] Taco Liriano DO [facility] Work Phone: Start: 11-17-2024 End: 11-17-[address] Adrián Sosa DO Work Phone: [facility] Start: 11-09-2024 End: 11-09-2024 ambulatory JETHRO JOSE CNP Facility:[facility] Start: 11-09-2024 End: 11-09-2024 Patient encounter procedure JETHRO REBECA NEUROLOGY TEACHER [facility] Start: 11-08-2024 End: 11-08-[address] TRESSA PEREZ DO Facility:[facility] Start: 11-08-2024 End: 11-08-[address] TRESSA PEREZ DO [facility] Start: 11-01-2024 End: 11-01-[address] Taco Liriano DO -[facility] Work Phone: Start: 11-01-2024 End: 11-01-[address] Adrián Sosa DO Work Phone: -[facility] Start: 09-07-2024 End: 09-07-[address] TRESSA PEREZ DO [facility] Start: 09-07-2024 End: 09-07-[address] TRESSA PEREZ DO [facility] Start: 09-06-2024 End: 09-06-2024 Admission to same day surgery center Dr. Coy Lai MD [facility] Start: 09-06-2024 End: 09-06-[address] Adrián Sosa DO Work Phone: [facility] Start: 08-26-2024 End: 08-26-2024 ambulatory VIRGILIO TAN PA-C Facility[facility] Start: 08-26-2024 End: 08-26-2024 Patient encounter procedure VIRGILIO TAN PA-C [facility] Start: 08-19-2024 End: 08-19-[address] TRESSA PEREZ DO Facility[facility] Start: 08-19-2024 End: 08-19-2024 Patient encounter procedure SHEA CASTANEDA MD [facility] Start: 08-19-2024 End: 08-23-[address] TRESSA PEREZ DO Facility[facility] Start: 08-19-2024 End: 08-23-[address] TRESSA PEREZ DO [facility] Start: 07-21-2024 End: 07-21-2024 ambulatory GRAY GARSAI APRN-NEUROLOGY TEACHER Facility:[facility] Start: 07-21-2024 End: 07-21-2024 Patient encounter procedure GRAY GARSIA APRN-NEUROLOGY TEACHER [facility] Start: 07-14-2024 End: 07-14-[address] Adrián Sosa DO Work Phone: [facility] Work Phone: Start: 07-14-2024 End: 07-14-[address] Taco Liriano DO -[facility] Work Phone: Start: 07-02-2024 End: 07-02-[address] TRESSA PEREZ DO Facility:[facility] Start: 07-02-2024 End: 07-02-2024 SAME DAY STAY SHARON BEY MD [facility] Start: 06-17-2024 End: 06-21-[address] TRESSA PEREZ DO [facility] Start: 06-17-2024 End: 06-21-[address] TRESSA PEREZ DO [facility] Start: 05-03-2024 End: 05-03-[address] TRESSA PEREZ DO [facility] Start: 04-26-2024 End: 04-26-[address] TRESSA PEREZ DO [facility] Start: 04-09-2024 End: 04-09-[address] TRESSA PEREZ DO [facility] Start: 04-09-2024 End: 04-09-[address] TRESSA EPREZ DO [facility] Start: 03-29-2024 End: 03-29-[address] Taco Liriano DO -[facility] Work Phone: Start: 03-29-2024 End: 03-29-2024 ambulatory Taco Liriano Facility:[facility] Start: 03-22-2024 End: 03-22-[address] Taco Liriano DO -[facility] Work Phone: Start: 03-22-2024 End: 03-22-2024 ambulatory Taco Liriano Facility:[facility] Start: 03-15-2024 End: 03-15-2024 ambulatory Adrián Sosa Facility:[facility] Start: 02-25-2024 End: 02-25-2024 ambulatory Adrián Sosa Facility:[facility] Start: 02-23-2024 ambulatory Coy Warren y:[facility] Start: 02-23-2024 End: 02-23-2024 ambulatory Adrián Sosa Facility:[facility] Start: 07-24-2023 End: 07-24-[address] ADRIÁN SOSA DO Facility:[facility] Start: 07-24-2023 End: 07-24-[address] ADRIÁN SOSA DO [facility] Start: 06-23-2023 End: 06-23-2023 [facility] Start: 06-23-2023 End: 06-23-2023 ambulatory [facility] Work Phone: Start: 01-24-2023 End: 01-28-[address] ADRIÁN SOSA DO Facility:[facility] Start: 01-24-2023 End: 01-28-[address] ADRIÁN SOSA DO [facility] Start: 12-24-2022 End: 12-25-2022 ambulatory RIGO BERGER Facility:[facility] Start: 12-24-2022 End: 12-24-2022 Patient encounter procedure Pulm Main [id number] Procedure Rm Work Phone: [facility] Comment on above: Pulmonary hypertensi on (HCC) (Primary Dx); Exertional dyspnea Start: 12-23-2022 End: 12-23-2022 Admission to same day surgery center Dr. Adrián [facility]osa [facility] Start: 12-23-2022 End: 12-23-[address] Adrián Sosa Work Phone: [facility] Work Phone: Start: 12-17-2022 Telephone encounter Froilan Bedoya MA [facility] Comment on above: Care Coordination Start: 12-13-2022 End: 12-13-2022 ambulatory WILLIAM CROFT Facility:[facility] Start: 12-13-2022 End: 12-13-2022 Patient encounter procedure William Croft MD Work Phone: [facility] Medicine Comment on above: Pulmonary hypertensi on (HCC) (Primary Dx); Exertional dyspnea; Morbid obesity (HCC); HARRISON (obstructive sleep apnea); Physical deconditioning Start: 09-11-2022 Non-patient / Non-visit Dr. Jordyn Sosa Work Phone: [facility] Start: 09-11-2022 End: 09-11-[address] Adrián Sosa Work Phone: [facility] Work Phone: Start: 09-11-2022 End: 09-11-[address] Adrián Sosa Work Phone: [facility] Work Phone: Start: 08-24-2022 End: 08-24-[address] ADRIÁN SOSA DO Facility: Start: 08-24-2022 End: 08-24-[address] ADRIÁN SOSA DO [facility] Start: 08-05-2022 End: 08-05-2022 Admission to same day surgery center [facility] Start: 08-05-2022 End: 08-05-2022 ambulatory [facility] Work Phone: Start: 07-27-2022 End: 07-27-2022 ambulatory [facility] Work Phone: Start: 07-27-2022 End: 07-27-2022 Patient encounter procedure [facility] Start: 07-17-2022 End: 07-17-2022 Emergency department patient visit DR WALT CASTANEDA MD [facility] Start: 05-06-2022 End: 05-06-2022 Admission to same day surgery center [facility] Start: 05-06-2022 End: 05-06-2022 ambulatory [facility] Work Phone: Start: 03-04-2022 End: 03-04-2022 Admission to same day surgery [facility] Start: 11-05-2021 End: 11-05-2021 Admission to [facility] day surgery center Dr. Adrián Sosa Work Phone: [facility] Start: 11-05-2021 End: 11-05-[address] Adrián Sosa Work Phone: [facility] Work Phone: Start: 10-09-2021 Non-patient / Non-visit Dr. Jordyn Sosa Work Phone: [facility] Start: 10-09-2021 End: 10-09-[address] Adrián Sosa Work Phone: [facility] Start: 05-21-2021 End: 05-21-2021 Admission to same day surgery center [facility] Start: 05-10-2021 End: 05-10-2021 Patient encounter procedure ARTIE LAI [facility] Start: 02-19-2021 End: 02-19-2021 Admission to same day surgery center [facility] Procedures Date Procedure Procedure Detail Performing Clinician Start: 09-06-2024 Local anesthetic sac ral epidural block Dr. Adrián Sosa DO Work Phone: Start: 09-06-2024 Injection of spinal epidural space Dr. Adrián Sosa DO Work Phone: Start: 09-06-2024 Injection using fluo roscopic guidance Dr. 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 Systolic function is normal. The estimated ejection fraction is 65-70%. IMPRESSIONS: 1. Normal study. 2. normal coronaries and left ventricular function. no comp;lications Start: 06-23-2023 Local anesthetic sac ral epidural block Start: 06-23-2023 Injection of spinal epidural space Start: 12-24-2022 Right heart cath o2 saturation & cardiac output William Croft MD Work Phone: Start: 12-24-2022 Gases blood ph direc t ibrahima xcpt pulse oximitry William Croft MD Work Phone: Start: 12-24-2022 US VASCULAR (POC) FO R CURLY USE ONLY William Croft MD Work Phone: Start: 12-24-2022 XR ARTERY CATHETER ( POC) FOR CURLY USE ONLY William Croft MD Work Phone: Start: 12-23-2022 Local anesthetic sac ral epidural block Dr. Adrián Sosa Work Phone: Start: 12-23-2022 Injection of spinal epidural space Dr. Adrián Sosa Work Phone: Start: 12-23-2022 Injection using fluo roscopic guidance Dr. Adrián Sosa Work Phone: Start: 09-11-2022 Cardiovascular stres s test using pharmacologic stress agent Dr. Adrián Sosa Work Phone: Start: 08-05-2022 Injection of spinal epidural space Dr. Adrián Sosa Work Phone: Start: 08-05-2022 Injection using fluo roscopic guidance Dr. Adrián Sosa Work Phone: Start: 08-05-2022 Local anesthetic sac ral epidural block Start: 07-27-2022 CT of chest Start: 05-06-2022 Radio Frequency Abla tion (Right) Start: 05-06-2022 Fluoroscopic guidance Start: 05-06-2022 X-ray of lumbar spin e, two or three views Start: 03-04-2022 Injection of spinal epidural space Start: 03-04-2022 Injection using fluo roscopic guidance Start: 11-05-2021 Injection of spinal epidural space Dr. Adrián Sosa Work Phone: Start: 11-05-2021 Local anesthetic sac ral epidural block Dr. Adrián Sosa Work Phone: Start: 05-21-2021 Local anesthetic sac ral epidural block Start: 05-21-2021 Injection of spinal epidural space Start: 02-19-2021 O.R. Fluoro for C-Arm Start: 02-19-2021 X-ray of lumbosacral spine Start: 11-23-2019 Arterial pressure in dex (observable entity) ARTIE LAI Start: 10-26-2019 CT of chest ARTIE MARR Start: 09-29-2019 Cardiovascular stres s testing ARTIE LAI Start: 09-20-2019 History of operative procedure on lumbar spinal structure ARTIE LAI Start: 08-10-2019 Cardiovascular stres s testing ARTIE LAI Start: 08-10-2019 Echocardiography ARTIE LAI Comment on above: EF 55-60% Start: 11-10-2018 Echocardiography ARTIE LAI Comment on above: Normal LV size, left ventricular systolic function is normal. EF 65% Diastolic function is indeterminate. No regional wall motion abnormalities. Start: 10-27-2018 Lung structure (body structure) ARTIE LAI Comment on above: Lung scan- Normal 99 m Tc MAA pulmonary perfusion imaging exam, Central clumping of the aerosol may be secondary to obstructive airway mechanics and or clinical tachypnea. Decompression of med kymberly nerve ARTIE LAI Comment on above: Right Intra-articular injection LEIGHA LAI Comment on above: Joesph sacroiliac joint steroid injection: 03/09/2018, 11/03/2017, 06/2017 Plan of Treatment Date Care Activity Detail Author Start: 09-06-2024 Injection of spinal epidural space [facility] Start: 09-06-2024 Injection using fluoroscopic guidance [facility] Start: 09-06-2024 Patient discharge [facility] Start: 06-23-2023 Injection using fluoroscopic guidance [facility] Start: 06-23-2023 Patient discharge [facility] Start: 12-23-2022 Patient discharge [facility] Start: 10-18-2022 Influenza vaccination Influenza Vaccine (#1) [facility] Start: 08-05-2022 Njx dx/ther sbst intrlmnr lmbr/sac w/img gdn NJX INTERLAMINAR LMBR/SAC [facility] Start: 08-05-2022 Injection of spinal epidural space [facility] Start: 08-05-2022 Injection using fluoroscopic guidance [facility] Start: 08-05-2022 Patient discharge [facility] Start: 05-06-2022 Dstr nrolytc agnt parverteb fct addl lmbr/sacral DESTROY L/S FACET JNT ADDL [facility] Start: 05-06-2022 Dstr nrolytc agnt parverteb fct sngl lmbr/sacral DESTROY LUMB/SAC FACET JNT [facility] Start: 05-06-2022 X-ray of lumbar spine, two or three views Lumbar Spine 2 or 3 Views [facility] Start: 05-06-2022 XR Lumbar spine 2 or 3 Views [facility] Start: 05-06-2022 Patient discharge [facility] Start: 03-04-2022 Njx dx/ther sbst intrlmnr lmbr/sac w/img gdn NJX INTERLAMINAR LMBR/SAC [facility] Start: 03-04-2022 Patient discharge [facility] Start: 02-17-2022 Depression Assessment Depression Assessment [facility] Start: 11-05-2021 Injection using fluoroscopic guidance [facility] Work Phone: Start: 11-05-2021 Patient discharge [facility] Work Phone: Start: 05-21-2021 Injection using fluoroscopic guidance Fluor Guidance for Spine Inj [facility] Work Phone: Start: 02-19-2021 Anes dx/ther nerve block/injection prone pos ANESTH N BLOCK/INJ PRONE [facility] Work Phone: Start: 02-19-2021 Dstr nrolytc agnt parverteb fct addl lmbr/sacral DESTROY L/S FACET JNT ADDL [facility] Work Phone: Start: 02-19-2021 Dstr nrolytc agnt parverteb fct sngl lmbr/sacral DESTROY LUMB/SAC FACET T [facility] Work Phone: Start: 02-19-2021 Radex spine lumbosacral 2/3 views X-RAY EXAM L-S SPINE 2/3 S [facility] Work Phone: Start: 2018 RSV Vaccine (1 - 1-dose 60+ series) RSV Vaccine (1 - 1-dose 60+ series) [facility] Start: 11-25-2003 Cologuard (FIT-DNA) Cologuard (FIT-DNA) [facility] Start: 11-25-2003 Colonoscopy Colonoscopy [facility] Start: 11-25-2003 Colorectal Cancer Screening Colorectal Cancer Screening [facility] Start: 11-25-[address] Colonography [facility] Start: 11-25-2003 Diabetes Screening Diabetes Screening [facility] Start: 11-25-2003 Fecal Occult Blood Fecal Occult Blood [facility] Start: 11-25-2003 Lipid 1996 panel - Serum or Plasma Lipid Screening [facility] Start: 11-25-2003 Sigmoidoscopy Sigmoidoscopy [facility] Start: 1998 Mammography Mammogram Screening [facility] Start: 1988 HPV Testing HPV Testing [facility] Start: 11-25-1979 Pap Testing Pap Testing [facility] Start: 1977 Urine microalbumin profile DTaP,Tdap,Td Vaccine (1 - Tdap) [facility] Start: 1976 Hepatitis C Screening Hepatitis C Screening [facility] Start: 1976 HIV Screening HIV Screening [facility] Start: 05-26-1959 Covid-19 Vaccine (#1) Covid-19 Vaccine (#1) [facility] Patient referral [facility] Work Phone: [facility] Immunizations Immunization Date Immunization Notes Care Provider Fa cili 11-19-2023 RSV vaccine, preF A- preF B, recombinant DR TRESSA PEREZ DO [facility] 10-29-2023 influenza virus vacc ine, unspecified formulation DR TRESSA PEREZ DO [facility] 01-20-2023 influenza virus vacc ine, unspecified formulation DR TRESSA PEREZ DO [facility] 11-30-2021 influenza virus vacc ine, unspecified formulation DR WALT CASTANEDA MD [facility] 11-07-2020 influenza virus vacc ine, unspecified formulation ARTIE LAI [facility] 05-29-2020 zoster vaccine recombinant ALVA MING [facility] Comment on above: Result Comment: [facility] [place] 02-24-2020 zoster vaccine recombinant ALVA MING [facility] 12-22-2019 influenza, injectabl e, quadrivalent, preservative free; Translations: [Fluarix PF Quadrivalent ] ARTIE LAI [facility] 2018 influenza virus vacc ine, unspecified formulation ARTIE LAI [facility] Comment on above: Result Comment: [facility] 11-11-2017 influenza virus vacc ine, unspecified formulation ARTIE LAI [facility] 11-17-2016 influenza virus vacc ine, unspecified formulation DR WALT CASTANEDA MD [facility] 10-01-2016 influenza virus vacc ine, unspecified formulation DR WALT CASTANEDA MD [facility] 11-29-2015 influenza virus vacc ine, unspecified formulation DR WALT CASTANEDA MD [facility] 10-04-2014 influenza virus vacc ine, unspecified formulation DR WALT CASTANEDA MD [facility] 10-04-2014 pneumococcal polysaccharide vaccine, 23 valent ARTIE LAI [facility] 2013 influenza virus vacc ine, unspecified formulation DR WALT CASTANEDA MD [facility] 11-21-2012 influenza virus vacc ine, unspecified formulation DR WALT CASTANEDA MD [facility] Payers Date Payer Category Payer Unknown [id number] 2024 Private Health Insurance [id number] 2024 Unknown [id number] 2024 Self-pay [id number] 2024 Self-pay [id number] 2022 Medicaid [id number] 2016 Unknown [id number] 2016 Unknown [id number] 1960 Unknown [id number] 2.16.8 40.1.379689.3.579.2.627 1958 Unknown [id number] 2.16.8 40.1.910137.3.579.2.627 1958 Unknown [id number] 2.16.8 40.1.189247.3.579.2.627 1958 Unknown [id number] 2.16.8 40.1.264940.3.579.2.627 1958 Unknown [id number] 2.16. 840.1.512358.3.579.2.627 1958 Unknown [id number] 2.16. 840.1.430405.3.579.2.627 1958 Unknown [id number] 2.16. 840.1.722850.3.579.2.627 1958 Unknown [id number] 2.16. 840.1.349345.3.579.2.627 1958 Unknown [id number] 2.16. 840.1.832585.3.579.2.627 1958 Unknown [id number] 2.16. 840.1.658985.3.579.2.627 1958 Unknown [id number] 2.16. 840.1.050096.3.579.2.627 1958 Unknown [id number] 2.16.8 40.1.590007.3.579.2.627 1958 Unknown [id number] 2.16.8 40.1.330085.3.579.2.627 1958 Unknown [id number] 2.16.8 40.1.438084.3.579.2.627 1958 Unknown [id number] 2.16.8 40.1.879521.3.579.2.627 Unknown [id number] 2.16.8 40.1.333773.3.579.2.462 Unknown [id number] 2.16.8 40.1.041319.3.579.2.462 Unknown [id number] 2.16.8 40.1.164893.3.579.2.462 Unknown [id number] 2.16.8 40.1.225987.3.579.2.462 Unknown [id number] 2.16.8 40.1.341792.3.579.2.462 Unknown [id number] 2.16.8 40.1.311206.3.579.2.462 Unknown [id number] 2.16.8 40.1.308053.3.579.2.462 Unknown [id number] 2.16.8 40.1.860192.3.579.2.462 Unknown [id number] 2.16.8 40.1.567495.3.579.2.462 Unknown [id number] 2.16.8 40.1.442253.3.579.2.462 Unknown [id number] 2.16.8 40.1.431595.3.579.2.462 Unknown [id number] 2.16.8 40.1.514185.3.579.2.462 Unknown [id number] 2.16.8 40.1.008187.3.579.2.462 Social History Date Type Detail Facility Start: 09-25-2018 End: 08-30-2024 Ex-smoker (finding) [facility] Comment on above: No Tobacco/Smoke Exp osure Start: 1960 Sex Assigned At Female [facility] Start: 06-19-2020 End: 06-20-2023 Tobacco smoking status NHIS Unknown if ever smoked [facility] Start: 06-19-2020 Non-smoker [facility] Start: 05-29-[address] [facility] Start: 05-29-2017 With Family [facility] Start: 12-13-2022 Tobacco smoking stat us NHIS Never smoked tobacco [facility] Start: 12-13-2022 Tobacco use and exposure Smokeless tobacco non-user [facility] Start: 12-13-2022 Alcohol intake Current drinke r of alcohol (finding) [facility] Start: 12-13-2022 History of Social function [facility] Start: 12-13-2022 Tobacco use panel [facility] National Score (1-100), lower number is lower risk 56 [facility] Start: 12-13-2022 Alcohol Comment occ. Teddymariano [facility] Start: 1960 Sex Assigned At Not on file [facility] Sexual Orientation [facility] Start: 08-12-2018 Sex Female (finding) [facility] NEGATED: Highlighted row [facility] NEGATED: Highlighted row Not [facility] Medical Equipment Procedure Code Equipment Code Equipment Origin al Text Equipment Identifier Dates Myringotomy with insertion of tympanostomy tube using operating microscope Tympanostomy tube [id number] FDA Start: 09-22-2023 Myringotomy with insertion of tympanostomy tube using operating microscope Tympanostomy tube [id number] FDA Start: 09-22-2023 See Instructions , pen needles 32G 4mm 100count., # 1 EA, 3 Refill(s), Pharmacy: [facility] #[id number], 163.5, cm, 04/29/23 10:59:00 EDT, Height, 151.2, kg, 05/27/23 8:29:00 EDT, Dosing Weight Start: 07-07-2023 See Instructions , pen needles 32G 4mm 100count., # 1 EA, 0 Refill(s), Pharmacy: [facility] #[id number], 163.5, cm, 04/08/23 11:29:00 EST, Height, 149.4, kg, 04/04/23 16:08:00 EST, Dosing Weight Start: 04-14-2023 See Instructions , pen needles 32G 4mm 100count., # 1 EA, 3 Refill(s), Pharmacy: [facility] #[id number], 163.5, cm, 04/29/23 10:59:00 EDT, Height, 151.2, kg, 05/27/23 8:29:00 EDT, Dosing Weight Start: 07-07-2023 See Instructions , pen needles 32G 4mm 100count., # 1 EA, 0 Refill(s), Pharmacy: [facility] #[id number], 163.5, cm, 04/08/23 11:29:00 EST, Height, 149.4, kg, 04/04/23 16:08:00 EST, Dosing Weight Start: 04-14-2023 See Instructions , pen needles 32G 4mm 100count., # 1 EA, 3 Refill(s), Pharmacy: [facility] #[id number], 163.5, cm, 04/29/23 10:59:00 EDT, Height, 151.2, kg, 05/27/23 8:29:00 EDT, Dosing Weight Start: 07-07-2023 See Instructions , Use BID with Byetta. pen needles 32G 4mm 100count., # 100 EA, 0 Refill(s), Pharmacy: [facility], 159.3, cm, 04/09/24 9:33:00 EST, Height, 144.9, kg, 04/09/24 9:33:00 EST, Dosing Weight Start: 05-10-2024 See Instructions , pen needles 32G 4mm 100count., # 1 EA, 3 Refill(s), Pharmacy: [facility] #[id number], 163.5, cm, 04/29/23 10:59:00 EDT, Height, 151.2, kg, 05/27/23 8:29:00 EDT, Dosing Weight Start: 07-07-2023 See Instructions , Use BID with Byetta. pen needles 32G 4mm 100count., # 100 EA, 0 Refill(s), Pharmacy: [facility], 159.3, cm, 04/09/24 9:33:00 EST, Height, 144.9, kg, 04/09/24 9:33:00 EST, Dosing Weight Start: 05-10-2024 See Instructions , pen needles 32G 4mm 100count., # 1 EA, 3 Refill(s), Pharmacy: [facility] #[id number], 163.5, cm, 04/29/23 10:59:00 EDT, Height, 151.2, kg, 05/27/23 8:29:00 EDT, Dosing Weight Start: 07-07-2023 See Instructions , Use BID with Byetta. pen needles 32G 4mm 100count., # 100 EA, 0 Refill(s), Pharmacy: [facility], 159.3, cm, 04/09/24 9:33:00 EST, Height, 144.9, kg, 04/09/24 9:33:00 EST, Dosing Weight Start: 05-10-2024 See Instructions , pen needles 32G 4mm 100count., # 1 EA, 3 Refill(s), Pharmacy: [facility] #[id number], 163.5, cm, 04/29/23 10:59:00 EDT, Height, 151.2, kg, 05/27/23 8:29:00 EDT, Dosing Weight Start: 07-07-2023 See Instructions , Use BID with Byetta. pen needles 32G 4mm 100count., # 100 EA, 0 Refill(s), Pharmacy: [facility], 159.3, cm, 04/09/24 9:33:00 EST, Height, 144.9, kg, 04/09/24 9:33:00 EST, Dosing Weight Start: 05-10-2024 See Instructions , pen needles 32G 4mm 100count., # 1 EA, 3 Refill(s), Pharmacy: [facility] #[id number], 163.5, cm, 04/29/23 10:59:00 EDT, Height, 151.2, kg, 05/27/23 8:29:00 EDT, Dosing Weight Start: 07-07-2023 See Instructions , Use BID with Byetta. pen needles 32G 4mm 100count., # 100 EA, 0 Refill(s), Pharmacy: [facility], 159.3, cm, 04/09/24 9:33:00 EST, Height, 144.9, kg, 04/09/24 9:33:00 EST, Dosing Weight Start: 05-10-2024 See Instructions , pen needles 32G 4mm 100count., # 1 EA, 3 Refill(s), Pharmacy: [facility] #[id number], 163.5, cm, 04/29/23 10:59:00 EDT, Height, 151.2, kg, 05/27/23 8:29:00 EDT, Dosing Weight Start: 07-07-2023 See Instructions , Use BID with Byetta. pen needles 32G 4mm 100count., # 100 EA, 0 Refill(s), Pharmacy: [facility], 159.3, cm, 04/09/24 9:33:00 EST, Height, 144.9, kg, 04/09/24 9:33:00 EST, Dosing Weight Start: 05-10-2024 See Instructions , pen needles 32G 4mm 100count., # 1 EA, 3 Refill(s), Pharmacy: [facility] #[id number], 163.5, cm, 04/29/23 10:59:00 EDT, Height, 151.2, kg, 05/27/23 8:29:00 EDT, Dosing Weight Start: 07-07-2023 See Instructions , Use BID with Byetta. pen needles 32G 4mm 100count., # 100 EA, 0 Refill(s), Pharmacy: [facility], 159.3, cm, 04/09/24 9:33:00 EST, Height, 144.9, kg, 04/09/24 9:33:00 EST, Dosing Weight Start: 05-10-2024 See Instructions , pen needles 32G 4mm 100count., # 1 EA, 3 Refill(s), Pharmacy: [facility] #[id number], 163.5, cm, 04/29/23 10:59:00 EDT, Height, 151.2, kg, 05/27/23 8:29:00 EDT, Dosing Weight Start: 07-07-2023 See Instructions , Use BID with Byetta. pen needles 32G 4mm 100count., # 100 EA, 0 Refill(s), Pharmacy: [facility], 159.3, cm, 04/09/24 9:33:00 EST, Height, 144.9, kg, 04/09/24 9:33:00 EST, Dosing Weight Start: 05-10-2024 See Instructions , pen needles 32G 4mm 100count., # 1 EA, 3 Refill(s), Pharmacy: [facility] #[id number], 163.5, cm, 04/29/23 10:59:00 EDT, Height, 151.2, kg, 05/27/23 8:29:00 EDT, Dosing Weight Start: 07-07-2023 See Instructions , Use BID with Byetta. pen needles 32G 4mm 100count., # 100 EA, 0 Refill(s), Pharmacy: [facility], 159.3, cm, 04/09/24 9:33:00 EST, Height, 144.9, kg, 04/09/24 9:33:00 EST, Dosing Weight Start: 05-10-2024 Goals Date Patient Goal Desired Activity /State Functional Status Date Assessment Result Facility 07-02-2024 Functional Status Awake [facility] 07-02-2024 Functional Status Room check performed [facility] 07-02-2024 Functional Status Maintained [facility] 07-17-2022 Functional Status Independent [facility] Mental Status Date Assessment Result Facility 09-06-2024 Cognitive function Voice/Name [facility] Work Phone: 07-02-2024 Mental Status Oriented x 4 [facility] 07-02-2024 Mental Status [facility] 06-23-2023 Cognitive function Voice/Name [facility] Work Phone: 12-23-2022 Cognitive function Voice/Name [facility] Work Phone: 08-05-2022 Cognitive function Voice/Name;Touch/Zhanna prakash [facility] Work Phone: 07-17-2022 Mental Status Oriented x 4 [facility] 05-06-2022 Cognitive function Level Of Cons ciousness Awake;Appropriate [facility] Work Phone: 05-06-2022 Cognitive function Voice/Name [facility] Work Phone: 03-04-2022 Cognitive function Voice/Name [facility] Work Phone: 11-05-2021 Cognitive function Voice/Name [facility] Work Phone: 05-21-2021 Cognitive function Voice/Name;Touch/Ezequielki [facility] Work Phone: 02-19-2021 Cognitive function Voice/Name [facility] Work Phone: Clinical Notes 05-06-2022 to 12-01-2024 Note Date & Type Note Facility 12-01-2024 Progress note [facility] 11-17-2024 Progress note [facility] 11-09-2024 Note . MICRO - Microbiology PROCEDURE: Urine Culture [*1] SOURCE: Urine, Clean Catch BODY SITE: COLLECTED DATE/TIME: 11/08/2024 09:17 EDT RECEIVED DATE/TIME: 11/08/2024 14:25 EDT START DATE/TIME: 11/08/2024 14:25 EDT FREE TEXT SOURCE: FINAL REPORTS Final Report [] Verified Date/Time/Personnel: 11/09/2024 14:03 EDT 50,000 - 100,000 cfu/ml Mixed growth consistent with normal urogenital adam. PRELIMINARY REPORTS Preliminary Report [] Verified Date/Time/Personnel: 11/08/2024 14:59 EDT Specimen received in lab. Performing Locations *1: This test was performed at: [facility], [address] [place] [address], [id number] , [facility] 11-01-2024 Evaluation note Diagnosis Onset Date Resolution Obesity acute October 11:05am Osteoarthritis of right knee acute November 01, 2024 11:05am Obesity acute November 17, 025 8:36am Osteoarthritis of right knee acute November 17 8:36am [facility] Work Phone: 1(110) 388-698009-15-2025 Evaluation note* Diagnosis Onset Date Resolution Status Admit Date Obesity acute October 11:05am Osteoarthritis of right knee acute November 01, 2024 11:05am Obesity acute November 17, 025 8:36am Osteoarthritis of right knee acute November 17, 2024 8:36am Osteoarthritis of right knee acute 2024 10:14am [facility] Work Phone: 1(785) 919-472509-15-2025 Evaluation note* Diagnosis Onset Date Resolution Status Admit Date Obesity acute October 11:05am Osteoarthritis of right knee acute November 01, 2024 11:05am Obesity acute November 17, 025 8:36am Osteoarthritis of right knee acute November 17, 2024 8:36am Osteoarthritis of right knee acute 2024 10:14am Osteoarthritis of right knee acute December 01, 2024 10:01am [facility] Work Phone: 1(785) 854-765207-21-2025 Procedure note [facility] Medical Records Department [address] [place] [address] Operative Report 09/06/24 1137 MR#: [id number] Acct: [id number] Name: IDALMIS LION Rep #:[id number] : 1960 63 From: Coy Lai MD PCP: Dr. Adrián Sosa, DO Status:REG S [place] Location: [place] [address] Operative Report (Standard) Operative Information Date of Procedure: 09/06/24 Pre-Operative Diagnosis: 1 Post-Operative Diagnosis: 1 Surgery/Procedure Performed: 1 radio program checker: No Type of Anesthesia: Local RN Documented Start/Stop Times: Operation Date: 09/06/24 12:10 Case Time Into Pre-Op 09/06/24 10:45 Anesthesia Start 09/06/24 11:28 Into Room 09/06/24 11:28 Procedure Start 09/06/24 11:32 Procedure End 09/06/24 11:36 Procedure Start Time: 11:37 Procedure Stop Time: 11:37 Select all DRAINS/GRAFTS/IMPLANTS that apply: None Estimated Blood Loss: 1 Specimen collected: No Description of surgery: PREOPERATIVE DIAGNOSIS: Lumbosacral radiculopathy, lumbosacral degenerative discdisease, lumbosacral spinal stenosis POSTOPERATIVE DIAGNOSIS: Lumbosacral radiculopathy, lumbosacral degenerative disc disease, lumbosacral spinal stenosis PROCEDURE PERFORMED: Diagnostic/therapeutic caudal epidural steroid injection under fluoroscopic guidance. ANESTHESIA: Local BLOOD LOSS: Minimal. COMPLICATIONS: None. DESCRIPTION OF PROCEDURE: History and physical of today was reviewed. Risks and benefits of the procedure were explained. The patient understood and agreedto proceed. Informed consent was obtained. IV inserted per routine protocol. The patient was taken to the operating room and placed in the proneposition with a pillow positioned underneath the abdomen. The lower back and tailbone area was prepped and draped in a sterile fashion using iodine x3. Under fluoroscopy guidance on a lateral view, the caudal space was identified. The skin and subcutaneous tissue was anesthetized with approximately3 mL of 1% lidocaine using a 25-gauge regular needle. Under direct visualization with fluoroscopy, u sing a 22-gauge 3-1/2-inch spinal needle, the needle was advanced via the skin through the sacral hiatus. The tip of the needle was passed through the sacrococcygeal ligament and advanced to approximately S4 area. After negative aspiration of blood or CSF, a total of 3 mL of contrast was injected to confirm correct placement of the needle as well as cephalad spread. The spread was followed to approximately L5 area. After confirmation on AP as well as lateral view and repeated negative aspiration, a total of 15 mL of preservative-free 0.125% Marcaine with 80 mg of Depo-Medrol was injected easily. The needle was then removed intact. The patient experienced no sign or symptoms of intrathecal or intravascular injection. The patient experienced no paresthesia. The procedure was completed without any apparent difficulty or anycomplications. The patient appeared to tolerate it well. ASSESSMENT AND PLAN: This is a 63-year-old female with lumbosacral radiculopathy, lumbosacral degenerative disc disease,lumbosacral spinal stenosis status post diagnostic/therapeutic caudal epidural steroid injection under fluoroscopic guidance, patient will continue her current medications, patient will follow-up in approximately 2 weeks for reevaluation. Surgical Findings: 1 Complications Complications: No Admit VTE Documentation VTE Present on Admission: No VTE Mechan Device Prophylaxis: None VTE Pharm Prophylaxis ordered?: No 09/06/24 1139 Cosigner Signature (if applicable): CC: Dr. Adrián Sosa DO; Dr. Coy Lai MD~ Signed [facility]07-10-2025 Note* Exam Date Time Procedure Performing Provider Status 08/26/24 11:17 AM Echocardiogram, Adult - CV NIMESH ARANGO MD; Auth (Verified) [facility]05-28-2025 Evaluation note* Diagnosis Onset Date Resolution Status Admit Date Obesity acute July 14, 2024 2:26pm Osteoarthritis of right knee acute July 14, 2024 2:26pm [facility] Work Phone: 1(431) 735-166305-16-2025 Hospital Discharge instructions Patient Education 07/02/2024 13:01:19 Moderate Conscious Sedation, Adult, Care After Moderate Conscious Sedation, Adult, Care After These instructions provide you with information about caring for yourself after your procedure. Your health care provider may also give you more specific instructions. Your treatment has been plannedaccording to current medical practices, but problems sometimes occur. Call your health care provider if you have any problems or questions after your procedure. What can I expect after the procedure? After your procedure, it is common: To feel sleepy for several hours. To feel clumsy and have poor balance for several hours. To have poor judgment for several hours. To vomit if you eat too soon. Follow these instructions at home: For at least 24 hours after the procedure: Do not: ?Participate in activities where you could fall or become injured. ?Drive. ?Use heavy machinery. ?Drink alcohol. ?Take sleeping pills or medicines that cause drowsiness. ?Make important decisions or sign legal documents. ?Take care of children on your own. Rest. Eating and drinking Follow the diet recommended by your health care provider. If you vomit: ?Drink water, juice, or soup when you can drink without vomiting. ?Make sure you have little or no nausea before eating solid foods. General instructions Have a responsible adult stay with you until you are awake and alert. Take wphg-fvb-uvwfhhz and prescription medicines only as told by your health care provider. If you smoke, do not smoke without supervision. Keep all follow-up visits as told by your health care provider. This is important. Contact a health care provider if: You keep feeling nauseous or you keep vomiting. You feel light-headed. You develop a rash. You have a fever. Get help right away if: You have trouble breathing. This information is not intended to replace advice given to you by your health care provider. Make sure you discuss any questions you have with your health care provider. Document Released: 2013 Document Revised: 01/16/2018 Document Reviewed: 05/25/2016 Web International English Patient Education 2020 stickK. 07/02/2024 13:01:19 3- Heart Cath/PCI radial (11/2017) (Custom) HEART CATHETERIZATION/PCI (radial) Discharge Instructions DIET Drink plenty of fluids for the next 48 hours to help your kidneys flush the heart cath dye out of your system ACTIVITY For the next 48 hours: Do not deep bend the wrist Do not lift, push, or pull anything over 5 pounds Do not use the hand/arm to support your weight when rising from a chair or bed Do not drive For the next 7 days: Do not submerse your procedure site in water Do not swim, wash dishes, or take tub baths You may write, eat, type, and shower WOUND CARE Keep dressing on for 24 hours, shower and then apply band-aid Keep a Band-Aid on your procedure site for the next 3-4 days Change the Band-Aid daily or if it gets wet/soiled AFTER YOU GO HOME, CALL YOUR DOCTOR FOR: Any increase in bruising or tenderness from the procedure site Any redness, pus, or other signs of infection at the site A temperature above 100.5 Severe pain at the site DIAL 911 AND RETURN TO THE HOSPITAL FOR: Any bleeding from the procedure site. The site may be bruised or tender, but it should not be bleeding at any time. If your site begins to bleed, hold firm pressure on it and dial 911 to return to the hospital Any increase in swelling at the procedure site. An increase in swelling could mean the area is bleeding under the skin. Hold firm pressure to the site and dial 911 to return to the hospital Document Released: 02/03/2006 Document Revised: 01/20/2013 Document Reviewed: 02/04/2014 ExitCare Patient Information 2015 [employer]. This information is not intended to replace advicegiven to you by your health care provider. Make sure you discuss any questions you have with your health care provider. Follow Up Care 06/10/2024 16:02:41 With:VIRGILIO TAN PA-C Address: [address] [place] [address] [id number] [facility] Heart [facility] V[facility] [place] [address]- When:07/28/2024 11:00:00 [facility] 05-16-2025 Summary of episode note Discharge Instructions Thank you for allowing [facility] to assist you with your healthcare needs. The following is importantdischarge information regarding your hospital visit. Your Care Team TRESSA PEREZ DO What to do next Scheduled Follow-Up Appointments Appointment Type When With Where Contact Information StatusPC Office Procedure OMT 07/15/2024 10:30AM EDT TRESSA PEREZ DO [facility] [address] [phone] Confirmed CV OV Hospital Follow Up 07/28/2024 11:00 AM EDT VIRGILIO TAN PA-C [facility] Confirmed PC Office Procedure OMT 08/05/2024 02:00 PM EDT [facility] [address] [phone] Confirmed PC Office Procedure OMT 08/19/2024 11:00 AM EDT TRESSA PEREZ DO [facility] [address] [phone] Confirmed Follow Up Appointments Follow Up with VIRGILIO TAN PA-C When:07/28/2024 11:00 AM EDT Where:[address] [facility] Heart and Vascular [place] [phone]- The Following Activity and Diet Have Been Ordered for You Discharge Activity - Ordered -- Resume your pre-hospitalization activity, linsey shower, 07/02/24 11:05:00 EDT No qualifying data available. The Following Equipment Has Been Ordered for You No qualifying data available. The Following Treatments Have Been Ordered for You Discharge Labs No qualifying data available. Discharge Radiology No qualifying data available. Other Therapies No qualifying data available. Post Acute Orders No qualifying data available. Someone Will Contact You Regarding These Home Health Referrals No home referrals have been ordered for you. No one will call you. Allergies Phenergan Vomiting Trulicity Swelling / lump observable Victoza Rash sulfa Rash tetanus toxoid Swelling Medications Please ask your primary doctor or pharmacist before taking any other medication not listed, including over the counter drugs, herbal medications, vitamins and or supplements as they may interact withyour home medications. What How Much When Why Instructions Last Dose Unchanged acetaminophen-oxyCODONE (Endocet 7.5/ 325 oral tablet) 2 tab(s) by mouth Every day as needed for as needed for pain Unchanged albuterol (Ventolin HFA MDI (90 mcg/ inh) inhalation aerosol) See instructions 2 puff(s) Inhalation up to 4 times daily PRN wheezing, shortness of breath Unchanged APAP/ butalbital/ caffeine (APAP/ butalbital/ caffeine 325-50-40 mg oral tablet (Fioricet)) 1 tab(s) by mouth Every 4 hours as needed for as needed Duration: 5 Days if escipts issue still persists, okay to take verbal from escript. Unchanged atenolol (atenolol 25 mg oral tablet) 1 tab(s) by mouth Once a day Hypertension Unchanged biotin (Biotin 5000 mcg oral capsule) 1 cap by mouth Every day Unchanged budesonide (budesonide 0.5 mg/ 2 mL inhalation suspension) See instructions 1 vial in nebulizer twice a day Unchanged busPIRone (busPIRone 30 mg oral tablet) 1 tab(s) by mouth Two (2) times a day Duration: 90 Days Unchanged calcium carbonate (calcium (as carbonate) 600 mg oral tablet) 1 tab(s) by mouth Every day Unchanged celecoxib (CeleBREX 200 mg oral capsule) 1 cap by mouth Once a day Duration: 90 Days Unchanged cetirizine (cetirizine 10 mg oral tablet) 1 tab(s) by mouth Once a day Unchanged ciprofloxacin-dexamethasone otic (Ciprodex 0.3%-0.1% otic suspension) 4 Drops Both ears Two (2) times a day Unchanged citalopram (citalopram 40 mg oral tablet) 1 tab(s) by mouth Once a day Unchanged diclofenac topical (Voltaren 1% topical gel) 4 gram(s) Topical Four (4) times a day as needed for as needed for pain Right knee pain Duration: 30 Days Unchanged DME (DME MISCellaneous) See instructions pen needles 32G 4mm 100count. Unchanged DME (DME MISCellaneous) See instructions Use BID with Byetta. pen needles 32G 4mm 100count. Unchanged eluxadoline (Viberzi 100 mg oral tablet) 1 tab(s) by mouth Two (2) times a day IBS - Irritable bowel syndrome Duration: 30 Days Unchanged hydrOXYzine (hydrOXYzine hydrochloride 10 mg oral tablet) 1-2 tab(s) by mouth Every 6 hours as needed for as needed for anxiety Unchanged meclizine (meclizine 25 mg oral tablet) 1 tab(s) by mouth Once a day as needed for as needed for dizziness Unchanged metFORMIN (metFORMIN 1000 mg oral tablet (IR)) 1 tab(s) by mouth Two (2) times a day Uncontrolled diabetes mellitus, without long-term current use of insulin Unchanged morphine (morphine 15 mg/ 8 to 12 hr oral tablet, extended release) 1 tab(s) by mouth Every day Unchanged nystatin topical (nystatin 100,000 units/ g topical cream) 1 application Topical Two (2) times a day In lieu of pcp abesence Unchanged omega-3 polyunsaturated fatty acids (MegaRed Ultra Krill Oil 1000 mg oral capsule) 1 cap by mouth Once a day Unchanged pregabalin (pregabalin 150 mg oral capsule) 1 cap by mouth Two (2) times a day Neuropathy Duration: 30 Days take 1 capsule by mouth twice a day. Unchanged rivaroxaban (Xarelto 10 mg oral tablet) 1 tab(s) by mouth Every day History of pulmonary embolism Unchanged rosuvastatin (rosuvastatin 10 mg oral tablet) 1 tab(s) by mouth Once a day Duration: 100 Days Unchanged tirzepatide (Mounjaro 7.5 mg/ 0.5 mL subcutaneous solution) 7.5 Milligram Subcutaneous Every week rotate injection sites Please take this list to your next doctor s visit. Bring all medications you take, including over the counter medications, herbals and other supplements with you to your doctor s visit. Patients and families are reminded to discard old lists and to update any records with all medication providers or retail pharmacies. Education Materials Moderate Conscious Sedation, Adult, Care After These instructions provide you with information about caring for yourself after your procedure. Your health care provider may also give you more specific instructions. Your treatment has been plannedaccording to current medical practices, but problems sometimes occur. Call your health care provider if you have any problems or questions after your procedure. What can I expect after the procedure? After your procedure, it is common: To feel sleepy for several hours. To feel clumsy and have poor balance for several hours. To have poor judgment for several hours. To vomit if you eat too soon. Follow these instructions at home: For at least 24 hours after the procedure: Do not: ? Participate in activities where you could fall or become injured. ? Drive. ? Use heavy machinery. ? Drink alcohol. ? Take sleeping pills or medicines that cause drowsiness. ? Make important decisions or sign legal documents. ? Take care of children on your own. Rest. Eating and drinking Follow the diet recommended by your health care provider. If you vomit: ? Drink water, juice, or soup when you can drink without vomiting. ? Make sure you have little or no nausea before eating solid foods. General instructions Have a responsible adult stay with you until you are awake and alert. Take dtil-fvd-ouvkinc and prescription medicines only as told by your health care provider. If you smoke, do not smoke without supervision. Keep all follow-up visits as told by your health care provider. This is important. Contact a health care provider if: You keep feeling nauseous or you keep vomiting. You feel light-headed. You develop a rash. You have a fever. Get help right away if: You have trouble breathing. This information is not intended to replace advice given to you by your health care provider. Make sure you discuss any questions you have with your health care provider. Document Released: 2013 Document Revised: 01/16/2018 Document Reviewed: 05/25/2016 [employer] Patient Education 2020 stickK. HEART CATHETERIZATION/PCI (radial) Discharge Instructions DIET Drink plenty of fluids for the next 48 hours to help your kidneys flush the heart cath dye out of your system ACTIVITY For the next 48 hours: Do not deep bend the wrist Do not lift, push, or pull anything over 5 pounds Do not use the hand/arm to support your weight when rising from a chair or bed Do not drive For the next 7 days: Do not submerse your procedure site in water Do not swim, wash dishes, or take tub baths You may write, eat, type, and shower WOUND CARE Keep dressing on for 24 hours, shower and then apply band-aid Keep a Band-Aid on your procedure site for the next 3-4 days Change the Band-Aid daily or if it gets wet/soiled AFTER YOU GO HOME, CALL YOUR DOCTOR FOR: Any increase in bruising or tenderness from the procedure site Any redness, pus, or other signs of infection at the site A temperature above 100.5 Severe pain at the site DIAL 911 AND RETURN TO THE HOSPITAL FOR: Any bleeding from the procedure site. The site may be bruised or tender, but it should not be bleeding at any time. If your site begins to bleed, hold firm pressure on it and dial 911 to return to the hospital Any increase in swelling at the procedure site. An increase in swelling could mean the area is bleeding under the skin. Hold firm pressure to the site and dial 911 to return to the hospital Document Released: 02/03/2006 Document Revised: 01/20/2013 Document Reviewed: 02/04/2014 ExitCare Patient Information 2015 [employer]. This information is not intended to replace advicegiven to you by your health care provider. Make sure you discuss any questions you have with your health care provider. Additional Information VACCINATE! IT SAVES LIVES! Members of the community who have not yet received the COVID-19 vaccine and would like to receive it can visit one of [facility] vaccine clinics. There are many vaccine clinic locations within the [facility]. For locations and available times, please visit [email or web address].[place].gov/. It is important to note that some COVID mobile vaccine clinics are held outdoors and may be canceled in rainy or stormy conditions. To learn more about pediatric vaccinations (ages 5-11), we invite you to visit the [facility] webpage. [email or web address]/[email or web address] [email or web address] learn more about the COVID-19 vaccine, we invite you to visit the CDC website for a list of frequently asked questions.https://www.cdc.gov/coronavirus/2019-ncov/vaccines/faq.html [facility] Patient Portal Access Instructions: Stay connected with your healthcare team and access your personal medical information anytime with the [facility] Patient Portal. Please follow the directions below to create your [facility] account: 1.Access the email account you provided upon registration to the hospital/physician office.2.Look for an invitation email from [facility].3.Open the email and access the invitation link: AcceptInvitation to [facility].4.Fill in the required willis to create your account. To access your account, visit [employer]ush[employer]. Click the blue button labeled "Access Patient Portal" and then log in with the username and password that you created in the steps above. You will be able to view your test results, lab results, a summary of your visits, upcoming appointments and more. There is also a convenient messaging option where you can send secure messages to your p MECLUBvider. In addition, you will have the ability to download any documents or summaries to your computer and/or send the information securely to a physician. Remember that your healthcare information is confidential, so carefully consider who you will allowto register on the [facility] Patient Portal for access to your information. You can also access the [facility] Patient Portal on the [employer] pattie. Simply click on "Patient Portal" and then log into your account. If you would like to receive a full copy of your medical records, please contact the [facility] Medical Records Department by calling [phone], Friday through Friday between 8 a.m. and 4:30 p.m. HOW TO SAFELY DISPOSE OF PRESCRIPTION MEDICATIONS Please use one of the following methods to safely dispose of your unused medications. 1.Use a drug disposal kit: the drug disposal pouch allows you to safely discard your old and unuseddrugs. Ask your nurse to give you one when you are discharged.2.Visit a local take-back location: Many local pharmacies and police departments have programs that collect old and unwanted prescriptiondrugs. Call your local pharmacy or go to http://FromUs.[employer]/2P1Ez7y to find one close to you.3.Make use of household items: Use cat litter or old coffee grounds to dispose medications if other options arenot available. Mix your drugs with these household products, seal them in an airtight container andthrow it into the garbage. Call [facility]: [phone] to be sure your drugs can be disposed of in this way. Some medicines may require a different approach.4.Never flush your medications down the toilet. IF YOU HAVE BEEN PRESCRIBED AN OPIOID FOR PAIN If you have been prescribed an opioid (such as hydrocodone, oxycodone or morphine), it is critical to understand the possible side effects and risks of opioid pain medications. Even when taken as directed, opioids can have several side effects including: Tolerance, meaning you might need to take more of a medication for the same pain relief. Nausea, vomiting and/or constipation. Sleepiness, dizziness, dry mouth, confusion, depression or itching. Physical dependence, meaning you have withdrawal symptoms when a medication is stopped, can develop within a few days. KNOW YOUR RESPONSIBILITIES It is important to know exactly how much and how often to take the opioid pain medications you are prescribed. Never take opioids in higher amounts or more often than prescribed. Do not combine opioids with alcohol or other drugs that cause drowsiness, such as benzodiazepines, also known as benzos, including diazepam and alprazolam, muscle relaxants or sleep aids. Never sell or share prescription opioids. This is illegal. Store opioids in a secure place and out of reach of others (including children, family, friends and visitors). The last page of this document has been signed and retained as a CHART COPY. Signatures Patient Education Materials Moderate Conscious Sedation, Adult, Care After 3- Heart Cath/PCI radial (11/2017) (Custom) Medication Leaflets My discharge plan and instructions have been reviewed and explained to me and I,FATH, IDALMIS M understand my current condition and have read and understand these discharge instructions. I have receiveda written copy of the plan/instructions. If I have questions, I am aware that I should contact my do ctor. 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 MICRO - Microbiology PROCEDURE: Urine Culture [*1] SOURCE: Urine, Clean Catch BODY SITE: COLLECTED DATE/TIME: 06/17/2024 15:57 EDT RECEIVED DATE/TIME: 06/17/2024 19:13 EDT START DATE/TIME: 06/17/2024 19:13 EDT FREE TEXT SOURCE: FINAL REPORTS Final Report [] Verified Date/Time/Personnel: 06/18/2024 14:11 EDT 10,000 - 50,000 cfu/ml Multiple bacterial morphotypes present. Probable Contamination. Suggest recollection if clinically indicated. PRELIMINARY REPORTS Preliminary Report [] Verified Date/Time/Personnel: 06/17/2024 19:59 EDT Specimen received in lab. Performing Locations *1: This test was performed at: [facility], [address] [place] [address], [phone] , [facility]02-03-2025 Evaluation note* Diagnosis Onset Date Resolution Status Admit Date Obesity acute March 22, 2024 9:47am Osteoarthritis of right knee acute March 22, 2024 9:47am Obesity acute February 10th, 2025 9:44am Osteoarthritis of right knee acute March 29, 2024 9:44am [facility] Work Phone: [phone]) 340-692205-06-[address] [facility] 12-24-2022 NoteHNO ID: [id number] Author: William Croft MD Service: ? Author Type: Physician Type: Procedures Filed: 12/24/2022 10:47 AM Note Text: Patient Name: Idalmis Lion Patient Date of Procedure: December 24, 2022 Time of Procedure: 9:00 AM UNIVERSAL PROTOCOL / SAFETY CHECKLIST Procedure to be performed: Right Heart Catheterization Sign in Communication: completed Time Out: Team Confirms the Correct Patient, Correct Procedure, Correct Site and Site Marking, Correct Position (if applicable). Time: 9:00 AM Affirmation of Time Out: YES Sign Out Discussion: Completed Procedure start time: 9:10 AM Procedure end time: 9:55 AM Staff involved: William Croft MD Nurse(s): Tahir Leigh RN Procedure(s): Right Heart Catheterization. Right Heart Catheterization Indications: Other Specified Disease of Pulmonary Circulation Pre Procedure Diagnosis: Pulmonary Hypertension Post Procedure Diagnosis: No Pulmonary Hypertension Medications: None Access site: Right internal jugular vein [place] Joey size: 7.5 F. Anesthesia: Lidocaine 1% Procedure Narrative: Consent was obtained. Time out taken. Performed at procedure room in G61. Under sterile condition, lidocaine 1 % (5 ml) was applied and under US guidance a 8.0 F introducer was inserted without difficulty. Of note, access was challenging and multiple attempts were performed until guide wire was able to be passed. Wire was noted to be located in the SVC under fluoroscopy. A [place]-Joey catheter was advanced to the right pulmonary artery without difficulties (RA, RV, PA pressures were measured). Wedge was obtained and confirmed to be appropriate by fluoroscopy (stable catheter) and blood gas analysis. Mixed venous blood was obtained for indirect Ludwig determination. CO was determined by thermodilution and indirect Ludwig methodology. Disposition: Patient was discharged in stable condition. RHC determinations Determinations Result Units Rhythm NSR Inspired fraction of oxygen 21.00 % Oxygen flow 0.00 L/min SpO2 92.00 % Systolic BP 188.00 mmHg Diastolic BP 86.00 mmHg Mean BP 120.00 mmHg Heart Rate 68.00 bpm Height 162.60 cm Weight 155.60 Kg Body surface area 2.46 m2 Body mass index 58.85 kg/m2 Right atrial pressure (mean) 11.00 mmHg Right atrial pressure (mean) peak "v" wave (end-expiration) 22.00 Right ventricular systolic pressure 47.00 mmHg Right ventricular diastolic pressure 10.00 mmHg Systolic pulmonary artery pressure 46.00 mmHg Mean pulmonary artery pressure 34.00 mmHg Diastolic pulmonary artery pressure 28.00 mmHg Pumonary artery pulse pressure 18.00 mmHg Pulmonary artery occlusion pressure (mean) 19.00 mmHg Pulmonary artery occlusion pressure (end-expiration) mid "a" wave 22.00 mmHg Pulmonary artery occlusion pressure (end-expiration) peak "v" wave 28.00 Diastolic pulmonary gradient 6.00 mmHg Transpulmonary gradient 12.00 mmHg Pulmonary artery capacitance 5.31 mL/mmHg Cardiac output (thermodilution) 6.50 L/min Cardiac index (thermodilution) 2.64 L/min/m2 Cardiac output (indirect LUDWIG) 5.65 L/min Cardiac index (indirect LUDWIG) 2.30 L/min/m2 Systemic vascular resistance 1341.54 dynes/sec/cm5 Stroke volume 95.59 mL Stroke volume index 38.85 mL/m2 Right ventricular stroke work index 12.15 g*m/m2 Pulmonary vascular resistance 1.85 Wood Units Hemoglobin (mixed venous) 14.30 g/dL Arterial oxyhemoglobin (Pulse oxymeter) 93.00 % Mixed venous oxyhemoglobin 65.00 % Lactic acid (arterial) 1.70 mmol/L Abbreviated version Right atrial pressure (mean) 11.00 mmHg Mean pulmonary artery pressure 34.00 mmHg Pulmonary artery occlusion pressure (end-expiration) mid "a" wave 22.00 mmHg Cardiac index (thermodilution) 2.64 L/min/m2 Pulmonary vascular resistance 1.85 Wood Units Mixed venous oxyhemoglobin 65.00 % Fluoro time 0.19 min:sec Cumulative area dose product 2278.00 cGy cm2 Cumulative air kerma 5.40 mGy SITTING UP-RIGHT Right Atrial Pressure/CVP 7.00 mmHg Systolic pulmonary artery pressure 32.00 mmHg Mean pulmonary artery pressure 23.00 mmHg Diastolic pulmonary artery pressure 18.00 mmHg Pumonary artery pulse pressure 14.00 mmHg Pulmonary artery occlusion pressure (mean) 7.00 mmHg Pulmonary artery occlusion pressure (end-expiration) mid "a" wave 11.00 mmHg Pulmonary artery occlusion pressure (end-expiration) peak "v" wave NA Diastolic pulmonary gradient 7.00 mmHg Transpulmonary gradient 12.00 mmHg Cardiac output (thermodilution) 6.90 L/min Cardiac index (thermodilution) 2.80 L/min/m2 Pulmonary vascular resistance 1.74 Wood Units Intrathoracic pressure determination (Esophageal Manometry): Sitting intrathoracic pressure at end-expiration 4.00 mmHg Sitting intrathoracic pressure (mean) 0.00 mmHg Sitting intrathoracic pressure (inspiration): -2.00 mmHg Supine intrathoracic pressure at end-expiration: 18.00 mmHg Supine intrathoracic pressure (mean) 10.00 mmHg Sitting (more content not included)...[facility]11-07-2023 Procedure note* William Croft MD - 12/24/2022 9:00 AM EST Images from the original note were not included. Patient Name: Idalmis Lion Patient Date of Procedure: December 24, 2022 Time of Procedure: 9:00 AM UNIVERSAL PROTOCOL / SAFETY CHECKLIST Procedure to be performed: Right Heart Catheterization Sign in Communication: completed Time Out: Team Confirms the Correct Patient, Correct Procedure, Correct Site and Site Marking, Correct Position (if applicable). Time: 9:00 AM Affirmation of Time Out: YES Sign Out Discussion: Completed Procedure start time: 9:10 AM Procedure end time: 9:55 AM Staff involved: William Croft MD Nurse(s): Tahir Leigh RN Procedure(s): Right Heart Catheterization. Right Heart Catheterization Indications: Other Specified Disease of Pulmonary Circulation Pre Procedure Diagnosis: Pulmonary Hypertension Post Procedure Diagnosis: No Pulmonary Hypertension Medications: None Access site: Right internal jugular vein [place] Joey size: 7.5 F. Anesthesia: Lidocaine 1% Procedure Narrative: Consent was obtained. Time out taken. Performed at procedure room in G61. Under sterile condition, lidocaine 1 % (5 ml) was applied and under US guidance a 8.0 F introducer was inserted without difficulty. Of note, access was challenging and multiple attempts were performed until guide wire was able to be passed. Wire was noted to be located in the SVC under fluoroscopy. A [place]Joey catheter was advanced to theright pulmonary artery without difficulties (RA, RV, PA pressures were measured). Wedge was obtained and confirmed to be appropriate by fluoroscopy (stable catheter) and blood gas analysis. Mixed venous blood was obtained for indirect Ludwig determination. CO was determined by thermodilution and indirect Ludwig methodology. Disposition: Patient was discharged in stable condition. RHC determinations Determinations Result Units Rhythm NSR Inspired fraction of oxygen 21.00 % Oxygen flow 0.00 L/min SpO2 92.00 % Systolic BP 188.00 mmHg Diastolic BP 86.00 mmHg Mean BP 120.00 mmHg Heart Rate 68.00 bpm Height 162.60 cm Weight 155.60 Kg Body surface area 2.46 m2 Body mass index 58.85 kg/m2 Right atrial pressure (mean) 11.00 mmHg Right atrial pressure (mean) peak "v" wave (end-expiration) 22.00 Right ventricular systolic pressure 47.00 mmHg Right ventricular diastolic pressure 10.00 mmHg Systolic pulmonary artery pressure 46.00 mmHg Mean pulmonary artery pressure 34.00 mmHg Diastolic pulmonary artery pressure 28.00 mmHg Pumonary artery pulse pressure 18.00 mmHg Pulmonary artery occlusion pressure (mean) 19.00 mmHg Pulmonary artery occlusion pressure (end-expiration) mid "a" wave 22.00 mmHg Pulmonary artery occlusion pressure (end-expiration) peak "v" wave 28.00 Diastolic pulmonary gradient 6.00 mmHg Transpulmonary gradient 12.00 mmHg Pulmonary artery capacitance 5.31 mL/mmHg Cardiac output (thermodilution) 6.50 L/min Cardiac index (thermodilution) 2.64 L/min/m2 Cardiac output (indirect LUDWIG) 5.65 L/min Cardiac index (indirect LUDWIG) 2.30 L/min/m2 Systemic vascular resistance 1341.54 dynes/sec/cm5 Stroke volume 95.59 mL Stroke volume index 38.85 mL/m2 Right ventricular stroke work index 12.15 g*m/m2 Pulmonary vascular resistance 1.85 Wood Units Hemoglobin (mixed venous) 14.30 g/dL Arterial oxyhemoglobin (Pulse oxymeter) 93.00 % Mixed venous oxyhemoglobin 65.00 % Lactic acid (arterial) 1.70 mmol/L Abbreviated version Right atrial pressure (mean) 11.00 mmHg Mean pulmonary artery pressure 34.00 mmHg Pulmonary artery occlusion pressure (end-expiration) mid "a" wave 22.00 mmHg Cardiac index (thermodilution) 2.64 L/min/m2 Pulmonary vascular resistance 1.85 Wood Units Mixed venous oxyhemoglobin 65.00 % Fluoro time 0.19 min:sec Cumulative area dose product 2278.00 cGy cm2 Cumulative air kerma 5.40 mGy SITTING UP-RIGHT Right Atrial Pressure/CVP 7.00 mmHg Systolic pulmonary artery pressure 32.00 mmHg Mean pulmonary artery pressure 23.00 mmHg Diastolic pulmonary artery pressure 18.00 mmHg Pumonary artery pulse pressure 14.00 mmHg Pulmonary artery occlusion pressure (mean) 7.00 mmHg Pulmonary artery occlusion pressure (end-expiration) mid "a" wave 11.00 mmHg Pulmonary artery occlusion pressure (end-expiration) peak "v" wave NA Diastolic pulmonary gradient 7.00 mmHg Transpulmonary gradient 12.00 mmHg Cardiac output (thermodilution) 6.90 L/min Cardiac index (thermodilution) 2.80 L/min/m2 Pulmonary vascular resistance 1.74 Wood Units Intrathoracic pressure determination (Esophageal Manometry): Sitting intrathoracic pressure at end-expiration 4.00 mmHg Sitting intrathoracic pressure (mean) 0.00 mmHg Sitting intrathoracic pressure (inspiration): -2.00 mmHg Supine intrathoracic pressure at end-expiration: 18.00 mmHg Supine intrathoracic pressure (mean) 10.00 mmHg Sitting intrathoracic pressure (inspiration): 3.00 mmHg Modified supine pulmonary hemodynamics (taking into consideration of intrathoracic pressure): Systolic pulmonary artery pressure 28.00 mmHg Mean pulmonary artery pressure 16.00 mmHg Diastolic pulmonary artery pressure 10.00 mmHg Pumonary artery pulse pressure 18.00 mmHg Pulmonary artery occlusion pressure (end-expiration) mid "a" wave 4.00 mmHg Diastolic pulmonary gradient 6.00 mmHg Transpulmonary gradient 12.00 mmHg Cardiac output (thermodilution) 6.90 L/min Cardiac index (thermodilution) 2.80 L/min/m2 Pulmonary vascular resistance 1.74 Wood Units WAVEFORMS: Right Atrial Pressure: Pulmonary Artery Pressure: PAWP: RV PullBack: Estimated Blood Loss: Scant Specimens: Mixed venous blood gases. Complications: None. Introducer removed without complications. Pressure applied for 10 minutes. No Bleeding. Condition of Patient After Procedure: stable Summary: Initial placement of RHC suggestive of postcapillary PH with preserved cardiac index. Reduction in mPAP and PAWP upon sitting position, indicative of pooling of blood. When taking intrathoracic pressure into account (using esophageal manometry) the patient's mPAP and PAWP normalized to 16 mmHg and 11 mmHg, respectively indicating no evidence of pulmonary hypertension when taking into accounts patient's obesity (PVR < 2.0). Thus patient's initial hemodynamics appear to be elevated due to patients udnerlying obesity and increased intrathoracic pressures. Plan: F/U with Dr Sands. Low salt in the diet. Weight loss. Improved BP control. [facility] [facility]10-31-2023 Miscellaneous Notes* Telephone Encounter - Froilan Bedoya MA - 12/17/2022 10:40 AM EDTSummary: Care Coordination Called patient to schedule her RHC with Dr. Croft on 12/24 at 9am Froilan Bedoya Clinical Eye[employer] Machine Operator [facility] [place] documented in this [facility]10-27-2023 NoteHNO ID: [id number] Author: William Croft MD Service: ? Author Type: Physician Type: Progress Notes Filed: 12/13/2022 1:52 PM Note Text: Patient Name: Idalmis Lion PRIMARY CARE PHYSICIAN: Rigo Berger DO Date of visit: December 13, 2022 COMMUNICATION WILL BE SENT VIA SHARED MEDICAL RECORDS OR US MAIL. Subjective: Idalmis Lion is a 62 year old female who is new to this clinic for evaluation of pulmonary hypertension and right heart catheterization. This is a referral from Dr Rigo Sands in [place] for evaluation for RHC. Patient has history of HARRISON on BIPAP (compliant with NIPPV), hx of PE back in 2018 on xarelto, and morbid obesity. She starts the visit by discussing her experience with shortness of breath. This has been going on for years and has been progressively getting worse. Minimal activities such as short walks around the house, stair climbing, or basic ADLs/chores result in dyspnea. This is associated with "leg heaviness" as she feels she just can't due it anymore. She did previously have wheezing and she was put on inhalers which helped with the wheezing, but not with dyspnea. She is currently on nebulized budesonide and albuterol. She denies chest pain. + weight gain over the last year, about 20lbs. + pedal edema R>L. She went on course of lasix with no improvement in edema or respiratory symptoms, so this was discontinued. + nasal congestion/PND which she takes flonase for with + clinical improvement. She denies any history of asthma, COPD, or any other lung disorders. Smoked for total of 20 years, quit 10 years ago. 1ppd on average. Rare ETOH use. 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 Has no environmental allergies. 2 dogs (poodle/boxer) QUESTIONS SURROUNDING PULMONARY HYPERTENSION RISK: Prior diet pill use? Yes (OTC) Prior use of amphetamines? Teenager - 1 year only socially H/o DVT or PE? Yes Prior liver disease? No Prior HIV/Hepatitis B or C risk? No H/o splenectomy? No Prior thyroid disease? No Prior lung disease? No Family h/o PAH? No Snoring or witnessed apneas? Yes Arthralgias? Back pain, knee Skin rash or lesions? No Raynaud's symptoms? No PMHx: PAST MEDICAL HISTORY Diagnosis Date Diabetes mellitus (HCC) Essential hypertension Sleep apnea Social Hx: MEDICATIONS: metFORMIN (GLUCOPHAGE) 1,000 mg tablet Take 1,000 mg by mouth daily with breakfast. eluxadoline (VIBERZI) 100 mg tab Take 100 mg by mouth two times a day. GLIMEPIRIDE ORAL Take by mouth. rosuvastatin (CRESTOR) 10 mg tablet Take 10 mg by mouth once daily. celecoxib (CELEBREX) 200 mg capsule Take 200 mg by mouth two times a day. rivaroxaban (XARELTO) 20 mg tablet Take 20 mg by mouth daily with dinner. budesonide (PULMICORT) 0.5 mg/2 mL nebulizer solution Use 0.5 mg via nebulizer once daily. albuterol sulfate (VENTOLIN INHALATION) Inhale as instructed. ciprofloxacin HCl (CILOXAN) 0.3 % ophthalmic solution Use 1 Drop in both eyes three times daily. atenolol (TENORMIN) 50 mg tablet busPIRone HCl 30 mg tablet citalopram (CELEXA) 40 mg tablet fluticasone (FLONASE) 50 mcg/actuation nasal spray morphine SR (MS CONTIN, ORAMORPH SR) 15 mg 12 hr tablet LYRICA 100 mg capsule biotin 5 mg tab Take 5 mg by mouth once daily. oxyCODONE-acetaminophen (ENDOCET) 10-325 mg tablet Take 1 tablet by mouth every 4 hours as needed. meclizine (ANTIVERT) 25 mg tab Take 25 mg by mouth three times daily. olopatadine (PATANOL) 0.1 % ophthalmic solution Use 1 Drop in both eyes twice daily. (Patient not taking: Reported on 12/13/2022) FLUTICASONE/SALMETEROL (ADVAIR HFA INHALATION) Inhale as instructed. (Patient not taking: Reported on 12/13/2022) aspirin 81 mg chewable tablet Take 81 mg by mouth once daily. (Patient not taking: Reported on 12/13/2022) ALPRAZolam (XANAX) 0.25 mg tablet Take 0.25 mg by mouth at bedtime as needed. (Patient not taking: Reported on 12/13/2022) baclofen (LIORESAL) 20 mg tablet Take 20 mg by mouth three times daily. (Patient not taking: Reported on 12/13/2022) Allergies: Phenergan [Promethazine], Sulfa (Sulfonamide Antibiotics), and Tetnus [Tetanus Vaccines And Toxoid] ROS: GENERAL: (-) fevers, (-) chills, (-) night sweats, (-) nausea/vomiting, (-) weight loss, (+++) weight gain HEENT: (-) runny nose, (-) sore throat, (-) post-nasal drip RESPIRATORY: As above in subjective CARDIOVASCULAR: (-) chest pain, (-) palpitations, (+) LE edema. All other 10 point ROS reviewed and negative except for that mentioned above. PHYSICAL EXAM: BP 125/79 Pulse 89 Temp (Src) 97 (Temporal) Resp 22 Ht 5' 4" (1.63m) Wt 343 lb 1.6 oz (155.6kg) SpO2 93[room air]% BMI 58.86 kg/(m2). General- nad, comfortable in general appearance Eyes- eomi, perrl ENT- oropharynx clear, atraumatic Neck- supple, no obvious JVD CV- RRR, no M/G/R Resp- clear to auscultation bilaterally, diminished, (more content not included)...[facility]10-27-2023 History of Present illness Narrative* William Croft MD - 12/13/2022 1:00 PM EDT Images from the original note were not included. Patient Name: Idalmis Lion PRIMARY CARE PHYSICIAN: Rigo Berger DO Date of visit: December 13, 2022 COMMUNICATION WILL BE SENT VIA SHARED MEDICAL RECORDS OR US MAIL. Subjective: Idalmis Lion is a 62 year old female who is new to this clinic for evaluation of pulmonary hypertension and right heart catheterization. This is a referral from Dr Rigo Sands in [place] for evaluation for RHC. Patient has history of HARRISON on BIPAP (compliant with NIPPV), hx of PE back in 2018 on xarelto, and morbid obesity. She starts the visit by discussing her experience with shortness of breath. This has been going on for years and has been progressively getting worse. Minimal activities such as short walks around the house, stair climbing, or basic ADLs/chores result in dyspnea. This is associated with "leg heaviness" as she feels she just can't due it anymore. She did previously have wheezing and she was put oninhalers which helped with the wheezing, but not with dyspnea. She is currently on nebulized budesonide and albuterol. She denies chest pain. + weight gain over the last year, about 20lbs. + pedal edema R>L. She went on course of lasix with no improvement in edema or respiratory symptoms, so this was discontinued. + nasal congestion/PND which she takes flonase for with + clinical improvement. She denies any history of asthma, COPD, or any other lung disorders. Smoked for total of 20 years, quit 10 years ago. 1ppd on average. Rare ETOH use. 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 Has no environmental allergies. 2 dogs (poodle/boxer) QUESTIONS SURROUNDING PULMONARY HYPERTENSION RISK: Prior diet pill use? Yes (OTC) Prior use of amphetamines? Teenager - 1 year only socially H/o DVT or PE? Yes Prior liver disease? No Prior HIV/Hepatitis B or C risk? No H/o splenectomy? No Prior thyroid disease? No Prior lung disease? No Family h/o PAH? No Snoring or witnessed apneas? Yes Arthralgias? Back pain, knee Skin rash or lesions? No Raynaud's symptoms? No PMHx: PAST MEDICAL HISTORY Diagnosis Date Diabetes mellitus (HCC) Essential hypertension Sleep apnea Social Hx: MEDICATIONS: metFORMIN (GLUCOPHAGE) 1,000 mg tablet Take 1,000 mg by mouth daily with breakfast. eluxadoline (VIBERZI) 100 mg tab Take 100 mg by mouth two times a day. GLIMEPIRIDE ORAL Take by mouth. rosuvastatin (CRESTOR) 10 mg tablet Take 10 mg by mouth once daily. celecoxib (CELEBREX) 200 mg capsule Take 200 mg by mouth two times a day. rivaroxaban (XARELTO) 20 mg tablet Take 20 mg by mouth daily with dinner. budesonide (PULMICORT) 0.5 mg/2 mL nebulizer solution Use 0.5 mg via nebulizer once daily. albuterol sulfate (VENTOLIN INHALATION) Inhale as instructed. ciprofloxacin HCl (CILOXAN) 0.3 % ophthalmic solution Use 1 Drop in both eyes three times daily. atenolol (TENORMIN) 50 mg tablet busPIRone HCl 30 mg tablet citalopram (CELEXA) 40 mg tablet fluticasone (FLONASE) 50 mcg/actuation nasal spray morphine SR (MS CONTIN, ORAMORPH SR) 15 mg 12 hr tablet LYRICA 100 mg capsule biotin 5 mg tab Take 5 mg by mouth once daily. oxyCODONE-acetaminophen (ENDOCET) 10-325 mg tablet Take 1 tablet by mouth every 4 hours as needed. meclizine (ANTIVERT) 25 mg tab Take 25 mg by mouth three times daily. olopatadine (PATANOL) 0.1 % ophthalmic solution Use 1 Drop in both eyes twice daily. (Patient not taking: Reported on 12/13/2022) FLUTICASONE/SALMETEROL (ADVAIR HFA INHALATION) Inhale as instructed. (Patient not taking: Reported on 12/13/2022) aspirin 81 mg chewable tablet Take 81 mg by mouth once daily. (Patient not taking: Reported on 12/13/2022) ALPRAZolam (XANAX) 0.25 mg tablet Take 0.25 mg by mouth at bedtime as needed. (Patient not taking: Reported on 12/13/2022) baclofen (LIORESAL) 20 mg tablet Take 20 mg by mouth three times daily. (Patient not taking: Reported on 12/13/2022) Allergies: Phenergan [Promethazine], Sulfa (Sulfonamide Antibiotics), and Tetnus [Tetanus Vaccines And Toxoid] ROS: GENERAL: (-) fevers, (-) chills, (-) night sweats, (-) nausea/vomiting, (-) weight loss, (+++) weight gain HEENT: (-) runny nose, (-) sore throat, (-) post-nasal drip RESPIRATORY: As above in subjective CARDIOVASCULAR: (-) chest pain, (-) palpitations, (+) LE edema. All other 10 point ROS reviewed and negative except for that mentioned above. PHYSICAL EXAM: BP 125/79 Pulse 89 Temp (Src) 97 (Temporal) Resp 22 Ht 5' 4" (1.63m) Wt 343 lb 1.6 oz (155.6kg) SpO2 93[room air]% BMI 58.86 kg/(m^2). General- nad, comfortable in general appearance Eyes- eomi, perrl ENT- oropharynx clear, atraumatic Neck- supple, no obvious JVD CV- RRR, no M/G/R Resp- clear to auscultation bilaterally, diminished, no wheezes or crackles, breathing nonlabored Abd- +bs, soft, nt, nd, morbidly obese Ext- no clubbing, cyanosis, + non-pitting pedal edema Derm- no lesions/rashes Psych- appropriate mood and affect Labs / Imaging / Diagnostic Studies: Diagnostic tests reviewed for today's visit, films/specimens were personally reviewed by me. TTE 09/[address] Chest 09/2022 Assessment: - Exertional dyspnea - Morbid Obesity - Hx of reactive airway disease/wheezing - Hx of tobacco abuse - HARRISON on BIPAP - Hx of pulmonary embolism 2018 (On reduced dose xarelto) - Physical deconditioning Plan: - Etiology behind patient's dyspnea is uncertain, but I suspect this is largely due to advanced physical deconditioning in setting of morbid obesity. Patient also has component of underlying reactiveairways disease which appears to be responsive to current inhaler regimen - In the differential is underlying pulmonary hypertension in which screening echo is limited givenpatients morbid obesity. Agree with pursuing RHC w/ obesity protocol at [facility] for further evaluation. Patient is agreeable and thus will set up. - Continue with BIPAP given ongoing compliance and clinical benefit - Continue xarelto - Discussed importance of weight loss and increased activity as tolerated. Tells me she is startingOzempic written to her by her PCP - Recommend follow up with Dr Wicho Serrano if symptoms worsen or fail to improve. William Croft MD December 13, 2022 1:01 PM documented [facility] Hospital Discharge instructions Patient Education 07/17/2022 20:50:27 Insect Bite Insect Bite Insects most often bite to protect themselves or their nests. Certain bugs, like fleas and mosquitoes, bite to feed. In some cases, the actual bite causes no pain. An itchy red welt or swelling may develop at the site of the bite. Most insect bites do not cause illness. And the itching and swellingmost often go away without treatment. However, an infection can develop if the bite is scratched and the skin broken. Rarely, a person may have an allergic reaction to an insect bite. If a stinger is visible at the bite spot, remove it as quickly as possible, as this can decrease the amount of venom that gets into your body. Scrape it out with a dull edge, such as the edge of a credit card. Try not to squeeze it. Do not try to dig it out, as you may damage the skin and also increase the chance of infection. To help reduce swelling and itching, apply a cold pack or ice in a zip-top plastic bag wrapped in athin towel. Home care Your healthcare provider may prescribe [id number] medicines to help relieve itching and swelling. Use each medicine according to the directions on the package. If the bite becomes infected, youwill need an antibiotic. This may be in pill form taken by mouth or as an ointment or cream put directly on the skin. Be sure to use them exactly as prescribed. Bite symptoms usually go away on their own within a week or two. To help prevent infection, avoid scratching or picking at the bite. To help relieve itching and swelling, apply ice in a zip-top plastic bag wrapped in a thin towel tothe bites. Do this for up to 10 minutes at a time. Avoid hot showers or baths as these tend to makeitching worse. An sghz-[id number] anti-itch medicine such as calamine lotion or an antihistamine cream may be helpful. If you suspect you have insects in your home, talk to a licensed pest-control professional. He or she can inspect your home and tell you how to get rid of bugs safely. Follow-up care Follow up with your healthcare provider, or as advised. Call 911 Call 911 if any of these occur: Trouble breathing or swallowing Wheezing Feeling like your throat is closing up Fainting, loss of consciousness Swelling around the face or mouth When to seek medical advice Call your healthcare provider right away if any of these occur: Fever of 100.4 F (38 C) or higher, or as directed by your healthcare provider Signs of infection, such as increased swelling and pain, warmth, red streaks, or drainage from the skin Signs of allergic reaction, such as hives, a spreading rash, or throat itching [id number] [employer]. [address] [place] [address]. All rights reserved. This information is not intended as a substitute for professional medical care. Always follow yourhealthcare professional's instructions. Follow Up Care 07/17/2022 20:32:50 With:ADRIÁN SOSA Address: [place] [address]- [phone] Business (1) When:2-4 days [facility] 05-31-2023 Note Discharge Instructions Thank you for allowing [facility] to assist you with your healthcare needs. The following is importantdischarge information regarding your hospital visit. Diagnosis from Today's Visit Insect bite and/or sting Insect bite of leg What to Do Next Instructions from Your Care Team No qualifying data available. Post Acute Orders No qualifying data available. You Need to Schedule the Following Appointments Follow Up with ADRIÁN SOSA When Within 2-4 days Where: [place] [address]- [phone] Business (1) Allergies Adhesive Bandage (Unknown) Phenergan (Vomiting) sulfa (Rash) tetanus toxoid (Swelling) Medications Please ask your primary doctor or pharmacist before taking any other medication not listed, including over the counter drugs, herbal medications, vitamins and or supplements as they may interact withyour home medications. What How Much When Why Instructions Last Dose New triamcinolone topical (triamcinolone 0.1% topicalointment) 1 application Topical Two (2) times a day Duration: 14 Days Printed Prescription Unchanged acetaminophen-oxyCODONE (Endocet 7.5/ 325 oral tablet) 2 tab(s) by mouth Every day as needed for as needed for pain Unchanged albuterol (Ventolin HFA MDI (90 mcg/ inh) inhalation aerosol) See instructions 2 puff(s) Inhalation up to 4 times daily PRN wheezing, shortness of breath Unchanged APAP/ butalbital/ caffeine (APAP/ butalbital/ caffeine 325-50-40 mg oral tablet (Fioricet)) 1 tab(s) by mouth Every 4 hours as needed for as needed as needed for headache Unchanged atenolol (atenolol 50 mg oral tablet) 0.5 tab(s) by mouth Once a day Unchanged biotin (Biotin 5000 mcg oral capsule) 1 cap by mouth Every day Unchanged budesonide (budesonide 0.5 mg/ 2 mL inhalation suspension) See instructions 1 vial in nebulizer twice a day Unchanged busPIRone (busPIRone 30 mg oral tablet) 1 tab(s) by mouth Two (2) times a day Duration: 90 Days Unchanged celecoxib (CeleBREX 200 mg oral capsule) 1 cap by mouth Once a day Duration: 90 Days Unchanged cetirizine (cetirizine 10 mg oral tablet) 1 tab(s) by mouth Once a day Unchanged citalopram (citalopram 40 mg oral tablet) 1 tab(s) by mouth Once a day Unchanged diclofenac topical (Voltaren 1% topical gel) 4 gram(s) Topical Four (4) times a day as needed for as needed for pain Right knee pain Duration: 30 Days Unchanged DME (Splint, wrist) See instructions Left carpal tunnel syndrome left cock up wrist splint Unchanged eluxadoline (Viberzi 100 mg oral tablet) 1 tab(s) by mouth Two (2) times a day Duration: 30 Days fill Unchanged furosemide (Lasix 20 mg oral tablet) 1 tab(s) by mouth Once a day as needed for pedal edema Unchanged glimepiride (glimepiride 1 mg oral tablet) 1 tab(s) by mouth Once a day Unchanged hydrOXYzine (hydrOXYzine hydrochloride 10 mg oral tablet) 1-2 tab(s) by mouth Every 6 hours as needed for as needed for anxiety Unchanged meclizine (meclizine 25 mg oral tablet) 1 tab(s) by mouth Once a day as needed for as needed for dizziness Unchanged metFORMIN (metFORMIN 1000 mg oral tablet (IR)) 1 tab(s) by mouth Two (2) times a day Uncontrolled diabetes mellitus, without long-term current use of insulin change in dose. May use 1/ 2 tablets to take dose best tolerated. Unchanged montelukast (montelukast 10 mg oral tablet) 1 tab(s) by mouth Once a day Unchanged morphine (morphine 15 mg oral tablet IMMEDIATE RELEASE) 1 tab(s) by mouth Once a day Unchanged omega-3 polyunsaturated fatty acids (MegaRed Ultra Krill Oil 1000 mg oral capsule) 1 cap by mouth Once a day Unchanged pregabalin (pregabalin 150 mg oral capsule) 1 cap by mouth Two (2) times a day Neuropathy Duration: 30 Days take 1 capsule by mouth twice a day. fill Unchanged rivaroxaban (Xarelto 20 mg oral tablet) 1 tab(s) by mouth Daily at bedtime Unchanged rosuvastatin (rosuvastatin 10 mg oral tablet) 1 tab(s) by mouth Once a day Please take this list to your next doctor s visit. Bring all medications you take, including over the counter medications, herbals and other supplements with you to your doctor s visit. Patients and families are reminded to discard old lists and to update any records with all medication providers or retail pharmacies. Medication Leaflets triamcinolone topical (TRYE am [place]) DermasilkRx SDS Joel, Dermasorb TA, DermaWerx SDS Joel, Kenalog, Oralone, Trianex, Triderm What is the most important information I should know about triamcinolone topical? Follow all directions on your medicine label and package. Tell each of your healthcare providers about all your medical conditions, allergies, and all medicines you use. What is triamcinolone topical? Triamcinolone is a potent steroid that helps reduce inflammation in the body. Triamcinolone topical (for the skin) is used to treat the inflammation and itching caused by skin conditions that respond to steroid medication. The dental paste form of triamcinolone topical is used to treat mouth ulcers. Triamcinolone topical may also be used for purposes not listed in this medication guide. What should I discuss with my healthcare provider before using triamcinolone topical? You should not use triamcinolone if you are allergic to it. Tell your doctor if you have ever had: any type of skin infection; a skin reaction to any steroid medicine; liver disease; or an adrenal gland disorder. Steroid medicines can increase the glucose (sugar) levels in your blood or urine. Tell your doctor if you have diabetes. Tell your doctor if you are or . If you apply triamcinolone to your chest, avoid areas that may come into contact with the nursing baby's mouth. How should I use triamcinolone topical? Follow all directions on your prescription label and read all medication guides or instruction sheets. Use the medicine exactly as directed. Triamcinolone topical cream, lotion, ointment, or spray is for use only on the skin. Triamcinolone dental paste is applied directly onto an ulcer inside the mouth and left in place. Do not swallow this medicine. Wash your hands before and after using triamcinolone topical, unless you are using this medicine totreat the skin on your hands. Apply a thin layer of medicine to the affected skin. Do not apply this medicine over a large area of skin unless your doctor has told you to. Do not cover the treated skin area with a bandage or other covering unless your doctor tells you to. Covering treated areas can increase the amount of medicine absorbed through your skin and may cause harmful effects. If you are treating the diaper area, do not use plastic pants or tight-fitting diapers. To use the dental paste, press a small dab onto the mouth ulcer but do not rub in the medicine. Thedab will form a thin film that should be left in place for several hours. Triamcinolone dental paste is usually applied at bedtime and/or after meals. Follow your doctor's instructions. Call your doctor if your symptoms do not improve, or if they get worse. A mouth ulcer should improve within 1 week of using triamcinolone dental paste. You should stop using this medicine once your symptoms are controlled. Store at room temperature away from moisture and heat. What happens if I miss a dose? Apply the medicine as soon as you can, but skip the missed dose if it is almost time for your next dose. Do not apply two doses at one time. What happens if I overdose? Seek emergency medical attention or call the Poison Help line at if anyone has accidentally swallowed the medication. High doses or long-term use of steroid medicine can lead to thinning skin, easy bruising, changes in body fat (especially in your face, neck, back, and waist), increased acne or facial hair, menstrual problems, impotence, or loss of interest in sex. What should I avoid while using triamcinolone topical? Avoid getting this medicine in your eyes. Avoid using other topical steroid medications on the areas you treat with triamcinolone unless yourdoctor tells you to. Do not use triamcinolone topical to treat any condition that has not been checked by your doctor. Do not share this medicine with another person, even if they have the same symptoms you have. What are the possible side effects of triamcinolone topical? Get emergency medical help if you have signs of an allergic reaction: hives; difficult breathing; swelling of your face, lips, tongue, or throat. Call your doctor at once if you have: worsening of your skin condition; redness, warmth, swelling, oozing, or severe irritation of any treated skin; blurred vision, tunnel vision, eye pain, or seeing halos around lights; high blood sugar--increased thirst, increased urination, dry mouth, fruity breath odor; or possible signs of absorbing this medicine through your skin or gums--weight gain (especially in your face or your upper back and torso), slow wound healing, thinning or discolored skin, increased body hair, muscle weakness, nausea, diarrhea, tiredness, mood changes, menstrual changes, sexual changes. Children can absorb larger amounts of this medicine through the skin and may be more likely to haveside effects such as growth delay, headaches, or pain behind the eyes. A baby using this medicine may have a bulging soft spot (the top of the head where the skull hasn't yet grown together). Common side effects may include: burning, itching, dryness, or other irritation of treated skin; redness or crusting around your hair follicles; redness or itching around your mouth; allergic skin reaction; stretch bautista; acne, increased body hair growth; thinning skin or discoloration; or white or 'pruned' appearance of the skin (caused by covering treated skin with a tight bandage or other covering). This is not a complete list of side effects and others may occur. Call your doctor for medical advice about side effects. You may report side effects to FDA at 5-709-IOG-2558. What other drugs will affect triamcinolone topical? Medicine used on the skin is not likely to be affected by other drugs you use. But many drugs can interact with each other. Tell each of your healthcare providers about all medicines you use, including prescription and rtxo-xgd-kbgssxi medicines, vitamins, and herbal products. Where can I get more information? Your pharmacist can provide more information about triamcinolone topical. Remember, keep this and all other medicines out of the reach of children, never share your medicines with others, and use this medication only for the indication prescribed. Every effort has been made to ensure that the information provided by [employer]. ('[employer]') is accurate, up-to-date, and complete, but no guarantee is made to that effect. Drug information contained herein may be time sensitive. [employer] information has been compiled for use by healthcare practitioners and consumers in the [place] and therefore [employer] does not warrant that uses outside of the [place] are appropriate, unless specifically indicated otherwise. [employer] drug information does not endorse drugs, diagnose patients or recommend therapy. [employer] drug information isan informational resource designed to assist licensed healthcare practitioners in caring for their p atients and/or to serve consumers viewing this service as a supplement to, and not a substitute for, the expertise, skill, knowledge and judgment of healthcare practitioners. The absence of a warningfor a given drug or drug combination in no way should be construed to indicate that the drug or drug combination is safe, effective or appropriate for any given patient. [employer] does not assume any responsibility for any aspect of healthcare administered with the aid of information [employer] provides. The information contained herein is not intended to cover all possible uses, directions, precautions, warnings, drug interactions, allergic reactions, or adverse effects. If you have questions about the drugs you are taking, check with your doctor, nurse or pharmacist. Copyright 6012-2229 [employer]. Version: 8.02. Revision Date: 02/12/2019. Education Materials Insect Bite Insects most often bite to protect themselves or their nests. Certain bugs, like fleas and mosquitoes, bite to feed. In some cases, the actual bite causes no pain. An itchy red welt or swelling may develop at the site of the bite. Most insect bites do not cause illness. And the itching and swellingmost often go away without treatment. However, an infection can develop if the bite is scratched and the skin broken. Rarely, a person may have an allergic reaction to an insect bite. If a stinger is visible at the bite spot, remove it as quickly as possible, as this can decrease the amount of venom that gets into your body. Scrape it out with a dull edge, such as the edge of a credit card. Try not to squeeze it. Do not try to dig it out, as you may damage the skin and also increase the chance of infection. To help reduce swelling and itching, apply a cold pack or ice in a zip-top plastic bag wrapped in athin towel. Home care Your healthcare provider may prescribe fmce-lrh-hgjwnsn medicines to help relieve itching and swelling. Use each medicine according to the directions on the package. If the bite becomes infected, youwill need an antibiotic. This may be in pill form taken by mouth or as an ointment or cream put directly on the skin. Be sure to use them exactly as prescribed. Bite symptoms usually go away on their own within a week or two. To help prevent infection, avoid scratching or picking at the bite. To help relieve itching and swelling, apply ice in a zip-top plastic bag wrapped in a thin towel tothe bites. Do this for up to 10 minutes at a time. Avoid hot showers or baths as these tend to makeitching worse. An gdva-yuz-yqfzkwr anti-itch medicine such as calamine lotion or an antihistamine cream may be helpful. If you suspect you have insects in your home, talk to a licensed pest-control professional. He or she can inspect your home and tell you how to get rid of bugs safely. Follow-up care Follow up with your healthcare provider, or as advised. Call 911 Call 911 if any of these occur: Trouble breathing or swallowing Wheezing Feeling like your throat is closing up Fainting, loss of consciousness Swelling around the face or mouth When to seek medical advice Call your healthcare provider right away if any of these occur: Fever of 100.4 F (38 C) or higher, or as directed by your healthcare provider Signs of infection, such as increased swelling and pain, warmth, red streaks, or drainage from the skin Signs of allergic reaction, such as hives, a spreading rash, or throat itching 1704-1252 [employer]. [address] [place] [address], [place] [id number]. All rights reserved. This information is not intended as a substitute for professional medical care. Always follow yourhealthcare professional's instructions. Additional Information VACCINATE! IT SAVES LIVES! Members of the community who have not yet received the COVID-19 vaccine and would like to receive it can visit one of [facility] vaccine clinics. There are many vaccine clinic locations within the [facility]. For locations and available times, please visit [email or web address]/. It is important to note that some COVID mobile vaccine clinics are held outdoors and may be canceled in rainy or stormy conditions. To learn more about pediatric vaccinations (ages 5-11), we invite you to visit the [facility] webpage. [email or web address]/[email or web address] [email or web address] learn more about the COVID-19 vaccine, we invite you to visit the CDC website for a list of frequently asked questions. https://www.cdc.gov/coronavirus/2019-ncov/vaccines/faq.html [facility] Patient [facility] Access Instructions: Stay connected with your healthcare team and access your personal medical information anytime with the [facility] [employer] Patient Portal. If you would like a full copy of your medical records please contact the [facility] Medical Records Department Friday through Friday between 8a.m. and 4:30p.m. Please follow the directions below to access the portal: 1.Access the email account you provided upon registration to the [facility].2.Look for an invitation email from [facility].3.Open the email and access the invitation link: [facility].Fill in the required willis to create your account. Sign into [email or web address] with your username and password that you created in the above steps to stay up to date. You can then view a summary of results, a summary of your visits, and the ability to download your summaries to your computer or send the information securely to a physician. Remember that your healthcare information is confidential, so carefully consider who you will allow to register on the [facility] Patient Portal for access to your information. You can also access the [facility] Patient Portal on the [email or web address]. Simply click on "Health Records" under "HealthDa[facility]re[facility]" and then click on the [facility] logo. HOW TO SAFELY DISPOSE OF PRESCRIPTION MEDICATIONS Please use one of the following methods to safely dispose of your unused medications. 1.Use a drug disposal kit: the drug disposal pouch allows you to safely discard your old and unuseddrugs. Ask your nurse to give you one when you are discharged.2.Visit a local take-back location: Many local pharmacies and police departments have programs that collect old and unwanted prescriptiondrugs. Call your local pharmacy or go to http://FromUs.[employer]/6S6Wh7j to find one close to you.3.Make use of household items: Use cat litter or old coffee grounds to dispose medications if other options arenot available. Mix your drugs with these household products, seal them in an airtight container andthrow it into the garbage. Call [facility]: [phone] to be sure your drugs can be disposed of in this way. Some medicines may require a different approach.4.Never flush your medications down the toilet. IF YOU HAVE BEEN PRESCRIBED AN OPIOIDS FOR PAIN If you have been prescribed an opioid (such as hydrocodone, oxycodone or morphine), it is critical to understand the possible side effects and risks of opioid pain medications. Even when taken as directed, opioids can have several side effects including: Tolerance, meaning you might need to take more of a medication for the same pain relief. Nausea, vomiting and/or constipation. Sleepiness, dizziness, dry mouth, confusion, depression or itching. Physical dependence, meaning you have withdrawal symptoms when a medication is stopped ? this can develop within a few days. KNOW YOUR RESPONSIBILITIES It is important to know exactly how much and how often to take the opioid pain medications you are prescribed. Never take opioids in higher amounts or more often than prescribed. Do not combine opioids with alcohol or other drugs that cause drowsiness, such as benzodiazepines, also known as benzos,including diazepam and alprazolam, muscle relaxants or sleep aids. Never sell or share prescriptionopioids. This is illegal. Store opioids in a secure place and out of reach of others (including children, family, friends and visitors). The last page(s) of this document has been signed and retained as a CHART COPY Signatures Patient Education Materials Insect Bite Medication Leaflets triamcinolone topical My discharge plan and instructions have been reviewed and explained to me and I,IDALMIS LION M understand my current condition and have read and understand these discharge instructions. I have receiveda written copy of the plan/instructions. If I have questions, I am aware that I should contact my do ctor. 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 [facility] Appointment Date:05/11/2021 08:35:00 AM Scheduled Provider:ADRIÁN SOSA DO Location:[facility] Appointment Type:PC OV Appointment Date:05/18/2021 10:20:00 AM Scheduled Provider:ADRIÁN SOSA DO Location:[facility] Appointment Type:PC Office Procedure OMT Appointment Date:06/08/2021 10:35:00 AM Scheduled Provider:ADRIÁN SOSA DO Location:[facility] Appointment Type:PC Office Procedure OMT Appointment Date:06/22/2021 10:35:00 AM Scheduled Provider:ADRIÁN SOSA DO Location:[facility] Appointment Type:PC Office Procedure OMT Appointment Date:07/06/2021 10:35:00 AM Scheduled Provider:ADRIÁN SOSA DO Location:[facility] Appointment Type:PC Office Procedure OMT Appointment Date:07/18/2021 10:00:00 AM Scheduled Provider:ADRIÁN SOSA DO Location:[facility] Appointment Type:PC OV Controlled Medication Appointment Date:07/20/2021 10:20:00 AM Scheduled Provider:ADRIÁN SOSA DO Location:[facility] Appointment Type:PC Office Procedure OMT Appointment Date:08/03/2021 10:20:00 AM Scheduled Provider:ADRIÁN SOSA DO Location:[facility] Appointment Type:PC Office Procedure OMT Future Scheduled Tests Laboratory* Pathology Taker Out Request 07/26/20 * A1C Hemoglobin 12/29/20 * Lipid Profile 12/29/20 * Complete Metabolic Panel 12/29/20 Radiology* MA Mammo Screening Bilateral w/ Fritz 07/20/20 [facility] Evaluation + Plan note Future Appointments Appointment Date:08/06/2022 10:30:00 AM Scheduled Provider:TRESSA PEREZ DO Location:[facility] Appointment Type:PC Office Procedure OMT Appointment Date:08/27/2022 10:30:00 AM Scheduled Provider:TRESSA PEREZ DO Location:[facility] Appointment Type:PC Office Procedure OMT Appointment Date:09/24/2022 11:00:00 AM Scheduled Provider:TRESSA PEREZ DO Location:[facility] Appointment Type:PC Office Procedure OMT Future Scheduled Tests Laboratory* A1C Hemoglobin 07/18/21 * Lipid Profile 07/18/21 * Complete Metabolic Panel 07/18/21 [facility] Evaluation + Plan note Future Appointments Appointment Date:08/27/2022 10:30:00 AM Scheduled Provider:TRESSA PEREZ DO Location:[facility] Appointment Type:PC Office Procedure OMT Appointment Date:09/24/2022 11:00:00 AM Scheduled Provider:TRESSA PEREZ DO Location:[facility] Appointment Type:PC Office Procedure OMT Appointment Date:01/24/2023 09:05:00 AM Scheduled Provider:ADRIÁN SOSA DO Location:[facility] Appointment Type:PC OV Follow Up Future Scheduled Tests Radiology* MA Mammo Screening Bilateral w/ Fritz 08/09/22 [facility] Evaluation + Plan note Future Appointments Appointment Date:07/23/2023 10:00:00 AM Scheduled Provider:ADRIÁN SOSA DO Location:[facility] Appointment Type:PC OV Future Scheduled Tests Laboratory* A1C Hemoglobin 07/28/23 * Lipid Profile 07/28/23 * Complete Metabolic Panel 07/28/23 Radiology* MA Mammo Screening Bilateral w/ Fritz 08/09/22 [facility] Evaluation + Plan note Future Appointments Appointment Date:07/29/2023 04:00:00 PM Scheduled Provider:TRESSA PEREZ DO Location:[facility] Appointment Type:PC Office Procedure OMT Appointment Date:07/31/2023 04:00:00 PM Scheduled Provider:ADRIÁN SOSA DO Location:[facility] Appointment Type:PC OV Future Scheduled Tests Radiology* MA Mammo Screening Bilateral w/ Fritz 08/09/22 [facility] Evaluation + Plan note Future Appointments Appointment Date:04/22/2024 11:00:00 AM Scheduled Provider:TRESSA PEREZ DO Location:[facility] Appointment Type:PC Office Procedure OMT Appointment Date:07/08/2024 11:00:00 AM Scheduled Provider:TRESSA PEREZ DO Location:[facility] Appointment Type:PC OV Future Scheduled Tests Laboratory* Thyroid Stimulating Hormone 07/31/23 * A1C Hemoglobin 01/30/24 * Lipid Profile 01/30/24 * Complete Metabolic Panel 01/30/24 Radiology* CT Low Dose Lung Cancer Screening (LDCT) 02/10/24 * MA Mammo Screening Bilateral w/ Fritz 02/10/24 * BD Bone Density DEXA Axial Skeleton Adult (21 yrs or older) 02/10/24 * US Abdomen and Aorta 02/10/24 [facility] Evaluation + Plan note Future Appointments Appointment Date:07/01/2024 10:30:00 AM Scheduled Provider:TRESSA PEREZ DO Location:[facility] Appointment Type:PC Office Procedure OMT Appointment Date:07/02/2024 08:30:00 AM Scheduled Provider: Location:[facility] Appointment Type:CV Procedure - Heart Lab/Hybrid OR Appointment Date:07/15/2024 10:30:00 AM Scheduled Provider:TRESSA PEREZ DO Location:[facility] Appointment Type:PC Office Procedure OMT Future Scheduled Tests Laboratory* Basic Metabolic Panel 06/11/24 * Thyroid Stimulating Hormone 07/31/23 * A1C Hemoglobin 01/30/24 * Complete Blood Count 06/11/24 * Lipid Profile 01/30/24 * Prothrombin Time - Panel 06/11/24 * Complete Metabolic Panel 01/30/24 [facility] Evaluation + Plan note Future Appointments Appointment Date:07/15/2024 10:30:00 AM Scheduled Provider:TRESSA PEREZ DO Location:[facility] Appointment Type:PC Office Procedure OMT Appointment Date:07/28/2024 11:00:00 AM Scheduled Provider:VIRGILIO TAN PA-C Location:[facility] Appointment Type:CV Hospital Follow Up Appointment Date:08/05/2024 02:00:00 PM Scheduled Provider:TRESSA PEREZ DO Location:[facility] Appointment Type:PC Office Procedure OMT Appointment Date:08/19/2024 11:00:00 AM Scheduled Provider:TRESSA PEREZ DO Location:[facility] Appointment Type:PC Office Procedure OMT Future Scheduled Tests Laboratory* Basic Metabolic Panel 06/11/24 * Urinalysis w/ C&S if Indicated 06/29/24 * Thyroid Stimulating Hormone 07/31/23 * Urine Culture 06/29/24 * A1C Hemoglobin 01/30/24 * Complete Blood Count 06/11/24 * Lipid Profile 01/30/24 * Prothrombin Time - Panel 06/11/24 * Complete Metabolic Panel 01/30/24 [facility] Evaluation + Plan note Future Appointments Appointment Date:07/28/2024 11:00:00 AM Scheduled Provider:VIRGILIO TAN PA-C Location:[facility] Appointment Type:CV Hospital Follow Up Appointment Date:08/05/2024 02:00:00 PM Scheduled Provider:TRESSA PEREZ DO Location:[facility] Appointment Type:PC Office Procedure OMT Appointment Date:08/19/2024 11:00:00 AM Scheduled Provider:TRESSA PEREZ DO Location:[facility] Appointment Type:PC Office Procedure OMT Appointment Date:09/02/2024 02:00:00 PM Scheduled Provider:TRESSA PEREZ DO Location:[facility] Appointment Type:PC Office Procedure OMT Appointment Date:09/21/2024 10:30:00 AM Scheduled Provider:TRESSA PEREZ DO Location:[facility] Appointment Type:PC Office Procedure OMT Future Scheduled Tests Laboratory* Basic Metabolic Panel 06/11/24 * Urinalysis w/ C&S if Indicated 06/29/24 * Thyroid Stimulating Hormone 07/31/23 * Urine Culture 06/29/24 * A1C Hemoglobin 01/30/24 * Complete Blood Count 06/11/24 * Lipid Profile 01/30/24 * Prothrombin Time - Panel 06/11/24 * Complete Metabolic Panel 01/30/24 [facility] Evaluation + Plan note Future Appointments Appointment Date:08/26/2024 11:00:00 AM Scheduled Provider: Location:[facility] Appointment Type:Echo - Echocardiogram Adult Appointment Date:09/02/2024 02:00:00 PM Scheduled Provider:TRESSA PEREZ DO Location:[facility] Appointment Type:PC Office Procedure OMT Appointment Date:09/21/2024 10:30:00 AM Scheduled Provider:TRESSA PEREZ DO Location:[facility] Appointment Type:PC Office Procedure OMT Future Scheduled Tests Laboratory* Basic Metabolic Panel 07/28/24 * Urinalysis w/ C&S if Indicated 06/29/24 * Thyroid Stimulating Hormone 08/19/24 * Free T4 08/19/24 * Urine Culture 06/29/24 * A1C Hemoglobin 01/30/24 * A1C Hemoglobin 08/19/24 * Complete Blood Count 08/19/24 * Free T3 08/19/24 * Lipid Profile 01/30/24 * Lipid Profile 08/19/24 * Complete Metabolic Panel 01/30/24 * Complete Metabolic Panel 08/19/24 [facility] Evaluation + Plan note Future Appointments Appointment Date:09/02/2024 02:00:00 PM Scheduled Provider:TRESSA PEREZ DO Location:[facility] Appointment Type:PC Office Procedure OMT Appointment Date:09/21/2024 10:30:00 AM Scheduled Provider:TRESSA PEREZ DO Location:[facility] Appointment Type:PC Office Procedure OMT Future Scheduled Tests Laboratory* Basic Metabolic Panel 07/28/24 * Urinalysis w/ C&S if Indicated 06/29/24 * Thyroid Stimulating Hormone 08/19/24 * Free T4 08/19/24 * Urine Culture 06/29/24 * A1C Hemoglobin 01/30/24 * A1C Hemoglobin 08/19/24 * Complete Blood Count 08/19/24 * Free T3 08/19/24 * Lipid Profile 01/30/24 * Lipid Profile 08/19/24 * Complete Metabolic Panel 01/30/24 * Complete Metabolic Panel 08/19/24 [facility] Evaluation + Plan note Future Appointments Appointment Date:09/21/2024 10:30:00 AM Scheduled Provider:TRESSA PEREZ DO Location:[facility] Appointment Type:PC Office Procedure OMT Appointment Date:10/07/2024 10:30:00 AM Scheduled Provider:TRESSA PEREZ DO Location:[facility] Appointment Type:PC Office Procedure OMT Appointment Date:10/22/2024 10:30:00 AM Scheduled Provider:TRESSA PEREZ DO Location:[facility] Appointment Type:PC Office Procedure OMT Future Scheduled Tests Laboratory* Basic Metabolic Panel 07/28/24 * Urinalysis w/ C&S if Indicated 06/29/24 * Thyroid Stimulating Hormone 08/19/24 * Free T4 08/19/24 * Urine Culture 06/29/24 * A1C Hemoglobin 01/30/24 * A1C Hemoglobin 08/19/24 * Complete Blood Count 08/19/24 * Free T3 08/19/24 * Lipid Profile 01/30/24 * Lipid Profile 08/19/24 * Complete Metabolic Panel 01/30/24 * Complete Metabolic Panel 08/19/24 [facility] Evaluation + Plan note Future Appointments Appointment Date:11/11/2024 11:00:00 AM Scheduled Provider:TRESSA PEREZ DO Location:[facility] Appointment Type:PC Office Procedure OMT Appointment Date:11/25/2024 02:30:00 PM Scheduled Provider:TRESSA PEREZ DO Location:[facility] Appointment Type:PC Office Procedure OMT Appointment Date:12/09/2024 11:00:00 AM Scheduled Provider:TRESSA PEREZ DO Location:[facility] Appointment Type:PC Office Procedure OMT Appointment Date:12/23/2024 11:00:00 AM Scheduled Provider:TRESSA PEREZ DO Location:[facility] Appointment Type:PC Office Procedure OMT Appointment Date:01/06/2025 11:30:00 AM Scheduled Provider:TRESSA PEREZ DO Location:[facility] Appointment Type:PC Office Procedure OMT Appointment Date:01/20/2025 11:00:00 AM Scheduled Provider:TRESSA PEREZ DO Location:[facility] Appointment Type:PC Office Procedure OMT Appointment Date:02/03/2025 11:30:00 AM Scheduled Provider:TRESSA PEREZ DO Location:[facility] Appointment Type:PC Office Procedure OMT Appointment Date:02/18/2025 11:00:00 AM Scheduled Provider:TRESSA PEREZ DO Location:[facility] Appointment Type:PC Office Procedure OMT Future Scheduled Tests Laboratory* Basic Metabolic Panel 07/28/24 * A1C Hemoglobin 01/30/24 * Lipid Profile 01/30/24 * Complete Metabolic Panel 01/30/24 [facility] Evaluation noteNo assessment information available [facility] Work Phone: Evaluation note* Diagnosis Pulmonary hypertension (HCC)- Primary Other chronic pulmonary heart diseases Exertional dyspnea Other dyspnea and respiratory abnormality Morbid obesity (HCC) Morbid obesity HARRISON (obstructive sleep apnea) Obstructive sleep apnea (adult) (pediatric) Physical deconditioning Debility, unspecified [facility] Pulmonary hypertension ([facility]CC)- Primary Other chronic pulmonary heart diseases Exertional dyspnea Other dyspnea and respiratory abnormality [facility] Narrative No data available for this section [facility] Discharge instructions No data available for this section [facility] Progress note No data available for this section [facility] Progress note Author Taco Liriano [facility] Note Date/Time November 17, 2024 8: 52am [facility] [address] [place] [id number] OFFICE VISIT Date of Service: 11/17/24 MR#: [id number] Acct: [id number] Name: IDALMIS LION Rep #: [id number] : 1960 Provider: Dr. Shay Liriano, Age/Sex: 63/F Location[facility] Status: Signed Intake Vital Signs 09/06/24 11:12 11/17/24 08:37 Height 5 ft 4 in 5 ft 4 in Weight: 298 lb 8.094 oz 285 lb BMI 51.2 48.9 BP 177/98 H Position Semi-Fowlers Respiration 14 Pulse 78 Temp 97.0 F L Temp Source Temporal Pulse Oximetry (%) 95 Intake Visit Reasons: RIGHT KNEE Chief Complaint: Right Knee 1st Gelsyn 3 injection Accompanied by: Self Is patient in pain?: Yes Pain scale (1-10): 6 Allergies dulaglutide (From Trulicity) Allergy (Intermediate, Verified 11/17/24 08:43) Other liraglutide (From Victoza) Allergy (Intermediate, Verified 11/17/24 08:43) Other adhesive Allergy (Verified 11/17/24 08:43) Hives Sulfa (Sulfonamide Antibiotics) Allergy (Verified 11/17/24 08:43) Rash Tetanus Vaccines and Toxoid (Tetanus Vaccines & Toxoid) Allergy (Verified 11/17/24 08:43) Swelling promethazine HCl (From Phenergan) Adverse Reaction (Verified 11/17/24 08:43) Vomiting Medications ?Medication ?Instructions ?Recorded ?Confirmed ?Type buspirone 30 mg tablet 30 mg PO BID Anxiety 4 11/17/24 History citalopram 40 mg tablet 40 mg PO QHS Depression 08/3011/17/24 History meclizine 25 mg tablet 25 mg PO 4X/DAY PRN PRN Vert igo 03/26/13 11/17/24 History pregabalin 100 mg capsule (Lyrica) 150 mg PO BID nerve pain 03/26/13 11/17/24 History biotin 5 mg capsule 5,000 mcg PO DAILY supplemen t 05/19/14 11/17/24 History multivitamin,fl-wdxp-[id number] 27 1 tab PO DAILY supple ment 05/19/14 11/17/24 History mg-0.4 mg tablet (Therems-M) morphine 15 mg tablet,extended 15 mg PO DAILY pain 03/0511/17/24 History release diclofenac sodium 1 % topical gel 0 g topical PRN PRN Pain 11/04/16 11/17/24 History krill oil 500 mg capsule 500 mg PO DAILY supplement 0 05/29/17 11/17/24 History celecoxib 200 mg capsule 200 mg PO DAILY 07/07/1703/13 History rivaroxaban 20 mg tablet (Xarelto) 10 mg PO QHS 11/17/24 History hydroxyzine HCl 10 mg tablet 1 - 2 tab PO Q6H PRN PRN Anxiety 04/26/19 11/17/24 History albuterol 90 mcg/actuation aerosol 90 mcg inhalation P RN PRN SOB 05/03/22 11/17/24 History inhaler albuterol sulfate 2.5 mg/3 mL 2.5 mg inhalation Q4H MS N SOB 05/03/22 11/17/24 H istory (0.083 %) solution for nebulization oxycodone-acetaminophen 7.5 mg-325 1 tab PO BID PRN MS N pain 06/20/23 11/17/24 History mg tablet atenolol 50 mg tablet 25 mg PO QHS Blood pressure 02/25/24 11/17/24 History magnesium oxide 400 mg PO QDAY 02/25/2403/13 History lisinopril 10 mg tablet 10 mg PO DAILY 08/30/2403/13 History tirzepatide 12.5 mg/0.5 mL 12.5 mg subcut QWEEK 11/17/24 History subcutaneous pen injector (Mounquintonro) Have you fallen in the past year?: No PFSH Medical History Pain Loss of hearing Wears glasses Post-menopausal Arthritis Pulmonary embolism Migraine headache Injury of head and neck Dietary restriction History of IBS Former smoker COPD (chronic obstructive pulmonary disease) On home oxygen therapy BiPAP (biphasic positive airway pressure) dependence Shortness of breath on exertion History of pain when walking History of edema Cardiology follow-up encounter History of echocardiogram History of stress test Pain HTN (hypertension) Anxiety Depression Diabetes Osteoporosis Chronic pain Surgical History History of cardiac catheterization Hx of lumbar discectomy Hx of tubal ligation History of tonsillectomy and adenoidectomy Hx of nasal septoplasty Hx of oral surgery History of myringotomy History of hysteroscopy Social History Smoking Status: Former smoker HPI RIGHT KNEE Details: This documentation accurately reflects the service provided and the decisions made by me, Dr. Taco Liriano, DO 11/17/24 0758. Part of today?s visit was documented by Shayy Patel MA, acting as scribe. IDALMIS LION is a 63 year old F here today for right knee 1st Gelysn 3 injection, 11/01/2024 visit:here today for right knee pain. She states the pain returned a month ago and is waking her up at night. She did get relief from the last steroid injection and would like to proceed with that again. 06/24/2024 visit:here today for right knee steroid injection. Patient stated that the steroid injection did help a little bit last time. She would like to start chair yoga. Patient talked to her PCP Dr. Perez at [facility]. She states that her knee is moderate today, she didn't use her cane today. Plan:Patient requested and received a right knee intra-articular steroid injection today 03/29/2024: Third Gelsyn 03/22/2024: Second Gelsyn 03/15/2024: First right knee Gelsyn injection 02/25/2024 visit:63 year old F with medical comorbidities significant for but not limited to morbid obesity BMI 54.6 history of pulmonary emboli, hypertension, anxiety and depression, spondylosis with myelopathy, diabetes, narcotic use, Xarelto here as a referral from [facility] for potential viscosupplementation of her right knee. has been bothering her for quite awhileand she states it is gradually getting worse and she is bone on bone now. Patient states she has been getting steroid injections at [facility] and withher PCP for about a year now. Patient states the last steroid injection would have been given the beginning of December and she is due for her next one March 20, 2024. Patient states the steroid injections usually give her relief but the last one did not give her much relief at all. Patient states the knee wakes her up at night and she has trouble sleeping due to the pain. Patient denies any surgery or physical therapy. Patient has never tried the viscosupplementation injections but is interested in trying those. Patient describes the knee pain over the anterior aspect of the knee. Patient states shegets numbness/tingling in the leg but states it is from a back injury that she is dealing with. Patient states she takes Oxycodone for back pain but states it is not helping much for the knee pain. Plan:Talked to patient about her outside radiographs that were brought in. She does have pretty severe arthritis in the right knee. Spoke to patient that she can try the viscosupplementation injections but explained that these aren't quite beneficial with more severe arthritis and hers is pretty severe. Explainedthese can be given in conjunction with the steroid injections that she is already getting. Since she is due to have these March she would need to wait on the steroid injection. Explained that if she would like to start getting the steroid injections here with us she is able to do so and they can be given when she schedules the visco injections. Will submit to insurance for the viscosupplementation injections. Follow up once the visco injections are approved or sooner if pain, swelling, numbness or associated symptoms, or concerns develop. All questions answered. Patient in agreement of plan. Ortho Exam General General: Yes no acute distress and Yes well groomed Neurologic: Yes alert and Yes oriented x3 Psychologic: Yes reasonable and appropriate Right Knee Skin/Wound: Yes CDI, No erythema, No ecchymosis and No swelling Knee ROM: No ROM-Extension -20 to 0 (-4) and No ROM-Flexion 0-140 (90) Examination: Yes Med jt line tenderness, Yes Lat jt line tenderness, No Crepitus, Yes Pain with flexion and Yes Pain with extention Stability: NML: Anterior Drawer, NML: Posterior Drawer, NML: Valgus 0, NML: Valgus 30, NML: Varus 0 and NML: Varus 30 Patella Translation: 1 KNEE: no joint effusion FLEX 115 no collateral instability edema in the lower leg Left Knee Patella Translation: 1 Office Procedures Injections Procedure performed by: Taco Liriano Lot number: [id number] Skin Installer: [employer] date: 01/16/27 Dose of injection: 16.8 Medication Given: Yes Is this a patient provided medication?: Yes Additional Details: Obtained consent for injection. Under sterile conditions, injected the patientsright knee with 16.8ml Gelysn 3 injecftion. The patient tolerated the injectionwell without any noted complication. Patient should call our office if redness develops, pain worsens or if they have any concerns. Office Meds Gelsyn-3 16.8 mg/2 mL intra-articular syringe Performing Provider: Taco Liriano DO Performing Location: [facility] Administered by: Taco Liriano DO on 11/17/24 08:49 Dose Route Admin Location Dispensed Lot Number Expiration Date Pack age NDC [facility] Skin Installer 16.8 mg intra-articular right knee 2 mL [id number] 01/16/27 [address]-0 [id number] [employer] Supplemental Info 02/06/2024 x-ray on disc right knee: Severe medial compartment arthrosis mild lateral patellofemoral Coding Level of Care Code Off vis,est,level 3 Diagnoses Primary osteoarthritis of right knee M17.11 Osteoarthritis type: primary Class 3 severe obesity due to excess calories with serious comorbidity and body mass index (BMI) of 50.0 to 59.9 in adult E66.813; E66.01; Z68.43 Obesity type: due to excess calories Obesity classification: adult class 3 (BMI >= 40) Serious obesity comorbidity presence: with serious comorbidity Body mass index: BMI 50.0-59.9 Assessment and Plan Assessment and Plan (1) Osteoarthritis of right knee: Status: Acute Qualifiers: Osteoarthritis type: primary Qualified Code(s): M17.11 - Unilateral primary osteoarthritis, right knee (2) Obesity: Status: Acute Qualifiers: Obesity type: due to excess calories Obesity classification: adult class 3 (BMI >= 40) Serious obesity comorbidity presence: with serious comorbidity Body mass index: BMI 50.0-59.9 Qualified Code(s): E66.813 - Obesity, class 3; E66.01 - Morbid (severe) obesity due to excess calories; Z68.43 - Body mass index [BMI] 50.0-59.9, adult Orders: Orders Gelsyn Injection Today M17.11 - Unilateral primary osteoarthritis, right knee Plan First Gelsyn-3 injection right knee Clinical Quality Measures Falls Risk Screening/Assistive Devices Have you fallen in the past year?: No 11/17/24 1035 <Electronically signed by Taco mackey DO> Date _ Taco Liriano DO Cosigner Signature: Date (if applicable) CC: ~ [facility] Work Phone: Progress note Author Taco Liriano [facility] Note Date/Time December 01, 2024 1 0:20am [facility] [address] [place] [id number] OFFICE VISIT Date of Service: 12/01/24 MR#: [id number] Acct: [id number] Name: IDALMIS LION Rep #: [id number] : 1960 Provider: Dr. Shay Liriano DO Age/Sex: 64/F Location: [facility] Status: Signed Intake Vital Signs 09/06/24 11:12 11/17/24 08:37 Height 5 ft 4 in 5 ft 4 in Weight: 285 lb BMI 48.9 Intake Visit Reasons: RIGHT KNEE Chief Complaint: Right Knee 3rd Gelsyn 3 injection Is patient in pain?: Yes (Right knee ) Pain scale (1-10): 8 Allergies dulaglutide (From Trulicity) Allergy (Intermediate, Verified 12/01/24 10:08) Other liraglutide (From Victoza) Allergy (Intermediate, Verified 12/01/24 10:08) Other adhesive Allergy (Verified 12/01/24 10:08) Hives Sulfa (Sulfonamide Antibiotics) Allergy (Verified 12/01/24 10:08) Rash Tetanus Vaccines and Toxoid (Tetanus Vaccines & Toxoid) Allergy (Verified 12/01/24 10:08) Swelling promethazine HCl (From Phenergan) Adverse Reaction (Verified 12/01/24 10:08) Vomiting Medications ?Medication ?Instructions ?Recorded ?Confirmed ?Type buspirone 30 mg tablet 30 mg PO BID Anxiety 4 12/01/24 History citalopram 40 mg tablet 40 mg PO QHS Depression 08/3012/01/24 History meclizine 25 mg tablet 25 mg PO 4X/DAY PRN PRN Vert igo 03/26/13 12/01/24 History pregabalin 100 mg capsule (Lyrica) 150 mg PO BID nerve pain 03/26/13 12/01/24 History biotin 5 mg capsule 5,000 mcg PO DAILY supplemen t 05/19/14 12/01/24 History multivitamin,ph-knqj-zoqwrspn 27 1 tab PO DAILY supple ment 05/19/14 12/01/24 History mg-0.4 mg tablet (Therems-M) morphine 15 mg tablet,extended 15 mg PO DAILY pain 03/0512/01/24 History release diclofenac sodium 1 % topical gel 0 g topical PRN PRN Pain 11/04/16 12/01/24 History krill oil 500 mg capsule 500 mg PO DAILY supplement 0 05/29/17 12/01/24 History celecoxib 200 mg capsule 200 mg PO DAILY 07/07/17 History rivaroxaban 20 mg tablet (Xarelto) 10 mg PO QHS 12/01/24 History hydroxyzine HCl 10 mg tablet 1 - 2 tab PO Q6H PRN PRN Anxiety 04/26/19 12/01/24 History albuterol 90 mcg/actuation aerosol 90 mcg inhalation P RN PRN SOB 05/03/22 12/01/24 History inhaler albuterol sulfate 2.5 mg/3 mL 2.5 mg inhalation Q4H MS N SOB 05/03/22 12/01/24 History (0.083 %) solution for nebulization oxycodone-acetaminophen 7.5 mg-325 1 tab PO BID PRN MS N pain 06/20/23 12/01/24 History mg tablet atenolol 50 mg tablet 25 mg PO QHS Blood pressure 02/25/24 12/01/24 History magnesium oxide 400 mg PO QDAY 02/25/2411/17 History lisinopril 10 mg tablet 10 mg PO DAILY 08/30/2411/17 History tirzepatide 12.5 mg/0.5 mL 12.5 mg subcut QWEEK 12/01/24 History subcutaneous pen injector (Mounjaro) Have you fallen in the past year?: No PFSH Medical History Pain Loss of hearing Wears glasses Post-menopausal Arthritis Pulmonary embolism Migraine headache Injury of head and neck Dietary restriction History of IBS Former smoker COPD (chronic obstructive pulmonary disease) On home oxygen therapy BiPAP (biphasic positive airway pressure) dependence Shortness of breath on exertion History of pain when walking History of edema Cardiology follow-up encounter History of echocardiogram History of stress test Pain HTN (hypertension) Anxiety Depression Diabetes Osteoporosis Chronic pain Surgical History History of cardiac catheterization Hx of lumbar discectomy Hx of tubal ligation History of tonsillectomy and adenoidectomy Hx of nasal septoplasty Hx of oral surgery History of myringotomy History of hysteroscopy Social History Smoking Status: Former smoker HPI RIGHT KNEE Details: This documentation accurately reflects the service provided and the decisions made by me, Dr. Taco Liriano, 12/01/24 0750. Part of today?s visit was documented by Shira Francis RN, acting as scribe. IDALMIS LION is a 64 year old F here today for 3rd right knee Glesyn 3 injection 2024 visit:2nd right knee Gelsyn 3 injection. 11/17/2024 visit: right knee 1st Gelysn 3 injection, 11/01/2024 visit:here today for right knee pain. She states the pain returned a month ago and is waking her up at night. She did get relief from the last steroid injection and would like to proceed with that again. 06/24/2024 visit:here today for right knee steroid injection. Patient stated that the steroid injection did help a little bit last time. She would like to start chair yoga. Patient talked to her PCP Dr. Perez at [facility]. She states that her knee is moderate today, she didn't use her cane today. Plan:Patient requested and received a right knee intra-articular steroid injection today 03/29/2024: Third Gelsyn 03/22/2024: Second Gelsyn 03/15/2024: First right knee Gelsyn injection 02/25/2024 visit:63 year old F with medical comorbidities significant for but not limited to morbid obesity BMI 54.6 history of pulmonary emboli, hypertension, anxiety and depression, spondylosis with myelopathy, diabetes, narcotic use, Xarelto here as a referral from [facility] for potential viscosupplementation of her right knee. has been bothering her for quite awhileand she states it is gradually getting worse and she is bone on bone now. Patient states she has been getting steroid injections at [facility] and withher PCP for about a year now. Patient states the last steroid injection would have been given the beginning of December and she is due for her next one March 20, 2024. Patient states the steroid injections usually give her relief but the last one did not give her much relief at all. Patient states the knee wakes her up at night and she has trouble sleeping due to the pain. Patient denies any surgery or physical therapy. Patient has never tried the viscosupplementation injections but is interested in trying those. Patient describes the knee pain over the anterior aspect of the knee. Patient states shegets numbness/tingling in the leg but states it is from a back injury that she is dealing with. Patient states she takes Oxycodone for back pain but states it is not helping much for the knee pain. Plan:Talked to patient about her outside radiographs that were brought in. She does have pretty severe arthritis in the right knee. Spoke to patient that she can try the viscosupplementation injections but explained that these aren't quite beneficial with more severe arthritis and hers is pretty severe. Explainedthese can be given in conjunction with the steroid injections that she is already getting. Since she is due to have these February she would need to wait on the steroid injection. Explained that if she would like to start getting the steroid injections here with us she is able to do so and they can be given when she schedules the visco injections. Will submit to insurance for the viscosupplementation injections. Follow up once the visco injections are approved or sooner if pain, swelling, numbness or associated symptoms, or concerns develop. All questions answered. Patient in agreement of plan. Ortho Exam General General: Yes no acute distress and Yes well groomed Neurologic: Yes alert and Yes oriented x3 Psychologic: Yes reasonable and appropriate Right Knee Skin/Wound: Yes CDI, No erythema, No ecchymosis and No swelling Knee ROM: No ROM-Extension -20 to 0 (-4) and No ROM-Flexion 0-140 (90) Examination: Yes Med jt line tenderness, Yes Lat jt line tenderness, No Crepitus, Yes Pain with flexion and Yes Pain with extention Stability: NML: Anterior Drawer, NML: Posterior Drawer, NML: Valgus 0, NML: Valgus 30, NML: Varus 0 and NML: Varus 30 Patella Translation: 1 KNEE: no joint effusion FLEX 115 no collateral instability edema in the lower leg Left Knee Patella Translation: 1 Office Procedures Injections Is this a patient provided medication?: No Additional Details: Obtained consent for injection. Under sterile conditions, injected the patientsright knee [id number] Gelsyn 3. The patient tolerated the injection well without any noted complication. Patient should call our office if redness develops, pain worsens or if they have any concerns. Office Meds Gelsyn-3 16.8 mg/2 mL intra-articular syringe Performing Provider: Taco Liriano DO Performing Location: [facility] Administered by: Taco Liriano DO on 12/01/24 10:06 Dose Route Admin Location Dispensed Lot Number Expiration Date Pack age NDC NDC Skin Installer 16.8 mg intra-articular right knee 2 mL [id number] 01/16/27 [id number] [employer] Supplemental Info 02/06/2024 x-ray on disc right knee: Severe medial compartment arthrosis mild lateral patellofemoral Coding Level of Care Code Off vis,est,level 3 Diagnoses Primary osteoarthritis of right knee M17.11 Osteoarthritis type: primary Assessment and Plan Assessment and Plan (1) Osteoarthritis of right knee: Status: Acute Qualifiers: Osteoarthritis type: primary Qualified Code(s): M17.11 - Unilateral primary osteoarthritis, right knee Orders: Orders Gelsyn Injection Today M17.11 - Unilateral primary osteoarthritis, right knee Plan Second right knee Gelsyn-3 injection given today and patient tolerated well. Follow-up in 1 week for her last injection. Clinical Quality Measures Falls Risk Screening/Assistive Devices Have you fallen in the past year?: No 12/01/24 1121 <Electronically signed by Taco mackey DO> Date _ Taco Liriano DO Cosigner Signature: Date (if applicable) CC: ~ [facility] Work Phone: Reason for referral (narrative)No reason for referral information available[facility]: Family History No Family History Records Found Relationship Condition Age at Onset Recorded Date/T lionel Unknown Family History?- Unknown May 29, 2017 8:28pm Family History?- Unknown April 17, 2020 8:45am Relationship Condition Age at Onset Recorded Date/T lionel Unknown Family History?- Unknown May 29, 2017 7:28pm Family History?- Unknown April 17, 2020 7:45am Advance Directives No Advanced Directives Records Found Advance Directive Response Recorded Date/ Time Advance Directives Yes April 17 8:45am Living Will Yes June 19, 2020 11 :54am Power of Tractor Mechanic Helper Yes June 19, 2020 11:54am Advance Directive Response Recorded Date/ Time Name of Medical Power of Tractor Mechanic Helper SANTY KRUEGER/MAMTA STER May 03, 2022 11:57am Advance Directives Yes April 17 8:45am Living Will Yes May 03, 2022 11:57am Power of Tractor Mechanic Helper Yes May 03 11:57am Advance Directive Response Recorded Date/ Time Advance Directives Yes April 17 8:45am Living Will Yes May 03, 2022 11:57am Power of Tractor Mechanic Helper Yes May 03 11:57am Name of Medical Power of Tractor Mechanic Helper SANTY KRUEGER/SI STER May 03, 2022 11:57am Advance Directive Response Recorded Date/ Time Advance Directives Yes April 17 8:45am Living Will Yes May 03, 2022 11:57am Power of Tractor Mechanic Helper Yes May 03 11:57am Advance Directive Response Recorded Date/ Time Advance Directives Yes April 17 7:45am Living Will Yes May 03, 2022 10:57am Power of Tractor Mechanic Helper Yes May 03 10:57am Advance Directive Response Recorded Date/ Time Advance Directives Yes April 17 8:45am Living Will Yes June 20, 2023 9: 54am Power of Tractor Mechanic Helper Yes June 20, 2023 9:54am Name of Medical Power of Tractor Mechanic Helper SISTER June 20, 2023 9:54am Advance Directive Response Recorded Date/ Time Advance Directives Yes April 17 8:45am Advance Directive Response Recorded Date/ Time Do you have a Healthcare Power of Tractor Mechanic Helper? Yes August 30, 2024 1:29pm Advance Directives Yes April 17 8:45am Summary Purpose Chief Complaint and Reason for Visit Chief Complaint DYSPNEA Chief Complaint HX NICOTINE DEPENDEN CE Chief Complaint HX NICOTINE DEPENDEN CE PULM HTN PULM HTN Chief Complaint PULM HTN PULM HTN Chief Complaint Admit Date RIGHT KNEE March 22, 2024 9 :47am RIGHT KNEE March 29, 2024 9:44am RIGHT KNEE July 14, 2024 2:26p m Reason for Visit Admit Date Obesity March 22, 2024 9 :47am Osteoarthritis of right knee March 9:47am Obesity March 29, 2024 9:44am Osteoarthritis of right knee March 292024 9:44am Chief Complaint Admit Date RIGHT KNEE July 14, 2024 2:26p m [facility] September 06, 2024 10:4 0am Reason for Visit Admit Date Obesity July 14, 2024 2:26p m Osteoarthritis of right knee July 14, 2 025 2:26pm Chief Complaint Admit Date RIGHT KNEE July 14, 2024 2:26p m [facility] September 06, 2024 10:4 0am RIGHT KNEE November 01, 2024 11:05am Chief Complaint Admit Date [facility] September 06, 2024 10:4 0am RIGHT KNEE November 01, 2024 11:05am RIGHT KNEE November 17, 2024 8: 36am Reason for Visit Admit Date Obesity November 01, 2024 11:05am Osteoarthritis of right knee October 182024 11:05am Obesity November 17, 2024 8: 36am Osteoarthritis of right knee November 8:36am Chief Complaint Admit Date [facility] September 06, 2024 10:4 0am RIGHT KNEE November 01, 2024 11:05am RIGHT KNEE November 17, 2024 8: 36am RIGHT KNEE 2024 10 :14am Reason for Visit Admit Date Obesity November 01, 2024 11:05am Osteoarthritis of right knee October 182024 11:05am Obesity November 17, 2024 8: 36am Osteoarthritis of right knee November 8:36am Osteoarthritis of right knee November 10:14am Chief Complaint Admit Date [facility] September 06, 2024 10:4 0am RIGHT KNEE November 01, 2024 11:05am RIGHT KNEE November 17, 2024 8: 36am RIGHT KNEE 2024 10 :14am RIGHT KNEE December 01, 2024 1 0:01am Reason for Visit Admit Date Obesity November 01, 2024 11:05am Osteoarthritis of right knee October 182024 11:05am Obesity November 17, 2024 8: 36am Osteoarthritis of right knee November 8:36am Osteoarthritis of right knee November 10:14am Osteoarthritis of right knee November 10:01am Additional Source Comments Goals (unrecognized section and content) Goals may be documented in a n alternate section INFORMATION SOURCE (unrecogn ized section and content) DATE CREATED AUTHOR 07/21/2021 [facility] DATE CREATED AUTHOR AUTHOR'S ORGANIZ ATION 12/29/2022 [facility] DATE CREATED AUTHOR AUTHOR'S ORGANIZ ATION 07/25/2023 [facility] ([place]) DATE CREATED AUTHOR AUTHOR'S ORGANIZ ATION 07/17/2024 [facility] DATE CREATED AUTHOR AUTHOR'S ORGANIZ ATION 11/12/2024 [facility] DATE CREATED AUTHOR AUTHOR'S ORGANIZ ATION 12/25/2024 [facility] Care Teams (unrecognized sec tion and content) Team Status: Active Member Role Status Dates Dr. Adrián Sosa DO Family Provider Active Dr. Adrián Sosa DO Primary Care Provider Active Team Status: Inactive Member Role Status Dates Dr. Adrián Sosa DO Primary Care Provider Active Dr. Coy Lai MD Attending Provider, Referring Provider Active Team Status: Inactive Member Role Status Dates Dr. Adrián Sosa DO Primary Care Provider Active Dr. Rigo Sands MD Attending Provider, Referrin g Provider Active Team Status: Active Member Role Status Dates Dr. Adrián Sosa DO Primary Care Provider Active Dr. Rigo Sands MD Referring Provider, Other Pr ovider Active Dr. Gage An MD Attending Provider Active Conservation Planner Relationship Specialty Start Date End Date Rigo Berger DO PCP - General Family Medicine 07/03/16 Conservation Planner Relationship Specialty Start Date End Date Rigo Berger DO PCP - General Family Medicine 07/03/16 Team Status: Inactive Member Role Status Dates Dr. Adrián Sosa DO Primary Care Provider Active Start: March 22, 2024 End: March 22, 2024 Dr. Adrián Sosa DO Referring Provider Active Start: March 22, 2024 End: March 22, 2024 Dr. Taco Liriano DO Attending Provider Active Start: March 22, 2024 End: March 22, 2024 Team Status: Inactive Member Role Status Dates Dr. Adrián Sosa DO Primary Care Provider Active Start: March 29, 2024 End: March 29, 2024 Dr. Adrián Sosa DO Referring Provider Active Start: March 29, 2024 End: March 29, 2024 Dr. Taco Liriano DO Attending Provider Active Start: March 29, 2024 End: March 29, 2024 Team Status: Inactive Member Role Status Dates Dr. Adrián Sosa DO Primary Care Provider Active Start: July 14, 2024 End: July 14, 2024 Dr. Adrián Sosa DO Referring Provider Active Start: July 14, 2024 End: July 14, 2024 Dr. Taco Liriano DO Attending Provider Active Start: July 14, 2024 End: July 14, 2024 Team Status: Active Member Role/Relationship Status Dates Dr. Adrián Sosa DO Primary Care Provider Active Team Status: Inactive Member Role/Relationship Status Dates Dr. Adrián Sosa DO Primary Care Provider Active Start: July 14, 2024 End: July 14, 2024 Dr. Adrián Sosa DO Referring Provider Active Start: July 14, 2024 End: July 14, 2024 Dr. Taco Liriano DO Attending Provider Active Start: July 14, 2024 End: July 14, 2024 Team Status: Inactive Member Role/Relationship Status Dates Dr. Adrián Sosa DO Primary Care Provider Active Start: September 06, 2024 End: September 06, 2024 Dr. Coy Lai MD Attending Provider Active Start: September 06, 2024 End: September 06, 2024 Dr. Coy Lai MD Referring Provider Active Start: September 06, 2024 End: September 06, 2024 Team Status: Inactive Member Role/Relationship Status Dates Dr. Adrián Sosa DO Primary Care Provider Active Start: November 01, 2024 End: November 01, 2024 Dr. Adirán Sosa DO Referring Provider Active Start: November 01, 2024 End: November 01, 2024 Dr. Taco Liriano DO Attending Provider Active Start: November 01, 2024 End: November 01, 2024 Team Status: Active Member Role/Relationship Status Dates Dr. Adrián Sosa DO Primary care physician Active Team Status: Inactive Member Role/Relationship Status Dates Dr. Adrián Sosa DO Primary care physician Active Start: September 06, 2024 End: September 06, 2024 Dr. Coy Lai MD Attending physician Active Start: September 06, 2024 End: September 06, 2024 Dr. Coy Lai MD Referring Provider Active Start: September 06, 2024 End: September 06, 2024 Team Status: Inactive Member Role/Relationship Status Dates Dr. Adrián Sosa DO Primary care physician Active Start: November 01, 2024 End: November 01, 2024 Dr. Adrián Sosa DO Referring Provider Active Start: November 01, 2024 End: November 01, 2024 Dr. Taco Liriano DO Attending physician Active Start: November 01, 2024 End: November 01, 2024 Team Status: Inactive Member Role/Relationship Status Dates Dr. Adrián Sosa DO Primary care physician Active Start: November 17, 2024 End: November 17, 2024 Dr. Adrián Sosa DO Referring Provider Active Start: November 17, 2024 End: November 17, 2024 Dr. Taco Liriano DO Attending physician Active Start: November 17, 2024 End: November 17, 2024 Team Status: Inactive Member Role/Relationship Status Dates Dr. Adrián Sosa DO Primary care physician Active Start: 2024 End: 2024 Dr. Adrián Sosa DO Referring Provider Active Start: 2024 End: 2024 Dr. Taco Liriano DO Attending physician Active Start: 2024 End: 2024 Team Status: Inactive Member Role/Relationship Status Dates Dr. Adrián Sosa DO Primary care physician Active Start: December 01, 2024 End: December 01, 2024 Dr. Adrián Sosa DO Referring Provider Active Start: December 01, 2024 End: December 01, 2024 Dr. Taco Liriano DO Attending physician Active Start: December 01, 2024 End: December 01, 2024 Source Comments (unrecognize d section and content) In the event this informatio n is protected by the Federal Confidentiality of Alcohol and Drug Abuse Patient Records regulations: The Federal rules restrict any use of the information to criminally investigate or prosecute any alcohol or drug abuse patient.[facility] the event this information is protected by the Federal Confidentiality of Alcohol and Drug Abuse Patient Records regulations: The Federal rules restrict any use of the information to criminally investigate or prosecute any alcohol or drug abuse patient.[facility] the event this information is protected by the Federal Confidentiality of Alcohol and Drug Abuse Patient Records regulations: The Federal rules restrict any use of the information to criminally investigate or prosecute any alcohol or drug abuse patient.[facility] Reason for Visit (unrecogniz ed section and content) Reason Comments Pulmonary Hypertension Reason Comments Care Coordination Reason Comments Shortness of Breath FOR RECORDS PERTAINING TO PATIENTS WHO ARE OR HAVE BEEN ENROLLED IN A CHEMICAL DEPENDENCY/SUBSTANCEABUSE PROGRAM, SOME INFORMATION MAY BE OMITTED. This clinical summary was aggregated from multiple sources. Caution should be exercised in using it in the provision of clinical care. This summary normalizes information from multiple sources, and as a consequence, information in this document may materially change the coding, format and clinical context of patient data. In addition, data may be omitted in some cases. CLINICAL DECISIONS SHOULD BE BASED ON THE PRIMARY CLINICAL RECORDS. [employer] [facility]. provides no warranty or guarantee of the accuracy or completeness of information in this document.
--- NOTE | 2025-01-03 07:00 | RAD_ITS ---
PROCEDURE: CERV SPINE 4 OR 5 VIEWS 01/03/2025 REASON FOR EXAM: MEDIAL BRANCH NERVE BLOCK, CERVICAL TECHNIQUE: Procedure Code: [facility] Modality: DX Procedure: CERV SPINE 4 OR 5 VIEWS. Intraoperative fluoroscopic services provided for cervical medial branch nerve block. 5 seconds of fluoroscopy. 1.67 mGy radiation dose. 4 images were submitted. COMPARISON: None FINDINGS: Intraoperative fluoroscopic services provided for medial branch nerve block cervical RAD/Cerv Spine 4 or 5 Views IMPRESSION: Intraoperative fluoroscopic services provided for cervical medial branch nerve block. Disclaimer: Reading Location: [id number]
[2025-01-03] MEDS: Lactated Ringers 1,000 ML 15 ML IV (07:01)
--- NOTE | 2025-01-03 07:42 | PCM.PRE.AN2 ---
ASA Classification* ASA Classification ASA Classification: 3 Assessment & Plan Anesthesia* Anesthesia Assessment Anesthesia Assessment: Discussed sedation and/or anesthesia options, risks, benefits, and alternatives with patient/parents/legal guardian/POA. Questions invited. The patient/parents/legal guardian/POA seems to understand and agrees to proceed with anesthesia plan. Reviewed the physical assessment, medical history, allergy history and patient home medications list prior to surgery/procedure/anesthetic and documented any changes. Performed airway and anesthesia risk assessments. Anesthesia Type Anesthesia Type: MAC History Source History Obtained from:: Patient and Chart Anesthesia Focused Assessment* Temperature: 97.6 F Pulse Rate: 69 Blood Pressure: 146/85 Respiratory Rate: 16 Pulse Ox: 95 Oxygen Delivery Method: Room Air Airway Assessment Mouth opens: >3 cm Mallampati Score: III Teeth Condition: Chipped/Broken (Tooth #12 is broken.) and Missing (Patient has couple missing teeth. Rest of the teeth are tight.) Neck Range of motion (ROM): Limited ROM (Severe Restriction) Labs Anesthesia Preop lab: CBC WBC, (4.4-11.0) 8.6 K/mm3 09/18/23, 13:24 RBC, (4.2-5.4) 4.61 M/mm3 09/18/23, 13:24 Hgb, (12.0-15.0) 15.1 g/dL H 09/18/23, 13:24 Hct, (37-47) 44.2 % 09/18/23, 13:24 Plt Count, (150-450) 270 K/mm3 09/18/23, 13:24 CHEMISTRY Potassium, (3.5-5.1) 4.5 mmol/L 09/18/23, 13:24 Sodium, (136-145) 141 mmol/L 09/18/23, 13:24 Magnesium, (1.6-2.6) 2.2 mg/dL 18, 18:20 BUN, (7-18) 17 mg/dL 09/18/23, 13:24 Creatinine, (0.55-1.02) 0.82 mg/dL 09/18/23, 13:24 Glucose, (74-106) 134 mg/dL H 09/18/23, 13:24 POC Glucose, (74-106) 116 mg/dL H 09/06/24, 10:58 TSH, (0.358-3.74) 3.13 uIU/mL 03/30/13, 12:07 COAG PT, (11.7-14.9) 13.6 SECONDS 05/31/17, 06:28 Pre-Assessment Diagnosis/Proposed Procedure Planned Operative Procedure(s): (R) Block, Medial Branch Nerve, Cervical, C3 C4 C5 C6 Anesthesia History 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 When Was Last Pacemaker Check QUESTION #4 FULL TEXT: You/Your Family Experience fever (hyperthermia) with Anesthesia Last Oral Intake Last Oral intake: Last Oral Intake NPO since 530 01/03/25 06:50 Meds taken in AM with sips of Yes 01/03/25 06:50 water? Meds patient instructed to see mar 01/03/25 06:50 take am of surgery Any additional information?: Yes Meds taken in AM with sips of water?: Yes PONV PONV - linux systems engineer: PONV - linux systems engineer Female Yes 12/30/24 12:59 HX of Motion Sickness Yes 12/30/24 12:59 HX of N/V After Surgery No 12/30/24 12:59 Non-Smoker Yes 12/30/24 12:59 Duration of Surgery greater No 12/30/24 12:59 than 60 minutes Number of Risk Factors 3 12/30/24 12:59 PONV Score Moderate Risk 12/30/24 12:59 Height & Weight Height & Weight: Anesthesia: Height & Weight Height 5 ft 4 in 01/03/25 06:50 Weight: 134.717 kg 01/03/25 06:50 Body Mass Index (BMI) 51.0 01/03/25 06:50 Respiratory Assessment Respiratory Assessment - linux systems engineer: Respiratory Tract Infection Hx - linux systems engineer Hx Respiratory Tract Infection No 12/30/24 12:59 STOP Sleep Apnea STOP Sleep Apnea - linux systems engineer: STOP Sleep Apnea - linux systems engineer Hx Hypertension Yes 12/30/24 12:59 Hx Sleep Apnea Yes 12/30/24 12:59 CPAP No 12/30/24 12:59 BIPAP Yes 12/30/24 12:59 Do you snore loudly (louder than talking or can be heard Do you often feel tired/ fatigued/ sleepy during daytime? Has anyone observed you stop breathing during sleep? STOP Results Positive 12/30/24 12:59 QUESTION #5 FULL TEXT : Do you snore loudly (louder than talking or can be heard through closed doors)? 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 Specify any problems Hx of Preganancy in last 3 No 12/30/24 12:59 Months Nurse Filling Out Transfusion JZOLLNICO 12/30/24 12:59 & Questions: Date: 12/30/24 12/30/24 12:59 Time: 13:01 12/30/24 12:59 Patient unable to answer at this time (ie. confused, unrespo /Reproduction History /Reproductive History - linux systems engineer: /Reproductive Hx- linux systems engineer Hx Now No 12/30/24 12:59 Gestational Age (in weeks): EDC: Hx Hx Para Hx Section SAB No 12/30/24 12:59 Does the father of the baby or his family experience fever w Father of the baby Malignant Hypertension history comment Active Medications Active Medications: Current Medications Generic Name Dose Route Start Last Admin Trade Name Freq PRN Reason Stop Dose Admin Lactated Ringer's 1,000 mls @ 15 mls/hr 01/03/25 06:30 01/03/25 07:01 IV 15 mls/hr .Q48H CHAYA Administration PFSH Medical History Pain Loss of hearing Wears glasses Post-menopausal Arthritis Pulmonary embolism Migraine headache Injury of head and neck Dietary restriction History of IBS Former smoker COPD (chronic obstructive pulmonary disease) On home oxygen therapy BiPAP (biphasic positive airway pressure) dependence Shortness of breath on exertion History of pain when walking History of edema Cardiology follow-up encounter History of echocardiogram History of stress test Pain HTN (hypertension) Anxiety Depression Diabetes Osteoporosis Chronic pain Home Medications Medication Instructions Recorded Last Taken Type buspirone 30 mg tablet 30 mg PO BID Anxiety 03/26/13 09/05/24 History citalopram 40 mg tablet 40 mg PO QHS Depression 03/26/13 09/05/24 History meclizine 25 mg tablet 25 mg PO 4X/DAY PRN PRN Vertigo 03/26/13 05/05/22 History pregabalin 100 mg capsule (Lyrica) 150 mg PO BID nerve pain 03/26/13 09/05/24 History biotin 5 mg capsule 5,000 mcg PO DAILY supplement 05/19/14 09/05/24 History multivitamin,fy-idaj-fqfgwvsv 27 1 tab PO DAILY supplement 05/19/14 09/05/24 History mg-0.4 mg tablet (Therems-M) morphine 15 mg tablet,extended 15 mg PO DAILY pain 06/17/16 01/03/25 History release diclofenac sodium 1 % topical gel 0 g topical PRN PRN Pain 11/04/16 09/04/24 History krill oil 500 mg capsule 500 mg PO DAILY supplement 05/29/17 09/05/24 History celecoxib 200 mg capsule 200 mg PO DAILY 07/07/17 09/05/24 History rivaroxaban 20 mg tablet (Xarelto) 10 mg PO QHS 07/07/17 12/31/24 History hydroxyzine HCl 10 mg tablet 1 - 2 tab PO Q6H PRN PRN Anxiety 04/26/19 05/05/22 History albuterol 90 mcg/actuation aerosol 90 mcg inhalation PRN PRN SOB 05/03/22 09/21/23 History inhaler albuterol sulfate 2.5 mg/3 mL 2.5 mg inhalation Q4H PRN SOB 05/03/22 09/21/23 History (0.083 %) solution for nebulization oxycodone-acetaminophen 7.5 mg-325 1 tab PO BID PRN PRN pain 06/20/23 09/05/24 History mg tablet atenolol 50 mg tablet 25 mg PO QHS Blood pressure 02/25/24 01/02/25 21:00 History magnesium oxide 400 mg PO QDAY 02/25/24 09/05/24 History lisinopril 10 mg tablet 10 mg PO DAILY 08/30/24 01/02/25 History tirzepatide 12.5 mg/0.5 mL 12.5 mg subcut QWEEK 08/30/24 12/26/24 History subcutaneous pen injector (Mounjaro) OXYGEN - Supplemental ([facility] 12/30/24 Unknown History INFORMATIONAL USE ONLY) Allergy/AdvReac Type Severity Reaction Status Date / Time dulaglutide (From Trulicity) Allergy Intermediate Other Verified 01/03/25 06:48 liraglutide (From Victoza) Allergy Intermediate Other Verified 01/03/25 06:48 adhesive Allergy Hives Verified 01/03/25 06:48 Sulfa (Sulfonamide Allergy Rash Verified 01/03/25 06:48 Antibiotics) Tetanus Vaccines and Toxoid Allergy Swelling Verified 01/03/25 06:48 (Tetanus Vaccines & Toxoid) promethazine HCl (From AdvReac Vomiting Verified 01/03/25 06:48 Phenergan) Surgical History History of cardiac catheterization Hx of lumbar discectomy Hx of tubal ligation History of tonsillectomy and adenoidectomy Hx of nasal septoplasty Hx of oral surgery History of myringotomy History of hysteroscopy Social History Smoking Status: Former smoker Review of Systems (Anesthesia) ROS Narrative System reviewed and no additional complaints, except as documented.
[2025-01-03] MEDS: Midazolam 2 MG/2 ML Syringe IV (08:00)
[2025-01-03] MEDS: Lidocaine 1% (5 ml sdv) 5 ML Vial 4 ML IV (08:05)
--- NOTE | 2025-01-03 08:09 | OP.PCM_ITS ---
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 BLOOD LOSS: Minimal. COMPLICATIONS: None. DESCRIPTION OF PROCEDURE: History and physical of today was reviewed. Risks and benefits of the procedure were explained. The patient understood and agreed to proceed. Informed consent was obtained. IV inserted per routine protocol. The patient was taken to the operating room and placed in the prone position with a pillow positioned underneath the chest. The neck area was prepped and draped in a sterile fashion using iodine x3. Under fluoroscopy guidance on an AP view, the C3 through C6 vertebral bodies were visualized at approximately 10- degree angle, starting on the right C3, ending on the right C6, passing through the C4 and C5. Using a 25-gauge 3-1/2-inch spinal needle, the needle was advanced via the skin. The tip of the needle was maneuvered and directed towards the epiphyseal junction of each corresponding vertebra. Once the tip of the needle was at the vicinity of the medial branch, the needle was pulled approximately 2 mm off the bone. After negative aspiration of blood or CSF and confirmation on AP, oblique as well as lateral view, a total of 4 mL of preservative-free 0.25% Marcaine with 80 mg of Depo-Medrol was injected in divided doses between those four levels. The needles were then removed intact. The patient experienced no sign or symptoms of intrathecal or intravascular injection. The patient experienced no paresthesia. The procedure was completed without any apparent difficulty or any complications. The patient appeared to tolerate it well. ASSESSMENT AND PLAN: This is a 64-year-old female with cervical spondylosis, cervical degenerative disc disease, cervical facet arthropathy, status post right-sided cervical medial branch block at C3-4, C4-5, C5-6, under fluoroscopic guidance, patient will continue her current medications, patient will follow-up in approximately 1 to 2 weeks for reevaluation. Surgical Findings: 0 Complications Complications: No Admit VTE Documentation VTE Present on Admission: No VTE Mechan Device Prophylaxis: None VTE Pharm Prophylaxis ordered?: No
--- NOTE | 2025-01-03 08:22 | PCM.POST.ANE ---
Anesthesia: Postop Eval I Current Vital Signs Temperature: 98.6 F Pulse Rate: 50 Blood Pressure: 120/75 Respiratory Rate: 16 Pulse Ox: 94 Assessment Airway patent: Yes Spontaneous unlabored respirations: Yes nausea: No Vomiting: No Anesthesia Complication: No Fluid Hydration Crystalloid volume administer (ml): 94 Total IV fluid infused: 94 Progress Note Anesthesia document: Postop Eval 1 completed: Yes
--- NOTE | 2025-01-03 10:18 | POSTOPAN2_ITS ---
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 Spontaneous unlabored Yes 01/03/25 08:22 BOARDING HOUSE [email or web address] respirations Mental status nausea No 01/03/25 08:22 BOARDING HOUSE [email or web address] Vomiting No 01/03/25 08:22 BOARDING HOUSE [email or web address] Anesthesia Postop Eval I: Fluid Summary Crystalloid volume administer 94 01/03/25 08:22 BOARDING HOUSE [email or web address] (ml) Colloids volume administered ( ml) Blood Product volume administered (ml) Total IV fluid infused 94 01/03/25 08:22 BOARDING HOUSE [email or web address] Anesthesia Postop Eval I: Summary Notes Anesthesia Complication No 01/03/25 08:22 BOARDING HOUSE [email or web address] Anesthesia Complication Comment: Post-operative progress note Anesthesia: Postop Eval II Evaluation Mental status: Awake and Calm Pain Level: 0 nausea: No Vomiting: No
--- NOTE | 2025-01-03 10:18 | PCM.POSTANE2 ---
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
== END 2025-01-03 08:58 | disposition home or self-care (01) ==
LOC: SDC 06:25 → AC 06:27
PROVIDERS: Referring Provider Anesthesiology Pain Medicine; Visit Provider Anesthesiology Pain Medicine
DX: M47.812 Spondylosis without myelopathy or radiculopathy, cervical region (principal); M50.30 Other cervical disc degeneration, unspecified cervical region
CPT/HCPCS: 64491; 64490; 72050; 82962

== ENCOUNTER → 2025-01-12 | Outpatient (CLI) | payer MEDICARE, MEDICAID, SELFPAY ==
--- NOTE | 2025-01-12 15:56 | CT_ITS ---
PROCEDURE: SINUS/FACIAL BONE 01/12/2025 REASON FOR EXAM: SINUSITIS TECHNIQUE: Procedure Code: CTSI Modality: CT Procedure: SINUS/FACIAL BONE Coronal and Sagittal reconstruction series were provided. One or more dose reduction techniques were used (e.g., Automated exposure control, adjustment of the mA and/or kV according to patient size, use of iterative reconstruction technique). RADIATION DOSE SUMMARY: CTDlvol: 33.06 mGy DLP: 821.45 mGycm COMPARISON: None FINDINGS: The intracranial structures are grossly unremarkable. The orbits are within normal limits. The paranasal sinuses are clear. The ostiomeatal complexes are patent. There is some soft tissue density in the middle ear on the right on image 80, series 4. There is opacification of the mastoid air cells bilaterally of uncertain etiology. No obvious bony erosive change or cortical breakthrough. Parotid and submandibular glands are unremarkable. No neck adenopathy. Parapharyngeal soft tissues are within normal limits. Vasculature is unremarkable aside from carotid siphon region calcifications. The calvarium is intact. Facet arthropathy is noted at multiple cervical levels, most pronounced on the left. CT/Sinus/Facial Bone IMPRESSION: Mild soft tissue prominence in the middle ear canal on the right. Uncertain si gnificance. Consider ENT evaluation. Temporal bone CT may provide additional information. There is opacification of a portion of the mastoid air cells bilaterally which is nonspecific but could be seen with mastoiditis in the appropriate clinical setting. ENT evaluation is recommended if not alre lillian performed, particularly given the history of ear drainage. Reading [facility]
== END | disposition home or self-care (01) ==
LOC: CT 15:56
PROVIDERS: Referring Provider Otolaryngology; Visit Provider Otolaryngology
DX: J32.9 Chronic sinusitis, unspecified (principal)
CPT/HCPCS: 70486